=== PATIENT | female | born 1930 | race Caucasian/White ===

== ENCOUNTER 2017-01-25 02:20 | Emergency (ER) | payer MEDICARE, MEDICAID ==
[~2017-01-25] VITALS: Ht 157.5 cm; Wt 72.6 kg
[~2017-01-25 02:20] MED LIST: ACETAMINOPHEN500 M3 PO; ASPIRIN 81MG TA81 MG PO; BENZONATATE200 MG PO; CEFDINIR300 MG PO; CELEXA20 M1 PO; CENTRUM MU9 MG/15 ML PO; CENTRUM WOMEN1 EACH PO; DULCOLAX 1010 MG/SUP PR; EXPECTORAN100 MG/5 M PO; FERROUS SULFAT325 M2 PO; FOLIC ACID 1MG T1 MG PO; LOSARTAN POTASS50 MG PO; MAALOX ADVANCE355 ML PO; MEGACE LIQUI40 MG/ML PO; MELOXICAM7.5 MG PO; MIRALAX(PO17 GM/1 PA PO; MIRALAX17 GM/PACK PO; OMEPRAZOLE40 MG PO; PRILOSEC20 M1 PO; RISPERDAL 0.50.5 MG PO; SPIRIVA HA1 PUFF/INH IH; TESSALON PERLE100 M1 PO; TRAMADOL 50MG T50 M1 PO; ULTRAM50 MG PO; VISINE ADVANCED15 ML OP; VISINE TEARS15 ML OP; XALATAN 0.005%2.5 M1 OP; XALATAN 0.2.5 ML/BOT OP
[2017-01-25 02:36] LABS: LYMPH # 2.1 K/mm3 (0.7-4.5); LYMPH % 17.1 % (10-50.0)
--- NOTE | 2017-01-25 02:38 | Emergency Room Report ---
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 STATES PATIENT HAS C/O CHEST PAIN AND COFFEGROUND EMESIS BUT PATIENT HAS DEMENTIA AND DENIES C/O CHEST PAIN ENROUTE BUT AFTER ARRIVAL PATIENT C/O CHEST PAIN SINCE EATING SUPPER. 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 N Clinical Suspician of Infection? N Mental Status: 2 - Mildly Altered Sepsis Risk:Low Sepsis Risk Have you (or family members/close friends) recently traveled outside the [place]? N If Yes, where/when: Have you had exposure to infectious disease within the past month? N TB? Other? Specify: Source RN notes reviewed, family, RN/MD Exam Limitations no limitations Comment This is an 86-year-old lady brought in to the emergency room from local [facility]. Patient is severely demented, history is very limited. According to the [facility] papers the patient had an episode of hematemesis, and was complaining with chest pain. However when our staff called the correction for additional information it turned out that nobody actually witnessed patient vomiting blood. Patient has a history of Sr's esophagus, according to the medical records obtained from the correction. No additional information is obtained, it is unclear when the patient started complaining with above. ALLERGIES Coded Allergies: penicillin G (07/26/16) CHOCOLATE (FOOD) (Mild, ACID REFLUX 07/26/16) Home Medications Active Scripts Omeprazole (Omeprazole 40MG) 40 MG PO BID #60 ECC Ref 2 Prov: 07/28/16 Reported Medications Losartan Potassium (Losartan 50MG) 50 MG PO DAILY Benzonatate 200 MG PO DAILY Acetaminophen (Acetaminophen Extra Strength) 650 MG PO PRN Q6 PRN PAIN/ FEVER TETRAHYDRZ/DEXT 70/PEG 400/PVP (Visine Advanced Eye Drop) 1 DROP OP DAILY Multivitamin/Iron/Folic Acid (Centrum Women Tablet) 1 EACH PO DAILY Mag Hydrox/Al Hydrox/Simeth (Maalox Advanced Suspension) 30 ML PO Q6HP PRN INDIGESTION Bisacodyl (Dulcolax 10MG Supp) 10 MG [place] Q3D FOLIC ACID (Folic Acid) 1 MG PO DAILY Citalopram Hydrobromide (Celexa) 20 MG PO DAILY Tiotropium [place] (Spiriva) 1 PUFF IH DAILY Ferrous Sulfate (Ferrous Sulfate 325MG) 325 MG PO BID TRAMADOL HCL (Tramadol) 50 MG PO BID Latanoprost (Xalatan 0.005% Opth Soln) 1 DROP OP QHS Polyethylene Glycol 3350 (Glycolax) 17 GM PO DAILY #255 Loperamide HCl (Imodium A-D) 2 MG PO Q 4 HOURS PRN DIARRHEA History Medical History General CAD? No Angina: No ND: No Hypertension? Yes Hyperlipidemia? No CHF? No DVT? No PE? No COPD? No Asthma? No Anemia? No GERD? No Gastric ulcers? No GI Bleed? No Hernia? No Thyroid Problems? No Hypothyroidism? No CVA? No Seizures? No Diabetes? No Renal Insuffiency? No End Stage Renal Disease? No UTI? No Stones? No BPH? No GB Disease: No Nephritic Syndrome? No Asplenia? No Hepatitis? No Sickle Cell Disease? No Arthritis? Yes Migraines? No Cataracts? No Glaucoma? No MRSA? No HIV? No TB? No Anxiety? No Depression? Yes Cancer? No More? No Immunization Hx DT/Tetanus 1-4 Years Ago Flu 2016-17FSN Pneumonia Received In Past Surgical Hx Previous Surgery?Y BILAT. KNEE REPLACEMENT CHOLECYSTECTOMY Family History Family Hx Diabetes No CAD No Hypertension No Hyperlipidemia No Cancer No TB No Social History Smoking Hx Smoker: Never Smoker Tobacco: No Packs/day N/A Alcohol Alcohol: No Review of Systems All Other Systems Reviewed and Negative Cardiovascular chest pain Physical Exam Vital Signs Vital Signs Date Time Temp Pulse Resp B/P Pulse O2 O2 Flow FiO2 Ox Delivery Rate 01/25 0509 86 16 129/83 97 01/25 0356 62 14 188/111 91 01/25 0308 91 14 153/100 98 01/25 0222 98.2 85 14 190/125 94 General Appearance normal appearance, WD/WN, no apparent distress, severely demented, talking to herself Respiratory Status Yes: trachea midline, chest symmetrical, non tender chest. No: respiratory distress. Lung Sounds bilateral: normal breath sounds, lungs clear. Cardiovascular normal exam, regular rate/rhythm, no peripheral edema, no gallop, no JVD, no murmur, no rub, normal peripheral pulses Gastrointestinal normal bowel sounds, normal exam, non tender, soft, no organomegaly Extremities non-tender, normal range of motion, normal inspection Neurologic podiatrist II-XII nml as tested, disoriented x 3, severely demented, talking to herself Mental status depressed affect Skin intact, normal color, warm/dry Medical Decision Making LABS/Meds/Orders Pt receiving controlled substance in ED? No Comment [id number]-vision reevaluated, appears in no acute distress, advised of results obtained, need to follow-up with correction physician within the next 2-3 days. Results/Orders Laboratory Tests 01/25/17 0507: Troponin I < 0.02 01/25/17 020: Amylase 27, Lipase 110 01/25/17 020: Sodium 140, Potassium 5.0, Chloride 103, Carbon Dioxide 30, BUN 32 H, Creatinine 1.1 H, Estimated Creat Clear 42 L, Estimated GFR (MDRD) 47 L, Glucose 150 H, Calcium 9.9, Total Bilirubin 0.3, AST 19, ALT 23, Alkaline Phosphatase 101, Creatine Kinase 38, CK-MB (CK-2) Rel Index 1.3, CK and CKMB Interp 0.5, Troponin I < 0.02, Total Protein 7.6, Albumin 3.4, Globulin 4.2 H, Albumin/Globulin Ratio 0.8 L, WBC 12.0 H, RBC 4.85, Hgb 14.7, Hct 44.7, MCV 92.2, RDW 13.3, Plt Count 207, MPV 8.7, Gran % 71.5, Gran # 8.6 H, Lymphocytes % 17.1, Monocytes % 8.8, Eosinophils % 2.2, Basophils % 0.5, Lymphocytes # 2.1, Monocytes # 1.1 H, Eosinophils # 0.3, Basophils # 0.1, PUBS MCHC 32.8, MCH 30.2 Current Medication Orders Sig/Emanuel Start time Last Medication Dose Route Stop Time Status Admin Iopamidol 75 ML ONCE ONE 01/25 445 UNV 01/25 IV 01/25 Sodium Chloride 10 ML PRN PRN 01/25 445 UNV 01/25 IV 01/25 0614 0445 Sodium Chloride 1,000 ML .STK-MED ONE 01/25 034 DC IV Multi-Ingredient GI 60 ML ONCE ONE 01/25 0345 DC 01/25 Drug PO 01/25 034 0344 Ondansetron HCl 4 MG ONCE ONE 01/25 0345 CAN IV 01/25 0346 Pantoprazole Sodium 40 MG ONCE ONE 01/25 0345 DC 01/25 IV 01/25 0346 0343 Sodium Chloride 10 ML ONCE ONE 01/25 0345 DC 01/25 IV 01/25 0346 0400 Sodium Chloride 1,000 ML .Q1H1M 01/25 0345 DC 01/25 IV 01/25 0445 0351 Sodium Chloride 10 ML PRN PRN 01/25 345 AC 01/25 IV 01/26 034 0352 Pantoprazole Sodium 0 .STK-MED ONE 01/25 034 DC IV Multi-Ingredient GI 0 .STK-MED ONE 01/25 034 DC Drug PO Ondansetron HCl 4 MG ONCE ONE 01/25 0330 DC 01/25 IV 01/25 0331 0329 Ondansetron HCl 0 .STK-MED ONE 01/25 0329 DC .ROUTE Aspirin 325 MG ONCE ONE 01/25 0230 CAN PO 01/25 0231 Sodium Chloride 10 ML PRN PRN 01/25 0230 AC 01/25 IV 01/26 022 0352 Orders Procedure Date/time Status DIET-NOTHING BY MOUTH 01/25 B Active TROPONIN I 01/25 0514 Complete CTA-CHEST 01/[address] CHEST W/PE PROTOCOL REQ 01/25 337 Active LIPASE 01/25 238 Complete AMYLASE 01/25 238 Complete ELECTROCARDIOGRAM REQUEST 01/25 223 Active IV SALINE LOCK 01/25 223 Active DAMPENER OPERATOR 01/25 223 Active COMPLETE METABOLIC PANEL 01/25 223 Complete CBC WITH AUTO DIFF 01/25 223 Complete CARDIAC ENZYMES 01/25 223 Complete 12 LEAD EKG-JOE (INITIAL) 01/25 UNK Active CM/EKG CM/washroom operator Rhythm Normal Sinus Rhythm Rate 88 Ectopy No Comments No acute ischemic changes EKG rate, NSR, rhythm, no evid. of ischemic chgs, no ectopy, normal QRS, normal NJ, no EKG for comparison, non-spec. ST/Twave chgs, ST elevation, ST depression, LBBB, RBBB, ectopy, abnormal Q waves XRAY/CT/US XRAY/CT/US 1 XRAY chest XR interpretation by reviewed by me Xray Results no infiltrates, normal heart size, normal lung inflation pura Comment No acute process XRAY/CT/US 2 CT chest (PE protocol) CT interpretation by discussed w/radiologist CT Results abnormal Comment See virtual radiology report, consistent with no pulmonary embolus, large para- esophageal hernia Departure Departure Time of Disposition 0548 Disposition DC Home or Self Care(routine) Clinical Impression Primary Impression: Hiatal hernia Condition STABLE Referrals Spencer Gan MD (Family) Patient Instructions DI for Hiatal Hernia Additional Instructions Please follow up with your NH physician within the next 2 days. Discharge Counseling Counseled pt/family regarding diagnosis, test results, medications/RX, home care, follow up needs Comment Please follow up with your NH physician within the next 2 days. ED Critical Care Critical Care No at 0609
--- NOTE | 2017-01-25 02:38 | Emergency Room Report ---
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 STATES PATIENT HAS C/O CHEST PAIN AND COFFEGROUND EMESIS BUT PATIENT HAS DEMENTIA AND DENIES C/O CHEST PAIN ENROUTE BUT AFTER ARRIVAL PATIENT C/O CHEST PAIN SINCE EATING SUPPER. 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 N Clinical Suspician of Infection? N Mental Status: 2 - Mildly Altered Sepsis Risk:Low Sepsis Risk Have you (or family members/close friends) recently traveled outside the [place]? N If Yes, where/when: Have you had exposure to infectious disease within the past month? N TB? Other? Specify: Source RN notes reviewed, family, RN/MD Exam Limitations no limitations Comment This is an 86-year-old lady brought in to the emergency room from local [facility]. Patient is severely demented, history is very limited. According to the [facility] papers the patient had an episode of hematemesis, and was complaining with chest pain. However when our staff called the [facility] for additional information it turned out that nobody actually witnessed patient vomiting blood. Patient has a history of Sr's esophagus, according to the medical records obtained from the [facility]. No additional information is obtained, it is unclear when the patient started complaining with above. ALLERGIES Coded Allergies: penicillin G (07/26/16) CHOCOLATE (FOOD) (Mild, ACID REFLUX 07/26/16) Home Medications Active Scripts Omeprazole (Omeprazole 40MG) 40 MG PO BID #60 ECC Ref 2 Prov: 07/28/16 Reported Medications Losartan Potassium (Losartan 50MG) 50 MG PO DAILY Benzonatate 200 MG PO DAILY Acetaminophen (Acetaminophen Extra Strength) 650 MG PO PRN Q6 PRN PAIN/ FEVER TETRAHYDRZ/DEXT 70/PEG 400/PVP (Visine Advanced Eye Drop) 1 DROP OP DAILY Multivitamin/Iron/Folic Acid (Centrum Women Tablet) 1 EACH PO DAILY Mag Hydrox/Al Hydrox/Simeth (Maalox Advanced Suspension) 30 ML PO Q6HP PRN INDIGESTION Bisacodyl (Dulcolax 10MG Supp) 10 MG [place] Q3D FOLIC ACID (Folic Acid) 1 MG PO DAILY Citalopram Hydrobromide (Celexa) 20 MG PO DAILY Tiotropium [place] (Spiriva) 1 PUFF IH DAILY Ferrous Sulfate (Ferrous Sulfate 325MG) 325 MG PO BID TRAMADOL HCL (Tramadol) 50 MG PO BID Latanoprost (Xalatan 0.005% Opth Soln) 1 DROP OP QHS Polyethylene Glycol 3350 (Glycolax) 17 GM PO DAILY #255 Loperamide HCl (Imodium A-D) 2 MG PO Q 4 HOURS PRN DIARRHEA History Medical History General CAD? No Angina: No [place]: No Hypertension? Yes Hyperlipidemia? No CHF? No DVT? No PE? No COPD? No Asthma? No Anemia? No GERD? No Gastric ulcers? No GI Bleed? No Hernia? No Thyroid Problems? No Hypothyroidism? No CVA? No Seizures? No Diabetes? No Renal Insuffiency? No End Stage Renal Disease? No UTI? No Stones? No BPH? No GB Disease: No Nephritic Syndrome? No Asplenia? No Hepatitis? No Sickle Cell Disease? No Arthritis? Yes Migraines? No Cataracts? No Glaucoma? No MRSA? No HIV? No TB? No Anxiety? No Depression? Yes Cancer? No More? No Immunization Hx DT/Tetanus 1-4 Years Ago Flu 2016-17FSN Pneumonia Received In Past Surgical Hx Previous Surgery?Y BILAT. KNEE REPLACEMENT CHOLECYSTECTOMY Family History Family Hx Diabetes No CAD No Hypertension No Hyperlipidemia No Cancer No TB No Social History Smoking Hx Smoker: Never Smoker Tobacco: No Packs/day N/A Alcohol Alcohol: No Review of Systems All Other Systems Reviewed and Negative Cardiovascular chest pain Physical Exam Vital Signs Vital Signs Date Time Temp Pulse Resp B/P Pulse O2 O2 Flow FiO2 Ox Delivery Rate 01/25 0509 86 16 129/83 97 01/25 0356 62 14 188/111 91 01/25 0308 91 14 153/100 98 01/25 0222 98.2 85 14 190/125 94 General Appearance normal appearance, WD/WN, no apparent distress, severely demented, talking to herself Respiratory Status Yes: trachea midline, chest symmetrical, non tender chest. No: respiratory distress. Lung Sounds bilateral: normal breath sounds, lungs clear. Cardiovascular normal exam, regular rate/rhythm, no peripheral edema, no gallop, no JVD, no murmur, no rub, normal peripheral pulses Gastrointestinal normal bowel sounds, normal exam, non tender, soft, no organomegaly Extremities non-tender, normal range of motion, normal inspection Neurologic professor of biological sciences II-XII nml as tested, disoriented x 3, severely demented, talking to herself Mental status depressed affect Skin intact, normal color, warm/dry Medical Decision Making LABS/Meds/Orders Pt receiving controlled substance in ED? No Comment 0530am-vision reevaluated, appears in no acute distress, advised of results obtained, need to follow-up with [facility] physician within the next 2-3 days. Results/Orders Laboratory Tests 01/25/17 0507: Troponin I < 0.02 01/25/17 020: Amylase 27, Lipase 110 01/25/17 020: Sodium 140, Potassium 5.0, Chloride 103, Carbon Dioxide 30, BUN 32 H, Creatinine 1.1 H, Estimated Creat Clear 42 L, Estimated GFR (MDRD) 47 L, Glucose 150 H, Calcium 9.9, Total Bilirubin 0.3, AST 19, ALT 23, Alkaline Phosphatase 101, Creatine Kinase 38, CK-MB (CK-2) Rel Index 1.3, CK and CKMB Interp 0.5, Troponin I < 0.02, Total Protein 7.6, Albumin 3.4, Globulin 4.2 H, Albumin/Globulin Ratio 0.8 L, WBC 12.0 H, RBC 4.85, Hgb 14.7, Hct 44.7, MCV 92.2, RDW 13.3, Plt Count 207, MPV 8.7, Gran % 71.5, Gran # 8.6 H, Lymphocytes % 17.1, Monocytes % 8.8, Eosinophils % 2.2, Basophils % 0.5, Lymphocytes # 2.1, Monocytes # 1.1 H, Eosinophils # 0.3, Basophils # 0.1, PUBS MCHC 32.8, MCH 30.2 Current Medication Orders Sig/Emanuel Start time Last Medication Dose Route Stop Time Status Admin Iopamidol 75 ML ONCE ONE 01/25 445 UNV 01/25 IV 01/25 Sodium Chloride 10 ML PRN PRN 01/25 445 UNV 01/25 IV 01/25 0614 0445 Sodium Chloride 1,000 ML .STK-MED ONE 01/25 034 DC IV Multi-Ingredient GI 60 ML ONCE ONE 01/25 0345 DC 01/25 Drug PO 01/25 034 0344 Ondansetron HCl 4 MG ONCE ONE 01/25 0345 CAN IV 01/25 0346 Pantoprazole Sodium 40 MG ONCE ONE 01/25 0345 DC 01/25 IV 01/25 0346 0343 Sodium Chloride 10 ML ONCE ONE 01/25 0345 DC 01/25 IV 01/25 0346 0400 Sodium Chloride 1,000 ML .Q1H1M 01/25 0345 DC 01/25 IV 01/25 0445 0351 Sodium Chloride 10 ML PRN PRN 01/25 345 AC 01/25 IV 01/26 034 0352 Pantoprazole Sodium 0 .STK-MED ONE 01/25 034 DC IV Multi-Ingredient GI 0 .STK-MED ONE 01/25 034 DC Drug PO Ondansetron HCl 4 MG ONCE ONE 01/25 0330 DC 01/25 IV 01/25 0331 0329 Ondansetron HCl 0 .STK-MED ONE 01/25 0329 DC .ROUTE Aspirin 325 MG ONCE ONE 01/25 0230 CAN PO 01/25 0231 Sodium Chloride 10 ML PRN PRN 01/25 0230 AC 01/25 IV 01/26 022 0352 Orders Procedure Date/time Status DIET-NOTHING BY MOUTH 01/25 B Active TROPONIN I 01/25 0514 Complete CTA-CHEST 01/[address] CHEST W/PE PROTOCOL REQ 01/25 337 Active LIPASE 01/25 238 Complete AMYLASE 01/25 238 Complete ELECTROCARDIOGRAM REQUEST 01/25 223 Active IV SALINE LOCK 01/25 223 Active SYSTEMS DEVELOPMENT CONSULTANT 01/25 223 Active COMPLETE METABOLIC PANEL 01/25 223 Complete CBC WITH AUTO DIFF 01/25 223 Complete CARDIAC ENZYMES 01/25 223 Complete 12 LEAD EKG-JOE (INITIAL) 01/25 UNK Active CM/EKG CM/insurance collector Rhythm Normal Sinus Rhythm Rate 88 Ectopy No Comments No acute ischemic changes EKG rate, NSR, rhythm, no evid. of ischemic chgs, no ectopy, normal QRS, normal PA, no EKG for comparison, non-spec. ST/Twave chgs, ST elevation, ST depression, LBBB, RBBB, ectopy, abnormal Q waves XRAY/CT/US XRAY/CT/US 1 XRAY chest XR interpretation by reviewed by me Xray Results no infiltrates, normal heart size, normal lung inflation pura Comment No acute process XRAY/CT/US 2 CT chest (PE protocol) CT interpretation by discussed w/radiologist CT Results abnormal Comment See virtual radiology report, consistent with no pulmonary embolus, large para- esophageal hernia Departure Departure Time of Disposition 0548 Disposition DC Home or Self Care(routine) Clinical Impression Primary Impression: Hiatal hernia Condition STABLE Referrals Spencer Gna MD (Family) Patient Instructions DI for Hiatal Hernia Additional Instructions Please follow up with your NH physician within the next 2 days. Discharge Counseling Counseled pt/family regarding diagnosis, test results, medications/RX, home care, follow up needs Comment Please follow up with your NH physician within the next 2 days. ED Critical Care Critical Care No at 0609
[2017-01-25 02:41] LABS: HEMOGLOBIN 14.7 g/dL (12.2-16.2)
[2017-01-25] MEDS ORDERED: GLYCOLAX17 GM/DOSE PO (02:43)
[2017-01-25] MEDS ORDERED: IMODIUM A-D2 M3 PO (02:47)
[2017-01-25 03:01] LABS: BUN 32 mg/dL (7-18); GFR (ESTIMATED) 47 ML/MIN (59-)
--- OUTSIDE RECORDS SUMMARY | 2017-01-25 03:10 | External Medical Summary Rpt | CCD ---
Author Author , VAISHALI Organization VAISHALI Address Unknown Phone Care Team Providers Care Medical Surgery Nurse Name Role Phone BARRY BRANDT, BARRY BRANDT Unavailable Unavailable [facility] Unavailable Unavailable SERVICE, [facility] JAEGER, JAEGER Unavailable Unavailable BEINEKE ARIA, BEINEKE Unavailable Unavailable ARIA BESSON REINIER, BESSON Unavailable Unavailable [facility] Unavailable Unavailable [facility], [facility] Unavailable Unavailable [facility]ICE, [facility] SPIVEY JAM, SPIVEY JAM Unavailable Unavailable [facility], Unavailable Unavailable [facility], Unavailable Unavailable [facility]-, Unavailable Unavailable [facility]- CHATTA DAYANNA, CHATTA Unavailable Unavailable DAYANNA CHIPPS JOSE & Unavailable Unavailable DUBILIER, CHIPPS JOSE [facility] DUBILIER HAZEL AZRA, HAZEL Unavailable Unavailable AZRA [facility], Unavailable Unavailable [facility] Unavailable Unavailable [facility], [facility] Unavailable Unavailable [facility], [facility] Unavailable Unavailable LAB, [facility] Unavailable Unavailable LAB, [facility] Unavailable Unavailable [facility], [facility] Unavailable Unavailable TRANSP[facility]ATION [facility], [facility] FEEBACK REE, FEEBACK Unavailable Unavailable REE JENNY JESSICA, JENNY Unavailable Unavailable JESSICA OMAR, OMAR Unavailable Unavailable OMAR MARIELA, OMAR Unavailable Unavailable MARIELA [facility] &, [facility] SPARKS PHI, SPARKS Unavailable Unavailable PHI CHU RHO, CHU Unavailable Unavailable RHO AZIZA HARKINS, Unavailable Unavailable STEVIE DAVE, Unavailable Unavailable STEVIE WHEATLEY HARDESTY Unavailable Unavailable GEM TOMER, Unavailable Unavailable GEM TOMER [facility] Unavailable Unavailable INC, [facility] GALEN FRA, GALEN FRA Unavailable Unavailable TIARA YOUNG, Unavailable Unavailable [facility] Unavailable Unavailable VISION, [facility], Unavailable Unavailable [facility] Unavailable Unavailable [facility], [facility] YASH CAMACHO, Unavailable Unavailable YASH CAMACHO [facility], [facility] KOSTELIC VAMSI, Unavailable Unavailable [facility] KOSTELIC, VAMSI K, Unavailable Unavailable KOSTELIC, VAMSI K SUJEY C, SUJEY C Unavailable Unavailable [facility], [facility] Unavailable Unavailable HOLDING, [facility] Unavailable Unavailable HOLDING, [facility], Unavailable Unavailable [facility] FED, [facility] FED Unavailable Unavailable [facility], [facility] Unavailable Unavailable JOE JR, JOE JR Unavailable Unavailable [facility] Unavailable Un[facility] LUTZ MONA, LUTZ MONA Unavailable Unavailable JEAN, JEAN Unavailable Unavailable [facility] Unavailable Unavailable ASSOCIAT, [facility] DEMARCUS MCHUGH, Unavailable Unavailable DEMARCUS AUGUST RAFAT, Unavailable Unavailable MATA RAFATVivek DOUGLASS, Unavailable Unavailable GRANT MOTA, Unavailable Unavailable GRANT AUGUST JR DEIDRE, Unavailable Unavailable OBEDE DEIDRE DAMON SANCHEZGER Unavailable Unavailable LAURAMARIAJOSE JIANG LAURA Unavailable Unavailable DEIDRE [facility] Unavailable Unavailable [facility], [facility] Unavailable Unavailable AMBULANCE SERV, [facility] Unavailable [facility]available PPLL, [facility], [facility]available Unavailable [facility], Unavailable Unavailable [facility], Unavailable Unavailable [facility] Unavailable Unavailable AMBULANCE SE, [facility] Unavailable Unavailable AMBULANCE SE, [facility], Unavailable [facility]available [facility], Unavailable Unavailable PLLC, [facility] PETREA GAMALIEL, PETREA Unavailable Unavailable GAMALIEL [facility]KA [facility], Unavailable Unavailable L[facility]KA [facility] Unavailable Unavailable [facility], [facility] ABIMAEL, C N, ABIMAEL, C Unavailable Unavailable N [facility], Unavailable Unavailable [facility] EDWARDS ALEKSEY, EDWARDS ALEKSEY Unavailable Unavailable [facility], Unavailable Unavailable [facility] Unavailable Unavailable EQU[facility], [facility] Unavailable Unavailable [facility]QU[facility]ME, [facility] Unavailable Unavailable EMERGENCY PHYS, [facility] MARVA SHE, Unavailable Unavailable MARVA SHE [facility] Unavailable Unavailable LALI, [facility], Unavailable Unavailable [facility], Unavailable Unavailable [facility] BLAZE THAKUR Unavailable Unavailable [facility] Unavailable Unavailable ASSIST, [facility], Unavailable Unavailable [facility] VANDERHOOF MAR, Unavailable Unavailable VANDERHOOF MAR SYDNEE TORIN, SYDNEE Unavailable Unavailable TORIN DO PHI, DO Unavailable Unavailable PHI WALKER FOR, WALKER Unavailable Unavailable FOR ONEIDA HO, ONEIDA Unavailable Unavailable VIC ANNA SANCHEZ Unavailable Unavailable PSC, ANNA SANCHEZ [facility] Purpose Continuity of Care Document - 04-18-2007 through 2016 Problems Code Diagnosis DOS Provider Status B351 TINEA 12-18-2016 [facility] UNGUIUM E I739 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 UNSPECIFIED M2040 OTHER 12-18-2016 [facility] HAMMER TOES E ACQUIRED UNSPECIFIED FOOT D649 ANEMIA 11-18-2016 [facility] LAB G309 ALZHEIMERS 07-28-2016 [facility] UNSPECIFIED SERVICE Z9181 HISTORY OF 07-28-2016 [facility] SERVICE K209 ESOPHAGITIS 07-27-2016 CHIPPS JOSE & UNSPECIFIED DUBILIER K922 GASTROINTES 07-27-2016 [facility] TINAL ANESTH OF HEMORRHAGE [facility] UNSPECIFIED I10 ESSENTIAL 07-26-2016 [facility], HYPERTENSIO PLLC N 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 K449 DIAPHRAGMAT 07-26-2016 [facility] IC HERNIA PHYSICIANS W/O GROUP OBSTRUCTION OR GANGRENE R05 COUGH 07-26-2016 [facility] R0602 SHORTNESS 07-26-2016 [place] OF BREATH [facility]ICAL [facility]ING ASS R1084 GENERALIZED 07-26-2016 [facility] PAIN [facility] K920 HEMATEMESIS 07-25-2016 [facility] AMBULANCE SE R112 NAUSEA WITH 07-25-2016 [facility] UNSPECIFIED AMBULANCE SE H2513 AGE-RELATED 07-02-2016 ANNA Love NUCLEAR LAURA PSC CATARACT BILATERAL [id number] OPEN ANGLE 07-02-2016 ANNA Wilks/ROSA SANCHEZ PSC E FIND HIGH RISK BILATERAL H6121 IMPACTED 04-17-2016 [facility] CERUMEN E RIGHT EAR D509 IRON 02-19-2016 [facility] ANEMIA INTERNAL UNSPECIFIED MEDI G301 ALZHEIMERS 02-19-2016 [facility] DIS[facility]ASE [facility] WITH LATE INTERNAL ONSET MEDI M150 PRIMARY 02-19-2016 [facility] GENERALIZ[facility] INTERNAL OSTEOARTHRI MEDI TIS R300 DYSURIA 01-27-2016 [facility] [place] R4182 ALTERED 12-19-2015 [facility] AMBULANCE STATUS SERVICE UNSPECIFIED N289 DISORDER OF 12-17-2015 [facility] URETER PLLC UNSPECIFIED R000 TACHYCARDIA 12-17-2015 [facility], UNSPECIFIED PLLC R509 FEVER 12-17-2015 [facility], PLLC R918 OTHER 12-17-2015 [place] NONSPECIFIC MEDICAL ABNORMAL IMAGING ASS FINDING OF LUNG FIELD M6281 MUSCLE 10-07-2015 [facility] GENERALIZED AMBULANCE SE R1310 DYSPHAGIA 10-07-2015 [facility] R4702 DYSPHASIA 10-07-2015 [facility] R531 WEAKNESS 10-07-2015 [facility] AMBULANCE SE Z7409 OTHER 10-07-2015 [facility] MOBILITY AMBULANCE SE H3531 NONEXUDATIV 10-04-2015 ANNA SANCHEZ [facility] 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 [id number] PRIMARY 10-04-2015 ANNA Love OPEN-ANGLE LAURA [facility] GLAUCOMA MILD STAGE L36242 ACUTE 09-12-2015 [facility] LYMPHANGITI E S OF LEFT TOE L600 INGROWING 09-12-2015 [facility] NAIL E L744 ANHIDROSIS 09-12-2015 [facility] E L84 CORNS AND 09-12-2015 [facility] CALLOSITIES E M90282 PAIN IN 09-12-2015 [facility] LEFT TOES E R69 ILLNESS 08-14-2015 [facility] UNSPECIFIED TRANSPORTAT ION SER M109 GOUT 08-08-2015 [facility] UNSPECIFIED PHYSICIANS LA P48218 PRIMARY 08-05-2015 [facility] OSTEOARTHRI MOBILEX TIS LEFT WRIST D500 IRON 07-07-2015 [facility]ICIANS ANEMIA SEC GROUP TO BLOOD LOSS CHRONIC K921 MELENA 07-07-2015 [facility] R7989 OTHER SPEC 07-07-2015 [facility] ABNORMAL [facility] AMBULANCE BLOOD SE CHEMISTRY Z791 PRINT PRODUCTION COORDINATOR 07-07-2015 [facility] CURR [facility] NON-STEROID INC AL&ANTI-INF LAMMATORIES Z7982 PRINT PRODUCTION COORDINATOR 07-07-2015 [facility] CURRENT USE [facility] OF [facility] INC T80249 PAIN IN 05-08-2015 [facility] UNSPECIFIED E FOOT R410 DISORIENTAT 04-20-2015 [facility] ION [facility] UNSPECIFIED INC K5909 OTHER 03-09-2015 [facility] N INTERNAL MED H6123 IMPACTED 03-05-2015 [facility] CERUMEN E BILATERAL S61846 DRUSEN 11-23-2014 ANNA Love DEGENERATIV LAURA PSC E OF [place] BILATERAL 3809 UNSPECIFIED 09-14-2014 [facility] DISORDER E OF EXTERNAL EAR 3899 UNSPECIFIED 09-14-2014 [facility] HEARING E LOSS 81103 ASTHMA, 05-24-2014 [facility] UNSPECIFIED HOME , MEDICAL UNSPECIFIED EQUIPME STATUS 50625 MUSCLE 05-24-2014 [facility] WEAKNESS HOME (GENERALIZE MEDICAL D) EQUIPME 60806 DYSPHAGIA 05-24-2014 [facility] UNSPECIFIED HOME MEDICAL EQUIPME 1101 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 [facility] 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 700 CORNS AND 05-01-2014 [facility] CALLOSITIES E 7030 INGROWING 05-01-2014 [facility] NAIL E 7050 ANHIDROSIS 05-01-2014 [facility] E 7295 PAIN IN 05-01-2014 [facility] SOFT E TISSUES OF LIMB 70851 BORDERLINE 03-26-2014 ANNA Love GLAUC OPEN LAURA PSC ANGLE BL FINDINGS LOW RSK 01115 NUCLEAR 03-26-2014 ANNA Love SCLEROSIS LAURA PSC 3804 IMPACTED 02-05-2014 [facility] CERUMEN E 1104 DERMATOPHYT 12-08-2013 [facility] OSIS OF E FOOT 76465 OTHER 12-08-2013 [facility] PERIPHERAL E VASCULAR DISEASE 9243 CONTUSION 12-08-2013 [facility] OF TOE E 4019 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-07-2013 [facility] ESSENTIAL [facility] N 49432 WHEEZING 12-06-2013 [facility] 7862 COUGH 12-06-2013 [facility] 5180 PULMONARY 11-28-2013 [facility] COLLAPSE MOBILEX 5990 URINARY 09-25-2013 [facility] TRACT PHYSICIANS INFECTION LA SITE NOT SPECIFIED 97376 PAIN IN 04-26-2013 [facility], JOINT, [facility] LOWER LEG OLEKSANDR CO HOS V4365 KNEE JOINT 04-19-2013 [facility] BY OTHER ASSOCIAT MEANS V5409 OTH 04-19-2013 [facility] INVOLVING ASSOCIAT INTERNAL FIXATION DEVICE 84461 OTHER 02-13-2013 [facility], CONVULSIONS [facility] 32456 NONSPECIFIC 02-13-2013 [facility], ABNORMAL [employer] [facility] ELECTROENCE [facility]LE[facility]DR CO PHALOGRAM HOS 3319 UNSPECIFIED 02-10-2013 [facility] CEREBRAL RADIOLOGY DEGENERATIO ASSOCIAT N 75665 LOW TENSION 12-06-2012 [facility] OPEN-ANGLE AND ZHAO GLAUCOMA VISION 32055 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-06-2012 [facility] SENILE [facility] CATARACT VISION 3674 PRESBYOPIA 12-06-2012 [facility] VISION 38664 URINARY 11-25-2012 [facility] FREQUENCY [facility] 26124 URGENCY OF 11-25-2012 [facility], URINATION [facility]OS 7350 HALLUX 11-24-2012 [facility] VALGUS E V5869 LONG-TERM 09-30-2012 [facility], (CURRENT) [employer] MECH[employer]IC USE OF OLEKSANDR CO OTHER HOS MEDICATIONS V5883 ENCOUNTER 09-30-2012 [facility], FOR [employer]ANT MECHANIC THERAPEUTIC [facility]LEKS[facility]DR CO DRUG HOS MONITORING 4293 CARDIOMEGAL 05-14-2012 [facility] Y RADIOLOGY ASSOCIAT 5533 DIAPHRAGMAT 05-14-2012 [facility] WALTER W/O RADIOLOGY MENTION ASSOCIAT OBSTRUCTION /GANGREN 90430 PAINFUL 05-14-2012 [facility], RESPIRATION [facility] [employer] [facility]OS 7354 OTHER 02-10-2012 [facility] HAMMER TOE E 2724 OTHER AND 10-17-2011 [facility], UNSPECIFIED [employer] OLEKSANDR CO HYPERLIPIDE HOS FINA 2859 UNSPECIFIED 10-17-2011 [facility], ANEMIA [facility] 46605 HEAD 02-03-2011 [facility] [place] [facility], RADIOLOGY UNSPECIFIED 00738 CHEST PAIN 01-09-2011 [facility], UNSPECIFIED [facility]LEKS[facility]OS 8020 NASAL 01-04-2011 [facility] [place], RADIOLOGY CLOSED FRACTURE 9212 CONTUSION 01-04-2011 [facility] [place] OF ORBITAL RADIOLOGY TISSUES 29740 DIAB W/O 12-29-2010 [facility] COMP TYPE RAFAT II/UNS NOT STATED UNCNTRL 4011 ESSENTIAL 12-29-2010 [facility] HYPERTENSIO RAFAT N, BENIGN 33060 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[facility] CEREBRAL RAFAT ARTERY OCCLUSION W/INFARCT 4658 ACUTE URIS 10-17-2010 [facility] OF OTHER INTERNAL MULTIPLE MEDICINE & SITES 59008 SWELLING OF 10-17-2010 [facility] LIMB [place] 8798 OPEN WOUND 10-17-2010 [facility] UNSPEC SITE INTERNAL WITHOUT MEDICINE & MENTION COMP 8820 OPEN WOUND 10-17-2010 [facility] HAND NO INTERNAL FINGER MEDICINE & ALONE W/O MENTION COMP 39624 ESOPHAGEAL 10-11-2010 [facility] REFLUX [place] 97016 OTHER CHEST 10-11-[address] [facility] PAIN [place] V1254 PERSONAL HX 10-11-2010 [facility] TIA & CI [place] W/O [place] RESIDUAL DEFICITS V5849 OTHER 10-06-2010 [facility], SPECIFIED [employer] MECH[employer]IC AFTERCARE [facility] FOLLOWING HOS SURGERY 67567 CRUSHING 10-05-2010 [facility] INJURY OF HOSPITAL HAND 56514 HEMORRHAGE 10-05-2010 [facility] COMPLICATIN HOSPITAL G A PROCEDURE NEC V5832 ENCOUNTER 10-05-2010 [facility] FOR REMOVAL HOSPITAL OF SUTURES 25913 OSTEOARTHRO 10-01-2010 [facility] S UNSPEC AMERIC WHETHER HOLDING GEN/LOC UNSPEC SITE 15539 UNSPECIFIED 09-03-2010 [facility] INTERNAL ARTHROPATHY MEDICINE & SITE UNSPECIFIED 98208 OCCLUSION&S 08-27-2010 [facility] TENOSIS SERV CAROTID FOUNDATIO ARTERY W/INFARCT 3310 ALZHEIMERS 06-25-2010 [facility] DISEASE AMERIC HOLDING 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 94050 NONEXUDATIV 05-26-2010 [facility] SENILE [facility] MACULAR VISION DEGENERATIO N RETINA 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 70101 MEMORY LOSS 05-22-2010 [facility] 436 ACUTE BUT 05-05-2010 [facility] ILL-DEFINED SERV FOUNDAT[facility] CEREBROVASC ULAR DISEASE 29475 ACUT 05-02-2010 [facility] MYOCARD SERV INFARCT OTH FOUNDATIO LAT WALL EPIS CARE UNS 7197 DIFFICULTY 05-02-2010 [facility] IN WALKING [facility] LALI 7455 OSTIUM 05-02-2010 [facility] TYPE ATRIAL SEPTAL DEFECT 42683 OTHER 05-02-2010 [facility] MALAISE [place] 89557 ALTERED 05-02-2010 [facility] M[facility] SERV STATUS FOUNDATIO 13129 DYSARTHRIA 05-02-2010 [facility] 4660 ACUTE 04-18-2010 [facility] BRONCHITIS INTERNAL MEDICINE & 496 CHRONIC 04-18-2010 [facility] AIRWAY INTERNAL OBSTRUCTION MEDICINE & NEC 462 ACUTE 04-14-[address] [facility] PHARYNGITIS [facility] LALI 88086 OBST 04-14-2010 [facility] CHRONIC [facility] BRONCHITIS LALI W/ACUTE BRONCHITIS 91226 CHILLS 04-14-2010 [facility] WITHOUT [facility] FEVER LALI 59275 SHORTNESS 04-14-2010 [facility] OF BREATH [facility] LALI 7038 OTHER 03-18-2010 [facility] FED SPECIFIED DISEASE OF NAIL 88258 MECHANICAL 03-13-2010 [facility] OF S SPORT PROSTHETIC JOINT 7802 SYNCOPE AND 01-25-2010 [facility] EMERGENCY PHYS 9595 INJURY 10-16-2009 [facility] [place] OTHER AND RADIOLOGY UNSPECIFIED FINGER 8830 OPEN WOUND 10-15-2009 [facility] FINGER [place] WITHOUT LALI MENTION COMPLICATIO N E918 CAUGHT 10-15-2009 [facility] OR L[facility]I BETWEEN OBJECTS 49534 FIRST 06-18-2009 [facility] DEGREE [facility] ATRIOVENTRI LALI CULAR BLOCK 76419 PAIN IN 06-18-2009 [facility] JOINT RAD[facility] PELVIC REGION AND THIGH 7231 CERVICALGIA 06-18-2009 [facility] RAD[facility] 46476 CONTUSION 06-18-2009 [facility] OF HIP [place] 9596 INJURY 06-18-2009 [facility] OTHER AND [facility] UNSPECIFIED LALI HIP AND THIGH E8496 PLACE OF 06-18-2009 [facility] OCCURRENCE [facility] PUBLIC LALI BUILDING E8859 FALL FROM 06-18-2009 [facility] OTHER [facility] SLIPPING LALI TRIPPING OR STUMBLING V1271 PERSONAL 06-25-2008 [facility] HISTORY OF CLINIC PEPTIC PPLLC ULCER DISEASE 9181 SUPERFICIAL 09-23-2007 [place] [facility] OF SERV CORNEA FOUNDATIO 86755 DRUSEN OF 09-19-2007 [facility] RETINA SERV [facility] 7840 HEADACHE 09-11-2007 [facility] [place] [facility] E8889 UNSPECIFIED 09-11-2007 [facility] [place] FALL RADIOLOGY D64.9 ANEMIA, UNSPECIFIED E78.4 OTHER HYPERLIPIDE FINA K92.2 GASTROINTES TINAL HEMORRHAGE, UNSPECIFIED N28.9 DISORDER OF KIDNEY AND URETER, UNSPECIFIED R00.0 TACHYCARDIA , UNSPECIFIED R50.9 FEVER, UNSPECIFIED Medications Na ND Rx Da Fi Fi Am Da Di Ph RX Ph St me C No te ll ll ou ys ag ar # ys at rm s nt no ma ic us Or Da si cy ia de te s n re d EY 37 07 11 0 15 8 NE 17 BE Ac E 20 -2 -3 0. [place] [address] 50 0- 0- 00 14 ON ve OP 13 20 20 0 ME 8 S [address] 5 CA EP L HE GR N OU A P CE 00 11 11 0 14 14 NE 17 BE Ac RT 90 -1 -1 0. [place] 69 SS ti AV 42 5- 5- 00 67 ON ve IT 64 20 20 0 ME 2 E- [address] AN 2 CA EP TI L HE OX GR N ID OU A AN P T TA BL ET FO 62 07 11 0 30 30 NE 17 BE Ac LI 58 -1 -0 0. [place] 66 SS ti C 40 1- 8- 00 43 ON ve AC 89 20 20 0 ME 8 ID [address] 1 1 CA EP L HE MG GR N OU A TA P BL ET CE 00 09 11 0 14 14 NE 17 BE Ac RT 90 -2 -0 0. [place] 63 SS ti AV 42 0- 3- 00 68 ON ve IT 64 20 20 0 ME 2 E- [address] AN 2 CA EP TI L HE OX GR N ID OU A AN P T TA BL ET FE 00 06 11 0 60 30 NE 17 BE Ac RR 90 -3 -0 0. [place] 62 SS ti OU 47 0- 2- 00 98 ON ve S 59 20 20 0 ME 3 EDWARDS [address] LF 1 CA EP AT L HE E GR N 32 OU A 5 P MG TA BL ET EY 37 07 10 0 15 8 NE 17 BE Ac E 20 -2 -2 0. [place] [address] 50 0- 3- 00 41 ON ve OP 13 20 20 0 ME 7 S [address] 5 CA EP L HE GR N OU A P CE 00 09 10 0 14 14 NE 17 BE Ac RT 90 -2 -2 0. [place] 57 SS ti AV 42 0- 1- 00 04 ON ve IT 64 20 20 0 ME 2 E- [address] AN 2 CA EP TI L HE OX GR N ID OU A AN P T TA BL ET FO 62 07 10 0 30 30 NE 17 BE Ac LI 58 -1 -0 0. IL 50 SS ti C 40 1- 9- 00 49 ON ve AC 89 20 20 0 ME 9 ID [address] 1 1 CA EP L HE MG GR N OU A TA P BL ET CE 00 09 10 0 14 14 NE 17 BE Ac RT 90 -2 -0 0. [place] 49 SS ti AV 42 0- 7- 00 99 ON ve IT 64 20 20 0 ME 2 E- [address] AN 2 CA EP TI L HE OX GR N ID OU A AN P T TA BL ET FE 00 06 10 0 60 30 NE 17 BE Ac RR 90 -3 -0 0. IL 46 SS ti OU 47 0- 2- 00 81 ON ve S 59 20 20 0 ME 7 EDWARDS [address] LF 1 CA EP AT L HE E GR N 32 OU A 5 P MG TA BL ET EY 37 07 09 0 15 8 NE 17 BE Ac E 20 -2 -2 0. [place] [address] 50 0- 0- 00 17 ON ve OP 13 20 20 0 ME 6 S [address] 5 CA EP L HE GR N OU A P CE 00 09 09 0 14 14 NE 17 BE Ac RT 90 -2 -2 0. [place] 41 SS ti AV 42 0- 0- 00 01 ON ve IT 64 20 20 0 ME 5 E- [address] AN 2 CA EP TI L HE OX GR N ID OU A AN P T TA BL ET FO 62 07 09 0 30 30 NE 17 BE Ac LI 58 -1 -0 0. IL 34 SS ti C 40 1- 8- 00 57 ON ve AC 89 20 20 0 ME 9 ID [address] 1 1 CA EP L HE MG GR N OU A TA P BL ET CE 00 08 09 0 14 14 NE 17 BE Ac RT 90 -1 -0 0. [place] 34 SS ti AV 42 1- 8- 00 57 ON ve IT 64 20 20 0 ME 8 E- [address] AN 2 CA EP TI L HE OX GR N ID OU A AN P T TA BL ET FE 00 06 09 0 60 30 NE 17 BE Ac RR 90 -3 -0 0. IL 31 SS ti OU 47 0- 1- 00 04 ON ve S 59 20 20 0 ME 2 EDWARDS [address] LF 1 CA EP AT L HE E GR N 32 OU A 5 P MG TA BL ET CE 00 08 08 0 14 14 NE 17 BE Ac RT 90 -1 -2 0. IL 26 SS ti AV 42 1- 3- 00 73 ON ve IT 64 20 20 0 ME 6 E- [address] AN 2 CA EP TI L HE OX GR N ID OU A AN P T TA BL ET EY 24 07 08 0 15 8 NE 17 BE Ac E 38 -2 -2 0. [place] [address] 50 0- 1- 00 69 ON ve OP 07 20 20 0 ME 5 S [address] 5 CA EP L HE GR N OU A P CE 00 08 08 0 14 14 NE 17 BE Ac RT 90 -1 -1 0. IL 20 SS ti AV 42 1- 1- 00 90 ON ve IT 64 20 20 0 ME 1 E- [address] AN 2 CA EP TI L HE OX GR N ID OU A AN P T TA BL ET FO 62 07 08 0 30 30 NE 17 BE Ac LI 58 -1 -0 0. IL 18 SS ti C 40 1- 7- 00 01 ON ve AC 89 20 20 0 ME 0 ID [address] 1 1 CA EP L HE MG GR N OU A TA P BL ET MA 00 08 08 0 30 7 NE 16 BE Ac PA 90 -0 -0 0. IL 91 SS ti P 41 7- 7- 00 12 ON ve 50 98 20 20 0 ME 4 0 [address] MG 0 CA EP L HE CA GR N PL OU A ET P FE 00 06 07 0 60 30 NE 17 BE Ac RR 90 -3 -3 0. IL 15 SS ti OU 47 0- 1- 00 21 ON ve S 59 20 20 0 ME 4 EDWARDS [address] LF 1 CA EP AT L HE E GR N 32 OU A 5 P MG TA BL ET CE 00 06 07 0 14 14 NE 17 BE Ac RT 90 -1 -2 0. IL 12 SS ti AV 42 5- 6- 00 97 ON ve IT 64 20 20 0 ME 0 E- [address] AN 2 CA EP TI L HE OX GR N ID OU A AN P T TA BL ET EY 24 07 07 0 15 8 NE 16 BE Ac E 38 -2 -2 0. [place] [address] 50 0- 0- 00 11 ON ve OP 07 20 20 0 ME 5 S [address] 5 CA EP L HE GR N OU A P CE 00 06 07 0 14 14 NE 17 BE Ac RT 90 -1 -1 0. [place] 06 SS ti AV 42 5- 3- 00 31 ON ve IT 64 20 20 0 ME 6 E- [address] AN 2 CA EP TI L HE OX GR N ID OU A AN P T TA BL ET FO 62 07 07 0 30 30 NE 16 BE Ac LI 58 -1 -1 0. [place] 91 SS ti C 40 1- 1- 00 10 ON ve AC 89 20 20 0 ME 9 ID [address] 1 1 CA EP L HE MG GR N OU A TA P BL ET FE 00 06 06 0 60 30 NE 16 BE Ac RR 90 -3 -3 0. [place] 91 SS ti OU 47 0- 0- 00 11 ON ve S 59 20 20 0 ME 6 EDWARDS [address] LF 1 CA EP AT L HE E GR N 32 OU A 5 P MG TA BL ET CE 00 06 06 0 14 14 NE 16 BE Ac RT 90 -1 -3 0. [place] 99 SS ti AV 42 5- 0- 00 31 ON ve IT 64 20 20 0 ME 8 E- [address] AN 2 CA EP TI L HE OX GR N ID OU A AN P T TA BL ET CE 00 06 06 0 14 14 NE 16 BE Ac RT 90 -1 -1 0. [place] 91 SS ti AV 42 5- 5- 00 11 ON ve IT 64 20 20 0 ME 8 E- [address] AN 2 CA EP TI L HE OX GR N ID OU A AN P T TA BL ET FO 62 04 06 0 30 30 NE 16 BE Ac LI 58 -1 -0 0. [place] 87 SS ti C 40 0- 6- 00 34 ON ve AC 89 20 20 0 ME 4 ID [address] 1 1 CA EP L HE MG GR N OU A TA P BL ET TU 46 03 06 0 23 5 NE 16 BE Ac SS 12 -0 -0 70 [place] 87 SS ti IN 20 3- 6- .0 48 ON ve 29 20 20 00 ME 1 MU 93 [address] CU 4 CA EP S- L HE CO GR N NG OU A P 20 0 MG /1 0 FE 00 03 05 0 60 30 NE 16 BE Ac RR 90 -2 -3 0. [place] 83 SS ti OU 47 7- 0- 00 76 ON ve S 59 20 20 0 ME 1 EDWARDS [address] LF 1 CA EP AT L HE E GR N 32 OU A 5 P MG TA BL ET CE 00 04 05 0 14 14 NE 16 BE Ac RT 90 -1 -2 0. [place] 83 SS ti AV 42 7- 9- 00 15 ON ve IT 64 20 20 0 ME 7 E- [address] AN 2 CA EP TI L HE OX GR N ID OU A AN P T TA BL ET CE 00 04 05 0 14 14 NE 16 BE Ac RT 90 -1 -1 0. [place] 76 SS ti AV 42 7- 6- 00 36 ON ve IT 64 20 20 0 ME 2 E- [address] AN 2 CA EP TI L HE OX GR N ID OU A AN P T TA BL ET FO 62 04 05 0 30 30 NE 16 BE Ac LI 58 -1 -0 0. [place] 72 SS ti C 40 0- 8- 00 40 ON ve AC 89 20 20 0 ME 2 ID [address] 1 1 CA EP L HE MG GR N OU A TA P BL ET CE 00 04 05 0 14 14 NE 16 BE Ac RT 90 -1 -0 0. [place] 68 SS ti AV 42 7- 1- 00 06 ON ve IT 64 20 20 0 ME 1 E- [address] AN 2 CA EP TI L HE OX GR N ID OU A AN P T TA BL ET FE 00 03 04 0 60 30 NE 16 BE Ac RR 90 -2 -2 0. [place] 66 SS ti OU 47 7- 7- 00 29 ON ve S 59 20 20 0 ME 8 EDWARDS [address] LF 1 CA EP AT L HE E GR N 32 OU A 5 P MG TA BL ET HY 00 04 04 0 28 [address] 90 -1 -1 0. [place] 62 SS ti OC 47 8- 8- 00 06 ON ve OR 62 20 20 0 ME 8 TI [address] SO 1 CA EP NE L HE GR N 1% OU A P CR EA M CE 00 04 04 0 14 14 NE 16 BE Ac RT 90 -1 -1 0. [place] 61 SS ti AV 42 7- 7- 00 41 ON ve IT 64 20 20 0 ME 2 E- [address] AN 2 CA EP TI L HE OX GR N ID OU A AN P T TA BL ET FO 62 04 04 0 30 30 NE 16 BE Ac LI 58 -1 -1 0. IL 57 SS ti C 40 0- 0- 00 54 ON ve AC 89 20 20 0 ME 8 ID [address] 1 1 CA EP L HE MG GR N OU A TA P BL ET CE 00 02 04 0 14 14 NE 16 BE Ac RT 90 -1 -0 0. [place] 53 SS ti AV 42 1- 3- 00 49 ON ve IT 64 20 20 0 ME 1 E- [address] AN 2 CA EP TI L HE OX GR N ID OU A AN P T TA BL ET FE 00 03 03 0 60 30 NE 16 BE Ac RR 90 -2 -2 0. [place] 50 SS ti OU 47 7- 7- 00 47 ON ve S 59 20 20 0 ME 4 EDWARDS [address] LF 1 CA EP AT L HE E GR N 32 OU A 5 P MG TA BL ET FE 00 03 03 0 40 2 NE 16 BE Ac RR 90 -2 -2 .0 IL 49 SS ti OU 47 3- 3- 00 09 ON ve S 59 20 20 ME 7 EDWARDS [address] LF 1 CA EP AT L HE E GR N 32 OU A 5 P MG TA BL ET CE 00 02 03 0 14 14 NE 16 BE Ac RT 90 -1 -2 0. [place] 46 SS ti AV 42 1- 0- 00 82 ON ve IT 64 20 20 0 ME 4 E- [address] AN 2 CA EP TI L HE OX GR N ID OU A AN P T TA BL ET BE 68 03 03 0 30 30 NE 16 BE Ac NZ 38 -2 -2 0. [place] 46 SS ti ON 20 0- 0- 00 76 ON ve AT 24 20 20 0 ME 6 AT [address] E 1 CA EP 20 L HE 0 GR N MG OU A P CA PS UL E FO 62 12 03 0 30 30 NE 16 BE Ac LI 58 -0 -1 0. IL 42 SS ti C 40 5- 3- 00 73 ON ve AC 89 20 20 0 ME 0 ID [address] 1 1 CA EP L HE MG GR N OU A TA P BL ET CE 00 02 03 0 14 14 NE 16 BE Ac RT 90 -1 -0 0. IL 38 SS ti AV 42 1- 6- 00 86 ON ve IT 64 20 20 0 ME 0 E- [address] AN 2 CA EP TI L HE OX GR N ID OU A AN P T TA BL ET TU 46 03 03 0 23 5 NE 16 BE Ac SS 12 -0 -0 70 IL 38 SS ti IN 20 3- 3- .0 08 ON ve 29 20 20 00 ME 2 MU [address] CU 4 CA EP S- L HE CO GR N NG OU A P 20 0 MG /1 0 HY 00 03 03 0 56 3 NE [address] 90 -0 -0 0. [place] 38 SS ti OC 47 3- 3- 00 08 ON ve OR 62 20 20 0 ME 3 TI [address] SO 1 CA EP NE L HE GR N 1% OU A P CR EA M FE 00 12 03 0 60 30 NE 16 BE Ac RR 90 -2 -0 0. [place] 37 SS ti OU 47 9- 2- 00 29 ON ve S 59 20 20 0 ME 3 EDWARDS [address] LF 1 CA EP AT L HE E GR N 32 OU A 5 P MG TA BL ET HY 00 02 02 0 56 3 NE [address] 90 -2 -2 0. [place] 33 SS ti OC 47 3- 3- 00 92 ON ve OR 62 20 20 0 ME 1 TI [address] SO 1 CA EP NE L HE GR N 1% OU A P CR EA M BE 68 11 02 0 30 30 NE 16 BE Ac NZ 38 -1 -2 0. [place] 31 SS ti ON 20 6- 0- 00 85 ON ve AT 24 20 20 0 ME 4 AT [address] E 1 CA EP 20 L HE 0 GR N MG OU A P CA PS UL E MA 00 11 02 0 30 7 NE 16 BE Ac PA 90 -0 -1 0. IL 27 SS ti P 41 3- 3- 00 79 ON ve 50 98 20 20 0 ME 0 0 [address] MG 1 CA EP L HE TA GR N BL OU A ET P CE 00 02 02 0 14 14 NE 16 BE Ac RT 90 -1 -1 0. IL 27 SS ti AV 42 1- 1- 00 08 ON ve IT 64 20 20 0 ME 5 E- [address] AN 2 CA EP TI L HE OX GR N ID OU A AN P T TA BL ET HY 00 02 02 0 56 3 [address] 90 -0 -0 0. [place] 23 SS ti OC 47 4- 4- 00 32 ON ve OR 62 20 20 0 ME 0 TI [address] SO 1 CA EP NE L HE GR N 1% OU A P CR EA M CE 00 01 01 0 14 14 NE 16 BE Ac RT 90 -0 -3 0. IL 20 SS ti AV 42 2- 0- 00 68 ON ve IT 64 20 20 0 ME 1 E- [address] AN 2 CA EP TI L HE OX GR N ID OU A AN P T TA BL ET FE 00 12 01 0 60 30 NE 16 BE Ac RR 90 -2 -3 0. [place] 20 SS ti OU 47 9- 0- 00 08 ON ve S 59 20 20 0 ME 3 EDWARDS [address] LF 1 CA EP AT L HE E GR N 32 OU A 5 P MG TA BL ET BE 68 11 01 0 30 30 NE 16 BE Ac NZ 38 -1 -2 0. [place] 16 SS ti ON 20 6- 3- 00 96 ON ve AT 24 20 20 0 ME 8 AT [address] E 1 CA EP 20 L HE 0 GR N MG OU A P CA PS UL E HY 00 01 01 0 56 3 [address] 90 -0 -2 0. [place] 15 SS ti OC 47 9- 1- 00 97 ON ve OR 62 20 20 0 ME 3 TI [address] SO 1 CA EP NE L HE GR N 1% OU A P CR EA M CE 00 01 01 0 14 14 NE 16 BE Ac RT 90 -0 -1 0. IL 12 SS ti AV 42 2- 4- 00 51 ON ve IT 64 20 20 0 ME 1 E- [address] AN 2 CA EP TI L HE OX GR N ID OU A AN P T TA BL ET MA 00 11 01 0 30 7 NE 16 BE Ac PA 90 -0 -0 0. IL 09 SS ti P 41 3- 9- 00 54 ON ve 50 98 20 20 0 ME 1 0 [address] MG 1 CA EP L HE TA GR N BL OU A ET P Q- 00 01 01 0 47 30 [address] 60 -0 -0 30 IL 09 SS ti YL 30 9- 9- .0 51 ON ve 82 20 20 00 ME 9 12 [address] .5 8 CA EP L HE MG GR N /5 OU A P ML LI QU ID HY 00 01 01 0 56 3 NE [address] 90 -0 -0 0. [place] 09 SS ti OC 47 9- 9- 00 52 ON ve OR 62 20 20 0 ME 1 TI [address] SO 1 CA EP NE L HE GR N 1% OU A P CR EA M CE 00 01 01 0 14 14 NE 16 BE Ac RT 90 -0 -0 0. IL 06 SS ti AV 42 14 ON ve IT 64 20 20 0 ME 9 E- [address] AN 2 CA EP TI L HE OX GR N ID OU A AN P T TA BL ET FE 00 12 12 0 60 30 NE 16 BE Ac RR 90 -2 -2 0. IL 04 SS ti OU 47 19 ON ve S 59 20 20 0 ME 9 EDWARDS [address] LF 1 CA EP AT L HE E GR N 32 OU A 5 P MG TA BL ET BE 68 11 12 0 30 30 NE 15 BE Ac NZ 38 -1 -1 0. [place] 95 SS ti ON 20 10 ON ve AT 24 20 20 0 ME 7 AT [address] E 1 CA EP 20 L HE 0 GR N MG OU A P CA PS UL E BE 68 11 11 0 30 30 NE 15 BE Ac NZ 38 -1 -1 0. [place] 81 SS ti ON 20 21 ON ve AT 24 20 20 0 ME 2 AT [address] E 1 CA EP 20 L HE 0 GR N MG OU A P CA PS UL E BE 68 11 11 0 30 30 NE 15 BE Ac NZ 38 -0 -0 0. [place] 74 SS ti ON 20 83 ON ve AT 24 20 20 0 ME 4 AT [address] E 1 CA EP 10 L HE 0 GR N MG OU A P CA PS UL E MA 00 11 11 0 30 7 NE 15 BE Ac PA 90 -0 -0 0. [place] 74 SS ti P 41 83 ON ve 50 98 20 20 0 ME 5 0 [address] MG 1 CA EP L HE TA GR N BL OU A ET P FO 62 07 10 0 30 30 NE 15 BE Ac LI 58 -2 -2 0. IL 69 SS ti C 40 74 ON ve AC 89 20 20 0 ME 3 ID [address] 1 1 CA EP L HE MG GR N OU A TA P BL ET BE 68 05 09 0 30 30 NE 15 BE Ac NZ 38 -2 -2 0. IL 56 SS ti ON 20 10 ON ve AT 24 20 20 0 ME 1 AT [address] E 1 CA EP 20 L HE 0 GR N MG OU A P CA PS UL E FO 62 07 09 0 30 30 NE 15 BE Ac LI 58 -2 -2 0. IL 54 SS ti C 40 78 ON ve AC 89 20 20 0 ME 5 ID [address] 1 1 CA EP L HE MG GR N OU A TA P BL ET FO 62 07 08 0 30 30 NE 15 BE Ac LI 58 -2 -2 0. IL 40 SS ti C 40 29 ON ve AC 89 20 20 0 ME 3 ID [address] 1 1 CA EP L HE MG GR N OU A TA P BL ET EY 24 05 08 0 15 28 NE 15 BE Ac E 38 -2 -2 0. [place] [address] 50 37 ON ve OP 07 20 20 0 ME 8 S [address] 5 CA EP L HE GR N OU A P BE 68 05 08 0 30 30 NE 15 BE Ac NZ 38 -2 -1 0. IL 33 SS ti ON 20 17 ON ve AT 24 20 20 0 ME 3 AT [address] E 1 CA EP 20 L HE 0 GR N MG OU A P CA PS UL E FO 62 07 07 0 30 30 NE 15 BE Ac LI 58 -2 -2 0. IL 23 SS ti C 40 39 ON ve AC 89 20 20 0 ME 8 ID [address] 1 1 CA EP L HE MG GR N OU A TA P BL ET BE 68 05 07 0 30 30 NE 15 BE Ac NZ 38 -2 -0 0. IL 12 SS ti ON 20 77 ON ve AT 24 20 20 0 ME 7 AT [address] E 1 CA EP 20 L HE 0 GR N MG OU A P CA PS UL E FO 62 05 06 0 30 30 NE 14 BE Ac LI 58 -2 -2 0. IL 91 SS ti C 40 11 ON ve AC 89 20 20 0 ME 6 ID [address] 1 1 CA EP L HE MG GR N OU A TA P BL ET BE 68 05 05 0 30 30 NE 14 BE Ac NZ 38 -2 -2 0. IL 91 SS ti ON 20 11 ON ve AT 24 20 20 0 ME 4 AT [address] E 1 CA EP 20 L HE 0 GR N MG OU A P CA PS UL E EY 24 05 05 0 15 28 NE 14 BE Ac E 38 -2 -2 0. [place] [address] 50 12 ON ve OP 07 20 20 0 ME 0 S [address] 5 CA EP L HE GR N OU A P FO 62 08 05 0 30 30 NE 14 BE Ac LI 58 -1 -1 0. IL 87 SS ti C 40 95 ON ve AC 89 20 20 0 ME 4 ID [address] 1 1 CA EP L HE MG GR N OU A TA P BL ET 57 03 05 0 30 30 NE 14 BE Ac PI 89 -0 -1 0. [place] 86 SS ti RI 60 7 7 58 ON ve N 91 20 20 0 ME 7 81 [address] 6 CA EP MG L HE GR N CH OU A EW P AB LE TA BL ET 57 03 04 0 30 30 NE 14 BE Ac PI 89 -0 -1 0. [place] 69 SS ti RI 60 7 2- 00 18 ON ve N 91 20 20 0 ME 5 81 [address] 6 CA EP MG L HE GR N CH OU A EW P AB LE TA BL ET FO 62 08 04 0 30 30 NE 14 BE Ac LI 58 -1 -1 0. IL 69 SS ti C 40 18 ON ve AC 89 20 20 0 ME 6 ID [address] 1 1 CA EP L HE MG GR N OU A TA P BL ET FO 62 08 03 0 30 30 NE 14 BE Ac LI 58 -1 -0 0. IL 52 SS ti C 40 00 11 ON ve AC 89 20 20 0 ME 8 ID [address] 1 1 CA EP L HE MG GR N OU A TA P BL ET 57 03 03 0 30 30 NE 14 BE Ac PI 89 -0 -0 0. IL 50 SS ti RI 60 7 7 56 ON ve N 91 20 20 0 ME 3 [address] 6 CA EP MG L HE GR N CH OU A EW P AB LE TA BL ET BE 68 02 02 0 30 30 NE 14 BE Ac NZ 38 -1 -1 0. IL 39 SS ti ON 20 3- 3- 00 42 ON ve AT 24 20 20 0 ME 2 AT [address] E 1 CA EP 20 L HE 0 GR N MG OU A P CA PS UL E 57 04 02 0 30 30 NE 14 BE Ac PI 89 -2 -0 0. IL 33 SS ti RI 60 5- 3- 00 99 ON ve N 91 20 20 0 ME 7 [address] 6 CA EP MG L HE GR N CH OU A EW P AB LE TA BL ET FO 62 08 02 0 30 30 NE 14 BE Ac LI 58 -1 -0 0. IL 34 SS ti C 40 7- 3- 00 00 ON ve AC 89 20 20 0 ME 0 ID [address] 1 1 CA EP L HE MG GR N OU A TA P BL ET EY 24 01 01 0 15 30 NE 14 BE Ac E 38 -2 -2 0. [place] [address] 50 7 52 ON ve OP 07 20 20 0 ME 5 S [address] 5 CA EP L HE GR N OU A P 57 04 12 0 30 30 NE 14 BE Ac PI 89 -2 -2 0. IL 12 SS ti RI 60 5- 2- 00 04 ON ve N 91 20 20 0 ME 8 81 [address] 6 CA EP MG L HE GR N CH OU A EW P AB LE TA BL ET FO 62 08 12 0 30 30 NE 14 BE Ac LI 58 -1 -2 0. IL 12 SS ti C 40 7- 2- 00 05 ON ve AC 89 20 20 0 ME 1 ID [address] 1 1 CA EP L HE MG GR N OU A TA P BL ET FO 62 08 11 0 30 30 NE 13 BE Ac LI 58 -1 -2 0. IL 97 SS ti C 40 7- 4- 00 84 ON ve AC 89 20 20 0 ME 1 ID [address] 1 1 CA EP L HE MG GR N OU A TA P BL ET 57 04 11 0 30 30 NE 13 BE Ac PI 89 -2 -2 0. IL 97 SS ti RI 60 5- 4- 00 84 ON ve N 91 20 20 0 ME 2 81 [address] 6 CA EP MG L HE GR N CH OU A EW P AB LE TA BL ET EY 24 05 11 0 15 30 NE 13 BE Ac E 38 -0 -1 0. [place] [address] 50 1- 1- 00 38 ON ve OP 07 20 20 0 ME 8 S [address] 5 CA EP L HE GR N OU A P FO 62 08 10 0 30 30 NE 13 BE Ac LI 58 -1 -2 0. IL 81 SS ti C 40 7- 2- 00 37 ON ve AC 89 20 20 0 ME 1 ID [address] 1 1 CA EP L HE MG GR N OU A TA P BL ET 57 04 10 0 30 30 NE 13 BE Ac PI 89 -2 -2 0. [place] 81 SS ti RI 60 5- 2- 00 37 ON ve N 91 20 20 0 ME 4 81 [address] 6 CA EP MG L HE GR N CH OU A EW P AB LE TA BL ET 57 04 09 0 30 30 NE 13 BE Ac PI 89 -2 -2 0. IL 66 SS ti RI 60 5- 4- 00 52 ON ve N 91 20 20 0 ME 5 81 [address] 6 CA EP MG L HE GR N CH OU A EW P AB LE TA BL ET FO 62 08 09 0 30 30 NE 13 BE Ac LI 58 -1 -2 0. IL 66 SS ti C 40 7- 3- 00 00 ON ve AC 89 20 20 0 ME 1 ID [address] 1 1 CA EP L HE MG GR N OU A TA P BL ET EY 24 05 09 0 15 30 NE 13 US Ac E 38 -0 -0 0. [place] [address] 50 1- 4- 00 41 Y ve OP 07 20 20 0 ME 3 AN S [address] 5 CA EW L R GR OU P 57 04 08 0 30 30 NE 13 US Ac PI 89 -2 -2 0. IL 49 ER ti RI 60 5- 1- 00 53 Y ve N 91 20 20 0 ME 0 AN [address] 6 CA EW MG L R GR CH OU EW P AB LE TA BL ET FO 62 08 08 0 30 30 NE 13 US Ac LI 58 -1 -1 0. IL 47 ER ti C 40 7- 7- 00 02 Y ve AC 89 20 20 0 ME 1 AN ID [address] 1 1 CA EW L R MG GR OU TA P BL ET 57 04 07 0 30 30 NE 13 US Ac PI 89 -2 -2 0. IL 35 ER ti RI 60 5- 4- 00 33 Y ve N 91 20 20 0 ME 9 AN 81 [address] 6 CA EW MG L R GR CH OU EW P AB LE TA BL ET FO 62 04 07 0 30 30 NE 13 US Ac LI 58 -2 -2 0. IL 35 ER ti C 40 0- 4- 00 33 Y ve AC 89 20 20 0 ME 8 AN ID [address] 1 1 CA EW L R MG GR OU TA P BL ET BE 68 07 07 0 30 30 NE 13 US Ac NZ 38 -0 -0 0. IL 24 ER ti ON 20 3- 3- 00 87 Y ve AT 24 20 20 0 ME 2 AN AT [address] E 1 CA EW 20 L R 0 GR MG OU P CA PS UL E EY 24 05 06 0 15 30 NE 13 US Ac E 38 -0 -2 0. [place] [address] 50 1- 3- 00 63 Y ve OP 07 20 20 0 ME 0 AN S [address] 5 CA EW L R GR OU P 57 04 06 0 30 30 NE 13 US Ac PI 89 -2 -2 0. IL 18 ER ti RI 60 5- 2- 00 73 Y ve N 91 20 20 0 ME 2 AN 81 [address] 6 CA EW MG L R GR CH OU EW P AB LE TA BL ET FO 62 04 06 0 30 30 NE 13 US Ac LI 58 -2 -1 0. IL 16 ER ti C 40 0- 6- 00 22 Y ve AC 89 20 20 0 ME 7 AN ID [address] 1 1 CA EW L R MG GR OU TA P BL ET BE 68 06 06 0 30 30 NE 13 US Ac NZ 38 -0 -0 0. IL 11 ER ti ON 20 6- 6- 00 46 Y ve AT 24 20 20 0 ME 8 AN AT [address] E 1 CA EW 20 L R 0 GR MG OU P CA PS UL E 57 04 05 0 30 30 NE 13 US Ac PI 89 -2 -2 0. IL 04 ER ti RI 60 5- 2- 00 15 Y ve N 91 20 20 0 ME 6 AN 81 [address] 6 CA EW MG L R GR CH OU EW P AB LE TA BL ET FO 62 04 05 0 30 30 NE 13 US Ac LI 58 -2 -2 0. IL 02 ER ti C 40 0- 0- 00 84 Y ve AC 89 20 20 0 ME 1 AN ID [address] 1 1 CA EW L R MG GR OU TA P BL ET BE 68 04 05 0 26 26 NE 12 US Ac NZ 08 -0 -0 0. IL 90 ER ti ON 40 4- 76 Y ve AT 21 20 20 0 ME 5 AN AT [address] E 1 CA EW 10 L R 0 GR MG OU P CA PS UL E EY 24 05 05 0 15 30 NE 12 US Ac E 38 -0 -0 0. [place] [address] 50 1- 1- 00 40 Y ve OP 07 20 20 0 ME 3 AN S [address] 5 CA EW L R GR OU P 57 04 04 0 30 30 NE 12 US Ac PI 89 -2 -2 0. IL 90 ER ti RI 60 5- 5- 00 49 Y ve N 91 20 20 0 ME 9 AN 81 [address] 6 CA EW MG L R GR CH OU EW P AB LE TA BL ET FO 62 04 04 0 30 30 NE 12 US Ac LI 58 -2 -2 0. IL 87 ER ti C 40 0- 0- 00 04 Y ve AC 89 20 20 0 ME 4 AN ID [address] 1 1 CA EW L R MG GR OU TA P BL ET BE 68 04 04 0 30 30 NE 12 US Ac NZ 08 -0 -0 0. IL 79 ER ti ON 40 4- 20 Y ve AT 21 20 20 0 ME 8 AN AT [address] E 1 CA EW 10 L R 0 GR MG OU P CA PS UL E 57 03 03 0 30 30 NE 12 US Ac PI 89 -2 -2 0. IL 72 ER ti RI 60 3- 3- 00 54 Y ve N 91 20 20 0 ME 7 AN 81 [address] 6 CA EW MG L R GR CH OU EW P AB LE TA BL ET FO 62 08 03 0 30 30 NE 12 US Ac LI 58 -2 -1 0. IL 69 ER ti C 40 6- 7- 00 91 Y ve AC 89 20 20 0 ME 5 AN ID [address] 1 1 CA EW L R MG GR OU TA P BL ET EY 24 09 03 0 15 30 NE 12 US Ac E 38 -1 -1 0. [place] [address] 50 5- 1- 00 85 Y ve OP 07 20 20 0 ME 0 AN S [address] 5 CA EW L R GR OU P 63 07 02 0 30 30 NE 12 US Ac PI 73 -3 -2 0. IL 60 ER ti RI 90 0- 6- 00 15 Y ve N 43 20 20 0 ME 2 AN 81 [address] 3 CA EW MG L R GR CH OU EW P AB LE TA BL ET FO 62 08 02 0 30 30 NE 12 US Ac LI 58 -2 -2 0. IL 57 ER ti C 40 6- 0- 00 07 Y ve AC 89 20 20 0 ME 2 AN ID [address] 1 1 CA EW L R MG GR OU TA P BL ET 63 07 01 0 30 30 NE 12 US Ac PI 73 -3 -2 0. IL 45 ER ti RI 90 0- 8 00 13 Y ve N 43 20 20 0 ME 9 AN 81 [address] 3 CA EW MG L R GR CH OU EW P AB LE TA BL ET EY 24 09 01 0 15 30 NE 12 US Ac E 38 -1 -1 0. [place] [address] 50 - 69 Y ve OP 07 20 20 0 ME 9 AN S [address] 5 CA EW L R GR OU P FO 62 08 01 0 30 30 NE 12 US Ac LI 58 -2 -1 0. IL 38 ER ti C 40 6- 6 72 Y ve AC 89 20 20 0 ME 3 AN ID [address] 1 1 CA EW L R MG GR OU TA P BL ET 63 07 12 0 30 30 NE 12 US Ac PI 73 -3 -2 0. IL 28 ER ti RI 90 0- 9 00 25 Y ve N 43 20 20 0 ME 0 AN 81 [address] 3 CA EW MG L R GR CH OU EW P AB LE TA BL ET FO 62 08 12 0 30 30 NE 12 US Ac LI 58 -2 -1 0. IL 24 ER ti C 40 6- 00 31 Y ve AC 89 20 20 0 ME 1 AN ID [address] 1 1 CA EW L R MG GR OU TA P BL ET BE 68 07 12 0 30 30 NE 12 US Ac NZ 08 -3 -1 0. IL 24 ER ti ON 40 0- 28 Y ve AT 21 20 20 0 ME 3 AN AT [address] E 1 CA EW 10 L R 0 GR MG OU P CA PS UL E EY 24 09 12 0 15 30 NE 12 US Ac E 38 -1 -0 0. [place] [address] 50 5- 5- 00 28 Y ve OP 07 20 20 0 ME 5 AN S [address] 5 CA EW L R GR OU P FO 62 08 11 0 30 30 NE 12 US Ac LI 58 -2 -2 0. IL 08 ER ti C 40 6- 1- 00 75 Y ve AC 89 20 20 0 ME 0 AN ID [address] 1 1 CA EW L R MG GR OU TA P BL ET 63 07 11 0 30 30 NE 12 US Ac PI 73 -3 -2 0. IL 08 ER ti RI 90 0- 1- 00 75 Y ve N 43 20 20 0 ME 1 AN 81 [address] 3 CA EW MG L R GR CH OU EW P AB LE TA BL ET BE 68 07 11 0 30 30 NE 12 US Ac NZ 08 -3 -2 0. IL 08 ER ti ON 40 0- 1- 00 74 Y ve AT 21 20 20 0 ME 7 AN AT [address] E 1 CA EW 10 L R 0 GR MG OU P CA PS UL E FO 62 08 10 0 30 30 NE 11 US Ac LI 58 -2 -2 0. IL 95 ER ti C 40 6- 7- 00 53 Y ve AC 89 20 20 0 ME 1 AN ID [address] 1 1 CA EW L R MG GR OU TA P BL ET 63 07 10 0 30 30 NE 11 US Ac PI 73 -3 -2 0. IL 95 ER ti RI 90 0- 7- 00 53 Y ve N 43 20 20 0 ME 2 AN 81 [address] 3 CA EW MG L R GR CH OU EW P AB LE TA BL ET EY 24 09 10 0 15 30 NE 11 US Ac E 38 -1 -2 0. [place] [address] 50 5- 4- 00 59 Y ve OP 07 20 20 0 ME 9 AN S [address] 5 CA EW L R GR OU P 63 07 09 0 30 30 NE 11 US Ac PI 73 -3 -2 0. IL 79 ER ti RI 90 0- 5- 00 36 Y ve N 43 20 20 0 ME 1 AN 81 [address] 3 CA EW MG L R GR CH OU EW P AB LE TA BL ET FO 62 08 09 0 30 30 NE 11 US Ac LI 58 -2 -2 0. IL 77 ER ti C 40 6- 3- 00 79 Y ve AC 89 20 20 0 ME 0 AN ID [address] 1 1 CA EW L R MG GR OU TA P BL ET EY 24 09 09 0 15 30 NE 11 US Ac E 38 -1 -1 0. [place] [address] 50 5- 5- 00 83 Y ve OP 07 20 20 0 ME 3 AN S [address] 5 CA EW L R GR OU P SI 54 09 09 0 47 11 NE 11 US Ac LT 83 -0 -0 30 IL 71 ER ti US 80 9- 9- .0 02 Y ve SI 11 20 20 00 ME 9 AN N [address] SA 0 CA EW L R 10 GR 0 OU MG P /5 ML SY R 63 07 08 0 30 30 NE 11 US Ac PI 73 -3 -2 0. IL 64 ER ti RI 90 0- 8- 00 49 Y ve N 43 20 20 0 ME 4 AN [address] 3 CA EW MG L R GR CH OU EW P AB LE TA BL ET BE 68 07 08 0 30 30 NE 11 US Ac NZ 08 -3 -2 0. IL 62 ER ti ON 40 0- 6- 00 89 Y ve AT 21 20 20 0 ME 2 AN AT [address] E 1 CA EW 10 L R 0 GR MG OU P CA PS UL E FO 62 08 08 0 30 30 NE 11 US Ac LI 58 -2 -2 0. IL 63 ER ti C 40 6- 6- 00 61 Y ve AC 89 20 20 0 ME 3 AN ID [address] 1 1 CA EW L R MG GR OU TA P BL ET FO 62 07 07 0 30 30 NE 11 US Ac LI 58 -3 -3 0. IL 50 ER ti C 40 0- 0- 00 50 Y ve AC 89 20 20 0 ME 3 AN ID [address] 1 1 CA EW L R MG GR OU TA P BL ET BE 68 07 07 0 30 30 NE 11 US Ac NZ 08 -3 -3 0. IL 50 ER ti ON 40 0- 0- 00 50 Y ve AT 21 20 20 0 ME 0 AN AT [address] E 1 CA EW 10 L R 0 GR MG OU P CA PS UL E 63 07 07 0 30 30 NE 11 US Ac PI 73 -3 -3 0. IL 50 ER ti RI 90 0- 0- 00 50 Y ve N 43 20 20 0 ME 2 AN [address] 3 CA EW MG L R GR CH OU EW P AB LE TA BL ET EY 24 07 07 0 15 30 NE 11 US Ac E 38 -3 -3 0. [place] [address] 50 0- 0- 00 50 Y ve OP 07 20 20 0 ME 1 AN S [address] 5 CA EW L R GR OU P 00 02 03 0 30 30 NE 10 MC Ac PI 90 -2 -2 0. IL 83 KE ti RI 42 5- 5- 00 74 ME ve N 00 20 20 0 ME 5 E 32 94 14 14 DI JR 5 0 CA MG L WI GR LL TA OU IA BL P M ET F FO 62 02 03 0 30 30 NE 10 MC Ac LI 58 -0 -0 0. IL 74 KE ti C 40 4- 7- 00 55 ME ve AC 89 20 20 0 ME 1 E ID 70 14 14 DI JR 1 1 CA L WI MG GR LL OU IA TA P M BL F ET BE 68 01 03 0 30 30 NE 10 US Ac NZ 08 -2 -0 0. IL 73 ER ti ON 40 9- 5- 00 17 Y ve AT 21 20 20 0 ME 5 AN AT [address] E 1 CA EW 10 L R 0 GR MG OU P CA PS UL E LO 68 02 03 0 30 30 NE 10 MC Ac RA 08 -0 -0 0. [place] 71 KE ti TA 40 4- 3- 00 75 ME ve DI 24 20 20 0 ME 7 E NE 80 14 14 DI JR 1 CA 10 L WI GR LL MG OU IA P M TA F BL ET 00 02 02 0 30 30 NE 10 MC Ac PI 90 -2 -2 0. IL 69 KE ti RI 42 5- 5- 00 32 ME ve N 00 20 20 0 ME 0 E 32 94 14 14 DI JR 5 0 CA MG L WI GR LL TA OU IA BL P M ET F FO 62 02 02 0 30 30 NE 10 MC Ac LI 58 -0 -0 0. IL 58 KE ti C 40 4- 4- 00 08 ME ve AC 89 20 20 0 ME 8 E ID 70 14 14 DI JR 1 1 CA L WI MG GR LL OU IA TA P M BL F ET LO 68 02 02 0 30 30 NE 10 MC Ac RA 08 -0 -0 0. IL 57 KE ti TA 40 4- 4- 00 69 ME ve DI 24 20 20 0 ME 6 E NE 80 14 14 DI JR 1 CA 10 L WI GR LL MG OU IA P M TA F BL ET BE 68 01 01 0 30 30 NE 10 [facility] [place] [place] 08 -2 -2 0. [place] 54 ER ti ON 40 9 00 76 Y ve AT 21 20 20 0 ME 9 AN AT [address] E 1 CA EW 10 L R 0 GR MG OU P CA PS UL E 00 01 01 0 30 30 NE 10 Ac PI 90 -2 -2 0. IL 53 KE ti RI 42 7- 7- 00 45 ME ve N 00 20 20 0 ME 0 E 32 94 14 14 DI JR 5 0 CA MG L WI GR LL TA OU IA BL P M ET F BE 68 01 01 0 30 7 NE 10 [facility] [place] 38 -0 -2 0. [place] 51 KE ti ON 20 4 2 00 07 ME ve AT 24 20 20 0 ME 0 E AT 70 14 14 DI JR E 1 CA 10 L WI 0 GR LL MG OU IA P M CA F PS UL E UR 58 01 01 0 18 10 NE 10 BE EA 98 -2 -2 00 IL 49 SS ti 00 0- 0- .0 62 ON ve 10 60 20 20 00 ME 2 % [address] LO 0 CA EP TI L HE ON GR N OU A P 00 01 01 0 15 30 NE 10 Ac 90 -1 -1 0. IL 49 KE ti 42 8- 8- 00 33 ME ve 99 20 20 0 ME 8 E 23 14 14 DI JR 5 CA L WI GR LL OU IA P M F TE 54 01 01 0 30 30 NE 10 [facility] RB 86 -1 -1 0. [place] 49 KE ti IN 85 7- 7- 00 05 ME ve AF 99 20 20 0 ME 4 E IN 20 14 14 DI JR E 0 CA 1% L WI GR LL CR OU IA EA P M M F FO 62 01 01 0 30 30 NE 10 [facility] LI 58 -0 -0 0. [place] 42 KE ti C 40 7- 7- 00 84 ME ve AC 89 20 20 0 ME 5 E ID 70 14 14 DI JR 1 1 CA L WI MG GR LL OU IA TA P M BL F ET LO 68 01 01 0 30 30 NE 10 Ac RA 08 -0 -0 0. IL 42 KE ti TA 40 7- 7- 00 84 ME ve DI 24 20 20 0 ME 6 E NE 80 14 14 DI JR 1 CA 10 L WI GR LL MG OU IA P M TA F BL ET BE 68 01 01 0 30 7 NE 10 [facility] [place] 38 -0 -0 0. [place] 41 KE ti ON 20 38 ME ve AT 24 20 20 0 ME 5 E AT 70 14 14 DI JR E 1 CA 10 L WI 0 GR LL MG OU IA P M CA F PS UL E 00 12 12 0 30 30 NE 10 [facility] PI 90 -3 -3 0. [place] 39 KE ti RI 42 34 ME ve N 00 20 20 0 ME 0 E 32 94 13 13 DI JR 5 0 CA MG L WI GR LL TA OU IA BL P M ET F BE 68 11 12 0 30 7 NE 10 [facility] [place] 38 -1 -0 0. [place] 27 KE ti ON 34 ME ve AT 24 20 20 0 ME 4 E AT 70 13 13 DI JR E 1 CA 10 L WI 0 GR LL MG OU IA P M CA F PS UL E PO 68 12 12 0 60 30 NE 10 Ac TA 08 -0 -0 0. IL 26 KE ti SS 40 16 ME ve IU 41 20 20 0 ME 9 E M 90 13 13 DI JR CL 1 CA L WI ER GR LL OU IA 10 P M F ME Q CA PS UL E FO 62 11 11 0 30 30 NE 10 [facility] LI 58 -2 -2 0. IL 24 KE ti C 40 53 ME ve AC 89 20 20 0 ME 8 E ID 70 13 13 DI JR 1 1 CA L WI MG GR LL OU IA TA P M BL F ET 00 11 11 0 30 30 NE 10 [facility] PI 90 -2 -2 0. IL 24 KE ti RI 42 53 ME ve N 00 20 20 0 ME 9 E 32 94 13 13 DI JR 5 0 CA MG L WI GR LL TA OU IA BL P M ET F 00 11 11 0 15 30 NE 98 Ac 90 -1 -1 0. IL 17 KE ti 42 41 ME ve 99 20 20 0 ME 6 E 23 13 13 D JR 5 GR P WI LL IA M F BE 68 11 11 0 30 7 NE 98 [facility] [place] 38 -1 -1 0. [place] 02 KE ti ON 84 ME ve AT 24 20 20 0 ME 3 E AT 70 13 13 D JR E 1 GR 10 P WI 0 LL MG IA M CA F PS UL E PO 68 11 11 0 60 30 NE 97 MC Ac TA 08 -0 -0 0. [place] 81 KE ti SS 40 5- 5- 00 13 ME ve IU 41 20 20 0 ME 9 E M 90 13 13 D JR CL 1 GR P WI ER LL IA 10 M F ME Q CA PS UL E FO 62 11 11 0 30 30 NE 97 MC Ac LI 58 -0 -0 0. [place] 75 KE ti C 40 3- 3- 00 15 ME ve AC 89 20 20 0 ME 1 E ID 70 13 13 D JR 1 1 GR P WI MG LL IA TA M BL F ET 00 11 11 0 30 30 NE 97 Ac PI 90 -0 -0 0. [place] 75 KE ti RI 42 3- 3- 00 15 ME ve N 00 20 20 0 ME 2 E 32 94 13 13 D JR 5 0 GR MG P WI LL TA IA BL M ET F FO 62 10 10 0 30 30 NE 97 Ac LI 58 -0 -0 0. [place] 02 KE ti C 40 8- 8- 00 19 ME ve AC 89 20 20 0 ME 1 E ID 70 13 13 D JR 1 1 GR P WI MG LL IA TA M BL F ET BE 68 10 10 0 30 7 NE 96 Ac [place] 38 -0 -0 0. [place] 98 KE ti ON 20 7- 7- 00 74 ME ve AT 24 20 20 0 ME 2 E AT 70 13 13 D JR E 1 GR 10 P WI 0 LL MG IA M CA F PS UL E PO 68 09 10 0 60 30 NE 96 Ac TA 08 -0 -0 0. [place] 89 KE ti SS 40 2- 3- 00 76 ME ve IU 41 20 20 0 ME 4 E M 90 13 13 D JR CL 1 GR P WI ER LL IA 10 M F ME Q CA PS UL E 00 03 09 0 30 30 NE 96 Ac PI 90 -0 -2 0. [place] 71 KE ti RI 42 3- 6- 00 45 ME ve N 00 20 20 0 ME 1 E 32 94 13 13 D JR 5 0 GR MG P WI LL TA IA BL M ET F 00 09 09 0 15 8 NE 98 MC Ac 90 -2 -2 0. [place] 92 KE ti 42 0- 0- 00 96 ME ve 99 20 20 0 ME 1 E 23 13 13 D JR 5 GR P WI LL IA M F EY 24 09 09 0 15 30 NE 96 MC Ac E 38 -1 -1 0. [place] [address] 50 8- 8- 00 27 ME ve OP 07 20 20 0 ME 9 E S 50 13 13 D JR 5 GR P WI LL IA M F FO 62 09 09 0 30 30 NE 96 MC Ac LI 58 -1 -1 0. [place] 34 KE ti C 40 2- 2- 00 86 ME ve AC 89 20 20 0 ME 2 E ID 70 13 13 D JR 1 1 GR P WI MG LL IA TA M BL F ET BE 68 09 09 0 30 7 NE 96 MC Ac [place] 38 -1 -1 0. [place] 31 KE ti ON 49 ME ve AT 24 20 20 0 ME 6 E AT 70 13 13 D JR E 1 GR 10 P WI 0 LL MG IA M CA F PS UL E PO 68 09 09 0 60 30 NE 96 MC Ac TA 08 -0 -0 0. [place] 06 KE ti SS 40 2- 2 00 50 ME ve IU 41 20 20 0 ME 0 E M 90 13 13 D JR CL 1 GR P WI ER LL IA 10 M F ME Q CA PS UL E 00 03 09 0 30 30 NE 96 MC Ac PI 90 -0 -0 0. [place] 06 KE ti RI 42 3- 2- 00 52 ME ve N 00 20 20 0 ME 3 E 32 94 13 13 D JR 5 0 GR MG P WI LL TA IA BL M ET F BE 68 08 08 0 30 7 NE 95 MC Ac [place] 38 -2 -2 0. [place] 92 KE ti ON 77 ME ve AT 24 20 20 0 ME 0 E AT 70 13 13 D JR E 1 GR 10 P WI 0 LL MG IA M CA F PS UL E BE 68 04 08 0 30 7 NE 95 MC Ac [place] 38 -0 -0 0. [place] 29 KE ti ON 64 ME ve AT 24 20 20 0 ME 0 E AT 70 13 13 D JR E 1 GR 10 P WI 0 LL MG IA M CA F PS UL E FO 62 11 07 0 30 30 NE 95 MC Ac LI 58 -0 -3 0. IL 09 KE ti C 40 5- 0- 00 10 ME ve AC 89 20 20 0 ME 6 E ID 70 12 13 D JR 1 1 GR P WI MG LL IA TA M BL F ET 00 03 07 0 30 30 NE 95 MC Ac PI 90 -0 -3 0. IL 09 KE ti RI 42 3- 0- 00 10 ME ve N 00 20 20 0 ME 4 E 32 94 13 13 D JR 5 0 GR MG P WI LL TA IA BL M ET F PO 68 07 07 0 60 30 NE 94 MC Ac TA 08 -2 -2 0. [place] 96 KE ti SS 40 20 ME ve IU 41 20 20 0 ME 4 E M 90 13 13 D JR CL 1 GR P WI ER LL IA 10 M F ME Q CA PS UL E BE 68 04 07 0 30 7 NE 94 MC Ac [place] 38 -0 -0 0. [place] 45 KE ti ON 73 ME ve AT 24 20 20 0 ME 6 E AT 70 13 13 D JR E 1 GR 10 P WI 0 LL MG IA M CA F PS UL E 00 03 07 0 30 30 NE 94 MC Ac PI 90 -0 -0 0. [place] 30 KE ti RI 42 68 ME ve N 00 20 20 0 ME 5 E 32 94 13 13 D JR 5 0 GR MG P WI LL TA IA BL M ET F FO 62 11 07 0 30 30 NE 94 MC Ac LI 58 -0 -0 0. [place] 30 KE ti C 40 68 ME ve AC 89 20 20 0 ME 4 E ID 70 12 13 D JR 1 1 GR P WI MG LL IA TA M BL F ET BE 68 04 07 0 30 7 NE 94 MC Ac [place] 38 -0 -0 0. [place] 23 KE ti ON 89 ME ve AT 24 20 20 0 ME 0 E AT 70 13 13 D JR E 1 GR 10 P WI 0 LL MG IA M CA F PS UL E FO 62 11 05 0 30 30 NE 93 MC Ac LI 58 -0 -3 0. [place] 39 KE ti C 40 22 ME ve AC 89 20 20 0 ME 3 E ID 70 12 13 D JR 1 1 GR P WI MG LL IA TA M BL F ET BE 68 04 05 0 30 7 NE 93 MC Ac NZ 38 -0 -3 0. [place] 34 KE ti ON 49 ME ve AT 24 20 20 0 ME 6 E AT 70 13 13 D JR E 1 GR 10 P WI 0 LL MG IA M CA F PS UL E BE 68 04 05 0 30 7 NE 92 MC Ac NZ 38 -0 -1 0. [place] 94 KE ti ON 17 ME ve AT 24 20 20 0 ME 6 E AT 70 13 13 D JR E 1 GR 10 P WI 0 LL MG IA M CA F PS UL E FO 62 11 05 0 30 30 NE 92 MC Ac LI 58 -0 -0 0. [place] 64 KE ti C 40 5- 7- 00 57 ME ve AC 89 20 20 0 ME 2 E ID 70 12 13 D JR 1 1 GR P WI MG LL IA TA M BL F ET SI 54 04 04 0 47 15 NE 92 MC Ac LT 83 -2 -2 30 IL 17 KE ti US 80 2- 2- .0 75 ME ve SI 11 20 20 00 ME 0 E N 78 13 13 D JR SA 0 GR P WI 10 LL 0 IA MG M /5 F ML SY R 00 04 04 0 30 30 NE 91 MC Ac PI 90 -0 -0 0. [place] 73 KE ti RI 42 8- 8- 00 34 ME ve N 00 20 20 0 ME 4 E 32 94 13 13 D JR 5 0 GR MG P WI LL TA IA BL M ET F FO 62 04 04 0 30 30 NE 91 MC Ac LI 58 -0 -0 0. [place] 73 KE ti C 40 8- 8- 00 34 ME ve AC 89 20 20 0 ME 7 E ID 70 13 13 D JR 1 1 GR P WI MG LL IA TA M BL F ET BE 68 04 04 0 30 7 NE 91 MC Ac NZ 38 -0 -0 0. [place] 65 KE ti ON 20 5- 5- 00 10 ME ve AT 24 20 20 0 ME 0 E AT 70 13 13 D JR E 1 GR 10 P WI 0 LL MG IA M CA F PS UL E SI 54 03 03 0 47 15 NE 91 MC Ac LT 83 -2 -2 30 IL 26 KE ti US 80 5- 5- .0 10 ME ve SI 11 20 20 00 ME 8 E N 78 13 13 D JR SA 0 GR P WI 10 LL 0 IA MG M /5 F ML SY R BE 68 03 03 0 30 7 NE 90 MC Ac NZ 38 -0 -0 0. [place] 74 KE ti ON 20 9- 9- 00 74 ME ve AT 24 20 20 0 ME 4 E AT 70 13 13 D JR E 1 GR 10 P WI 0 LL MG IA M CA F PS UL E 00 03 03 0 30 30 NE 90 MC Ac PI 90 -0 -0 0. IL 54 KE ti RI 42 3- 3- 00 75 ME ve N 00 20 20 0 ME 7 E 32 94 13 13 D JR 5 0 GR MG P WI LL TA IA BL M ET F FO 62 11 03 0 30 30 NE 90 MC Ac LI 58 -0 -0 0. IL 49 KE ti C 40 5- 1- 00 68 ME ve AC 89 20 20 0 ME 2 E ID 70 12 13 D JR 1 1 GR P WI MG LL IA TA M BL F ET 00 08 02 0 30 30 NE 89 MC Ac PI 90 -1 -0 0. IL 76 KE ti RI 42 5- 5- 00 72 ME ve N 00 20 20 0 ME 4 E 32 94 12 13 D JR 5 0 GR MG P WI LL TA IA BL M ET F FO 51 11 02 0 30 30 NE 89 MC Ac LI 07 -0 -0 0. IL 76 KE ti C 90 5- 5- 00 72 ME ve AC 10 20 20 0 ME 5 E ID 52 12 13 D JR 1 0 GR P WI MG LL IA TA M BL F ET BE 68 02 02 0 30 7 NE 89 MC Ac NZ 38 -0 -0 0. IL 77 KE ti ON 20 5- 5- 00 09 ME ve AT 24 20 20 0 ME 3 E AT 70 13 13 D JR E 1 GR 10 P WI 0 LL MG IA M CA F PS UL E SI 54 01 01 0 47 15 NE 89 MC Ac LT 83 -1 -1 30 IL 01 KE ti US 80 1- 1- .0 20 ME ve SI 11 20 20 00 ME 7 E N 78 13 13 D JR SA 0 GR P WI 10 LL 0 IA MG M /5 F ML SY R 00 08 01 0 30 30 NE 88 MC Ac PI 90 -1 -0 0. IL 82 KE ti RI 42 5- 6- 00 47 ME ve N 00 20 20 0 ME 4 E 32 94 12 13 D JR 5 0 GR MG P WI LL TA IA BL M ET F FO 62 11 01 0 30 30 NE 88 MC Ac LI 58 -0 -0 0. IL 82 KE ti C 40 5- 6- 00 47 ME ve AC 89 20 20 0 ME 5 E ID 70 12 13 D JR 1 1 GR P WI MG LL IA TA M BL F ET 00 08 12 0 30 30 NE 88 MC Ac PI 90 -1 -0 0. IL 00 KE ti RI 42 5- 6- 00 01 ME ve N 00 20 20 0 ME 9 E 32 94 12 12 D JR 5 0 GR MG P WI LL TA IA BL M ET F MA 00 11 12 0 60 30 NE 87 MC Ac PA 90 -0 -0 0. IL 91 KE ti P 41 5- 3- 00 18 ME ve 50 98 20 20 0 ME 1 E 0 86 12 12 D JR MG 1 GR P WI TA LL BL IA ET M F FO 62 11 12 0 30 30 NE 87 MC Ac LI 58 -0 -0 0. IL 91 KE ti C 40 5- 3- 00 18 ME ve AC 89 20 20 0 ME 6 E ID 70 12 12 D JR 1 1 GR P WI MG LL IA TA M BL F ET MA 00 11 11 0 60 30 NE 87 MC Ac PA 90 -0 -0 0. IL 15 KE ti P 41 5- 5- 00 88 ME ve 50 98 20 20 0 ME 9 E 0 86 12 12 D JR MG 1 GR P WI TA LL BL IA ET M F FO 62 11 11 0 30 30 NE 87 MC Ac LI 58 -0 -0 0. IL 17 KE ti C 40 5- 5- 00 45 ME ve AC 89 20 20 0 ME 5 E ID 70 12 12 D JR 1 1 GR P WI MG LL IA TA M BL F ET 00 08 11 0 30 30 NE 87 MC Ac PI 90 -1 -0 0. IL 17 KE ti RI 42 5- 5- 00 44 ME ve N 00 20 20 0 ME 3 E 32 94 12 12 D JR 5 0 GR MG P WI LL TA IA BL M ET F MA 00 10 10 0 60 30 NE 85 MC Ac PA 90 -1 -1 0. IL 91 KE ti P 41 0- 0- 00 34 ME ve 50 98 20 20 0 ME 1 E 0 86 12 12 D JR MG 1 GR P WI TA LL BL IA ET M F 00 08 10 0 30 30 NE 86 MC Ac PI 90 -1 -0 0. IL 36 KE ti RI 42 5- 5- 00 33 ME ve N 00 20 20 0 ME 1 E 32 94 12 12 D JR 5 0 GR MG P WI LL TA IA BL M ET F FO 62 10 10 0 30 30 NE 86 MC Ac LI 58 -0 -0 0. IL 36 KE ti C 40 5- 5- 00 33 ME ve AC 89 20 20 0 ME 5 E ID 70 12 12 D JR 1 1 GR P WI MG LL IA TA M BL F ET MA 00 09 09 0 30 30 NE 85 MC Ac PA 90 -1 -1 0. IL 84 KE ti P 41 6- 6- 00 72 ME ve 50 98 20 20 0 ME 9 E 0 86 12 12 D JR MG 1 GR P WI TA LL BL IA ET M F MA 00 09 09 0 30 7 NE 85 MC Ac PA 90 -0 -0 0. IL 65 KE ti P 41 9- 9- 00 32 ME ve 50 98 20 20 0 ME 5 E 0 86 12 12 D JR MG 1 GR P WI TA LL BL IA ET M F 00 08 09 0 30 30 NE 85 MC Ac PI 90 -1 -0 0. IL 65 KE ti RI 42 5- 9- 00 31 ME ve N 00 20 20 0 ME 1 E 32 94 12 12 D JR 5 0 GR MG P WI LL TA IA BL M ET F FO 00 09 09 0 30 30 NE 85 MC Ac LI 60 -0 -0 0. IL 65 KE ti C 33 9- 9- 00 31 ME ve AC 16 20 20 0 ME 8 E ID 23 12 12 D JR 1 2 GR P WI MG LL IA TA M BL F ET FO 00 08 08 0 30 30 NE 84 MC Ac LI 60 -1 -1 0. IL 94 KE ti C 33 5- 5- 00 84 ME ve AC 16 20 20 0 ME 4 E ID 23 12 12 D JR 1 2 GR P WI MG LL IA TA M BL F ET 00 08 08 0 30 30 NE 84 MC Ac PI 90 -1 -1 0. IL 94 KE ti RI 42 5- 5- 00 84 ME ve N 00 20 20 0 ME 3 E 32 94 12 12 D JR 5 0 GR MG P WI LL TA IA BL M ET F MA 00 04 08 0 30 7 NE 84 MC Ac PA 90 -0 -0 0. IL 64 KE ti P 41 2- 5- 00 87 ME ve 50 98 20 20 0 ME 7 E 0 86 12 12 D JR MG 1 GR P WI TA LL BL IA ET M F SI 54 07 07 0 47 15 NE 84 MC Ac LT 83 -2 -2 30 IL 31 KE ti US 80 4- 4- .0 24 ME ve SI 11 20 20 00 ME 1 E N 78 12 12 D JR SA 0 GR P WI 10 LL 0 IA MG M /5 F ML SY R LO 00 07 07 0 50 5 NE 86 MC Ac RA 78 -2 -2 .0 IL 65 KE ti TA 15 3- 3- 00 25 ME ve DI 07 20 20 ME 8 E NE 70 12 12 D JR 1 GR 10 P WI LL MG IA M TA F BL ET 00 05 07 0 30 30 NE 83 MC Ac PI 90 -0 -0 0. IL 76 KE ti RI 42 9- 3- 00 01 ME ve N 00 20 20 0 ME 4 E 32 94 12 12 D JR 5 0 GR MG P WI LL TA IA BL M ET F FO 00 07 07 0 30 30 NE 83 MC Ac LI 60 -0 -0 0. IL 72 KE ti C 33 2- 2- 00 50 ME ve AC 16 20 20 0 ME 8 E ID 23 12 12 D JR 1 2 GR P WI MG LL IA TA M BL F ET 00 05 06 0 30 30 NE 83 MC Ac PI 90 -0 -0 0. IL 10 KE ti RI 42 9- 9- 00 66 ME ve N 00 20 20 0 ME 2 E 32 94 12 12 D JR 5 0 GR MG P WI LL TA IA BL M ET F FO 00 06 06 0 30 30 NE 83 MC Ac LI 60 -0 -0 0. IL 00 KE ti C 33 6- 6- 00 51 ME ve AC 16 20 20 0 ME 3 E ID 23 12 12 D JR 1 2 GR P WI MG LL IA TA M BL F ET MA 00 04 05 0 30 7 NE 82 MC Ac PA 90 -0 -1 0. IL 32 KE ti P 41 2- 3- 00 02 ME ve 50 98 20 20 0 ME 5 E 0 86 12 12 D JR MG 1 GR P WI TA LL BL IA ET M F LI 00 05 05 0 15 5 NE 82 MC Ac QU 90 -1 -1 0. IL 32 KE ti IT 45 3- 3- 00 56 ME ve EA 01 20 20 0 ME 5 E RS 73 12 12 D JR 5 GR 1. P WI 4 LL % IA DR M OP F S FO 00 12 05 0 30 30 NE 82 MC Ac LI 60 -2 -0 0. IL 21 KE ti C 33 3- 9- 00 98 ME ve AC 16 20 20 0 ME 7 E ID 23 11 12 D JR 1 2 GR P WI MG LL IA TA M BL F ET 00 05 05 0 30 30 NE 82 MC Ac PI 90 -0 -0 0. IL 22 KE ti RI 42 9- 9- 00 00 ME ve N 00 20 20 0 ME 4 E 32 94 12 12 D JR 5 0 GR MG P WI LL TA IA BL M ET F 00 02 04 0 30 30 NE 81 MC Ac PI 90 -1 -1 0. IL 37 KE ti RI 42 7- 0- 00 89 ME ve N 00 20 20 0 ME 8 E 32 94 12 12 D JR 5 0 GR MG P WI LL TA IA BL M ET F FO 00 12 04 0 30 0 NE 81 MC Ac LI 60 -2 -0 0. IL 13 KE ti C 33 3- 2- 00 17 ME ve AC 16 20 20 0 ME 1 E ID 23 11 12 D JR 1 2 GR P WI MG LL IA TA M BL F ET MA 00 04 04 0 30 0 NE 81 MC Ac PA 90 -0 -0 0. IL 13 KE ti P 41 2- 2- 00 17 ME ve 50 98 20 20 0 ME 4 E 0 86 12 12 D JR MG 1 GR P WI TA LL BL IA ET M F FO 00 09 10 5 30 30 SO 38 MC Ac LI 60 -1 -1 .0 PE 44 GI ti C 33 9- 8- 00 RS 55 NN ve AC 16 20 20 IS ID 23 11 11 FA 1 2 ME JE LY FF MG RE DR Y TA UG B BL ET FO 00 09 09 5 30 30 SO 38 MC Ac LI 60 -1 -1 .0 PE 44 GI ti C 33 9- 9- 00 RS 55 NN ve AC 16 20 20 IS ID 23 11 11 FA 1 2 ME JE LY FF MG RE DR Y TA UG B BL ET FO 00 06 08 2 30 30 SO 37 MC Ac LI 60 -0 -2 .0 PE 55 GI ti C 33 6- 2- 00 RS 37 NN ve AC 16 20 20 IS ID 23 11 11 FA 1 2 ME JE LY FF MG RE DR Y TA UG B BL ET FO 00 06 07 2 30 30 SO 37 MC Ac LI 60 -0 -2 .0 PE 55 GI ti C 33 6- 3- 00 RS 37 NN ve AC 16 20 20 IS ID 23 11 11 FA 1 2 ME JE LY FF MG RE DR Y TA UG B BL ET FO 00 06 06 2 30 30 SO 37 MC Ac LI 60 -0 -2 .0 PE 55 GI ti C 33 6- 3- 00 RS 37 NN ve AC 16 20 20 IS ID 23 11 11 FA 1 2 ME JE LY FF MG RE DR Y TA UG B BL ET FO 00 03 05 5 30 30 CA 10 MC Ac LI 60 -2 -2 .0 RR 75 GI ti C 33 8- 6- 00 IN 86 NN ve AC 16 20 20 GT 2 IS ID 23 11 11 ON [address] FF MG UG RE Y TA B BL ET FO 00 03 04 5 30 30 CA 10 MC Ac LI 60 -2 -2 .0 RR 75 GI ti C 33 8- 5- 00 IN 86 NN ve AC 16 20 20 GT 2 IS ID 23 11 11 ON [address] FF MG UG RE Y TA B BL ET FO 00 03 03 5 30 30 CA 10 MC Ac LI 60 -2 -2 .0 RR 75 GI ti C 33 8- 8- 00 IN 86 NN ve AC 16 20 20 GT 2 IS ID 23 11 11 ON [address] FF MG UG RE Y TA B BL ET CH 00 08 08 00 12 6 CA 96 MC Ac ER 60 -0 -1 0. RR 86 GI ti AT 31 3- 3- 00 IN 47 NN ve US 07 20 20 0 GT IS SI 55 09 09 ON N [address] FF UG RE SY Y RU B P 53 03 04 00 12 12 CA 88 No Ac 01 -0 -0 0. RR 65 t ti 40 5- 7- 00 IN 17 Av ve 54 20 20 0 GT ai 86 08 08 [place] [address] jolie JOSEPH Immunization Name Date Rout CVX Reac Dose Comm Prov Is Faci e tion ent ider Refu lity Give sed n TD 08-2 113 ABNER No ABNER VACC 1-20 [facility] V ITAL ITAL FREE 7 YRS OR OLDE R FOR IM USE TD 08-2 91 ABNER No ABNER VACC 1-20 [facility] INE 11 [facility] HOSP V ITAL ITAL FREE 7 YRS OR OLDE R FOR IM USE Results Labs Lab Lab Date Result Refere Interp Status Commen Order Detail nces retati t Range on Urinalysis dipstick W Reflex Microscopic panel in Urine (07-26-2016 01:34) Amorpho 4+ NONE complet us 017 ed sedimen 01:34 t [Presen ce] in Urine sedimen t by Light microsc opy Erythro 3-5 0 complet cytes 017 ed [Presen 01:34 ce] in Urine sedimen t by Light microsc opy Epithel 5-10 0#/hp complet ial 017 f - ed cells.s 01:34 5#/hp quamous f [Presen ce] in Urine sedimen t by Microsc opy high power field Urinalysis dipstick W Reflex Microscopic panel in Urine (07-26-2016 01:34) Appeara CLOUDY CLEAR complet nce of 017 ed Urine 01:34 Bilirub NEGATIV NEG complet in 017 E ed [Presen 01:34 ce] in Urine by Test strip Erythro TRACE-I NEG complet cytes 017 NTACT ed [Presen 01:34 ce] in Urine Color YELLOW YELLOW complet of 017 ed Urine 01:34 Ketones NEGATIV NEG complet 017 E ed [Presen 01:34 ce] in Urine by Automat ed test strip Mucus NEGATIV NEG complet [Presen 017 E ed ce] in 01:34 Urine sedimen t by Light microsc opy Nitrite NEGATIV NEG complet 017 E ed [Presen 01:34 ce] in Urine by Test strip Urobili 0.2 NEG complet nogen 017 ed [Presen 01:34 ce] in Urine by Test strip Hemoglobin.gastrointestinal [Presence] in Stool (07-26-2016 01:27) Hemoglo POSITIV NEG complet bin.gas 017 E ed trointe 01:27 stinal [Presen ce] in Stool --1st specime n Procedures Procedure DOS Code Location Performer Comment DEBRIDEME [address] [facility] JEAN NT NAIL 7 ARE ANY METHOD 6/> COLLECTIO 11229 COMBINED COMBINED N VENOUS 7 PHYSICIAN PHYSICIAN BLOOD S LAB S LAB VENIPUNCT URE BLOOD 26144 COMBINED COMBINED COUNT 7 PHYSICIAN PHYSICIAN COMPLETE S LAB S LAB AUTO&AUTO DIFRNTL WBC TRAVEL [address] MED 7 PHYSICIAN PHYSICIAN NEC LAB S LAB S LAB SPEC; PRORAT ACTL MILE BLOOD 83140 COMBINED COMBINED COUNT 7 PHYSICIAN PHYSICIAN COMPLETE S LA S LA AUTO&AUTO DIFRNTL WBC TRAVEL [address] MED 7 PHYSICIAN PHYSICIAN NEC LAB S LA S LA SPEC; PRORAT ACTL MILE COLLECTIO 67509 COMBINED COMBINED N VENOUS 7 PHYSICIAN PHYSICIAN BLOOD S LA S LA VENIPUNCT URE DEBRIDEME 32109 [facility] JEAN NT NAIL 7 ARE ANY METHOD 6/> AMBULANCE A0428 [facility] SERVICE 7 AMBULANCE AMBULANCE BLS SERVICE SERVICE NONEMERGE NC TRANSPORT GROUND A0425 [facility] MILEA 7 AMBULANCE AMBULANCE PER SERVICE SERVICE [facility] G0378 [facility] G[facility] OBSERVATI 7 [facility] ON INC [facility] G[facility]8 [facility] G[facility] OBSERVATI 7 [facility] ON INC INC SERVICE PER HOUR [facility] CLINICS [address]4745 [facility] UPPER GI 7 ANESTH ENDOSCOPY OF THE PROXIMAL BLUE TO DUODENUM BLOOD 84382 PATSY GARNER COUNT 7 [facility] COMPLETE INC INC AUTO&AUTO DIFRNTL WBC EGD 69688 [facility] TRANSORAL 7 PHYSICIAN BIOPSY S GROUP SINGLE/MU LTIPLE COLLECTIO 81182 [facility] G[facility] N VENOUS 7 [facility] [place] [address] [facility]SY GARNER HPYLORI 7 [place] [address] PATSY GARNER SURG 7 [facility] PATHOLOGY INC INC GROSS&MARIELA ROSCOPIC EXAM SPCL STN 32211 PATSY GARNER 2 I&R 7 [facility] EXCPT INC INC MICROORG/ ENZYME/IM CYT BASIC 91148 PATSY GARNER METABOLIC 7 [facility] PANEL INC INC CALCIUM TOTAL RADIOLOGI 56017 PATSY GARNER C 7 [facility] EXAMINATI INC INC ON CHEST SINGLE VIEW FRONTAL ECG 52129 PATSY GARNER ROUTINE 7 [facility] ECG INC INC W/LEAST 12 LDS TRCG ONLY W/O I&R COLOREC G0328 PATSY GARNER CA SCR; 7 [facility] FOB TST INC INC IMMUNO 1-[address] [place] [address] PATSY GARNER ABDOMEN & 7 [facility] PELVIS INC INC W/O CONTRAST MATERIAL COLLECTIO 47869 PATSY GARN[facility] N VENOUS 7 [facility] BLOOD INC INC VENIPUNCT URE URNLS DIP 96991 [facility]SY GARNER 7 [facility] STICK/TAB INC INC LET REAGENT AUTO MICROSCOP Y ECG 43985 PATSY DIAZ JR ROUTINE 7 [facility] W/LEAST P 12 LDS I&R ONLY INITIAL 26775 [facility] BRANDT OBSERVATI 7 PHYSICIAN ON S GROUP CARE/DAY 30 MINUTES BLOOD 31894 PATSY GARNER COUNT 7 [facility] COMPLETE INC INC AUTO&AUTO DIFRNTL WBC COMPREHEN 75271 PAT[facility] GARNER SIVE 7 [facility] METABOLIC INC INC PANEL HOSPITAL G0378 PATSY GARNER OBSERVATI 7 [facility] ON INC INC SERVICE PER HOUR GROUND A0425 [facility] MILEAGE [address] [place] [address] PER AMBULANCE AMBULANCE STATUTE SE SE MILE AMBULANCE A0429 [facility] SERVICE 7 [facility] AMBULANCE AMBULANCE EMERGENCY SE SE TRANSPORT OPHTH 14892 [facility] 7 F. XM&EVAL [facility] COMPRHNSV PSC ESTAB PT 1/> COMPREHEN 26538 COMBINED COMBINED SIVE 7 PHYSICIAN PHYSICIAN METABOLIC S LA S LA PANEL TRAVEL [address] MED 7 PHYSICIAN PHYSICIAN NEC LAB S LA S LA SPEC; PRORAT ACTL MILE COLLECTIO 74186 COMBINED COMBINED N VENOUS 7 PHYSICIAN PHYSICIAN BLOOD S LA S LA VENIPUNCT URE DEBRIDEME 26752 [facility] JEAN NT NAIL 7 ARE ANY METHOD 6/> COLLECTIO 77618 COMBINED COMBINED N VENOUS 7 PHYSICIAN PHYSICIAN BLOOD S LA S LA VENIPUNCT URE TRAVEL [address] MED 7 PHYSICIAN PHYSICIAN NEC LAB S LA S LA SPEC; PRORAT ACTL MILE BLOOD 05909 COMBINED COMBINED COUNT 7 PHYSICIAN PHYSICIAN COMPLETE S LA S LA AUTO&AUTO DIFRNTL WBC TRANS R0070 [facility] SYMP[facility]Y PRTBL 7 MOBILEX MOBILEX X-RAY EQP&PERS TRISTEN/NRS TRISTEN-TRIP 1 PT SET-UP Q0092 [facility] SYMP[facility]ONY PORTABLE 7 MOBILEX MOBILEX X-RAY EQUIPMENT RADIOLOGI 45333 SYMPHONY SYMPHONY C EXAM 7 MOBILEX MOBILEX CHEST 2 VIEWS FRONTAL&L ATERAL REMOVAL 14940 [facility] GEM IMPACTED 7 ARE CERUMEN INSTRUMEN TATION UNILAT COLLECTIO 56825 COMBINED COMBINED N VENOUS 7 PHYSICIAN PHYSICIAN BLOOD S LA S LA VENIPUNCT URE BLOOD 59180 COMBINED COMBINED COUNT 7 PHYSICIAN PHYSICIAN COMPLETE S LA S LA AUTO&AUTO DIFRNTL WBC TRAVEL [address] MED 7 PHYSICIAN PHYSICIAN NEC LAB S LA S LA SPEC; PRORAT ACTL MILE DEBRIDEME 33899 [facility] JEAN NT NAIL 7 ARE ANY METHOD 6/> COLLECTIO 12661 COMBINED COMBINED N VENOUS 7 PHYSICIAN PHYSICIAN BLOOD S LA S LA VENIPUNCT URE TRAVEL [address] MED 7 PHYSICIAN PHYSICIAN NEC LAB S LA S LA SPEC; PRORAT ACTL MILE BLOOD 60148 COMBINED COMBINED COUNT 7 PHYSICIAN PHYSICIAN COMPLETE S LA S LA AUTO&AUTO DIFRNTL WBC COMPREHEN 26670 COMBINED COMBINED SIVE 7 PHYSICIAN PHYSICIAN METABOLIC S LA S LA PANEL SBSQ [address] [place] [address] INTERNAL CARE/DAY MEDI MINOR COMPLJ 15 MIN COLLECTIO 73707 COMBINED COMBINED N VENOUS 7 PHYSICIAN PHYSICIAN BLOOD S LA S LA VENIPUNCT URE TRAVEL [address] MED 7 PHYSICIAN PHYSICIAN NEC LAB S LA S LA SPEC; PRORAT ACTL MILE BLOOD 87410 COMBINED COMBINED COUNT 7 PHYSICIAN PHYSICIAN COMPLETE S LA S LA AUTO&AUTO DIFRNTL WBC TRIMMING G0127 [facility] JEAN OF 6 ARE DYSTROPHI C NAILS ANY NUMBER COLLECTIO 68881 COMBINED COMBINED N VENOUS 6 PHYSICIAN PHYSICIAN BLOOD S LA S LA VENIPUNCT URE URNLS DIP 84908 COMBINED COMBINED 6 PHYSICIAN PHYSICIAN STICK/TAB S LA S LA LET REAGENT AUTO MICROSCOP Y BLOOD 60851 COMBINED COMBINED COUNT 6 PHYSICIAN PHYSICIAN COMPLETE S LA S LA AUTO&AUTO DIFRNTL WBC VOLUME 63498 COMBINED COMBINED MEASUREME 6 PHYSICIAN PHYSICIAN NT TIMED S LA S LA COLLECTIO N EACH TRAVEL [address] MED 6 PHYSICIAN PHYSICIAN NEC LAB S LA S LA SPEC; PRORAT ACTL MILE TRAVEL [address] MED 6 PHYSICIAN PHYSICIAN NEC LAB S LA S LA SPEC; PRORAT ACTL MILE BLOOD 79662 COMBINED COMBINED COUNT 6 PHYSICIAN PHYSICIAN COMPLETE S LA S LA AUTO&AUTO DIFRNTL WBC COLLECTIO 71870 COMBINED COMBINED N VENOUS 6 PHYSICIAN PHYSICIAN BLOOD S LA S LA VENIPUNCT URE GROUND A0425 [facility] MILEAGE 6 AMBULANCE AMBULANCE PER SERVICE SERVICE STATUTE MILE AMBULANCE A0428 [facility] SERVICE 6 AMBULANCE AMBULANCE BLS SERVICE SERVICE NONEMERGE NCY TRANSPORT RADIOLOGI 74839 [facility] 6 MEDICAL ARIA EXAMINATI IMAGING ON CHEST ASS SINGLE VIEW FRONTAL GROUND A0425 [facility] [address] [place] [address] PER AMBULANCE AMBULANCE STATUTE SE SE MILE AMB A0427 [facility] SERVICE [address] [place] [address] ALS AMBULANCE AMBULANCE EMERGENCY SE SE TRANSPORT LEVEL 1 GROUND A0425 [facility] [address] [place] [address] PER AMBULANCE AMBULANCE STATUTE SE SE MILE MOTION 32335 [facility] ROQUE [facility] EVAL INC INC SWLNG FUNCJ C/V REC SWALLOWIN 08111 PATSY Titus FUNCJ 6 [facility] W/CINERAD INC INC IOGRAPY/V IDRADIOG AMBULANCE A0428 [facility] [address] [place] [address] BLS AMBULANCE AMBULANCE NONEMERGE SE SE NCY TRANSPORT GONIOSCOP 80732 ANNA SANCHEZ Y 6 F. DEIDRE SEPARATE LAURA PROCEDURE PSC OPHTH 36543 ANNA SANCHEZ MEDICAL 6 F. DEIDRE XM&EVAL LAURA COMPRHNSV PSC ESTAB PT 1/> FUNDUS 12360 ANNA SANCHEZ PHOTOGRAP 6 F. DEIDRE HY LAURA W/INTERPR PSC ETATION & REPORT DEBRIDEME 66939 [facility] SYDNEE NT NAIL 6 ARE TORIN ANY METHOD 6/> REMOVAL 97425 [facility] GEM IMPACTED 6 ARE TOMER CERUMEN INSTRUMEN TATION UNILAT NONEMERGE A0130 [facility] 6 TRANSPORT TRANSPORT TRANSPORT ATION: ATION SER [place] [address] COMBINED COMBINED BLOOD/URI 6 PHYSICIAN PHYSICIAN C ACID S LA S LA COLLECTIO 00341 COMBINED COMBINED N VENOUS 6 PHYSICIAN PHYSICIAN BLOOD S LA S LA VENIPUNCT URE RADEX 97498 SYMPHONY SYMPHONY WRIST 2 6 MOBILEX MOBILEX VIEWS TRANS R0075 SYMPHONY SYMPHONY PRTBL 6 MOBILEX MOBILEX XRAY EQP&PERS TRISTEN/NRS TRISTEN-TRIP> 1 PT SET-UP Q0092 SYMPHONY SYMPHONY PORTABLE 6 MOBILEX MOBILEX X-RAY EQUIPMENT VOLUME 97585 COMBINED COMBINED MEASUREME 6 PHYSICIAN PHYSICIAN NT TIMED S LA S LA COLLECTIO N EACH SUSCEPTIB 53213 COMBINED COMBINED ILITY 6 PHYSICIAN PHYSICIAN STUDY S LA S LA ANTIMICRO BIAL DISK METHOD URNLS DIP 63996 COMBINED COMBINED 6 PHYSICIAN PHYSICIAN STICK/TAB S LA S LA LET REAGENT AUTO MICROSCOP Y CULTURE 59196 COMBINED COMBINED BACTERIAL 6 PHYSICIAN PHYSICIAN S LA S LA QUANTTATI VE COLONY COUNT URINE CULTURE 48694 COMBINED COMBINED BCT 6 PHYSICIAN PHYSICIAN ISOL&PRSM S LA S LA PTV ID ISOLATE EA URINE NONEMERGE A0130 [facility] 6 TRANSPORT TRANSPORT TRANSPORT ATION: ATION SER ATION SER JESSY EDWARDS BLOOD 45263 COMBINED COMBINED COUNT 6 PHYSICIAN PHYSICIAN COMPLETE S LA S LA AUTO&AUTO DIFRNTL WBC TRAVEL [address] MED 6 PHYSICIAN PHYSICIAN NEC LAB S LA S LA SPEC; PRORAT ACTL MILE COMPREHEN 86226 COMBINED COMBINED SIVE 6 PHYSICIAN PHYSICIAN METABOLIC S LA S LA PANEL COLLECTIO 72554 COMBINED COMBINED N VENOUS 6 PHYSICIAN PHYSICIAN BLOOD S LA S LA VENIPUNCT URE ANES 15461 [facility] 6 ANESTH SHE INTESTINE OF THE BLUE ENDOSCOPY DISTAL DUODENUM COLONOSCO 81688 [facility] PY FLX DX 6 PHYSICIAN CAM W/COLLJ S GROUP SPEC WHEN PFRMD INSPECTIO [id number] PATSY GARNER N LOW 6 [facility] INTEST INC INC TRACT JINNY/ART OPENING ENDO INSPECTIO 1OX00II PATSY GARNER N UP 6 [facility] INTEST INC INC TRACT JINNY/ART OPENING ENDO ESOPHAGOG 21032 [facility] ASTRODUOD 6 PHYSICIAN CAM ENOSCOPY S GROUP TRANSORAL DIAGNOSTI C ANE 86706 [facility] UPPER GI 6 ANESTH REE ENDOSCOPY OF THE PROXIMAL BLUE TO DUODENUM GROUND A0425 OLEKSANDR LEGGETT MILEAGE [address] [place] [address] PER AMBULANCE AMBULANCE STATUTE SE SE MILE AMBULANCE A0429 OLEKSANDR LEGGETT SERVICE [address] [place] [address] BLS AMBULANCE AMBULANCE EMERGENCY SE SE TRANSPORT INITIAL 36824 [facility] 6 PHYSICIAN CAM CARE/DAY S GROUP 50 MINUTES DEBRIDEME 25249 [facility] NT NAIL 6 ARE TORIN ANY METHOD 6/> PARING/CU 55359 [facility] TTING 6 ARE TORIN BENIGN HYPERKERA TOTIC LESION 2-4 OPHTH 58057 ANNA SANCHEZ MEDICAL 6 F. DEIDRE XM&DAMARIAL LAURA COMPRHNSV PSC ESTAB PT 1/> FUNDUS 87842 ANNA SANCHEZ PHOTOGRAP 6 F. DEIDRE HY LAURA W/INTERPR PSC ETATION & REPORT CULTURE 74860 PATSY GARNER BACTERIAL 6 [facility] INC INC QUANTTATI VE COLONY COUNT URINE URNLS DIP 99105 PATSY GARNER 6 [facility] STICK/TAB INC INC LET REAGENT AUTO MICROSCOP Y SBSQ 07634 [facility] [address] [place] [address] INTERNAL CARE/DAY MED MINOR COMPLJ 15 MIN REMOVAL 27231 [facility] GEM IMPACTED 6 ARE TOMER CERUMEN INSTRUMEN TATION UNILAT NONEMERGE A0130 FEDERATED FEDERATED NCY 6 TRANSPORT TRANSPORT TRANSPORT ATION: ATION SER ATION SER JESSY R VAN PARING/CU 10101 [facility] TTING 6 ARE TORIN BENIGN HYPERKERA TOTIC LESION 2-4 DEBRIDEME 60654 [facility] NT NAIL 6 ARE TORIN ANY METHOD 6/> NONEMERGE A0130 FEDERATED FEDERATED NCY 6 TRANSPORT TRANSPORT TRANSPORT ATION: ATION SER ATION SER JESSY R VAN COMPREHEN 78938 COMBINED COMBINED SIVE 5 PHYSICIAN PHYSICIAN METABOLIC S LA S LA PANEL TRAVEL [address] MED 5 PHYSICIAN PHYSICIAN NEC LAB S LA S LA SPEC; PRORAT ACTL MILE BLOOD 12439 COMBINED COMBINED COUNT 5 PHYSICIAN PHYSICIAN COMPLETE S LA S LA AUTO&AUTO DIFRNTL WBC COLLECTIO 95918 COMBINED COMBINED N VENOUS 5 PHYSICIAN PHYSICIAN BLOOD S LA S LA VENIPUNCT URE SBSQ 76945 [facility] NURSING 5 ARE TORIN FACILITY CARE/DAY E/M STABLE 10 MIN DEBRIDEME 62679 [facility] ARE [facility] ANY METHOD 6/> PARING/CU 14066 [facility] TTING 5 ARE TORIN BENIGN HYPERKERA TOTIC LESION 2-4 GONIOSCOP 30999 ANNA SANCHEZ Y 5 F. DEIDRE SEPARATE LAURA PROCEDURE PSC OPHTH 25244 ANNA SANCHEZ MEDICAL 5 F. DEIDRE XM&DAMARIAL LAURA COMPRHNSV PSC ESTAB PT 1/> FUNDUS 17662 ANNA SANCHEZ PHOTOGRAP 5 F. DEIDRE HY LAURA W/INTERPR PSC ETATION & REPORT SBSQ 74272 [facility] NURSING 5 ARE VIC FACILITY CARE/DAY E/M STABLE 10 MIN STANDARD K0001 LORI JIMÉNEZ 5 HOME HOME R MEDICAL MEDICAL EQUIPME EQUIPME NEBULIZER E0570 LORI JIMÉNEZ 5 HOME HOME COMPRESSO MEDICAL MEDICAL R EQUIPME EQUIPME HOS BED E0260 LORI SANFORDRELL SEMI-ELEC 5 HOME HOME W/ANY MEDICAL MEDICAL TYPE SIDE EQUIPME EQUIPME RAIL W/MATTRSS PARING/CU 62095 [facility] TTING 5 ARE TORIN BENIGN HYPERKERA TOTIC LESION 2-4 DEBRIDEME 18657 [facility] NT NAIL 5 ARE TORIN ANY METHOD 6/> SBSQ 27730 [facility] 5 ARE TORIN FACILITY CARE/DAY E/M STABLE 10 MIN STANDARD K0001 LORI CASEYI 5 HOME HOME R MEDICAL MEDICAL EQUIPME EQUIPME HOS BED E0260 LORI SANDOVAL SEMI-ELEC 5 HOME HOME W/ANY MEDICAL MEDICAL TYPE SIDE EQUIPME EQUIPME RAIL W/MATTRSS NEBULIZER E0570 LORI SANDOVAL WITH 5 HOME HOME COMPRESSO MEDICAL MEDICAL R EQUIPME EQUIPME OPHTH 41281 ANNA SANCHEZ [facility] 5 F. DEIDRE XM&MATTHEW SANCHEZ COMPRHNSV PSC ESTAB PT 1/> STANDARD K0001 LORI JIMÉNEZ 5 HOME HOME R MEDICAL MEDICAL EQUIPME EQUIPME HOS BED E0260 LORI SANDOVAL SEMI-ELEC 5 HOME HOME W/ANY MEDICAL MEDICAL TYPE SIDE EQUIPME EQUIPME RAIL W/MATTRSS NEBULIZER E0570 LORI SANDOVAL WITH 5 HOME HOME COMPRESSO MEDICAL MEDICAL R EQUIPME EQUIPME STANDARD K0001 LORI JIMÉNEZ 5 HOME HOME R MEDICAL MEDICAL EQUIPME EQUIPME HOS BED E0260 LORI SANFORDRELL SEMI-ELEC 4 HOME HOME W/ANY MEDICAL MEDICAL TYPE SIDE EQUIPME EQUIPME RAIL W/MATTRSS NEBULIZER E0570 LORI SANDOVAL WITH 4 HOME HOME COMPRESSO MEDICAL MEDICAL R EQUIPME EQUIPME REMOVAL 70832 [facility] IMPACTED 4 ARE TOMER CERUMEN INSTRUMEN TATION UNILAT STANDARD K0001 LORI JIMÉNEZ 4 HOME HOME R MEDICAL MEDICAL EQUIPME EQUIPME HOS BED E0260 LORI SANDOVAL SEMI-ELEC 4 HOME HOME W/ANY MEDICAL MEDICAL TYPE SIDE EQUIPME EQUIPME RAIL W/MATTRSS NEBULIZER E0570 LORI SANDOVAL WITH 4 HOME HOME COMPRESSO MEDICAL MEDICAL R EQUIPME EQUIPME STANDARD K0001 LORI CASEYI 4 HOME HOME R MEDICAL MEDICAL EQUIPME EQUIPME NEBULIZER E0570 LORI SANDOVAL WITH 4 HOME HOME COMPRESSO MEDICAL MEDICAL R EQUIPME EQUIPME HOS BED E0260 LORI SANDOVAL SEMI-ELEC 4 HOME HOME W/ANY MEDICAL MEDICAL TYPE SIDE EQUIPME EQUIPME RAIL W/MATTRSS PARING/CU 63317 [facility] SYDNEE TTING 4 ARE TORIN BENIGN HYPERKERA TOTIC LESION 2-4 DEBRIDEME 07722 [facility] NT NAIL 4 ARE TORIN ANY METHOD 6/> SBSQ 88435 [facility] NURSING 4 ARE TORIN FACILITY CARE/DAY E/M STABLE 10 MIN COLLECTIO 17151 COMBINED COMBINED N VENOUS 4 PHYSICIAN PHYSICIAN BLOOD S LA S LA VENIPUNCT URE BASIC 20622 COMBINED COMBINED METABOLIC 4 PHYSICIAN PHYSICIAN PANEL S LA S LA CALCIUM TOTAL TRAVEL [address] MED 4 PHYSICIAN PHYSICIAN NEC LAB S LA S LA SPEC; PRORAT ACTL MILE BLOOD 57024 COMBINED COMBINED COUNT 4 PHYSICIAN PHYSICIAN COMPLETE S LA S LA AUTO&AUTO DIFRNTL WBC TRANS R0075 SYMPHONY SYMPHONY PRTBL 4 MOBILEX MOBILEX XRAY EQP&PERS TRISTEN/NRS TRISTEN-TRIP> 1 PT SET-UP Q0092 SYMPHONY SYMPHONY PORTABLE 4 MOBILEX MOBILEX X-RAY EQUIPMENT RADIOLOGI 76289 SYMPHONY SYMPHONY C 4 MOBILEX MOBILEX EXAMINATI ON CHEST SINGLE VIEW FRONTAL RADIOLOGI 69835 SYMPHONY SYMPHONY C 4 MOBILEX MOBILEX EXAMINATI ON CHEST SINGLE VIEW FRONTAL SET-UP Q0092 SYMPHONY SYMPHONY PORTABLE 4 MOBILEX MOBILEX X-RAY EQUIPMENT TRANS R0070 SYMPHONY SYMPHONY PRTBL 4 MOBILEX MOBILEX X-RAY EQP&PERS TRISTEN/NRS TRISTEN-TRIP 1 PT STANDARD K0001 LORI JIMÉNEZ 4 HOME HOME R MEDICAL MEDICAL EQUIPME EQUIPME NEBULIZER E0570 LORI SANDOVAL WITH 4 HOME HOME COMPRESSO MEDICAL MEDICAL R EQUIPME EQUIPME HOS BED E0260 LOIR SANDOVAL SEMI-ELEC 4 HOME HOME W/ANY MEDICAL MEDICAL TYPE SIDE EQUIPME EQUIPME RAIL W/MATTRSS STANDARD K0001 LORI JIMÉNEZ 4 HOME HOME R MEDICAL MEDICAL EQUIPME EQUIPME NEBULIZER E0570 LORI SANDOVAL WITH 4 HOME HOME COMPRESSO MEDICAL MEDICAL R EQUIPME EQUIPME HOS BED E0260 LORI SANDOVAL SEMI-ELEC 4 HOME HOME W/ANY MEDICAL MEDICAL TYPE SIDE EQUIPME EQUIPME RAIL W/MATTRSS URNLS DIP 35439 COMBINED COMBINED 4 PHYSICIAN PHYSICIAN STICK/TAB S LA S LA LET REAGENT AUTO MICROSCOP Y STANDARD K0001 LORI JIMÉNEZ 4 HOME HOME R MEDICAL MEDICAL EQUIPME EQUIPME NEBULIZER E0570 LORI SANDOVAL WITH 4 HOME HOME COMPRESSO MEDICAL MEDICAL R EQUIPME EQUIPME HOS BED E0260 LORI SANDOVAL SEMI-ELEC 4 HOME HOME W/ANY MEDICAL MEDICAL TYPE SIDE EQUIPME EQUIPME RAIL W/MATTRSS STANDARD K0001 LORI JIMÉNEZ 4 HOME HOME R MEDICAL MEDICAL EQUIPME EQUIPME NEBULIZER E0570 LORI SANDOVAL WITH 4 HOME HOME COMPRESSO MEDICAL MEDICAL R EQUIPME EQUIPME HOS BED E0260 LORI SANDOVAL SEMI-ELEC 4 HOME HOME W/ANY MEDICAL MEDICAL TYPE SIDE EQUIPME EQUIPME RAIL W/MATTRSS STANDARD K0001 LORI JIMÉNEZ 4 HOME HOME R MEDICAL MEDICAL EQUIPME EQUIPME NEBULIZER E0570 LORI SANDOVAL WITH 4 HOME HOME COMPRESSO MEDICAL MEDICAL R EQUIPME EQUIPME HOS BED E0260 LORI SANDOVAL SEMI-ELEC 4 HOME HOME W/ANY MEDICAL MEDICAL TYPE SIDE EQUIPME EQUIPME RAIL W/MATTRSS CULTURE 94611 COMBINED COMBINED BACTERIAL 4 PHYSICIAN PHYSICIAN S LA S LA QUANTTATI VE COLONY COUNT URINE STANDARD K0001 LORI CASEYI 4 HOME HOME R MEDICAL MEDICAL EQUIPME EQUIPME NEBULIZER E0570 LORI SANDOVAL WITH 4 HOME HOME COMPRESSO MEDICAL MEDICAL R EQUIPME EQUIPME HOS BED E0260 LORI SANDOVAL SEMI-ELEC 4 HOME HOME W/ANY MEDICAL MEDICAL TYPE SIDE EQUIPME EQUIPME RAIL W/MATTRSS STANDARD K0001 LORI CASEYI 4 HOME HOME R MEDICAL MEDICAL EQUIPME EQUIPME NEBULIZER E0570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
--- OUTSIDE RECORDS SUMMARY | 2017-01-25 03:10 | External Medical Summary Rpt | CCD ---
Author Author , VAISHALI Organization VAISHALI Address Unknown Phone Care Team Providers Care Refrigerator Glazier Name Role Phone BARRY BRANDT, BARRY BRANDT [...] Unavailable [facility], Unavailable Unavailable [facility]-, Unavailable Unavailable [facility]- [...] Unavailable Unavailable VISION, [facility], Unavailable Unavailable [facility] Unavailable Unavailable [facility], [facility] YASH CAMACHO, Unavailable Unavailable YASH CAMACHO [facility] Un[facility], [facility]OSTELIC VAMSI, Unavailable Unavailable [facility] KOSTELIC, VAMSI K, Unavailable Unavailable [facility], VAMSI K SUJEY C, SUJEY C Unavailable Unavailable [facility], [facility] Unavailable Unavailable HOLDING, [facility] Unavailable Unavailable HOLDING, [facility], Unavailable Unavailable [facility], [facility] Unavailable Unavailable [facility], [facility] Unavailable Unavailable JOE JR, JOE JR Unavailable Unavailable [facility] Unavailable Un[facility] LUTZ MONA, LUTZ MONA Unavailable Unavailable JEAN, JEAN Unavailable Unavailable [facility] Unavailable Unavailable ASSOCIAT, [facility] DEMARCUS MCHUGH, Unavailable Unavailable DEMARCUS AUGUST RAFAT, Unavailable Unavailable MATA RAFAT[facility]ivek DOUGLASS, Unavailable Unavailable GRANT MOTA, Unavailable Unavailable GRANT AUGUST JR DEIDRE, Unavailable Unavailable OBEDE DEIDRE DAMON SANCHEZGER Unavailable Unavailable LAURAMARIAJOSE JIANG LAURA Unavailable Unavailable [facility], 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 [facility] Unavailable [facility]available 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 Unavailable Unavailable AM[facility]ULANCE SERV, [facility] Unavailable Unavailable [facility], [facility], [facility] Unavailable Unavailable [facility], Unavailable Unavailable [facility], Unavailable Unavailable [facility] Unavailable Unavailable AMBULANCE SE, [facility] Unavailable Unavailable AMBULANCE SE, [facility], Unavailable Unavailable [facility] [...] Unavailable Unavailable EQUIPME, [facility] Unavailable Unavailable EMERGENCY PHYS, [facility] MARVA SHE, Unavailable Unavailable MARVA SHE [facility] Unavailable Unavailable LALI, [facility], Unavailable Unavailable [facility], Unavailable Unavailable [facility] BLAZE THAKUR Unavailable Unavailable [facility] Unavailable Unavailable ASSIST, [facility], Unavailable Unavailable [facility] VANDERHOOF MAR, Unavailable Unavailable VANDERHOOF MAR SYDNEE [...] HEMORRHAGE THE BLUE UNSPECIFIED I10 ESSENTIAL 07-26-2016 [facility], HYPERTENSIO PLLC N 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 K449 DIAPHRAGMAT 07-26-2016 [facility] IC HERNIA PHYSICIANS W/O GROUP OBSTRUCTION OR GANGRENE R05 COUGH 07-26-2016 [facility] R0602 SHORTNESS 07-26-2016 [facility] R1084 GENERALIZED 07-26-2016 [facility] K920 HEMATEMESIS 07-25-2016 [facility] AMBULANCE SE R112 NAUSEA WITH 07-25-2016 [facility] UNSPECIFIED AMBULANCE SE H2513 AGE-RELATED 07-02-2016 ANNA Love NUCLEAR LA[facility]A PSC CATARACT BILATERAL [id number] OPEN ANGLE 07-02-2016 ANNA Wilks/ROSA SANCHEZ PSC E FIND HIGH RISK BILATERAL H6121 IMPACTED 04-17-2016 [facility] CERUMEN E RIGHT EAR D509 IRON 02-19-2016 [facility] ANEMIA INTERNAL UNSPECIFIED MEDI G301 ALZHEIMERS 02-19-2016 [facility] DISE[facility] WITH LATE INTERNAL ONSET MEDI M150 PRIMARY 02-19-2016 [facility] INTERNAL OSTEOARTHRI MEDI TIS R300 DYSURIA 01-27-2016 [facility] [place] R4182 ALTERED 12-19-2015 [facility] STATUS SERVICE UNSPECIFIED N289 DISORDER OF 12-17-2015 [facility] UNSPECIFIED R000 TACHYCARDIA 12-17-2015 [facility] UNSPECIFIED PLLC R509 FEVER 12-17-2015 [facility]PEC[facility], PLLC R918 OTHER 12-17-2015 [facility] NONSPECIFIC MEDICAL ABNORMAL IMAGING ASS FINDING OF LUNG FIELD M6281 MUSCLE 10-07-2015 [facility] GENERALIZED AMBULANCE SE R1310 DYSPHAGIA 10-07-2015 [facility]PECIFIED [facility] INC R4702 DYSPHASIA 10-07-2015 [facility] R531 WEAKNESS 10-07-2015 [facility] AMBULANCE SE Z7409 OTHER 10-07-2015 [facility] MOBILITY AMBULANCE SE H3531 NONEXUDATIV 10-04-2015 ANNA SANCHEZ [facility] 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 [id number] PRIMARY 10-04-2015 ANNA Love OPEN-ANGLE LAURA [facility] GLAUCOMA MILD STAGE [id number] ACUTE 09-12-2015 [facility] LYMPHANGITI E S OF LEFT TOE L600 INGROWING 09-12-2015 [facility] NAIL E L744 ANHIDROSIS 09-12-2015 [facility] E L84 CORNS AND 09-12-2015 [facility] CALLOSITIES E [id number] PAIN IN 09-12-2015 [facility] LEFT TOES E R69 ILLNESS 08-14-2015 [facility] UNSPECIFIED TRANSPORTAT ION SER M109 GOUT 08-08-2015 [facility] UNSPECIFIED PHYSICIANS LA [id number] PRIMARY 08-05-2015 [facility] OSTEOARTHRI MOBILEX TIS LEFT WRIST D500 IRON 07-07-2015 [facility]ICIANS ANEMIA SEC GROUP TO BLOOD LOSS CHRONIC K921 MELENA 07-07-2015 [facility] INC R7989 OTHER SPEC 07-07-2015 [facility] ABNORMAL [facility] FINDINGS AMBULANCE BLOOD SE CHEMISTRY Z791 PANTOGRAPH WATCHER 07-07-2015 [facility] CURR [facility] NON-STEROID INC AL&ANTI-INF LAMMATORIES Z7982 PANTOGRAPH WATCHER 07-07-2015 [facility] CURRENT USE [facility] OF [place] INC J49123 PAIN IN 05-08-2015 [facility] UNSPECIFIED E FOOT R410 DISORIENTAT 04-20-2015 [facility] ION [facility] UNSPECIFIED INC K5909 OTHER 03-09-2015 [facility] N INTERNAL MED H6123 IMPACTED 03-05-2015 [facility] CERUMEN E BILATERAL U04693 DRUSEN 11-23-2014 ANNA Love DEGENERATIV LAURA PSC E OF [place] BILATERAL 3809 UNSPECIFIED 09-14-2014 [facility] DISORDER E OF EXTERNAL EAR 3899 UNSPECIFIED 09-14-2014 [facility] HEARING E LOSS 91439 ASTHMA, 05-24-2014 [facility] UNSPECIFIED HOME , MEDICAL UNSPECIFIED EQUIPME STATUS 27983 MUSCLE 05-24-2014 [facility] WEAKNESS HOME (GENERALIZE MEDICAL D) EQUIPME 71844 DYSPHAGIA 05-24-2014 [facility] UNSPECIFIED HOME MEDICAL EQUIPME 1101 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 [facility] 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 700 CORNS AND 05-01-2014 [facility] CALLOSITIES E 7030 INGROWING 05-01-2014 [facility] NAIL E 7050 ANHIDROSIS 05-01-2014 [facility] E 7295 PAIN IN 05-01-2014 [facility] SOFT E TISSUES OF LIMB 43018 BORDERLINE 03-26-2014 ANNA Love GLAUC OPEN LAURA PSC ANGLE BL FINDINGS LOW RSK 22884 NUCLEAR 03-26-2014 ANNA Love SCLEROSIS LAURA PSC 3804 IMPACTED 02-05-2014 [facility] CERUMEN E 1104 DERMATOPHYT 12-08-2013 [facility] OSIS OF E FOOT 74917 OTHER 12-08-2013 [facility] PERIPHERAL E VASCULAR DISEASE 9243 CONTUSION 12-08-2013 [facility] OF TOE E 4019 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-07-2013 [facility] ESSENTIAL [place] 73193 WHEEZING 12-06-2013 [facility] 7862 COUGH 12-06-2013 [facility] 5180 PULMONARY 11-28-2013 [facility] COLLAPSE MOBILEX 5990 URINARY 09-25-2013 [facility] TRACT PHYSICIANS INFECTION LA SITE NOT SPECIFIED 24532 PAIN IN 04-26-2013 [facility], JOINT, 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 LOWER LEG [facility]OS V4365 KNEE JOINT 04-19-2013 [facility] BY OTHER ASSOCIAT MEANS V5409 OTH 04-19-2013 [facility] INVOLVING ASSOCIAT INTERNAL FIXATION DEVICE 80980 OTHER 02-13-2013 [facility], CONVULSIONS 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 [facility] 42769 NONSPECIFIC 02-13-2013 [facility], ABNORMAL 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 ELECTROENCE [facility] PHALOGRAM HOS 3319 UNSPECIFIED 02-10-2013 [facility] DEGENERATIO ASSOCIAT N 23643 LOW TENSION 12-06-2012 [facility] OPEN-ANGLE AND ZHAO GLAUCOMA VISION 27575 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-06-2012 [facility] SENILE [facility] CATARACT VISION 3674 PRESBYOPIA 12-06-2012 [facility]O VISION 61989 URINARY 11-25-2012 [facility], FREQUENCY 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 [facility] 38909 URGENCY OF 11-25-2012 [facility], URINATION 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 [facility] 7350 HALLUX 11-24-2012 [facility] VALGUS E V5869 LONG-TERM 09-30-2012 [facility], (CURRENT) 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 USE OF [facility] OTHER HOS MEDICATIONS V5883 ENCOUNTER 09-30-2012 [facility], FOR 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 THERAPEUTIC [facility] DRUG [facility] MONITORING 4293 CARDIOMEGAL 05-14-2012 [facility] 5533 DIAPHRAGMAT 05-14-2012 [facility]TER W/O RADIOLOGY MENTION ASSOCIAT OBSTRUCTION /GANGREN 11291 PAINFUL 05-14-2012 [facility], RESPIRATION 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 [facility] 7354 OTHER 02-10-2012 [facility] HAMMER TOE E 2724 OTHER AND 10-17-2011 [facility], UNSPECIFIED 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 [facility] HYPERLIPIDE HOS FINA 2859 UNSPECIFIED 10-17-2011 [facility], ANEMIA 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 [facility] 55960 HEAD 02-03-2011 [facility] [place]UR[place], RADIOLOGY UNSPECIFIED 46200 CHEST PAIN 01-09-2011 [facility], UNSPECIFIED 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 OLKESANDR [facility]OS 8020 NASAL 01-04-2011 [facility] [place]ES, RADIOLOGY CLOSED FRACTURE 9212 CONTUSION 01-04-2011 [facility] [place] OF ORBITAL RADIOLOGY TISSUES 20427 DIAB W/O 12-29-2010 [facility] COMP TYPE RAFAT II/UNS NOT STATED UNCNTRL 4011 ESSENTIAL 12-29-2010 [facility] HYPERTENSIO RAFAT N, BENIGN 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[facility] CEREBRAL RAFAT ARTERY OCCLUSION W/INFARCT 4658 ACUTE URIS 10-17-2010 [facility] OF OTHER INTERNAL MULTIPLE MEDICINE & SITES 38193 SWELLING OF 10-17-2010 [facility] LIMB [place] 8798 OPEN WOUND 10-17-2010 [facility] UNSPEC SITE INTERNAL WITHOUT MEDICINE & MENTION COMP 8820 OPEN WOUND 10-17-2010 [facility] HAND NO INTERNAL FINGER MEDICINE & ALONE W/O MENTION COMP 22336 ESOPHAGEAL 10-11-[address] [facility] REFLUX [place] 72786 OTHER CHEST 10-11-[address] [facility] PAIN [place] V1254 PERSONAL HX 10-11-2010 [facility] TIA & CI [place] W/O [place] RESIDUAL DEFICITS V5849 OTHER 10-06-2010 [facility], SPECIFIED 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 AFTERCARE [facility] FOLLOWING HOS SURGERY 47261 CRUSHING 10-05-2010 [facility] INJURY OF HOSPITAL HAND 98131 HEMORRHAGE 10-05-2010 [facility]PITAL G A PROCEDURE NEC V5832 ENCOUNTER 10-05-2010 [facility] FOR [facility] OF SUTURES 84548 OSTEOARTHRO 10-01-2010 [facility] S UNSPEC AMERIC WHETHER HOLDING GEN/LOC UNSPEC SITE 18873 UNSPECIFIED 09-03-2010 [facility] INTERNAL ARTHROPATHY MEDICINE & SITE UNSPECIFIED 82222 OCCLUSION&S 08-27-2010 [facility] TENOSIS SERV CAROTID FOUNDATIO ARTERY W/INFARCT 3310 ALZHEIMERS 06-25-2010 [facility] DISEASE AMERIC HOLDING 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 83927 NONEXUDATIV 05-26-2010 [facility] E SENILE AND ZHAO MACULAR VISION DEGENERATIO N RETINA 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 48493 MEMORY LOSS 05-22-2010 [facility] SERV [facility] 436 ACUTE BUT 05-05-2010 [facility] ILL-DEFINED SERV FOUNDATIO CEREBROVASC ULAR DISEASE 13552 ACUT 05-02-2010 [facility] MYOCARD SERV INFARCT OTH FOUNDATIO LAT WALL EPIS CARE UNS 7197 DIFFICULTY 05-02-2010 [facility] IN WALKING [facility] LALI 7455 OSTIUM 05-02-2010 [facility] TYPE ATRIAL SEPTAL DEFECT 58258 OTHER 05-02-[address] [facility] [place] LALI 90239 ALTERED 05-02-2010 [facility] M[facility]AL SERV STATUS FOUNDATIO 63952 DYSARTHRIA 05-02-2010 [facility] 4660 ACUTE 04-18-[address] [facility] BRONCHITIS INTERNAL MEDICINE & 496 CHRONIC 04-18-2010 [facility] AIRWAY INTERNAL OBSTRUCTION MEDICINE & NEC 462 ACUTE 04-14-[address] [facility] PHARYNGITIS [facility] LALI 58499 OBST 04-14-[address] [facility] CHRONIC [facility] BRONCHITIS LALI W/ACUTE BRONCHITIS 73324 CHILLS 04-14-2010 [facility] WITHOUT [facility] FEVER LALI 37613 SHORTNESS 04-14-2010 [facility] OF BREATH [facility] LALI 7038 OTHER 03-18-2010 [facility] SPECIFIED DISEASE OF NAIL 24057 MECHANICAL 03-13-2010 [facility] S SPORT PROSTHETIC JOINT 7802 SYNCOPE AND 01-25-2010 [facility] PH[facility] 9595 INJURY 10-16-2009 [facility] [place] OTHER AND RADIOLOGY UNSPECIFIED FINGER 8830 OPEN WOUND 10-15-2009 [facility] FINGER MOUNT WITHOUT LALI MENTION COMPLICATIO N E918 CAUGHT 10-15-2009 [facility] OR LALI BETWEEN OBJECTS 22333 FIRST 06-18-2009 [facility] DEGREE [facility] ATRIOVENTRI LALI CULAR BLOCK 76189 PAIN IN 06-18-2009 [facility] JOINT RADIOLOGY PELVIC REGION AND THIGH 7231 CERVICALGIA 06-18-2009 [facility] RAD[facility] 91363 CONTUSION 06-18-2009 [facility] OF HIP [place] 9596 INJURY 06-18-2009 [facility] OTHER AND [facility] UNSPECIFIED LALI HIP AND THIGH E8496 PLACE OF 06-18-2009 [facility] OCCURRENCE [facility] PUBLIC LALI BUILDING E8859 FALL FROM 06-18-2009 [facility] OTHER [facility] SLIPPING LALI TRIPPING OR STUMBLING V1271 PERSONAL 06-25-2008 [facility] HISTORY OF CLINIC PEPTIC PPLLC ULCER DISEASE 9181 SUPERFICIAL 09-23-2007 [place] [facility] [place] OF SERV [place]NEA FOUNDATIO 54648 DRUSEN OF 09-19-2007 [facility] RETINA SERV [facility]ATIO 7840 HEADACHE 09-11-2007 [...] ti RI 42 5- 5- 00 74 MD ve N 00 20 20 0 ME 5 E 32 94 14 14 DI JR 5 0 CA MG L WI GR LL TA OU IA BL P M ET F FO 62 02 03 0 30 30 NE 10 MC Ac LI 58 -0 -0 0. [place] 74 KE ti C 40 4- 7- 00 55 MD ve AC 89 20 20 0 ME [...] ti TA 40 4- 3- 00 75 MD ve DI 24 20 20 0 ME 7 E NE 80 14 14 DI JR 1 CA 10 L WI GR LL MG OU IA P M TA F BL ET 00 02 02 0 30 30 NE 10 MC Ac PI 90 -2 -2 0. [place] 69 KE ti RI 42 5- 5- 00 32 MD ve N 00 20 20 0 ME 0 E 32 94 14 14 DI JR 5 0 CA MG L WI GR LL TA OU IA BL P M ET F FO 62 02 02 0 30 30 NE 10 MC Ac LI 58 -0 -0 0. [place] 58 KE ti C 40 4- 4- 00 08 MD ve AC 89 20 20 0 ME 8 E ID 70 14 14 DI JR 1 1 CA L WI MG GR LL OU IA TA P M BL F ET LO 68 02 02 0 30 30 NE 10 MC Ac RA 08 -0 -0 0. [place] 57 KE ti TA 40 4- 4- 00 69 MD ve DI 24 20 20 0 ME 6 E NE 80 14 14 DI JR 1 CA 10 L WI GR LL MG OU IA P M TA F BL ET BE 68 01 01 0 30 30 NE 10 [facility] [place] 08 -2 -2 0. [place] 54 [...] ti RI 42 7- 7- 00 45 MD ve N 00 20 20 0 ME 0 E 32 94 14 14 DI JR 5 0 CA MG L WI GR LL TA OU IA BL P M ET F BE 68 01 01 0 30 7 NE 10 [facility] [place] 38 -0 -2 0. [place] 51 KE ti ON 20 4 2 00 07 MD ve AT 24 20 20 0 ME [...] KE ti 42 8- 8- 00 33 MD ve 99 20 20 0 ME 8 E 23 14 14 DI JR 5 CA L WI GR LL OU IA P M F TE 54 01 01 0 30 30 NE 10 [facility] RB 86 -1 -1 0. [place] 49 KE ti IN 85 7- 7- 00 05 MD ve AF 99 20 20 0 ME 4 E IN 20 14 14 DI JR E 0 CA 1% L WI GR LL CR OU IA EA P M M F FO 62 01 01 0 30 30 NE 10 [facility] LI 58 -0 -0 0. [place] 42 KE ti C 40 7- 7- 00 84 MD ve AC 89 20 20 0 ME 5 E ID 70 14 14 DI JR 1 1 CA L WI MG GR LL OU IA TA P M BL F ET LO 68 01 01 0 30 30 NE 10 Ac RA 08 -0 -0 0. [place] 42 KE ti TA 40 7- 7- 00 84 MD ve DI 24 20 20 0 ME 6 E NE 80 14 14 DI JR 1 CA 10 L WI GR LL MG OU IA P M TA F BL ET BE 68 01 01 0 30 7 NE 10 [facility] [place] 38 -0 -0 0. [place] 41 KE ti ON 20 38 MD ve AT 24 20 20 0 ME 5 E AT 70 14 14 DI JR E 1 CA 10 L WI 0 GR LL MG OU IA P M CA F PS UL E 00 12 12 0 30 30 NE 10 [facility] PI 90 -3 -3 0. [place] 39 KE ti RI 42 34 MD ve N 00 20 20 0 ME 0 E 32 94 13 13 DI JR 5 0 CA MG L WI GR LL TA OU IA BL P M ET F BE 68 11 12 0 30 7 NE 10 [facility] [place] 38 -1 -0 0. [place] 27 KE ti ON 34 MD ve AT 24 20 20 0 ME 4 E AT 70 13 13 DI JR E 1 CA 10 L WI 0 GR LL MG OU IA P M CA F PS UL E PO 68 12 12 0 60 30 NE 10 Ac TA 08 -0 -0 0. [place] 26 KE ti SS 40 16 MD ve IU 41 20 20 0 ME 9 E M 90 13 13 DI JR CL 1 CA L WI ER GR LL OU IA 10 P M F ME Q CA PS UL E FO 62 11 11 0 30 30 NE 10 [facility] LI 58 -2 -2 0. [place] 24 KE ti C 40 53 MD ve AC 89 20 20 0 ME 8 E ID 70 13 13 DI JR 1 1 CA L WI MG GR LL OU IA TA P M BL F ET 00 11 11 0 30 30 NE 10 [facility] PI 90 -2 -2 0. [place] 24 KE ti RI 42 53 MD ve N 00 20 20 0 ME 9 E 32 94 13 13 DI JR 5 0 CA MG L WI GR LL TA OU IA BL P M ET F 00 11 11 0 15 30 NE 98 Ac 90 -1 -1 0. IL 17 KE ti 42 41 MD ve 99 20 20 0 ME 6 E 23 13 13 D JR 5 GR P WI LL IA M F BE 68 11 11 0 30 7 NE 98 [facility] NZ 38 -1 -1 0. [place] 02 KE ti ON 84 MD ve AT 24 20 20 0 ME 3 E AT 70 13 13 D JR E 1 GR 10 P WI 0 LL MG IA M CA F PS UL E PO 68 11 11 0 60 30 NE 97 MC Ac TA 08 -0 -0 0. [place] 81 KE ti SS 40 5- 5- 00 13 MD ve IU 41 20 20 0 ME 9 E M 90 13 13 D JR CL 1 GR P WI ER LL IA 10 M F ME Q CA PS UL E FO 62 11 11 0 30 30 NE 97 MC Ac LI 58 -0 -0 0. [place] 75 KE ti C 40 3- 3- 00 15 MD ve AC 89 20 20 0 ME 1 E ID 70 13 13 D JR 1 1 GR P WI MG LL IA TA M BL F ET 00 11 11 0 30 30 NE 97 Ac PI 90 -0 -0 0. [place] 75 KE ti RI 42 3- 3- 00 15 MD ve N 00 20 20 0 ME 2 E 32 94 13 13 D JR 5 0 GR MG P WI LL TA IA BL M ET F FO 62 10 10 0 30 30 NE 97 Ac LI 58 -0 -0 0. IL 02 KE ti C 40 8- 8- 00 19 MD ve AC 89 20 20 0 ME 1 E ID 70 13 13 D JR 1 1 GR P WI MG LL IA TA M BL F ET BE 68 10 10 0 30 7 NE 96 Ac [place] 38 -0 -0 0. [place] 98 KE ti ON 20 7- 7- 00 74 MD ve AT 24 20 20 0 ME 2 E AT 70 13 13 D JR E 1 GR 10 P WI 0 LL MG IA M CA F PS UL E PO 68 09 10 0 60 30 NE 96 Ac TA 08 -0 -0 0. [place] 89 KE ti SS 40 2- 3- 00 76 MD ve IU 41 20 20 0 ME 4 E M 90 13 13 D JR CL 1 GR P WI ER LL IA 10 M F ME Q CA PS UL E 00 03 09 0 30 30 NE 96 Ac PI 90 -0 -2 0. [place] 71 KE ti RI 42 3- 6- 00 45 MD ve N 00 20 20 0 ME 1 E 32 94 13 13 D JR 5 0 GR MG P WI LL TA IA BL M ET F 00 09 09 0 15 8 NE 98 MC Ac 90 -2 -2 0. IL 92 KE ti 42 0- 0- 00 96 MD ve 99 20 20 0 ME 1 E 23 13 13 D JR 5 GR P WI LL IA M F EY 24 09 09 0 15 30 NE 96 MC Ac E 38 -1 -1 0. [place] [address] 50 8- 8- 00 27 MD ve OP 07 20 20 0 ME 9 E S 50 13 13 D JR 5 GR P WI LL IA M F FO 62 09 09 0 30 30 NE 96 MC Ac LI 58 -1 -1 0. [place] 34 KE ti C 40 2- 2- 00 86 MD ve AC 89 20 20 0 ME 2 E ID 70 13 13 D JR 1 1 GR P WI MG LL IA TA M BL F ET BE 68 09 09 0 30 7 NE 96 MC Ac [place] 38 -1 -1 0. [place] 31 KE ti ON 49 MD ve AT 24 20 20 0 ME 6 E AT 70 13 13 D JR E 1 GR 10 P WI 0 LL MG IA M CA F PS UL E PO 68 09 09 0 60 30 NE 96 MC Ac TA 08 -0 -0 0. IL 06 KE ti SS 40 2- 2 00 50 MD ve IU 41 20 20 0 ME 0 E M 90 13 13 D JR CL 1 GR P WI ER LL IA 10 M F ME Q CA PS UL E 00 03 09 0 30 30 NE 96 MC Ac PI 90 -0 -0 0. IL 06 KE ti RI 42 3- 2- 00 52 MD ve N 00 20 20 0 ME 3 E 32 94 13 13 D JR 5 0 GR MG P WI LL TA IA BL M ET F BE 68 08 08 0 30 7 NE 95 MC Ac NZ 38 -2 -2 0. [place] 92 KE ti ON 77 MD ve AT 24 20 20 0 ME 0 E AT 70 13 13 D JR E 1 GR 10 P WI 0 LL MG IA M CA F PS UL E BE 68 04 08 0 30 7 NE 95 MC Ac [place] 38 -0 -0 0. [place] 29 KE ti ON 64 MD ve AT 24 20 20 0 ME 0 E AT 70 13 13 D JR E 1 GR 10 P WI 0 LL MG IA M CA F PS UL E FO 62 11 07 0 30 30 NE 95 MC Ac LI 58 -0 -3 0. IL 09 KE ti C 40 5- 0- 00 10 MD ve AC 89 20 20 0 ME 6 E ID 70 12 13 D JR 1 1 GR P WI MG LL IA TA M BL F ET 00 03 07 0 30 30 NE 95 MC Ac PI 90 -0 -3 0. IL 09 KE ti RI 42 3- 0- 00 10 MD ve N 00 20 20 0 ME 4 E 32 94 13 13 D JR 5 0 GR MG P WI LL TA IA BL M ET F PO 68 07 07 0 60 30 NE 94 MC Ac TA 08 -2 -2 0. IL 96 KE ti SS 40 20 MD ve IU 41 20 20 0 ME 4 E M 90 13 13 D JR CL 1 GR P WI ER LL IA 10 M F ME Q CA PS UL E BE 68 04 07 0 30 7 NE 94 MC Ac [place] 38 -0 -0 0. [place] 45 KE ti ON 73 MD ve AT 24 20 20 0 ME 6 E AT 70 13 13 D JR E 1 GR 10 P WI 0 LL MG IA M CA F PS UL E 00 03 07 0 30 30 NE 94 MC Ac PI 90 -0 -0 0. IL 30 KE ti RI 42 68 MD ve N 00 20 20 0 ME 5 E 32 94 13 13 D JR 5 0 GR MG P WI LL TA IA BL M ET F FO 62 11 07 0 30 30 NE 94 MC Ac LI 58 -0 -0 0. IL 30 KE ti C 40 68 MD ve AC 89 20 20 0 ME 4 E ID 70 12 13 D JR 1 1 GR P WI MG LL IA TA M BL F ET BE 68 04 07 0 30 7 NE 94 MC Ac [place] 38 -0 -0 0. IL 23 KE ti ON 89 MD ve AT 24 20 20 0 ME 0 E AT 70 13 13 D JR E 1 GR 10 P WI 0 LL MG IA M CA F PS UL E FO 62 11 05 0 30 30 NE 93 MC Ac LI 58 -0 -3 0. IL 39 KE ti C 40 22 MD ve AC 89 20 20 0 ME 3 E ID 70 12 13 D JR 1 1 GR P WI MG LL IA TA M BL F ET BE 68 04 05 0 30 7 NE 93 MC Ac [place] 38 -0 -3 0. [place] 34 KE ti ON 49 MD ve AT 24 20 20 0 ME 6 E AT 70 13 13 D JR E 1 GR 10 P WI 0 LL MG IA M CA F PS UL E BE 68 04 05 0 30 7 NE 92 MC Ac [place] 38 -0 -1 0. [place] 94 KE ti ON 17 MD ve AT 24 20 20 0 ME 6 E AT 70 13 13 D JR E 1 GR 10 P WI 0 LL MG IA M CA F PS UL E FO 62 11 05 0 30 30 NE 92 MC Ac LI 58 -0 -0 0. [place] 64 KE ti C 40 5- 7- 00 57 MD ve AC 89 20 20 0 ME 2 E ID 70 12 13 D JR 1 1 GR P WI MG LL IA TA M BL F ET SI 54 04 04 0 47 15 NE 92 MC Ac LT 83 -2 -2 30 IL 17 KE ti US 80 2- 2- .0 75 MD ve SI 11 20 20 00 ME 0 E N 78 13 13 D JR SA 0 GR P WI 10 LL 0 IA MG M /5 F ML SY R 00 04 04 0 30 30 NE 91 MC Ac PI 90 -0 -0 0. [place] 73 KE ti RI 42 8- 8- 00 34 MD ve N 00 20 20 0 ME 4 E 32 94 13 13 D JR 5 0 GR MG P WI LL TA IA BL M ET F FO 62 04 04 0 30 30 NE 91 MC Ac LI 58 -0 -0 0. [place] 73 KE ti C 40 8- 8- 00 34 MD ve AC 89 20 20 0 ME 7 E ID 70 13 13 D JR 1 1 GR P WI MG LL IA TA M BL F ET BE 68 04 04 0 30 7 NE 91 MC Ac [place] 38 -0 -0 0. [place] 65 KE ti ON 20 5- 5- 00 10 MD ve AT 24 20 20 0 ME 0 E AT 70 13 13 D JR E 1 GR 10 P WI 0 LL MG IA M CA F PS UL E SI 54 03 03 0 47 15 NE 91 MC Ac LT 83 -2 -2 30 IL 26 KE ti US 80 5- 5- .0 10 MD ve SI 11 20 20 00 ME 8 E N 78 13 13 D JR SA 0 GR P WI 10 LL 0 IA MG M /5 F ML SY R BE 68 03 03 0 30 7 NE 90 MC Ac [place] 38 -0 -0 0. [place] 74 KE ti ON 20 9- 9- 00 74 MD ve AT 24 20 20 0 ME 4 E AT 70 13 13 D JR E 1 GR 10 P WI 0 LL MG IA M CA F PS UL E 00 03 03 0 30 30 NE 90 MC Ac PI 90 -0 -0 0. [place] 54 KE ti RI 42 3- 3- 00 75 MD ve N 00 20 20 0 ME 7 E 32 94 13 13 D JR 5 0 GR MG P WI LL TA IA BL M ET F FO 62 11 03 0 30 30 NE 90 MC Ac LI 58 -0 -0 0. [place] 49 KE ti C 40 5- 1- 00 68 MD ve AC 89 20 20 0 ME 2 E ID 70 12 13 D JR 1 1 GR P WI MG LL IA TA M BL F ET 00 08 02 0 30 30 NE 89 MC Ac PI 90 -1 -0 0. [place] 76 KE ti RI 42 5- 5- 00 72 MD ve N 00 20 20 0 ME 4 E 32 94 12 13 D JR 5 0 GR MG P WI LL TA IA BL M ET F FO 51 11 02 0 30 30 NE 89 MC Ac LI 07 -0 -0 0. [place] 76 KE ti C 90 5- 5- 00 72 MD ve AC 10 20 20 0 ME 5 E ID 52 12 13 D JR 1 0 GR P WI MG LL IA TA M BL F ET BE 68 02 02 0 30 7 NE 89 MC Ac [place] 38 -0 -0 0. [place] 77 KE ti ON 20 5- 5- 00 09 MD ve AT 24 20 20 0 ME 3 E AT 70 13 13 D JR E 1 GR 10 P WI 0 LL MG IA M CA F PS UL E SI 54 01 01 0 47 15 NE 89 MC Ac LT 83 -1 -1 30 [place] 01 KE ti US 80 1- 1- .0 20 MD ve SI 11 20 20 00 ME 7 E N 78 13 13 D JR SA 0 GR P WI 10 LL 0 IA MG M /5 F ML SY R 00 08 01 0 30 30 NE 88 MC Ac PI 90 -1 -0 0. [place] 82 KE ti RI 42 5- 6- 00 47 MD ve N 00 20 20 0 ME 4 E 32 94 12 13 D JR 5 0 GR MG P WI LL TA IA BL M ET F FO 62 11 01 0 30 30 NE 88 MC Ac LI 58 -0 -0 0. [place] 82 KE ti C 40 5- 6- 00 47 MD ve AC 89 20 20 0 ME 5 E ID 70 12 13 D JR 1 1 GR P WI MG LL IA TA M BL F ET 00 08 12 0 30 30 NE 88 MC Ac PI 90 -1 -0 0. [place] 00 KE ti RI 42 5- 6- 00 01 MD ve N 00 20 20 0 ME 9 E 32 94 12 12 D JR 5 0 GR MG P WI LL TA IA BL M ET F MA 00 11 12 0 60 30 NE 87 MC Ac PA 90 -0 -0 0. [place] 91 KE ti P 41 5- 3- 00 18 MD ve 50 98 20 20 0 ME 1 E 0 86 12 12 D JR MG 1 GR P WI TA LL BL IA ET M F FO 62 11 12 0 30 30 NE 87 MC Ac LI 58 -0 -0 0. [place] 91 KE ti C 40 5- 3- 00 18 MD ve AC 89 20 20 0 ME 6 E ID 70 12 12 D JR 1 1 GR P WI MG LL IA TA M BL F ET MA 00 11 11 0 60 30 NE 87 MC Ac PA 90 -0 -0 0. [place] 15 KE ti P 41 5- 5- 00 88 MD ve 50 98 20 20 0 ME 9 E 0 86 12 12 D JR MG 1 GR P WI TA LL BL IA ET M F FO 62 11 11 0 30 30 NE 87 MC Ac LI 58 -0 -0 0. [place] 17 KE ti C 40 5- 5- 00 45 MD ve AC 89 20 20 0 ME 5 E ID 70 12 12 D JR 1 1 GR P WI MG LL IA TA M BL F ET 00 08 11 0 30 30 NE 87 MC Ac PI 90 -1 -0 0. [place] 17 KE ti RI 42 5- 5- 00 44 MD ve N 00 20 20 0 ME 3 E 32 94 12 12 D JR 5 0 GR MG P WI LL TA IA BL M ET F MA 00 10 10 0 60 30 NE 85 MC Ac PA 90 -1 -1 0. [place] 91 KE ti P 41 0- 0- 00 34 MD ve 50 98 20 20 0 ME 1 E 0 86 12 12 D JR MG 1 GR P WI TA LL BL IA ET M F 00 08 10 0 30 30 NE 86 MC Ac PI 90 -1 -0 0. [place] 36 KE ti RI 42 5- 5- 00 33 MD ve N 00 20 20 0 ME 1 E 32 94 12 12 D JR 5 0 GR MG P WI LL TA IA BL M ET F FO 62 10 10 0 30 30 NE 86 MC Ac LI 58 -0 -0 0. [place] 36 KE ti C 40 5- 5- 00 33 MD ve AC 89 20 20 0 ME 5 E ID 70 12 12 D JR 1 1 GR P WI MG LL IA TA M BL F ET MA 00 09 09 0 30 30 NE 85 MC Ac PA 90 -1 -1 0. [place] 84 KE ti P 41 6- 6- 00 72 MD ve 50 98 20 20 0 ME 9 E 0 86 12 12 D JR MG 1 GR P WI TA LL BL IA ET M F MA 00 09 09 0 30 7 NE 85 MC Ac PA 90 -0 -0 0. [place] 65 KE ti P 41 9- 9- 00 32 MD ve 50 98 20 20 0 ME 5 E 0 86 12 12 D JR MG 1 GR P WI TA LL BL IA ET M F 00 08 09 0 30 30 NE 85 MC Ac PI 90 -1 -0 0. [place] 65 KE ti RI 42 5- 9- 00 31 MD ve N 00 20 20 0 ME 1 E 32 94 12 12 D JR 5 0 GR MG P WI LL TA IA BL M ET F FO 00 09 09 0 30 30 NE 85 MC Ac LI 60 -0 -0 0. [place] 65 KE ti C 33 9- 9- 00 31 MD ve AC 16 20 20 0 ME 8 E ID 23 12 12 D JR 1 2 GR P WI MG LL IA TA M BL F ET FO 00 08 08 0 30 30 NE 84 MC Ac LI 60 -1 -1 0. [place] 94 KE ti C 33 5- 5- 00 84 MD ve AC 16 20 20 0 ME 4 E ID 23 12 12 D JR 1 2 GR P WI MG LL IA TA M BL F ET 00 08 08 0 30 30 NE 84 MC Ac PI 90 -1 -1 0. [place] 94 KE ti RI 42 5- 5- 00 84 MD ve N 00 20 20 0 ME 3 E 32 94 12 12 D JR 5 0 GR MG P WI LL TA IA BL M ET F MA 00 04 08 0 30 7 NE 84 MC Ac PA 90 -0 -0 0. [place] 64 KE ti P 41 2- 5- 00 87 MD ve 50 98 20 20 0 ME 7 E 0 86 12 12 D JR MG 1 GR P WI TA LL BL IA ET M F SI 54 07 07 0 47 15 NE 84 MC Ac LT 83 -2 -2 30 IL 31 KE ti US 80 4- 4- .0 24 MD ve SI 11 20 20 00 ME 1 E N 78 12 12 D JR SA 0 GR P WI 10 LL 0 IA MG M /5 F ML SY R LO 00 07 07 0 50 5 NE 86 MC Ac RA 78 -2 -2 .0 IL 65 KE ti TA 15 3- 3- 00 25 MD ve DI 07 20 20 ME 8 E NE 70 12 12 D JR 1 GR 10 P WI LL MG IA M TA F BL ET 00 05 07 0 30 30 NE 83 MC Ac PI 90 -0 -0 0. [place] 76 KE ti RI 42 9- 3- 00 01 MD ve N 00 20 20 0 ME 4 E 32 94 12 12 D JR 5 0 GR MG P WI LL TA IA BL M ET F FO 00 07 07 0 30 30 NE 83 MC Ac LI 60 -0 -0 0. [place] 72 KE ti C 33 2- 2- 00 50 MD ve AC 16 20 20 0 ME 8 E ID 23 12 12 D JR 1 2 GR P WI MG LL IA TA M BL F ET 00 05 06 0 30 30 NE 83 MC Ac PI 90 -0 -0 0. [place] 10 KE ti RI 42 9- 9- 00 66 MD ve N 00 20 20 0 ME 2 E 32 94 12 12 D JR 5 0 GR MG P WI LL TA IA BL M ET F FO 00 06 06 0 30 30 NE 83 MC Ac LI 60 -0 -0 0. [place] 00 KE ti C 33 6- 6- 00 51 MD ve AC 16 20 20 0 ME 3 E ID 23 12 12 D JR 1 2 GR P WI MG LL IA TA M BL F ET MA 00 04 05 0 30 7 NE 82 MC Ac PA 90 -0 -1 0. [place] 32 KE ti P 41 2- 3- 00 02 MD ve 50 98 20 20 0 ME 5 E 0 86 12 12 D JR MG 1 GR P WI TA LL BL IA ET M F LI 00 05 05 0 15 5 NE 82 MC Ac QU 90 -1 -1 0. [place] 32 KE ti IT 45 3- 3- 00 56 MD ve EA 01 20 20 0 ME 5 E RS 73 12 12 D JR 5 GR 1. P WI 4 LL % IA DR M OP F S FO 00 12 05 0 30 30 NE 82 MC Ac LI 60 -2 -0 0. IL 21 KE ti C 33 3- 9- 00 98 MD ve AC 16 20 20 0 ME 7 E ID 23 11 12 D JR 1 2 GR P WI MG LL IA TA M BL F ET 00 05 05 0 30 30 NE 82 MC Ac PI 90 -0 -0 0. IL 22 KE ti RI 42 9- 9- 00 00 MD ve N 00 20 20 0 ME 4 E 32 94 12 12 D JR 5 0 GR MG P WI LL TA IA BL M ET F 00 02 04 0 30 30 NE 81 MC Ac PI 90 -1 -1 0. [place] 37 KE ti RI 42 7- 0- 00 89 MD ve N 00 20 20 0 ME 8 E 32 94 12 12 D JR 5 0 GR MG P WI LL TA IA BL M ET F FO 00 12 04 0 30 0 NE 81 MC Ac LI 60 -2 -0 0. IL 13 KE ti C 33 3- 2- 00 17 MD ve AC 16 20 20 0 ME 1 E ID 23 11 12 D JR 1 2 GR P WI MG LL IA TA M BL F ET MA 00 04 04 0 30 0 NE 81 MC Ac PA 90 -0 -0 0. [place] 13 KE ti P 41 2- 2- 00 17 MD ve 50 98 20 20 0 ME [...] ID 23 11 11 FA 1 2 MD JE LY FF MG RE DR Y TA UG B BL ET FO 00 09 09 5 30 30 SO 38 MC Ac LI 60 -1 -1 .0 PE 44 GI ti C 33 9- 9- 00 RS 55 NN ve AC 16 20 20 IS ID 23 11 11 FA 1 2 MD JE LY FF MG RE DR Y TA UG B BL ET FO 00 06 08 2 30 30 SO 37 MC Ac LI 60 -0 -2 .0 PE 55 GI ti C 33 6- 2- 00 RS 37 NN ve AC 16 20 20 IS ID 23 11 11 FA 1 2 MD JE LY FF MG RE DR Y TA UG B BL ET FO 00 06 07 2 30 30 SO 37 MC Ac LI 60 -0 -2 .0 PE 55 GI ti C 33 6- 3- 00 RS 37 NN ve AC 16 20 20 IS ID 23 11 11 FA 1 2 MD JE LY FF MG RE DR Y TA UG B BL ET FO 00 06 06 2 30 30 SO 37 MC Ac LI 60 -0 -2 .0 PE 55 GI ti C 33 6- 3- 00 RS 37 NN ve AC 16 20 20 IS ID 23 11 11 FA 1 2 MD JE LY FF MG RE DR Y [...] Procedure DOS Code Location Performer Comment DEBRIDEME 16227 [facility] JEAN NT NAIL 7 ARE ANY METHOD 6/> COLLECTIO 32526 COMBINED COMBINED N VENOUS 7 PHYSICIAN PHYSICIAN BLOOD S LAB S LAB VENIPUNCT URE BLOOD 77173 COMBINED COMBINED COUNT 7 PHYSICIAN PHYSICIAN COMPLETE S LAB S LAB AUTO&AUTO DIFRNTL WBC TRAVEL [address] MED 7 PHYSICIAN PHYSICIAN NEC LAB S LAB S LAB SPEC; PRORAT ACTL MILE BLOOD 49302 COMBINED COMBINED COUNT 7 PHYSICIAN PHYSICIAN COMPLETE S LA S LA AUTO&AUTO DIFRNTL WBC TRAVEL [address] MED 7 PHYSICIAN PHYSICIAN NEC LAB S LA S LA SPEC; PRORAT ACTL MILE COLLECTIO 58522 COMBINED COMBINED N VENOUS 7 PHYSICIAN PHYSICIAN BLOOD S LA S LA VENIPUNCT URE [facility] 87360 [facility] 7 ARE ANY METHOD 6/> AMBULANCE A0428 [facility] SERVICE 7 AMBULANCE AMBULANCE BLS SERVICE SERVICE NONEMERGE NC TRANSPORT GROUND A0425 [facility] MILEA 7 AMBULANCE [facility]BULANCE PER [id number]SY GARNER OBSERVATI 7 [facility] ON [facility] G[facility]8 [facility]SY GARNER OBSERVATI 7 [facility] ON INC INC SERVICE PER [facility] [address] [facility] UPPER GI 7 ANESTH ENDOSCOPY OF THE PROXIMAL BLUE TO DUODENUM BLOOD 77180 PATSY GARNER COUNT 7 [facility] COMPLETE INC INC AUTO&AUTO DIFRNTL WBC EGD 46275 [facility] TRANSORAL 7 PHYSICIAN BIOPSY S GROUP SINGLE/MU LTIPLE COLLECTIO 24370 PATSY GARNER N VENOUS 7 [facility] [place] [address] PATSY GARNER HPYLORI 7 [place] [address] PATSY GARNER SURG 7 [facility] PATHOLOGY INC INC GROSS&MARIELA ROSCOPIC EXAM SPCL STN 71237 PATSY GARNER 2 I&R 7 [facility] EXCPT INC INC MICROORG/ ENZYME/IM CYT BASIC 11408 PATSY GARNER METABOLIC 7 [facility] PANEL INC INC CALCIUM TOTAL RADIOLOGI 88599 PATSY GARNER C 7 [facility] EXAMINATI INC INC ON CHEST SINGLE VIEW FRONTAL ECG 07750 PATSY GARNER ROUTINE 7 [facility] ECG INC INC W/LEAST 12 LDS TRCG ONLY W/O I&R COLOREC G0328 PATSY GARNER CA SCR; 7 [facility] FOB TST INC INC [place]UNO 1-[address] [place] [address] PATSY GARNER ABDOMEN & 7 [facility] PELVIS INC INC W/O CONTRAST MATERIAL COLLECTIO 23339 PATSY GARNER N VENOUS 7 [facility] BLOOD INC INC VENIPUNCT URE URNLS DIP 31619 PATSY GARNER 7 [facility] STICK/TAB INC INC LET REAGENT AUTO MICROSCOP Y ECG 08336 PATSY DIAZ JR ROUTINE 7 [facility] W/LEAST P 12 LDS I&R ONLY INITIAL 98242 [facility]T OBSERVATI 7 PHYSICIAN ON S GROUP CARE/DAY 30 MINUTES BLOOD 88484 PATSY GARNER COUNT 7 [facility] COMPLETE INC INC AUTO&AUTO DIFRNTL WBC COMPREHEN 78767 PATSY GARNER SIVE 7 [facility] METABOLIC INC INC PANEL [facility]OSP[facility] G0378 PATSY GARNER OBSERVATI 7 [facility] ON INC INC SERVICE PER HOUR GROUND A0425 OLEKSANDR LEGGETT MILEAGE [address] [place] [address] PER AMBULANCE AMBULANCE STATUTE SE SE MILE AMBULANCE A0429 OLEKSANDR LEGGETT SERVICE 7 [facility] AMBULANCE AMBULANCE EMERGENCY SE SE TRANSPORT OPHTH 26661 [facility] 7 F. XM&EVAL [facility] COMPRHNSV PSC ESTAB PT 1/> COMPREHEN 58633 COMBINED COMBINED SIVE 7 PHYSICIAN PHYSICIAN METABOLIC S LA S LA PANEL TRAVEL [address] MED 7 PHYSICIAN PHYSICIAN NEC LAB S LA S LA SPEC; PRORAT ACTL MILE COLLECTIO 11586 COMBINED COMBINED N VENOUS 7 PHYSICIAN PHYSICIAN BLOOD S LA S LA VENIPUNCT URE DEBRIDEME 77028 [facility] JEAN NT NAIL 7 ARE ANY METHOD 6/> COLLECTIO 73610 COMBINED COMBINED N VENOUS 7 PHYSICIAN PHYSICIAN BLOOD S LA S LA VENIPUNCT URE TRAVEL [address] MED 7 PHYSICIAN PHYSICIAN NEC LAB S LA S LA SPEC; PRORAT ACTL MILE BLOOD 69517 COMBINED COMBINED COUNT 7 PHYSICIAN PHYSICIAN COMPLETE S LA S LA AUTO&AUTO DIFRNTL WBC TRANS R0070 [facility] SYMPHONY PRTBL 7 MOBILEX MOBILEX X-RAY EQP&PERS TRISTEN/NRS TRISTEN-TRIP 1 PT SET-UP Q0092 [facility] SYMPHONY PORTABLE 7 MOBILEX MOBILEX X-RAY EQUIPMENT RADIOLOGI 72449 SYMPHONY SYMPHONY C EXAM 7 MOBILEX MOBILEX CHEST 2 VIEWS FRONTAL&L ATERAL REMOVAL 98044 [facility] GEM IMPACTED 7 ARE CERUMEN INSTRUMEN TATION UNILAT COLLECTIO 93664 COMBINED COMBINED N VENOUS 7 PHYSICIAN PHYSICIAN BLOOD S LA S LA VENIPUNCT URE BLOOD 77652 COMBINED COMBINED COUNT 7 PHYSICIAN PHYSICIAN COMPLETE S LA S LA AUTO&AUTO DIFRNTL WBC TRAVEL [address] MED 7 PHYSICIAN PHYSICIAN NEC LAB S LA S LA SPEC; PRORAT ACTL MILE DEBRIDEME 42742 [facility] JEAN NT NAIL 7 ARE ANY METHOD 6/> COLLECTIO 35185 COMBINED COMBINED N VENOUS 7 PHYSICIAN PHYSICIAN BLOOD S LA S LA VENIPUNCT URE TRAVEL [address] MED 7 PHYSICIAN PHYSICIAN NEC LAB S LA S LA SPEC; PRORAT ACTL MILE BLOOD 00740 COMBINED COMBINED COUNT 7 PHYSICIAN PHYSICIAN COMPLETE S LA S LA AUTO&AUTO DIFRNTL WBC COMPREHEN 22425 COMBINED COMBINED SIVE 7 PHYSICIAN PHYSICIAN METABOLIC S LA S LA PANEL SBSQ [address] [address] INTERNAL CARE/DAY MEDI MINOR COMPLJ 15 MIN COLLECTIO 46905 COMBINED COMBINED N VENOUS 7 PHYSICIAN PHYSICIAN BLOOD S LA S LA VENIPUNCT URE TRAVEL [address] MED 7 PHYSICIAN PHYSICIAN NEC LAB S LA S LA SPEC; PRORAT ACTL MILE BLOOD 04183 COMBINED COMBINED COUNT 7 PHYSICIAN PHYSICIAN COMPLETE S LA S LA AUTO&AUTO DIFRNTL WBC TRIMMING G0127 [facility] JEAN OF 6 ARE DYSTROPHI C NAILS ANY NUMBER COLLECTIO 07383 COMBINED COMBINED N VENOUS 6 PHYSICIAN PHYSICIAN BLOOD S LA S LA VENIPUNCT URE URNLS DIP 12076 COMBINED COMBINED 6 PHYSICIAN PHYSICIAN STICK/TAB S LA S LA LET REAGENT AUTO MICROSCOP Y BLOOD 54573 COMBINED COMBINED COUNT 6 PHYSICIAN PHYSICIAN COMPLETE S LA S LA AUTO&AUTO DIFRNTL WBC VOLUME 63351 COMBINED COMBINED MEASUREME 6 PHYSICIAN PHYSICIAN NT TIMED S LA S LA COLLECTIO N EACH TRAVEL [address] MED 6 PHYSICIAN PHYSICIAN NEC LAB S LA S LA SPEC; PRORAT ACTL MILE TRAVEL [address] MED 6 PHYSICIAN PHYSICIAN NEC LAB S LA S LA SPEC; PRORAT ACTL MILE BLOOD 35858 COMBINED COMBINED COUNT 6 PHYSICIAN PHYSICIAN COMPLETE S LA S LA AUTO&AUTO DIFRNTL WBC COLLECTIO 46670 COMBINED COMBINED N VENOUS 6 PHYSICIAN PHYSICIAN BLOOD S LA S LA VENIPUNCT URE GROUND A0425 [facility] MILEAGE 6 AMBULANCE AMBULANCE PER SERVICE SERVICE STATUTE MILE AMBULANCE A0428 [facility] SERVICE 6 AMBULANCE AMBULANCE BLS SERVICE SERVICE NONEMERGE NCY TRANSPORT RADIOLOGI 92754 [facility] 6 MEDICAL ARIA EXAMINATI IMAGING ON CHEST ASS SINGLE VIEW FRONTAL GROUND A0425 OLEKSANDR LEGGETT MILE[facility] [address] [place] [address] PER AMBULANCE AMBULANCE STATUTE SE SE MILE AMB A0427 OLEKSANDR LEGGETT SERVICE [address] [place] [address] ALS AMBULANCE AMBULANCE EMERGENCY SE SE TRANSPORT LEVEL 1 GROUND A0425 OLEKSANDR OLEKSANDR MILEAGE [address] [place] [address] PER AMBULANCE AMBULANCE STATUTE SE SE MILE MOTION 09919 [facility] ROQUE 6 [facility] EVAL INC INC SWLNG FUNCJ C/V REC SWALLOWIN 82523 PATSY Titus FUNCJ 6 [facility] W/CINERAD INC INC IOGRAPY/V IDRADIOG AMBULANCE A0428 OLEKSANDR LEGGETT SERVICE [address] [place] [address] BLS AMBULANCE AMBULANCE NONEMERGE SE SE NCY TRANSPORT GONIOSCOP 04429 ANNA SANCHEZ Y 6 F. DEIDRE SEPARATE LAURA PROCEDURE PSC OPHTH 03465 ANNA SANCHEZ MEDICAL 6 F. DEIDRE XM&EVAL LAURA COMPRHNSV PSC ESTAB PT 1/> FUNDUS 18175 ANNA SANCHEZ PHOTOGRAP 6 F. DEIDRE HY LAURA W/INTERPR PSC ETATION & REPORT DEBRIDEME 50355 [facility] SYDNEE NT NAIL 6 ARE TORIN ANY METHOD 6/> REMOVAL 37057 [facility] GEM IMPACTED 6 ARE TOMER CERUMEN INSTRUMEN TATION UNILAT NONEMERGE A0130 [facility] 6 TRANSPORT TRANSPORT TRANSPORT ATION: ATION SER [place] [address] COMBINED COMBINED BLOOD/URI 6 PHYSICIAN PHYSICIAN C ACID S LA S LA COLLECTIO 40798 COMBINED COMBINED N VENOUS 6 PHYSICIAN PHYSICIAN BLOOD S LA S LA VENIPUNCT URE RADEX 88224 SYMPHONY SYMPHONY WRIST 2 6 MOBILEX MOBILEX VIEWS TRANS R0075 SYMPHONY SYMPHONY PRTBL 6 MOBILEX MOBILEX XRAY EQP&PERS TRISTEN/NRS TRISTEN-TRIP> 1 PT SET-UP Q0092 SYMPHONY SYMPHONY PORTABLE 6 MOBILEX MOBILEX X-RAY EQUIPMENT VOLUME 43952 COMBINED COMBINED MEASUREME 6 PHYSICIAN PHYSICIAN NT TIMED S LA S LA COLLECTIO N EACH SUSCEPTIB 69008 COMBINED COMBINED ILITY 6 PHYSICIAN PHYSICIAN STUDY S LA S LA ANTIMICRO BIAL DISK METHOD URNLS DIP 25400 COMBINED COMBINED 6 PHYSICIAN PHYSICIAN STICK/TAB S LA S LA LET REAGENT AUTO MICROSCOP Y CULTURE 57417 COMBINED COMBINED BACTERIAL 6 PHYSICIAN PHYSICIAN S LA S LA QUANTTATI VE COLONY COUNT URINE CULTURE 48166 COMBINED COMBINED BCT 6 PHYSICIAN PHYSICIAN ISOL&PRSM S LA S LA PTV ID ISOLATE EA URINE NONEMERGE A0130 [facility] NCY 6 TRANSPORT TRANSPORT TRANSPORT ATION: ATION SER ATION SER JESSY EDWADRS BLOOD 00887 COMBINED COMBINED COUNT 6 PHYSICIAN PHYSICIAN COMPLETE S LA S LA AUTO&AUTO DIFRNTL WBC TRAVEL [address] MED 6 PHYSICIAN PHYSICIAN NEC LAB S LA S LA SPEC; PRORAT ACTL MILE COMPREHEN 48796 COMBINED COMBINED SIVE 6 PHYSICIAN PHYSICIAN METABOLIC S LA S LA PANEL COLLECTIO 18463 COMBINED COMBINED N VENOUS 6 PHYSICIAN PHYSICIAN BLOOD S LA S LA VENIPUNCT URE ANES 74201 [facility] LOWER 6 ANESTH SHE INTESTINE OF THE BLUE ENDOSCOPY DISTAL DUODENUM COLONOSCO 16773 [facility] PY FLX DX 6 PHYSICIAN CAM W/COLLJ S GROUP SPEC WHEN PFRMD INSPECTIO [id number] PATSY GARNER N LOW 6 [facility] INTEST INC INC TRACT JINNY/ART OPENING ENDO INSPECTIO [id number] PATSY GARNER N UP 6 [facility] INTEST INC INC TRACT JINNY/ART OPENING ENDO ESOPHAGOG 10941 [facility] ASTRODUOD 6 PHYSICIAN CAM ENOSCOPY S GROUP TRANSORAL DIAGNOSTI C ANE 43727 COUNTS INCLUDE 234 [facility] U[facility] GI 6 ANESTH REE ENDOSCOPY OF THE PROXIMAL BLUE TO DUODENUM GROUND A0425 OLEKSANDR LEGGETT [facility] [address] [place] [address] PER AMBULANCE AMBULANCE STATUTE SE SE MILE AMBULANCE A0429 OLEKSANDR LEGGETT SERVICE [address] [place] [address] BLS AMBULANCE AMBULANCE EMERGENCY SE SE TRANSPORT INITIAL 73603 [facility] 6 PHYSICIAN CAM CARE/DAY S GROUP 50 MINUTES DEBRIDEME 53765 [facility] SYDNEE NT NAIL 6 ARE TORIN ANY METHOD 6/> PARING/CU 45685 [facility] SYDNEE TTING 6 ARE TORIN BENIGN HYPERKERA TOTIC LESION 2-4 OPHTH 68583 ANNA SANCHEZ MEDICAL 6 F. DEIDRE XM&DAMARIAL LAURA COMPRHNSV PSC ESTAB PT 1/> FUNDUS 26385 ANNA SANCHEZ PHOTOGRAP 6 F. DEIDRE HY LAURA W/INTERPR PSC ETATION & REPORT CULTURE 81923 PATSY GARNER BACTERIAL 6 [facility] INC INC QUANTTATI VE COLONY COUNT URINE URNLS DIP 62418 PATSY GARNER 6 [facility] STICK/TAB INC INC LET REAGENT AUTO MICROSCOP Y SBSQ 43458 [facility] [address] [place] [address] INTERNAL CARE/DAY MED MINOR COMPLJ 15 MIN REMOVAL 35371 [facility] GEM IMPACTED 6 ARE TOMER CERUMEN INSTRUMEN TATION UNILAT NONEMERGE A0130 [facility] 6 TRANSPORT TRANSPORT TRANSPORT ATION: ATION SER ATION SER JESSY R VAN PARING/CU 37864 [facility] SY[facility] TTING 6 ARE TORIN BENIGN HYPERKERA TOTIC LESION 2-4 DEBRIDEME 20259 [facility] SYDN[facility] NT NAIL 6 ARE TORIN ANY METHOD 6/> NONEMERGE A0130 [facility] NCY 6 TRANSPORT TRANSPORT TRANSPORT ATION: ATION SER ATION SER JESSY R VAN COMPREHEN 26461 COMBINED COMBINED SIVE 5 PHYSICIAN PHYSICIAN METABOLIC S LA S LA PANEL TRAVEL [address] MED 5 PHYSICIAN PHYSICIAN NEC LAB S LA S LA SPEC; PRORAT ACTL MILE BLOOD 51975 COMBINED COMBINED COUNT 5 PHYSICIAN PHYSICIAN COMPLETE S LA S LA AUTO&AUTO DIFRNTL WBC COLLECTIO 24704 COMBINED COMBINED N VENOUS 5 PHYSICIAN PHYSICIAN BLOOD S LA S LA VENIPUNCT URE SBSQ 09202 [facility] NURSING 5 ARE TORIN FACILITY CARE/DAY E/M STABLE 10 MIN DEBRIDEME 56999 [facility] 5 ARE TORIN ANY METHOD 6/> PARING/CU 05475 [facility] TTING 5 ARE TORIN BENIGN HYPERKERA TOTIC LESION 2-4 GONIOSCOP 63124 ANNA SANCHEZ Y 5 F. DEIDRE SEPARATE LAURA PROCEDURE PSC OPHTH 26599 ANNA SANCHEZ MEDICAL 5 F. DEIDRE XM&DAMARIAL LAURA COMPRHNSV PSC ESTAB PT 1/> FUNDUS 66736 ANNA SANCHEZ PHOTOGRAP 5 F. DEIDRE HY LAURA W/INTERPR PSC ETATION & REPORT SBSQ 20856 [facility] NURSING 5 ARE VIC FACILITY CARE/DAY E/M STABLE 10 MIN STANDARD K0001 LORI JIMÉNEZ 5 HOME HOME R MEDICAL MEDICAL EQUIPME EQUIPME NEBULIZER E0570 LORI JIMÉNEZ 5 HOME HOME [facility]PRESSO [facility]ICAL MEDICAL R EQUIPME EQUIPME HOS BED E0260 LORI SANFORDRELL SEMI-ELEC 5 HOME HOME W/ANY MEDICAL MEDICAL TYPE SIDE EQUIPME EQUIPME RAIL W/MATTRSS PARING/CU 49247 [facility] SYDN[facility] TTING 5 ARE TORIN BENIGN HYPERKERA TOTIC LESION 2-4 DEBRIDEME 95805 [facility] SYDNEE NT NAIL 5 ARE TORIN ANY METHOD 6/> SBSQ 40551 [facility] NURSING 5 ARE TORIN FACILITY CARE/DAY E/M STABLE 10 MIN STANDARD K0001 LORI CASEYI 5 HOME HOME R MEDICAL MEDICAL EQUIPME EQUIPME HOS BED E0260 LORI SANDOVAL SEMI-ELEC 5 HOME HOME W/ANY MEDICAL MEDICAL TYPE SIDE EQUIPME EQUIPME RAIL W/MATTRSS NEBULIZER E0570 LORI SANDOVAL WITH 5 HOME HOME [facility] EQUIPME EQUIPME OPHTH 23810 ANNA SANCHEZ [facility] 5 F. DEIDRE XM&MATTHEW SANCHEZ COMPRHNSV PSC [...] [facility] R EQUIPME EQUIPME REMOVAL 37668 [facility] GEM IMPACTED 4 ARE TOMER CERUMEN INSTRUMEN [...] TYPE SIDE EQUIPME EQUIPME RAIL W/MATTRSS PARING/CU 62933 [facility] SYDNEE TTING 4 ARE TORIN BENIGN HYPERKERA TOTIC LESION 2-4 DEBRIDEME 22427 [facility] SYDNEE NT NAIL 4 ARE TORIN ANY METHOD 6/> SBSQ 23724 [facility] NURSING 4 ARE TORIN FACILITY CARE/DAY E/M STABLE 10 MIN COLLECTIO 29385 COMBINED COMBINED N VENOUS 4 PHYSICIAN PHYSICIAN BLOOD S LA S LA VENIPUNCT URE BASIC 10373 COMBINED COMBINED METABOLIC 4 PHYSICIAN PHYSICIAN PANEL S LA S LA CALCIUM TOTAL TRAVEL [address] MED 4 PHYSICIAN PHYSICIAN NEC LAB S LA S LA SPEC; PRORAT ACTL MILE BLOOD 37598 COMBINED COMBINED COUNT 4 PHYSICIAN PHYSICIAN COMPLETE S LA S LA AUTO&AUTO DIFRNTL WBC TRANS R0075 SYMPHONY SYMPHONY PRTBL 4 MOBILEX MOBILEX XRAY EQP&PERS TRISTEN/NRS TRISTEN-TRIP> 1 PT SET-UP Q0092 SYMPHONY SYMPHONY PORTABLE 4 MOBILEX MOBILEX X-RAY EQUIPMENT RADIOLOGI 02243 SYMPHONY SYMPHONY C 4 MOBILEX MOBILEX EXAMINATI ON CHEST SINGLE VIEW FRONTAL RADIOLOGI 52665 SYMPHONY SYMPHONY C 4 MOBILEX MOBILEX EXAMINATI [...] SIDE EQUIPME EQUIPME RAIL W/MATTRSS URNLS DIP 52435 COMBINED COMBINED 4 PHYSICIAN PHYSICIAN STICK/TAB S [...] TYPE SIDE EQUIPME EQUIPME RAIL W/MATTRSS CULTURE 63433 COMBINED COMBINED BACTERIAL 4 PHYSICIAN PHYSICIAN S [...] EQUIPME EQUIPME STATIONAR Y W/FIXED ARMS RADIOLOGI 66269 [employer], C 4 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 EXAMINATI OLEKSANDR LEGGETT ON KNEE 3 CO HOS CO HOS VIEWS RADIOLOGI 99045 [facility] C EXAM 4 EIDER TORIN KNEE RADIOLOGY COMPLETE ASSOCIAT 4/MORE VIEWS RADIOLOGI 82724 [facility] C EXAM 4 EIDER TORIN KNEE RADIOLOGY COMPLETE ASSOCIAT 4/MORE VIEWS SBSQ 63439 [facility] GEM NURSING 4 ARE TOMER FACILITY CARE/DAY E/M STABLE 10 MIN REMOVAL 03930 [facility] GEM IMPACTED 4 ARE TOMER CERUMEN INSTRUMEN TATION UNILAT PARING/CU 27809 [facility] SYDNEE TTING 4 ARE TORIN BENIGN HYPERKERA TOTIC LESION 1 DEBRIDEME 70411 [facility] SYDNEE NT NAIL 4 ARE TORIN ANY METHOD 6/> [facility]Q [facility] ARE TORIN FACIL CARE/DAY MINOR COMPLJ 15 MIN ELECTROEN 67257 [facility] CEPHALOGR 3 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 AM W/REC OLEKSANDR LEGGETT AWA[place] [address] JORGE L HAZEL HEAD/BRAI 3 AZRA N W/O RADIOLOGY CONTRAST ASSOCIAT MATERIAL COMPREHEN 30065 [facility] [place], [facility] SIVE 3 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 METABOLIC OLEKSANDR LEGGETT PANEL CO HOS CO HOS COMPUTERI 17888 TIARA MENJIVAR ZED 3 AND HANNAH OPHTHALMI ZHAO C IMAGING VISION OPTIC NERVE DETERMINA 23550 [facility] 3 AND HANNAH REFRACTIV CECE E STATE VISION URINALYSI 57491 [facility] S 3 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 QUAL/SEMI OLEKSANDR LEGGETT QUANT CO HOS CO HOS EXCEPT IMMUNOASS AYS URNLS DIP 31160 [facility] [place], 3 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 STICK/TAB OLEKSANDR LEGGETT LET RGNT CO HOS CO HOS AUTO W/O MICROSCOP Y SBSQ 77448 [facility] GALEN FRA NURSING 3 ARE FACIL CARE/DAY MINOR COMPLJ 15 MIN PARING/CU 74897 [facility] GAL[facility] FRA TTING 3 ARE BENIGN HYPERKERA TOTIC LESION 2-4 DEBRIDEME 56855 [facility] G[facility] FRA NT NAIL 3 ARE ANY METHOD 6/> BASIC 79787 [facility] [place], [facility] METABOLIC 3 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 PANEL OLEKSANDR OLEKSANDR CALCIUM CO HOS CO HOS TOTAL SBSQ 80412 [facility] 3 [facility] FACIL INTERNAL CARE/DAY MED MINOR COMPLJ 15 MIN RADIOLOGI 02797 [facility] C EXAM 3 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 CHEST 2 OLEKSANDR OLEKSANDR VIEWS CO HOS CO HOS FRONTAL&L ATERAL DEBRIDEME 55388 [facility] EDWARDS ALEKSEY NT NAIL 3 ARE ANY METHOD 6/> BASIC 32944 [facility] [place], [facility] METABOLIC 3 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 PANEL OLEKSANDR OLEKSANDR CALCIUM CO HOS CO HOS TOTAL DEBRIDEME 26869 [facility] EDWARDS ALEKSEY NT NAIL 2 ARE ANY METHOD 6/> SBSQ 59866 [facility] ALEKSEY NURSING 2 ARE FACILITY CARE/DAY E/M STABLE 10 MIN LIPID 73646 [facility] PANEL 2 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 OLEKSANDR OLEKSANDR CO HOS CO HOS BLOOD 80225 [facility] COUNT 2 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 COMPLETE OLEKSANDR OLEKSANDR AUTO&AUTO CO HOS CO HOS DIFRNTL WBC BLOOD 88790 [facility], [facility] COUNT 2 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 SMEAR LOEKSANDR OLEKSANDR MCRSCP CO HOS CO HOS W/MNL DIFRNTL WBC COUNT BASIC 31472 [facility] [employer], METABOLIC 2 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 PANEL OLEKSANDR OLEKSANDR CALCIUM CO HOS CO HOS TOTAL BASIC 06787 [facility] [employer], METABOLIC 2 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 PANEL OLEKSANDR OLEKSAN[place] [address] [facility] [place] [facility] HEAD/BRAI 1 RADIOLOGY RHO N W/O CONTRAST MATERIAL ECG 44141 [facility], [facility], ROUTINE 1 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 ECG OLEKSANDR OLEKSANDR W/LEAST CO HOS CO HOS 12 LDS TRCG ONLY W/O I&[place] [address] [facility], [employer], TROPONIN 1 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 QUANTITAT OLEKSANDR OLEKSANDR IVELISSE CO HOS CO HOS MYOGLOBIN 11691 [facility], [employer], 1 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 OLEKSANDR OLEKSANDR CO HOS CO HOS CREATINE 54336 [facility], [employer], KINASE 1 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 TOTAL OLEKSANDR OLEKSANDR CO HOS CO HOS CREATINE 49412 [facility], [employer], KINASE MB 1 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 OLEKSANDR [place] [address] [facility] [place] KOSTELIC MAXILLOFA 1 RADIOLOGY VAMSI CIAL W/O CONTRAST MATERIAL MOLECULAR 41382 [place] PAULINE MONA 1 MEDICAL DIAGNOSTI SERV CS FOUNDATIO INTERPRET ATION & REPORT DUP-SCAN 11758 [facility] [place] [facility] XTR VEINS 1 RADIOLOGY [...] & ELIG CLIN RSN N GVN ECG 92411 [facility] ROUTINE 1 [facility] ECG LALI LALI W/LEAST 12 LDS TRCG ONLY W/O I&R INJECTION J2001 OLEKSANDR LEGG[facility]T 1 [facility] HCL INTRAVENO US INFUS 10 [place] [address] OLEKSANDR LEGGETT VACCINE 1 [facility] FREE 7 YRS OR OLDER FOR IM USE PROTHROMB 88916 OLEKSANDR LEGGETT IN TIME 1 [facility] THROMBOPL 58448 OLEKSANDR LEGGETT ASTIN 1 CO CO TIME HOSPITAL HOSPITAL PARTIAL PLASMA/WH OLE BLOOD SIMPLE 69498 OLEKSANDR LEGGETT RPR 1 CO CO SCALP/NEC HOSPITAL HOSPITAL K/AX/MERCY T/TRUNK 7.6-12.5C M SLINGS A4565 OLEKSANDR LEGGETT 1 CO CO HOSPITAL HOSPITAL RADEX 03516 OLEKSANDR LEGGETT HAND 1 [facility] VIEWS IM ADM 41707 OLEKSANDR LEGGETT PRQ ID 1 CO CO SUBQ/IM HOSPITAL HOSPITAL NJXS 1 VACCINE BLOOD 14332 OLEKSANDR LEGGETT COUNT 1 [facility] H[facility]PITAL AUTO&AUTO DIFRNTL WBC BLOOD 27240 LAB T[facility] LAB TRE COUNT 1 AMERIC AMERIC COMPLETE HOLDING HOLDING AUTO&AUTO DIFRNTL WBC CUR MEDS G8428 [facility] NO DOC 1 INTERNAL RAFAT OBDT MEDICINE UPD/REV & [place] [address] LAB TRE LAB TRE FOLIC 1 AMERIC AMERIC [place] [address] LAB TRE LAB TRE THYROID 1 AMERIC AMERIC STIMULATI HOLDING HOLDING NG HORMONE TSH CYANOCOBA 23176 LAB TRE LAB TRE ROSLYN 1 AMERIC AMERIC VITAMIN HOLDING HOLDING B-12 COMPREHEN 37561 LAB TRE LAB TRE SIVE 1 AMERIC AMERIC METABOL[place] [address] LAB TRE LAB TRE THYROXINE 1 AMERIC AMERIC TOTAL HOLDING HOLDING COLLECTIO 58496 [facility] N VENOUS 1 INTERNAL RAFAT BLOOD MEDICINE VENIPUNCT & URE HEMOGLOBI 28610 [facility] T[facility] LAB TRE N 1 AMERIC AMERIC GLYCOSYLA HOLDING HOLDING LOREN A1C LIPID 16031 LAB T[facility] LAB TRE PANEL 1 AMERIC AMERIC HOLDING HOLDING DUPLEX 52945 [place] SCAN 1 MEDICAL JR LUT EXTRACRAN SERV IAL ART FOUNDATIO COMPL BI STUDY DETERMINA 69265 HELDERMAN HELDERMAN TION 1 AND HANNAH REFRACTIV CECE E STATE VISION COMPUTERI 88843 HELDERMAN HELDERMAN ZED 1 AND HANNAH OPHTHALMI CECE Chambers IMAGING VISION OPTIC NERVE PRESCRIPT G8553 [facility] IONS GEN 1 INTERNAL RAFAT TRANSMITT MEDICINE ED & QUALIFIED ERX SYS LIPID 90061 LAB TRE LAB TRE PANEL 1 AMERIC AMERIC HOLDING HOLDING HEMOGLOBI 16362 LAB TRE LAB TRE N 1 AMERIC AMERIC GLYCOSYLA HOLDING HOLDING LOREN A1C COLLECTIO 29569 [facility] [facility] N VENOUS 1 INTERNAL RAFAT BLOOD MEDICINE VENIPUNCT & URE BLOOD 43027 LAB TRE LAB TRE COUNT 1 AMERIC AMERIC COMPLETE HOLDING HOLDING AUTO&[place] [address] LAB TRE LAB TRE THYROID 1 AMERIC AMERIC STIMULATI HOLD[place] [address] LAB TRE LAB TRE FOLIC 1 AMERIC AMERIC [place] [address] LAB TRE LAB TRE THYROXINE 1 AMERIC AMERIC TOTAL HOLDING HOLDING COMPREHEN 71569 LAB TRE LAB TRE SIVE 1 AMERIC AMERIC METABOLIC HOLDING HOLDING PANEL CYANOCOBA 43515 LAB TRE LAB TRE ROSLYN 1 AMERIC AMERIC VITAMIN HOLDING HOLDING B-12 COLLECTIO 66397 [facility] N VENOUS 1 Y Y [facility] VENIPUNCT URE COLLECTIO 06555 [facility] N VENOUS 1 [facility] BLOOD LALI LALI VENIPUNCT URE BLOOD 23322 [facility] COUNT 1 [facility] COMPLETE LALI LALI AUTO&AUTO DIFRNTL WBC HEMOGLOBI 88308 [facility] N 1 [facility] GLYCOSYLA LALI LALI LOREN A1C LIPID 98386 [facility] PANEL 1 [facility] LALI LALI PRESCRIPT G8553 [facility] IONS GEN 1 INTERNAL RAFAT TRANSMITT MEDICINE ED & QUALIFIED ERX SYS CYANOCOBA 10852 [facility] ROSLYN 1 [facility] VITAMIN LALI LALI B-12 COMPREHEN 93366 [facility] SIVE 1 [facility] METAB[place] [address] [facility] THYROXINE 1 [facility] [address] [facility] FOLIC 1 [facility] [place] [address] [facility] THYROID 1 [facility] STIMULATI LALI LALI NG HORMONE TSH FUNDUS 07887 TIARA MENJIVAR PHOTOGRAP 1 AND HANNAH ZHAO W/INTERPR VISION ETATION & REPORT PHRM Q0513 [facility] DISPENSIN 1 N DRUG N DRUG G FEE INHALATIO N RX; PER 30 DAYS ALBUTEROL J7613 [facility] [facility] INHAL 1 N DRUG N DRUG NON-CP PROD THRU DME U DOSE 1 MG SWALLOWIN 32373 [facility] G FUNCJ 1 Y Y W/CINERAD [facility] IOGRAPY/V IDRADIOG ECHO 29424 [facility] TTHRC R-T 1 Y Y [address] [place] [address] W/WOM-MOD E COMPL SPEC&COLR D HOSPITAL 08201 [place] DISCHARGE 1 MEDICAL JR LUT DAY SERV MANAGEMEN FOUNDATIO T 30 MIN/< BASIC 45261 [facility] METABOLIC 1 Y Y [facility] CALCIUM TOTAL BLOOD 57802 [facility] 1 Y Y COMPLETE [facility] AUTOMATED DUPLEX 96491 [facility] SCAN 1 Y Y EXTRACRAN [facility] IAL ART COMPL BI STUDY BLOOD 99140 [facility] COUNT 1 Y Y COMPLETE [facility] AUTOMATED BASIC 59441 [facility] METABOLIC 1 Y Y PANEL HOSPITAL HOSPITAL CALCIUM TOTAL SBSQ 55633 [facility] 1 MEDICAL JR LUT CARE/DAY SERV 25 FOUNDATIO MINUTES URNLS DIP 53504 [facility] 1 Y Y STICK/TAB HOSPITAL HOSPITAL [place] [address] [facility] TROPONIN 1 Y Y QUANTITAT [facility] IVELISSE PROTHROMB 15818 [facility] IN TIME 1 Y Y HOSPITAL HOSPITAL C-REACTIV 58784 [facility] E PROTEIN 1 Y Y HIGH [facility] SENSITIVI TY LIPID 58987 [facility] UNIVERS PANEL 1 Y Y HOSPITAL [facility] PHYSICAL 96062 [facility] THERAPY 1 Y Y EVALUATIO [facility] N INITIAL [address] [place] [address] MEDICAL JR LUT CARE/DAY SERV 70 FOUNDATIO MINUTES THROMBOPL 83553 [facility] ASTIN 1 Y Y TIME HOSPITAL HOSPITAL PARTIAL PLASMA/WH OLE BLOOD MRA HEAD 62525 [facility] W/O 1 Y Y [facility] MATERIAL MRA NECK 60888 [facility] W/O 1 Y Y [facility] MATERIAL MRI BRAIN 17011 [facility] BRAIN 1 Y Y STEM W/O [facility] CONTRAST MATERIAL BLOOD 19116 [facility] UNIVERSIT COUNT 1 Y Y COMPLETE [facility] AUTO&[place] [address] [facility] UNIVERS THYROID 1 Y Y STIMULATI [facility] NG HORMONE TSH CREATINE 23614 [facility] UNIVERS KINASE MB 1 Y Y FRACTION [facility] [place] [address] [facility] UNIVERS FOLIC 1 Y Y ACID [facility] [place] [address] [facility] UNIVERS HOMOCYSTE 1 Y Y INE [facility] COMPREHEN 55621 [facility] UNIVERS SIVE 1 Y Y METABOLIC HOSPITAL [facility] PANEL CYANOCOBA 32704 [facility] UNIVERS ROSLYN 1 Y Y VITAMIN [facility] B-12 CREATINE 81669 [facility] KINASE 1 Y Y TOTAL HOSPITAL HOSPITAL COMPREHEN 96354 [facility] SIVE 1 Y Y METABOLIC [facility] PANEL AMB A0427 [facility] SERVICE 1 Y CO Y CO ALS AMBULANCE AMBULANCE EMERGENCY SERV SERV TRANSPORT LEVEL 1 GASES 97413 [facility] BLOOD PH 1 [facility] DIRECT LALI LALI QUINCY XCPT PULSE OXIMITRY URNLS DIP 81885 [facility] 1 [facility] STICK/TAB LALI LALI LET RGNT AUTO W/O MICROSCOP Y BLOOD 69214 [facility] COUNT [address] [facility] AUTO&AUTO DIFRNTL WBC RADIOLOGI 95353 [facility] C 1 [facility] EXAMINATI LALI [place] [address] [facility] HEAD/BRAI 1 [facility] N W/O LALI LALI CONTRAST MATERIAL INSJ 23387 [facility] NON-NDWEL 1 [facility] LG LALI LALI BLADDER CATHETER ARTERIAL 95409 [facility] PUNCTURE 1 [facility] WITHDRAWA LALI LALI L BLOOD DX THROMBOPL 78254 [facility] ASTIN 1 Y Y TIME [facility] PARTIAL PLASMA/WH OLE BLOOD PROTHROMB 90782 [facility] IN TIME 1 Y Y HOSPITAL HOSPITAL ECG 03625 [facility] ROUTINE 1 Y Y ECG [facility] W/LEAST 12 LDS TRCG ONLY W/O I&R COLLECTIO 42028 [facility] N VENOUS 1 [facility] BLOOD [place] [address] [facility] TROPONIN 1 [facility] QUANTITAT LALI LALI IVELISSE ECG 55115 [place] [facility] C ROUTINE 1 MEDICAL ECG SERV W/LEAST FOUNDATIO 12 LDS I&R ONLY GROUND A0425 [facility] MILEAGE 1 Y CO Y CO PER AMBULANCE AMBULANCE STATUTE SERV SERV MILE PRESSURIZ 64300 [facility] ED/NONPRE 1 [facility] SSURIZED LALI LALI INHALATIO N TREATMENT COLLECTIO 74899 [facility] N VENOUS 1 [facility] BLOOD LALI LALI VENIPUNCT URE BLOOD 29862 [facility] COUNT 1 [facility] COMPLETE LALI LALI AUTO&AUTO DIFRNTL WBC THERAPEUT 59694 [facility] IC 1 [facility] PROPHYLAC LALI LALI TIC/DX INJECTION SUBQ/IM INJECTION J1100 [address] DEXAMETHO LALI LALI SONE SODIUM PHOSPHATE 1 MG INJECTION J2001 [address] LIDOCAINE LALI LALI HCL INTRAVENO US INFUS 10 MG CULTURE 59594 [facility] BACTERIAL [address] [place] [address] BLOOD LALI LALI AEROBIC W/[place] [address] [facility] INFLUENZA [address] [place] [address] A/B EACH LALI LALI INJECTION J0696 [address] CEFTRIAXO LALI LALI NE SODIUM PER 250 MG RADIOLOGI 69577 [facility] [place] [facility] C EXAM 1 RADIOLOGY RHO CHEST 2 VIEWS FRONTAL&L ATERAL COMPREHEN 90175 [facility] SIVE [address] [place] [address] METABOLIC LALI LALI PANEL RADIOLOGI 83938 [facility] C 1 DAYANNA EXAMINATI ORTHOPAED ON KNEE ICS SPORT 1/2 VIEWS LIPID 64196 [facility] PANEL 0 INTERNAL RAFAT MEDICINE & HEMOGLOBI 00271 [facility] N 0 INTERNAL RAFAT GLYCOSYLA MEDICINE LOREN A1C & GLUC BLD 62872 [facility] GLUC MNTR 0 INTERNAL RAFAT DEV MEDICINE CLEARED & FDA SPEC HOME USE ECG 06094 [facility] ROUTINE 0 LUPE PHI ECG EMERGENCY W/LEAST PHYS 12 LDS I&R ONLY GROUND A0425 [facility] MILEAGE 0 AMBULANCE AMBULANCE PER SERVICE SERVICE STATUTE MILE AMB A0427 [facility] SERVICE 0 AMBULANCE AMBULANCE ALS SERVICE SERVICE [place]ENC[place] [address] [facility] [place] [facility] JAM HEAD/BRAI 0 RADIOLOGY N W/O CONTRAST MATERIAL ALBUTEROL J7613 [facility] INHAL 0 N DRUG- N DRUG- NON-CP PROD THRU DME U DOSE 1 MG PHRM Q0513 [place] DISPENSIN 0 N DRUG- N DRUG- G FEE INHALATIO N RX; PER 30 DAYS TRANSFERA 26414 [facility] SE 0 INTERNAL RAFAT ALANINE MEDICINE AMINO ALT & SGPT COMPREHEN 70835 [facility] T[facility] LAB TRE SIVE 0 AMERIC AMERIC METABOLIC HOLDING HOLDING PANEL COLLECTIO 74039 [facility] N VENOUS 0 INTERNAL RAFAT BLOOD MEDICINE VENIPUNCT & URE LIPID 91905 [facility] PANEL 0 INTERNAL RAFAT MEDICINE & RADEX 50862 [facility] [place] [facility] FINGR 0 RADIOLOGY RHO MINIMUM 2 VIEWS RADEX 20104 [facility] FINGR 0 [place] MINIMUM 2 LALI LALI VIEWS SIMPLE 79352 [facility] REPAIR 0 [place] SCALP/NEC LAIL LALI K/AX/MERCY T/TRUNK 2.5CM/< ALBUTEROL J7613 [place] [facility] INHAL 0 N DRUG N DRUG NON-CP PROD THRU DME U DOSE 1 MG PHRM Q0513 [place] [facility] DISPENSIN 0 N DRUG N DRUG G FEE INHALATIO N RX; PER 30 DAYS SCANNING 69834 [facility] OPHTHALMI 0 AND AND C IMAGING CECE ZHAO VISION VISION POSTERIOR SGM UNI ECG 34276 [facility] DO ROUTINE 0 LUPE PHI ECG EMERGENCY W/LEAST PHYS 12 LDS I&R ONLY COLLECTIO 43364 [facility] N VENOUS 0 [place] BLOOD LALI LALI VENIPUNCT URE COMPREHEN 12165 [facility] SIVE 0 [place] [address] [facility] TROPONIN 0 [place] QUANTITAT LALI LALI IVELISSE BLOOD 20308 [facility] COUNT 0 [place] COMPLETE LALI LALI AUTO&AUTO DIFRNTL WBC RADIOLOGI 37472 [facility] C EXAM 0 [place] CHEST 2 LALI LALI VIEWS FRONTAL&L ATERAL RADEX HIP 02739 [facility] 0 [facility] UNILATERA LALI LALI L COMPLETE MINIMUM 2 VIEWS ECG 67207 [facility] ROUTINE 0 [facility] ECG LALI LALI W/LEAST 12 LDS TRCG ONLY W/O I&R RADEX 48023 [facility] SPINE 0 [facility] CERVICAL LALI LALI 4 OR 5 VIEWS LIPID 08719 LAB TRE LAB TRE PANEL 0 AMERIC AMERIC HOLDING HOLDING BLOOD 27251 LAB TRE LAB TRE COUNT 0 AMERIC AMERIC COMPLETE HOLDING HOLDING AUTO&AUTO DIFRNTL WBC HEMOGLOBI 24129 [facility] LAB TRE N 0 AMERIC AMERIC GLYCOSYLA HOLDING HOLDING LOREN A1C COMPREHEN 98684 LAB TRE LAB TRE SIVE 0 AMERIC AMERIC METABOLIC HOLDING HOLDING PANEL COLLECTIO 35714 NANCY AUGUST N VENOUS 0 INTERNAL SPARTA BLOOD MEDICINE VENIPUNCT & URE [place] [address] LAB TRE LAB TRE THYROID 0 AMERIC AMERIC STIMULATI HOLD[place] [address] LAB TRE LAB TRE THYROXINE 0 AMERIC AMERIC TOTAL HOLDING HOLDING PHRM Q0513 [place] [facility] DISPENSIN 0 N DRUG- N DRUG- G FEE INHALATIO N RX; PER 30 DAYS ALBUTEROL J7613 [place] [facility] INHAL 0 N DRUG- N DRUG- NON-CP PROD THRU DME U DOSE 1 MG HEMOGLOBI 39227 [facility] AUGUST N 9 INTERNAL SPARTA GLYCOSYLA MEDICINE LOREN A1C & EVENT MANAGEMENT CONSULTANT S LIPID 27093 [facility] AUGUST, PANEL 9 INTERNAL SPARTA MEDICINE & EVENT MANAGEMENT CONSULTANT S TRANSFERA 40862 [facility] AUG[facility] SE 9 INTERNAL SPARTA ALANINE MEDICINE AMINO ALT & SGPT EVENT MANAGEMENT CONSULTANT S PHRM Q0513 [place] DISPENSIN 9 N DRUG- N DRUG- G FEE INHALATIO N RX; PER 30 DAYS ALBUTEROL J7613 [place] [facility] INHAL 9 N DRUG- N DRUG- NON-CP PROD THRU DME U DOSE 1 MG HEMOGLOBI 19277 [facility], N 9 INTERNAL SPARTA GLYCOSYLA MEDICINE LOREN A1C & EVENT MANAGEMENT CONSULTANT S LIPID 99887 [facility], PANEL 9 INTERNAL SPARTA MEDICINE & EVENT MANAGEMENT CONSULTANT S ALBUTEROL J7613 [place] INHAL 9 N DRUG- N DRUG- NON-CP PROD THRU DME U DOSE 1 MG PHRM Q0513 [place] DISPENSIN 9 N DRUG- N DRUG- G FEE INHALATIO N RX; [place] [address] [place] [address] LAB TRE LAB TRE THYROID 9 AMERIC AMERIC STIMULATI [place] [address] LAB TRE LAB TRE THYROXINE 9 AMERIC AMERIC TOTAL HOLDING HOLDING COMPREHEN 36646 LAB TRE LAB TRE SIVE 9 AMERIC AMERIC METABOLIC HOLDING HOLDING PANEL HEMOGLOBI 81984 [facility] LAB TRE N 9 AMERIC AMERIC GLYCOSYLA HOLDING HOLDING LOREN A1C BLOOD 66394 LAB TRE LAB TRE COUNT 9 AMERIC AMERIC COMPLETE HOLDING HOLDING AUTO&AUTO DIFRNTL WBC COLLECTIO 37339 NANCY AUGUST, N VENOUS 9 INTERNAL SPARTA BLOOD MEDDICINE VENIPUNCT URE LIPID 62550 LAB TRE LAB TRE PANEL 9 AMERIC [...] SVCS RY SVCS PNEUMAT NEBULIZR DISPBL LIPID 39895 [facility] PANEL 8 [facility] COMPREHEN 25101 [facility] SIVE 8 [facility] METABOLIC PANEL HEMOGLOBI 14403 [facility] N 8 [facility] GLYCOSYLA LOREN A1C COLLECTIO 79261 [facility], N VENOUS 8 INTERNAL SPARTA BLOOD MEDDICINE VENIPUNCT URE ALBUTEROL J7613 [facility] [facility] INHAL 8 N DRUG- N DRUG- NON-CP PROD THRU DME U DOSE 1 MG OPHTH 94397 ROHIT CAMACHO, MEDICAL 8 MEDICAL YASH G XM&EVAL SERV INTERMEDI FOUNDATIO ATE ESTAB PT OPHTH 03327 ROHIT CAMACHO, MEDICAL 8 MEDICAL YASH G XM&EVAL SERV COMPRHNSV FOUNDATIO ESTAB PT 1/> [place] [address] [facility] ROHIT KOSTELIC, MAXILLOFA 8 RADIOLOGY VAMSI K CIAL W/[place] [address] [facility] [place] KOSTEL[facility], HEAD/BRAI 8 RADIOLOGY VAMSI K N W/O CONTRAST MATERIAL Encounters Encounter Start End Date Code Location Performer Type Date EMERGENCY 28713 TYLER NELSON DEPT 7 7 PHYSICIAN VISIT S, [facility]VER[facility]& THREAT [facility] PATSY - 7 7 [facility] OUTPATIEN [facility] T EMERGENCY 97499 TYLER NELSON DEPT 6 6 PHYSICIAN MARIELA VISIT S, [facility] HIGH SEVERITY& THREAT [facility] PATSY - 6 6 [facility] OUTPATIEN [facility] T EMERGENCY 29187 TLYER VICENTE DEPT 6 6 PHYSICIAN FOR VISIT S, [facility] HIGH SEVERITY& THREAT [facility] PATSY - 6 6 [facility] INPATIENT [facility] PATSY - OTHER 6 6 [facility] ACCESS 4 4 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 [facility] ACCESS 3 3 [facility] 3 3 [facility] CRITICAL [facility] ACCESS 3 3 [facility] OFFICE 73346 TIARA MENJIVAR OUTPATIEN [address] T VISIT ZHAO 25 VISION MINUTES [facility]ICAL [facility], ACCESS 3 3 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 ACCESS 3 3 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 [facility] ACCESS 3 3 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ESS 3 3 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 ACCESS 2 2 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 ACCESS 2 2 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 ACCESS 2 2 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 ACCESS 1 1 [facility] [place] [address] [place] [facility] OUTPATIEN 1 1 MEDICAL GAMALIEL T VISIT SERV 25 FOUNDATIO MINUTES OFFICE 12940 [place] [facility] [facility] 1 1 INTERNAL RAFAT T [facility]ISIT MEDICINE 25 & MINUTES HOSPITAL [facility] - 1 1 [facility] OUTPATIEN LALI T OFFICE 76512 [place] [facility] [facility] 1 1 INTERNAL RAFAT T VISIT MEDICINE 15 & MINUTES EMERGENCY 44479 [facility] 1 1 [facility] DEPARTMEN LALI T VISIT HIGH/URGE NT SEVERITY HOSPITAL [facility] - 1 1 [facility] OUTPATIEN [facility]ALI T OFFICE 58354 [facility] [place] 1 1 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 T VISIT 5 [facility] MINUTES [facility] - 1 1 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 OUTPATIEN [facility] EMERGENCY 10537 [facility] 1 1 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 DEPARTMEN [facility] T VISIT CO HOS LOW/MODER SEVERITY [facility] EMERGENCY 76453 [facility] 1 1 [facility] DEPARTMEN [facility]OSP[facility] T VISIT MODERATE SEVERITY OFFICE 34626 [facility] 1 1 INTERNAL RAFAT T VISIT MEDICINE 25 & MINUTES OFFICE 60485 [facility] [facility] 1 1 INTERNAL RAFAT T VISIT MEDICINE 15 & MINUTES [facility]OS[facility] 18453 TIARA MENJIVAR OUTPATIEN [address] T VISIT ZHAO 25 VISION MINUTES OFFICE 29057 [place] [facility] 1 1 INTERNAL RAFAT T VISIT MEDICINE 25 & MINUTES OFFICE 86672 [facility] OUTPATIEN 1 1 [place] F MAR T NEW 45 PHYSICIAN MINUTES S ASSIST OFFICE 83405 TIARA MENJIVAR OUTPATIEN [address] T VISIT ZHAO 15 VISION MINUTES [facility] 17173 [place] OUTPATIEN 1 1 MEDICAL GAMALIEL T VISIT SERV 25 FOUNDATIO MINUTES OFFICE 30427 [place] [facility] [facility] 1 1 INTERNAL RAFAT T VISIT MEDICINE 25 & MINUTES HOSPITAL [facility] - OTHER 1 1 [place] OFFICE 21370 TIARA MENJIVAR OUTPATIEN [address] T VISIT ZHAO 15 VISION MINUTES [facility]OSPITAL [facility] T EMERGENCY 40007 [facility] DEPT 1 1 [place] PHI VISIT EMERGENCY HIGH PHYS SEVERITY& THREAT FUNCJ OFFICE 53979 [place] [facility] [facility] 1 1 INTERNAL RAFAT T VISIT MEDICINE 15 & MINUTES HOSPITAL [facility] - 1 1 [facility] EMERGENCY 99795 [facility] JENNY DEPT 1 1 [place] JESSICA VISIT EMERGENCY HIGH SERVI SEVERITY& THREAT FUNCJ OFFICE 15366 [facility] OUTPATIEN 1 1 T NEW 20 MINUTES OFFICE 90505 [facility] 1 1 DAYANNA T NEW 30 ORTHOPAED MINUTES ICS SPORT OFFICE 99957 [place] [facility] [facility] 0 0 INTERNAL RAFAT T VISIT MEDICINE 25 & MINUTES EMERGENCY 83380 [facility] DEPT 0 0 [place] PHI VISIT EMERGENCY HIGH PHYS SEVERITY& THREAT FUNCJ OFFICE 51818 [facility] [facility] OUT[facility] 0 0 INTERNAL RAFAT T VISIT MEDICINE 10 & MINUTES OFFICE 34624 [facility] [facility] 0 0 INTERNAL RAFAT T VISIT MEDICINE 25 & MINUTES [facility] - 0 0 [facility] OUTPATIEN LALI T EMERGENCY 91837 [facility] TRACY 0 0 [facility] EMERGENCY T VISIT SERV HIGH/URGE NT SEVERITY EMERGENCY [address] [facility] 0 0 [facility] LALI T VISIT MODERATE SEVERITY OFFICE 23376 [facility] SMITHERMAN OUTPATIEN [address] T VISIT ZHAO 25 VISION MINUTES EMERGENCY [address] [facility] 0 0 [facility] DEPARTMEN LALI T VISIT HIGH/URGE NT SEVERITY [facility] - 0 0 [facility] OUTPATIEN LALI T EMERGENCY 23608 [facility] DO DEPT 0 0 [place] PHI VISIT EMERGENCY HIGH PHYS SEVERITY& THREAT FUNCJ OFFICE 65332 [place] [facility], OUTPATIEN 0 0 INTERNAL GRANT T VISIT MEDICINE 15 & MINUTES EVENT MANAGEMENT CONSULTANT S OFFICE [id number] [facility], OUTPATIEN 9 9 INTERNAL GRANT T VISIT MEDICINE 25 & MINUTES EVENT MANAGEMENT CONSULTANT S OFFICE [id number] [facility], OUTPATIEN 9 9 INTERNAL GRANT T VISIT MEDICINE 25 & MINUTES EVENT MANAGEMENT CONSULTANT S OFFICE [id number] [facility] CONSULTAT 9 9 [facility] NEW/ESTAB PPLLC PPLLC PATIENT 40 MIN OFFICE 92387 [facility] TESSA AUGUST 9 9 INTERNAL GRANT T VISIT MEDDICINE 25 MINUTES OFFICE 32847 [facility] TESSA AUGUST 8 8 INTERNAL GRANT T VISIT MEDDICINE 25 MINUTES OFFICE 70583 [facility] ROWE 8 8 INTERNAL GRANT T VISIT MEDDICINE 25 MINUTES OFFICE 89091 [facility] BAXTER 8 8 INTERNAL STEVIE A T VISIT MEDDICINE 25 MINUTES OFFICE 68204 [facility] BAXTER 8 8 INTERNAL STEVIE A T VISIT MEDDICINE 25 MINUTES
--- OUTSIDE RECORDS SUMMARY | 2017-01-25 03:24 | External Medical Summary Rpt | CCD ---
Author Author , VAISHALI Organization VAISHALI Address Unknown Phone [email or web address] Care Team Providers Care Roll Form Operator Name Role Phone MICHELLEPAULO , BARRY BRANDT Unavailable Unavailable [facility] [...] Unavailable Unavailable DUBILIER, CHIPPS JOSE [facility] DUBILIER ILIR OQUENDO, ILIR Unavailable Unavailable [facility], Unavailable [...] Unavailable Unavailable STEVIE DAVE, Unavailable Unavailable STEVIE WHEATLEY, GEM Unavailable Unavailable GEM TOMER, Unavailable Unavailable GEM TOMER [facility] Unavailable Unavailable INC, [facility] GALEN FRA, GALEN FRA Unavailable Unavailable SARAHERMAN WAY, Unavailable Unavailable HELDERMAN WAY [facility] Unavailable Unavailable VISION, [facility], Unavailable Unavailable [facility] Unavailable Unavailable [facility], [facility] CAMACHO, YASH G, Unavailable Unavailable YASH CAMACHO [facility] Unavailable Unavailable IMAGING ASS, [facility] KOSTELIC VAMSI, Unavailable Unavailable [facility] KOSTELIC, VAMSI K, Unavailable Unavailable KOSTELIC, VAMSI K SUJEY C, SUJEY C Unavailable Unavailable [facility] Unavailable [facility], [facility] Unavailable Unavailable HOLDING, [facility] Unavailable Unavailable HOLDING, [facility], Unavailable Unavailable [facility] LA[facility] FED, [facility] FED Unavailable Unavailable [facility], [facility] Unavailable Unavailable JOE JR, JOE JR Unavailable Unavailable [facility] Un[facility] Un[facility] Unavailable Unavailable [facility] LUTZ MONA, LUTZ MONA Unavailable Unavailable JEAN, JEAN Unavailable Unavailable [facility] Unavailable Unavailable ASSOCIAT, [facility] DEMARCUS MCHUGH, Unavailable Unavailable DEMARCUS KLEININNIS RAFAT, Unavailable Unavailable MATAADITYA DOUGLASS, Unavailable Unavailable GRANT MOTA, Unavailable Unavailable GRATN AUGUST MCRADHA JR DEIDRE, Unavailable Unavailable MCKEMIE JR DEIDRE LAURA, LAURA Unavailable Unavailable LAURA DEIDRE, LAURA Unavailable Unavailable [facility] Unavailable Unavailable [facility], [facility] Unavailable Unavailable [facility], [facility] Unavailable Unavailable [facility], [facility], [facility] Unavailable Unavailable [facility], Unavailable Unavailable [facility], Unavailable Unavailable [facility] Unavailable Unavailable AMBULANCE SE, [facility] Unavailable Unavailable AMBULANCE SE, [facility], Unavailable Unavailable [facility] [...] Unavailable Unavailable EQUIPME, [facility] Unavailable Unavailable EMERGENCY PHYS, [facility] MARVA SHE, Unavailable Unavailable MARVA SHE [facility] Unavailable Unavailable LALI, [facility], Unavailable Unavailable [facility], Unavailable Unavailable [facility] BLAZE THAKUR Unavailable Unavailable [facility]available Unavailable ASSIST, [facility], Unavailable Unavailable [facility] VANDERHOOF MAR, Unavailable Unavailable [facility]ANDERHOOF MAR SYDNEE TORIN, SYDNEE Unavailable Unavailable TORIN DO PHI, DO Unavailable Unavailable PHI WALKER FOR, WALKER Unavailable Unavailable FOR MOHAMUD VIC, MOHAMUD Unavailable Unavailable VIC ANNA SANCHEZ Unavailable Unavailable [...] PHYSICIANS, [facility] N 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 [facility] 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 K449 DIAPHRAGMAT 07-26-2016 [facility] IC HERNIA PHYSICIANS W/O GROUP OBSTRUCTION OR GANGRENE R05 COUGH 07-26-2016 [facility] R0602 SHORTNESS 07-26-2016 [facility]ATH [facility] R1084 GENERALIZED 07-26-2016 [facility]AL [facility] PA[facility] K920 HEMATEMESIS 07-25-2016 [facility] AMBULANCE SE R112 NAUSEA WITH 07-25-2016 [facility] UNSPECIFIED AMBULANCE SE H2513 AGE-RELATED 07-02-2016 ANNA SANCHEZ PSC CATARACT BILATERAL [id number] OPEN ANGLE 07-02-2016 ANNA Wilks/ROSA SANCHEZ PSC E FIND HIGH RISK BILATERAL H6121 IMPACTED 04-17-2016 [facility] CERUMEN E RIGHT EAR D509 IRON 02-19-2016 [facility] ANEMIA INTERNAL UNSPECIFIED MEDI G301 ALZHEIMERS 02-19-2016 [facility] DISEASE [facility] WITH LATE INTERNAL ONSET MEDI M150 PRIMARY 02-19-2016 [facility] INTERNAL OSTEOARTHRI MEDI TIS R300 DYSURIA 01-27-2016 [facility] [place] R4182 ALTERED 12-19-2015 [facility] AMBULANCE STATUS SERVICE UNSPECIFIED N289 DISORDER OF 12-17-2015 [facility] UNSPECIFIED R000 TACHYCARDIA 12-17-2015 [facility], UNSPECIFIED PLLC R509 FEVER 12-17-2015 [facility]PEC[facility]IED [facility], PLLC R918 OTHER 12-17-2015 [facility] NONSPECIFIC MEDICAL ABNORMAL [facility]AGING ASS FINDING OF LUNG FIELD M6281 MUSCLE 10-07-2015 [facility] GENERALIZED AMBULANCE SE R1310 DYSPHAGIA 10-07-2015 [facility] R4702 DYSPHASIA 10-07-2015 [facility] R531 WEAKNESS 10-07-2015 [facility] AMBULANCE SE Z7409 OTHER 10-07-2015 [facility] MOBILITY AMBULANCE SE H3531 NONEXUDATIV 10-04-2015 ANNA SANCHEZ [facility] 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 [id number] PRIMARY 10-04-2015 ANNA Love OPEN-ANGLE LAURA [facility] GLAUCOMA MILD STAGE V84097 ACUTE 09-12-2015 [facility] LYMPHANGITI E S OF LEFT TOE L600 INGROWING 09-12-2015 [facility] NAIL E L744 ANHIDROSIS 09-12-2015 [facility] E L84 CORNS AND 09-12-2015 [facility] CALLOSITIES E D37735 PAIN IN 09-12-2015 [facility] LEFT TOES E R69 ILLNESS 08-14-2015 [facility] UNSPECIFIED TRANSPORTAT ION SER M109 GOUT 08-08-2015 [facility] UNSPECIFIED PHYSICIANS LA P48822 PRIMARY 08-05-2015 [facility] OSTEOARTHRI MOBILEX TIS LEFT WRIST D500 IRON 07-07-2015 [facility]ICIANS ANEMIA SEC GROUP TO BLOOD LOSS CHRONIC K921 MELENA 07-07-2015 [facility] R7989 OTHER SPEC 07-07-2015 [facility] ABNORMAL [facility] FIND[facility] AMBULANCE BLOOD SE CHEMISTRY Z791 JAIL 07-07-2015 [facility] NON-STEROID INC AL&ANTI-INF LAMMATORIES 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 [facility] 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 USE [facility] INC [id number] PAIN IN 05-08-2015 [facility] UNSPECIFIED E FOOT R410 DISORIENTAT 04-20-2015 [facility] UNSPECIFIED INC K5909 OTHER 03-09-2015 [facility] N INTERNAL MED H6123 IMPACTED 03-05-2015 [facility] CERUMEN E BILATERAL C84155 DRUSEN 11-23-2014 NANA Love DEGENERATIV LAURA PSC E OF [place] BILATERAL 3809 UNSPECIFIED 09-14-2014 [facility] DISORDER E OF EXTERNAL EAR 3899 UNSPECIFIED 09-14-2014 [facility] HEARING E LOSS 26203 ASTHMA, 05-24-2014 [facility]PEC[facility] , MEDICAL UNSPECIFIED EQUIPME STATUS 27038 MUSCLE 05-24-2014 [facility] WEAKNESS HOME (GENERALIZE MEDICAL D) EQUIPME 23582 DYSPHAGIA 05-24-2014 [facility] UNSPECIFIED HOME MEDICAL EQUIPME 1101 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 [facility] 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 700 CORNS AND 05-01-2014 [facility] CALLOSITIES E 7030 INGROWING 05-01-2014 [facility] NAIL E 7050 ANHIDROSIS 05-01-2014 [facility] E 7295 PAIN IN 05-01-2014 [facility] SOFT E TISSUES OF LIMB 97292 BORDERLINE 03-26-2014 [facility] Love GLAUC OPEN LAURA PSC ANGLE BL FINDINGS LOW RSK 38990 NUCLEAR 03-26-2014 [facility] SCLEROSIS LAURA PSC 3804 IMPACTED 02-05-2014 [facility] CERUMEN E 1104 DERMATOPHYT 12-08-2013 [facility] OSIS OF E FOOT 12671 OTHER 12-08-2013 [facility] PERIPHERAL E VASCULAR DISEASE 9243 CONTUSION 12-08-2013 [facility] OF TOE E 4019 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-07-2013 [facility] [place] [address] WHEEZING 12-06-2013 [facility] 7862 COUGH 12-06-2013 [facility] 5180 PULMONARY 11-28-2013 [facility] COLLAPSE MOBILEX 5990 URINARY 09-25-2013 [facility] TRACT PHYSICIANS INFECTION LA SITE NOT SPECIFIED 50061 PAIN IN 04-26-2013 [facility], JOINT, DIGITAL CAMPAIGN SPECIALIST LOWER LEG [facility]OS V4365 KNEE JOINT 04-19-2013 [facility] BY OTHER ASSOCIAT MEANS V5409 OTH 04-19-2013 [facility] INVOLVING ASSOCIAT INTERNAL FIXATION DEVICE 36386 OTHER 02-13-2013 [facility], CONVULSIONS [facility]ITAL [facility] 34753 NONSPECIFIC 02-13-2013 [facility], ABNORMAL DIGITAL CAMPAIGN SPECIALIST ELECTROENCE [facility] CO PHALOGRAM HOS 3319 UNSPECIFIED 02-10-2013 [facility] CEREBRAL [facility] DEGENERATIO ASSOCIAT N 50212 LOW TENSION 12-06-2012 [facility] OPEN-ANGLE AND ZHAO GLAUCOMA VISION 10333 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-06-2012 [facility] SEN[facility] AND [facility] CATARACT VISION 3674 PRESBYOPIA 12-06-2012 [facility] VISION 55200 URINARY 11-25-2012 [facility] INC, FREQUENCY DIGITAL CAMPAIGN SPECIALIST [facility] 07459 URGENCY OF 11-25-2012 [facility] INC, URINATION DIGITAL CAMPAIGN SPECIALIST [facility] 7350 HALLUX 11-24-2012 [facility] VALGUS E V5869 LONG-TERM 09-30-2012 [facility] INC, (CURRENT) DIGITAL CAMPAIGN SPECIALIST USE OF [facility] CO OTHER HOS MEDICATIONS V5883 ENCOUNTER 09-30-2012 [facility] INC, FOR DIGITAL CAMPAIGN SPECIALIST THERAPEUTIC [facility] DRUG HOS MONITORING 4293 CARDIOMEGAL 05-14-2012 [facility] Y [facility]OLOGY ASSOCIAT 5533 DIAPHRAGMAT 05-14-2012 [facility] WALTER W/O RADIOLOGY MENTION ASSOCIAT OBSTRUCTION /GANGREN 29225 PAINFUL 05-14-2012 [facility], RESPIRATION DIGITAL CAMPAIGN SPECIALIST [facility] 7354 OTHER 02-10-2012 [facility] HAMMER TOE E 2724 OTHER AND 10-17-2011 [facility], UNSPECIFIED DIGITAL CAMPAIGN SPECIALIST [facility] CO HYPERLIPIDE HOS FINA 2859 UNSPECIFIED 10-17-2011 [facility], ANEMIA DIGITAL CAM[facility]IGN [facility] 86380 HEAD 02-03-2011 [facility] [place]JURY, RADIOLOGY UNSPECIFIED 88463 CHEST PAIN 01-09-2011 [facility], UNSPECIFIED DIGITAL CAMPAIGN SPECIALIST [facility] 8020 NASAL 01-04-2011 [facility] [place]ES, RADIOLOGY CLOSED FRACTURE 9212 CONTUSION 01-04-2011 [facility] [place] OF ORBITAL RADIOLOGY TISSUES 25167 DIAB W/O 12-29-2010 [facility] COMP TYPE RAFAT II/UNS NOT STATED [facility] 4011 ESSENTIAL 12-29-2010 [facility] HYPERTENSIO RAFAT N, BENIGN 91654 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[facility] CEREBRAL RAFAT ARTERY OCCLUSION W/INFARCT 4658 ACUTE URIS 10-17-2010 [facility] OF OTHER INTERNAL MULTIPLE MEDICINE & SITES 87125 SWELLING OF 10-17-2010 [facility] LIMB [place] 8798 OPEN WOUND 10-17-[address] [facility] UNSPEC SITE INTERNAL WITHOUT MEDICINE & MENTION COMP 8820 OPEN WOUND 10-17-2010 [facility] HAND NO INTERNAL FINGER MEDICINE & ALONE W/O MENTION COMP 80440 ESOPHAGEAL 10-11-[address] [facility] REFLUX [place] 24201 OTHER CHEST 10-11-[address] [facility] PAIN [place] V1254 PERSONAL HX 10-11-2010 [facility] TIA & CI [place] W/O [place] RESIDUAL DEFICITS V5849 OTHER 10-06-2010 [facility], SPECIFIED DIGITAL CAMPAIGN SPECIALIST AFTERCARE [facility] FOLLOWING HOS SURGERY 42171 CRUSHING 10-05-2010 [facility] INJURY OF HOSPITAL HAND 40984 HEMORRHAGE 10-05-2010 [facility] COMPLICATIN HOSPITAL G A PROCEDURE NEC V5832 ENCOUNTER 10-05-2010 [facility] FOR REMOVAL HOSPITAL OF SUTURES 95311 OSTEOARTHRO 10-01-2010 [facility] S UNSPEC AMERIC WHETHER HOLDING GEN/LOC UNSPEC SITE 73972 UNSPECIFIED 09-03-2010 [facility] INTERNAL ARTHROPATHY MEDICINE & SITE UNSPECIFIED 59425 OCCLUSION&S 08-27-2010 [facility] TENOSIS SERV CAROTID FOUNDATIO ARTERY W/INFARCT 3310 ALZHEIMERS 06-25-2010 [facility] DISEASE AMERIC HOLDING 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 99278 NONEXUDATIV 05-26-2010 [facility] SENILE AND ZHAO MACULAR VISION DEGENERATIO N RETINA 55923 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 01524 MEMORY LOSS 05-22-2010 [facility] 436 ACUTE BUT 05-05-2010 [facility] ILL-DEFINED SERV F[facility] CEREBROVASC ULAR DISEASE 01745 ACUT 05-02-2010 [facility] MYOCARD SERV INFARCT OTH FOUNDATIO LAT WALL EPIS CARE UNS 7197 DIFFICULTY 05-02-2010 [facility] IN WALKING [place] 7455 OSTIUM 05-02-2010 [facility] TYPE ATRIAL SEPTAL DEFECT 63039 OTHER 05-02-2010 [facility] MALAISE AND [facility] FATIGUE LALI 20895 ALTERED 05-02-2010 [facility] STATUS FOUNDATIO 66310 DYSARTHRIA 05-02-2010 [facility] 4660 ACUTE 04-18-2010 [facility] BRONCHITIS INTERNAL MEDICINE & 496 CHRONIC 04-18-2010 [facility] AIRWAY INTERNAL OBSTRUCTION MEDICINE & NEC 462 ACUTE 04-14-2010 [facility] PHARYNGITIS [facility] LALI 26203 OBST 04-14-2010 [facility] CHRONIC [place] BRONCHITIS LALI W/ACUTE BRONCHITIS 97696 CHILLS 04-14-2010 [facility] WITHOUT [facility] FEVER LALI 97171 SHORTNESS 04-14-2010 [facility] OF BREATH [facility] LALI 7038 OTHER 03-18-2010 [facility] SPECIFIED DISEASE OF NAIL 13542 MECHANICAL 03-13-2010 [facility] S SPORT PROSTHETIC JOINT 7802 SYNCOPE AND 01-25-2010 [facility] 9595 INJURY 10-16-2009 [facility] OTHER AND RADIOLOGY UNSPECIFIED FINGER 8830 OPEN WOUND 10-15-2009 [facility] FINGER MOUNT WITHOUT LALI MENTION COMPLICATIO N E918 CAUGHT 10-15-2009 [facility] OR LALI BETWEEN OBJECTS 09253 FIRST 06-18-2009 [facility] DEGREE [facility] ATRIOVENTRI LALI CULAR BLOCK 69611 PAIN IN 06-18-2009 [facility] JO[facility] RADIOLOGY PELVIC REGION AND THIGH 7231 CERVICALGIA 06-18-2009 [facility] RADIOLOGY 52104 CONTUSION 06-18-2009 [facility] OF HIP [place] 9596 INJURY 06-18-2009 [facility] OTHER AND [facility] UNSPECIFIED LALI HIP AND THIGH E8496 PLACE OF 06-18-2009 [facility] OCCURRENCE [facility] PUBLIC LALI BUILDING E8859 FALL FROM 06-18-2009 [facility] OTHER [facility] SLIPPING LALI TRIPPING OR STUMBLING V1271 PERSONAL 06-25-2008 [facility] HISTORY OF CLINIC PEPTIC PPLLC ULCER DISEASE 9181 SUPERFICIAL 09-23-2007 [facility] INJURY OF SERV CORNEA FOUNDATIO 28625 DRUSEN OF 09-19-2007 [facility] RETINA [facility] 7840 HEADACHE 09-11-2007 [facility] RADIOLOGY E8889 UNSPECIFIED 09-11-2007 [facility] FALL RADIOLOGY Medications Na ND Rx Da Fi Fi [...] P MG TA BL ET CE 00 09 09 0 14 14 NE 17 BE Ac RT 90 -2 -2 0. [place] 41 SS ti AV 42 0- 0- 00 01 ON ve IT 64 20 20 0 ME 5 E- [address] AN 2 CA EP TI L HE OX GR N ID OU A AN P T TA BL ET EY 37 07 09 0 15 8 NE 17 BE Ac E 20 -2 -2 0. [place] [address] 50 0- 0- 00 17 ON ve OP 13 20 20 0 ME 6 S [address] 5 CA EP L HE GR N OU A P CE 00 08 09 0 14 14 [...] TA P BL ET FE 00 06 09 0 [...] P T TA BL ET MA 00 08 08 0 30 7 NE 16 BE Ac PA 90 -0 -0 0. IL 91 SS ti P 41 7- 7- 00 12 ON ve 50 98 20 20 0 ME 4 0 [address] MG 0 CA EP L HE CA GR N PL OU A ET P FO 62 07 08 0 30 30 NE 17 BE Ac LI 58 -1 -0 0. IL 18 SS ti C 40 1- 7- 00 01 ON ve AC 89 20 20 0 ME 0 ID [address] 1 1 CA EP L HE MG GR N OU A TA P BL ET FE 00 06 07 0 60 30 [...] A TA P BL ET CE 00 06 06 0 [...] T TA BL ET FE 00 06 06 0 [...] P CR EA M FE 00 12 01 0 60 30 NE 16 BE Ac RR 90 -2 -3 0. IL 20 SS ti OU 47 9- 0- 00 08 ON ve S 59 20 20 0 ME 3 EDWARDS [address] LF 1 CA EP AT L HE E GR N 32 OU A 5 P MG TA BL ET CE 00 01 01 0 14 14 NE 16 BE Ac RT 90 -0 -3 0. IL 20 SS ti AV 42 2- 0- 00 68 ON ve IT 64 20 20 0 ME 1 E- [address] AN 2 CA EP TI L HE OX GR N ID OU A AN P T TA BL ET BE 68 11 01 [...] A AN P T TA BL ET Q- 00 01 01 0 47 30 [...] 1% OU A P CR EA M MA 00 11 01 0 30 7 NE 16 BE Ac PA 90 -0 -0 0. IL 09 SS ti P 41 3- 9- 00 54 ON ve 50 98 20 20 0 ME 1 0 [address] MG 1 CA EP L HE TA GR N BL OU A ET P CE 00 01 01 0 14 14 NE 16 BE Ac RT 90 -0 -0 0. IL 06 SS ti AV 42 2- 2- 00 14 ON ve IT 64 20 20 [...] -1 0. IL 95 SS ti ON 10 ON ve AT 24 20 20 0 ME 7 AT [address] E 1 CA EP 20 L HE 0 GR N MG OU A P CA PS UL E BE 68 11 11 0 30 30 NE 15 BE Ac NZ 38 -1 -1 0. IL 81 SS ti ON 21 ON ve AT 24 20 20 [...] GR N BL OU A ET P BE 68 11 11 0 30 30 NE 15 BE Ac NZ 38 -0 -0 0. IL 74 SS ti ON 83 ON ve AT 24 20 20 0 ME 4 AT [address] E 1 CA EP 10 L HE 0 GR N MG OU A P CA PS UL E FO 62 07 10 0 30 30 [...] -2 0. IL 56 SS ti ON 10 ON ve AT 24 20 20 [...] -2 0. IL 91 SS ti ON 11 ON ve AT 24 20 20 0 ME 4 AT [address] E 1 CA EP 20 L HE 0 GR N MG OU A P CA PS UL E EY 24 05 05 0 15 28 NE 14 BE Ac E 38 -2 -2 0. [place] [address] 50 5- 5- 00 12 ON ve OP 07 20 20 0 ME 0 S [address] 5 CA EP L HE GR N OU A P FO 62 08 05 0 30 30 NE 14 BE Ac LI 58 -1 -1 0. IL 87 SS ti C 40 7 9 95 ON ve AC 89 20 20 [...] 0. IL 69 SS ti C 40 7 18 ON ve AC 89 20 20 0 ME 6 ID [address] 1 1 CA EP L HE MG GR N OU A TA P BL ET FO 62 08 03 0 30 30 NE 14 BE Ac LI 58 -1 -0 0. IL 52 SS ti C 40 11 ON ve [...] 0. IL 39 SS ti ON 20 42 ON ve AT 24 20 20 0 ME 2 AT [address] E 1 CA EP 20 L HE 0 GR N MG OU A P CA PS UL E FO 62 08 02 0 30 30 NE 14 BE Ac LI 58 -1 -0 0. IL 34 SS ti C 40 00 ON ve AC 89 20 20 0 ME 0 ID [address] 1 1 CA EP L HE MG GR N OU A TA P BL ET 57 04 02 0 30 30 NE 14 BE Ac PI 89 -2 -0 0. IL 33 SS ti RI 60 5- 3- 00 99 ON ve N 91 20 20 0 ME 7 81 [address] 6 CA EP MG L HE GR N CH OU A EW P AB LE TA BL ET EY 24 01 01 0 15 30 NE 14 BE Ac E 38 -2 -2 0. [place] [address] 50 7- 7- 00 52 ON ve OP 07 20 20 [...] LE TA BL ET FO 62 08 11 0 30 30 NE 13 BE Ac LI 58 -1 -2 0. IL 97 SS ti C 40 7- 4- 00 84 ON ve AC 89 20 20 0 ME 1 ID [address] 1 1 CA EP L HE MG GR N OU A TA P BL ET EY 24 05 11 0 [...] 0. IL 24 ER ti ON 20 3 87 Y ve AT 24 20 20 [...] 0. IL 11 ER ti ON 20 6 6 46 Y ve AT 24 20 20 [...] OU TA P BL ET EY 24 05 05 0 15 30 NE 12 US Ac E 38 -0 -0 0. [place] [address] 50 1- 1- 00 40 Y ve OP 07 20 20 0 ME 3 AN S [address] 5 CA EW L R GR OU P BE 68 04 05 0 26 26 NE 12 US Ac NZ 08 -0 -0 0. IL 90 ER ti ON 40 4- - 00 76 Y ve AT 21 20 20 0 ME 5 AN AT [address] E 1 CA EW 10 L R 0 GR MG OU P CA PS UL E 57 04 04 0 30 30 NE [...] 0. IL 79 ER ti ON 40 20 Y ve AT 21 20 20 [...] IL 45 ER ti RI 90 0- 8- 00 13 Y ve N 43 20 20 0 ME 9 AN 81 [address] 3 CA EW MG L R GR CH OU EW P AB LE TA BL ET EY 24 09 01 0 15 30 NE 12 US Ac E 38 -1 -1 0. [place] [address] 50 5- 9- 00 69 Y ve OP 07 20 20 0 ME 9 AN S [address] 5 CA EW L R GR OU P FO 62 08 01 0 30 30 NE 12 US Ac LI 58 -2 -1 0. IL 38 ER ti C 40 6- 6- 00 72 Y ve AC 89 20 20 0 ME 3 AN ID [address] 1 1 CA EW L R MG GR OU TA P BL ET 63 07 12 0 30 30 NE 12 US Ac PI 73 -3 -2 0. IL 28 ER ti RI 90 0- 9- 00 25 Y ve N 43 20 20 0 ME 0 AN 81 [address] 3 CA EW MG L R GR CH OU EW P AB LE TA BL ET BE 68 07 12 0 30 30 NE 12 US Ac NZ 08 -3 -1 0. IL 24 ER ti ON 40 0- 9- 00 28 Y ve AT 21 20 20 0 ME 3 AN AT [address] E 1 CA EW 10 L R 0 GR MG OU P CA PS UL E FO 62 08 12 0 30 30 NE 12 US Ac LI 58 -2 -1 0. IL 24 ER ti C 40 6- 9- 00 31 Y ve AC 89 20 20 0 ME 1 AN ID [address] 1 1 CA EW L R MG GR OU TA P BL ET EY 24 09 12 0 15 30 NE 12 US Ac E 38 -1 -0 0. [place] [address] 50 5- 5- 00 28 Y ve OP 07 20 20 0 ME 5 AN S [address] 5 CA EW L R GR OU P BE 68 07 11 0 30 30 NE 12 US Ac NZ 08 -3 -2 0. IL 08 ER ti ON 40 0- - 00 74 Y ve AT 21 20 20 0 ME 7 AN AT [address] E 1 CA EW 10 L R 0 GR MG OU P CA PS UL E FO 62 08 11 0 30 30 [...] LE TA BL ET FO 62 08 10 0 30 30 [...] AB LE TA BL ET FO 62 07 07 0 30 30 NE 11 US Ac LI 58 -3 -3 0. IL 50 ER ti C 40 0- 0- 00 50 Y ve AC 89 20 20 0 ME 3 AN ID [address] 1 1 CA EW L R MG GR OU TA P BL ET EY 24 07 07 0 [...] ti RI 42 5- 5- [address] ve N 00 20 20 0 ME 5 E 32 94 14 14 DI JR 5 0 CA MG L WI GR LL TA OU IA BL P M ET F FO 62 02 03 0 30 30 NE 10 Ac LI 58 -0 -0 0. IL 74 KE ti C 40 4- 7- [address] ve AC 89 20 20 0 ME 1 E ID 70 14 14 DI JR 1 1 CA L WI MG GR LL OU IA TA P M BL F ET BE 68 01 03 0 30 30 NE 10 [facility] NZ 08 -2 -0 0. IL 73 ER ti ON 40 17 Y ve AT 21 20 20 0 ME 5 AN AT [address] E 1 CA EW 10 L R 0 GR MG OU P CA PS UL E LO 68 02 03 0 30 30 NE 10 [facility] RA 08 -0 -0 0. [place] 71 KE ti TA 40 4- 3- [address] ve DI 24 20 20 0 ME 7 E NE 80 14 14 DI JR 1 CA 10 L WI GR LL MG OU IA P M TA F BL ET 00 02 02 0 30 30 NE 10 [facility] PI 90 -2 -2 0. [place] 69 KE ti RI 42 5- 5- [address] ve N 00 20 20 0 ME 0 E 32 94 14 14 DI JR 5 0 CA MG L WI GR LL TA OU IA BL P M ET F LO 68 02 02 0 30 30 NE 10 [facility] RA 08 -0 -0 0. [place] 57 KE ti TA 40 4- 4- [address] ve DI 24 20 20 0 ME 6 E NE 80 14 14 DI JR 1 CA 10 L WI GR LL MG OU IA P M TA F BL ET FO 62 02 02 0 30 30 NE 10 Ac LI 58 -0 -0 0. [place] 58 KE ti C 40 4- 4- [address] ve AC 89 20 20 0 ME 8 E ID 70 14 14 DI JR 1 1 CA L WI MG GR LL OU IA TA P M BL F ET BE 68 01 01 0 30 30 NE 10 Ac [place] 08 -2 -2 0. [place] 54 ER ti ON 40 76 Y ve AT 21 20 20 0 ME 9 AN AT [address] E 1 CA EW 10 L R 0 GR MG OU P CA PS UL E 00 01 01 0 30 30 NE 10 MC Ac PI 90 -2 -2 0. [place] 53 KE ti RI 42 7- 7- [address] ve N 00 20 20 0 ME 0 E 32 94 14 14 DI JR 5 0 CA MG L WI GR LL TA OU IA BL P M ET F BE 68 01 01 0 30 7 NE 10 [facility] NZ 38 -0 -2 0. [place] 51 KE ti ON [address] ve AT 24 20 20 0 ME [...] 01 01 0 15 30 NE 10 [facility] 90 -1 -1 0. [place] 49 KE ti 42 8- [address] ve 99 20 20 0 ME 8 E 23 14 14 DI JR 5 CA L WI GR LL OU IA P M F TE 54 01 01 0 30 30 NE 10 [facility] RB 86 -1 -1 0. [place] 49 KE ti IN [address] ve AF 99 20 20 0 ME 4 E IN 20 14 14 DI JR E 0 CA 1% L WI GR LL CR OU IA EA P M M F LO 68 01 01 0 30 30 NE 10 [facility] RA 08 -0 -0 0. [place] 42 KE ti TA 40 [address] ve DI 24 20 20 0 ME 6 E NE 80 14 14 DI JR 1 CA 10 L WI GR LL MG OU IA P M TA F BL ET FO 62 01 01 0 30 30 NE 10 [facility] LI 58 -0 -0 0. [place] 42 KE ti C 40 [address] ve AC 89 20 20 0 ME 5 E ID 70 14 14 DI JR 1 1 CA L WI MG GR LL OU IA TA P M BL F ET BE 68 01 01 0 30 7 NE 10 [facility] [place] 38 -0 -0 0. [place] 41 KE ti ON [address] ve AT 24 20 20 0 ME 5 E AT 70 14 14 DI JR E 1 CA 10 L WI 0 GR LL MG OU IA P M CA F PS UL E 00 12 12 0 30 30 NE 10 MC Ac PI 90 -3 -3 0. [place] 39 KE ti RI [address] ve N 00 20 20 0 ME 0 E 32 94 13 13 DI JR 5 0 CA MG L WI GR LL TA OU IA BL P M ET F BE 68 11 12 0 30 7 NE 10 MC Ac [place] 38 -1 -0 0. [place] 27 KE ti ON [address] ve AT 24 20 20 0 ME 4 E AT 70 13 13 DI JR E 1 CA 10 L WI 0 GR LL MG OU IA P M CA F PS UL E PO 68 12 12 0 60 30 NE 10 Ac TA 08 -0 -0 0. [place] 26 KE ti SS [address] ve IU 41 20 20 0 ME 9 E M 90 13 13 DI JR CL 1 CA L WI ER GR LL OU IA 10 P M F ME Q CA PS UL E 00 11 11 0 30 30 NE 10 Ac PI 90 -2 -2 0. [place] 24 KE ti RI [address] ve N 00 20 20 0 ME 9 E 32 94 13 13 DI JR 5 0 CA MG L WI GR LL TA OU IA BL P M ET F FO 62 11 11 0 30 30 NE 10 Ac LI 58 -2 -2 0. [place] 24 KE ti C [address] ve AC 89 20 20 0 ME 8 E ID 70 13 13 DI JR 1 1 CA L WI MG GR LL OU IA TA P M BL F ET 00 11 11 0 15 30 NE 98 Ac 90 -1 -1 0. [place] 17 KE ti [address] ve 99 20 20 0 ME 6 E 23 13 13 D JR 5 GR P WI LL IA M F BE 68 11 11 0 30 7 NE 98 Ac NZ 38 -1 -1 0. [place] 02 KE ti ON 84 CT ve AT 24 20 20 0 ME 3 E AT 70 13 13 D JR E 1 GR 10 P WI 0 LL MG IA M CA F PS UL E PO 68 11 11 0 60 30 NE 97 Ac TA 08 -0 -0 0. [place] 81 KE ti SS [address] ve IU 41 20 20 0 ME 9 E M 90 13 13 D JR CL 1 GR P WI ER LL IA 10 M F ME Q CA PS UL E FO 62 11 11 0 30 30 NE 97 Ac LI 58 -0 -0 0. [place] 75 KE ti C 40 3- 3- [address] ve AC 89 20 20 0 ME 1 E ID 70 13 13 D JR 1 1 GR P WI MG LL IA TA M BL F ET 00 11 11 0 30 30 NE 97 MC Ac PI 90 -0 -0 0. [place] 75 KE ti RI 42 3- 3- [address] ve N 00 20 20 0 ME 2 E 32 94 13 13 D JR 5 0 GR MG P WI LL TA IA BL M ET F FO 62 10 10 0 30 30 NE 97 Ac LI 58 -0 -0 0. [place] 02 KE ti C 40 8- 8- [address] ve AC 89 20 20 0 ME 1 E ID 70 13 13 D JR 1 1 GR P WI MG LL IA TA M BL F ET BE 68 10 10 0 30 7 NE 96 Ac NZ 38 -0 -0 0. [place] 98 KE ti ON [address] ve AT 24 20 20 0 ME 2 E AT 70 13 13 D JR E 1 GR 10 P WI 0 LL MG IA M CA F PS UL E PO 68 09 10 0 60 30 NE 96 Ac TA 08 -0 -0 0. [place] 89 KE ti SS 40 2- 3- [address] ve IU 41 20 20 0 ME 4 E M 90 13 13 D JR CL 1 GR P WI ER LL IA 10 M F ME Q CA PS UL E 00 03 09 0 30 30 NE 96 Ac PI 90 -0 -2 0. [place] 71 KE ti RI 42 3- 6- [address] ve N 00 20 20 0 ME 1 E 32 94 13 13 D JR 5 0 GR MG P WI LL TA IA BL M ET F 00 09 09 0 15 8 NE 98 Ac 90 -2 -2 0. [place] 92 KE ti 42 0- 0- [address] ve 99 20 20 0 ME 1 E 23 13 13 D JR 5 GR P WI LL IA M F EY 24 09 09 0 15 30 NE 96 MC Ac E 38 -1 -1 0. [place] [address] 50 8- 8- [address] ve OP 07 20 20 0 ME 9 E S 50 13 13 D JR 5 GR P WI LL IA M F FO 62 09 09 0 30 30 NE 96 MC Ac LI 58 -1 -1 0. [place] 34 KE ti C 40 2- 2- [address] ve AC 89 20 20 0 ME 2 E ID 70 13 13 D JR 1 1 GR P WI MG LL IA TA M BL F ET BE 68 09 09 0 30 7 NE 96 MC Ac NZ 38 -1 -1 0. [place] 31 KE ti ON [address] ve AT 24 20 20 0 ME 6 E AT 70 13 13 D JR E 1 GR 10 P WI 0 LL MG IA M CA F PS UL E PO 68 09 09 0 60 30 NE 96 MC Ac TA 08 -0 -0 0. [place] 06 KE ti SS 40 2- 2- [address] ve IU 41 20 20 0 ME 0 E M 90 13 13 D JR CL 1 GR P WI ER LL IA 10 M F ME Q CA PS UL E 00 03 09 0 30 30 NE 96 MC Ac PI 90 -0 -0 0. [place] 06 KE ti RI 42 3- 2- [address] ve N 00 20 20 0 ME 3 E 32 94 13 13 D JR 5 0 GR MG P WI LL TA IA BL M ET F BE 68 08 08 0 30 7 NE 95 MC Ac NZ 38 -2 -2 0. [place] 92 KE ti ON 77 CT ve AT 24 20 20 0 ME 0 E AT 70 13 13 D JR E 1 GR 10 P WI 0 LL MG IA M CA F PS UL E BE 68 04 08 0 30 7 NE 95 MC Ac NZ 38 -0 -0 0. [place] 29 KE ti ON 64 CT ve AT 24 20 20 0 ME 0 E AT 70 13 13 D JR E 1 GR 10 P WI 0 LL MG IA M CA F PS UL E FO 62 11 07 0 30 30 NE 95 MC Ac LI 58 -0 -3 0. [place] 09 KE ti C 40 5- 0- [address] ve AC 89 20 20 0 ME 6 E ID 70 12 13 D JR 1 1 GR P WI MG LL IA TA M BL F ET 00 03 07 0 30 30 NE 95 MC Ac PI 90 -0 -3 0. [place] 09 KE ti RI 42 3- 0- [address] ve N 00 20 20 0 ME 4 E 32 94 13 13 D JR 5 0 GR MG P WI LL TA IA BL M ET F PO 68 07 07 0 60 30 NE 94 MC Ac TA 08 -2 -2 0. [place] 96 KE ti SS 40 6- 6- [address] ve IU 41 20 20 0 ME 4 E M 90 13 13 D JR CL 1 GR P WI ER LL IA 10 M F ME Q CA PS UL E BE 68 04 07 0 30 7 NE 94 MC Ac NZ 38 -0 -0 0. [place] 45 KE ti ON [address] ve AT 24 20 20 0 ME 6 E AT 70 13 13 D JR E 1 GR 10 P WI 0 LL MG IA M CA F PS UL E 00 03 07 0 30 30 NE 94 MC Ac PI 90 -0 -0 0. [place] 30 KE ti RI [address] ve N 00 20 20 0 ME 5 E 32 94 13 13 D JR 5 0 GR MG P WI LL TA IA BL M ET F FO 62 11 07 0 30 30 NE 94 MC Ac LI 58 -0 -0 0. [place] 30 KE ti C [address] ve AC 89 20 20 0 ME 4 E ID 70 12 13 D JR 1 1 GR P WI MG LL IA TA M BL F ET BE 68 04 07 0 30 7 NE 94 MC Ac NZ 38 -0 -0 0. [place] 23 KE ti ON [address] ve AT 24 20 20 0 ME 0 E AT 70 13 13 D JR E 1 GR 10 P WI 0 LL MG IA M CA F PS UL E FO 62 11 05 0 30 30 NE 93 MC Ac LI 58 -0 -3 0. IL 39 KE ti C [address] ve AC 89 20 20 0 ME 3 E ID 70 12 13 D JR 1 1 GR P WI MG LL IA TA M BL F ET BE 68 04 05 0 30 7 NE 93 MC Ac NZ 38 -0 -3 0. [place] 34 KE ti ON [address] ve AT 24 20 20 0 ME 6 E AT 70 13 13 D JR E 1 GR 10 P WI 0 LL MG IA M CA F PS UL E BE 68 04 05 0 30 7 NE 92 MC Ac NZ 38 -0 -1 0. [place] 94 KE ti ON [address] ve AT 24 20 20 0 ME 6 E AT 70 13 13 D JR E 1 GR 10 P WI 0 LL MG IA M CA F PS UL E FO 62 11 05 0 30 30 NE 92 MC Ac LI 58 -0 -0 0. [place] 64 KE ti C [address] ve AC 89 20 20 0 ME 2 E ID 70 12 13 D JR 1 1 GR P WI MG LL IA TA M BL F ET SI 54 04 04 0 47 15 NE 92 MC Ac LT 83 -2 -2 30 IL 17 KE ti US 80 2- 2- .[address] ve SI 11 20 20 00 ME 0 E N 78 13 13 D JR SA 0 GR P WI 10 LL 0 IA MG M /5 F ML SY R 00 04 04 0 30 30 NE 91 MC Ac PI 90 -0 -0 0. [place] 73 KE ti RI 42 8- 8- [address] ve N 00 20 20 0 ME 4 E 32 94 13 13 D JR 5 0 GR MG P WI LL TA IA BL M ET F FO 62 04 04 0 30 30 NE 91 MC Ac LI 58 -0 -0 0. IL 73 KE ti C 40 8- 8- [address] ve AC 89 20 20 0 ME 7 E ID 70 13 13 D JR 1 1 GR P WI MG LL IA TA M BL F ET BE 68 04 04 0 30 7 NE 91 MC Ac NZ 38 -0 -0 0. [place] 65 KE ti ON 20 5- 5- [address] ve AT 24 20 20 0 ME 0 E AT 70 13 13 D JR E 1 GR 10 P WI 0 LL MG IA M CA F PS UL E SI 54 03 03 0 47 15 NE 91 MC Ac LT 83 -2 -2 30 IL 26 KE ti US 80 5- 5- .[address] ve SI 11 20 20 00 ME 8 E N 78 13 13 D JR SA 0 GR P WI 10 LL 0 IA MG M /5 F ML SY R BE 68 03 03 0 30 7 NE 90 MC Ac NZ 38 -0 -0 0. [place] 74 KE ti ON 20 9- 9- [address] ve AT 24 20 20 0 ME 4 E AT 70 13 13 D JR E 1 GR 10 P WI 0 LL MG IA M CA F PS UL E 00 03 03 0 30 30 NE 90 MC Ac PI 90 -0 -0 0. IL 54 KE ti RI 42 3- 3- [address] ve N 00 20 20 0 ME 7 E 32 94 13 13 D JR 5 0 GR MG P WI LL TA IA BL M ET F FO 62 11 03 0 30 30 NE 90 MC Ac LI 58 -0 -0 0. IL 49 KE ti C 40 5- 1- [address] ve AC 89 20 20 0 ME 2 E ID 70 12 13 D JR 1 1 GR P WI MG LL IA TA M BL F ET 00 08 02 0 30 30 NE 89 MC Ac PI 90 -1 -0 0. [place] 76 KE ti RI 42 5- 5- [address] ve N 00 20 20 0 ME 4 E 32 94 12 13 D JR 5 0 GR MG P WI LL TA IA BL M ET F FO 51 11 02 0 30 30 NE 89 MC Ac LI 07 -0 -0 0. IL 76 KE ti C 90 5- 5- [address] ve AC 10 20 20 0 ME 5 E ID 52 12 13 D JR 1 0 GR P WI MG LL IA TA M BL F ET BE 68 02 02 0 30 7 NE 89 MC Ac NZ 38 -0 -0 0. [place] 77 KE ti ON 20 5- 5- [address] ve AT 24 20 20 0 ME 3 E AT 70 13 13 D JR E 1 GR 10 P WI 0 LL MG IA M CA F PS UL E SI 54 01 01 0 47 15 NE 89 MC Ac LT 83 -1 -1 30 IL 01 KE ti US 80 1- 1- .[address] ve SI 11 20 20 00 ME 7 E N 78 13 13 D JR SA 0 GR P WI 10 LL 0 IA MG M /5 F ML SY R 00 08 01 0 30 30 NE 88 MC Ac PI 90 -1 -0 0. IL 82 KE ti RI 42 5- 6- [address] ve N 00 20 20 0 ME 4 E 32 94 12 13 D JR 5 0 GR MG P WI LL TA IA BL M ET F FO 62 11 01 0 30 30 NE 88 MC Ac LI 58 -0 -0 0. IL 82 KE ti C 40 5- 6- [address] ve AC 89 20 20 0 ME 5 E ID 70 12 13 D JR 1 1 GR P WI MG LL IA TA M BL F ET 00 08 12 0 30 30 NE 88 MC Ac PI 90 -1 -0 0. IL 00 KE ti RI 42 5- 6- [address] ve N 00 20 20 0 ME 9 E 32 94 12 12 D JR 5 0 GR MG P WI LL TA IA BL M ET F FO 62 11 12 0 30 30 NE 87 MC Ac LI 58 -0 -0 0. IL 91 KE ti C 40 5- 3- [address] ve AC 89 20 20 0 ME 6 E ID 70 12 12 D JR 1 1 GR P WI MG LL IA TA M BL F ET MA 00 11 12 0 60 30 NE 87 MC Ac PA 90 -0 -0 0. IL 91 KE ti P 41 5- 3- [address] ve 50 98 20 20 0 ME 1 E 0 86 12 12 D JR MG 1 GR P WI TA LL BL IA ET M F FO 62 11 11 0 30 30 NE 87 MC Ac LI 58 -0 -0 0. IL 17 KE ti C 40 5- 5- [address] ve AC 89 20 20 0 ME 5 E ID 70 12 12 D JR 1 1 GR P WI MG LL IA TA M BL F ET 00 08 11 0 30 30 NE 87 MC Ac PI 90 -1 -0 0. IL 17 KE ti RI 42 5- 5- [address] ve N 00 20 20 0 ME 3 E 32 94 12 12 D JR 5 0 GR MG P WI LL TA IA BL M ET F MA 00 11 11 0 60 30 NE 87 MC Ac PA 90 -0 -0 0. IL 15 KE ti P 41 5- 5- [address] ve 50 98 20 20 0 ME 9 E 0 86 12 12 D JR MG 1 GR P WI TA LL BL IA ET M F MA 00 10 10 0 60 30 NE 85 MC Ac PA 90 -1 -1 0. IL 91 KE ti P 41 0- 0- [address] ve 50 98 20 20 0 ME 1 E 0 86 12 12 D JR MG 1 GR P WI TA LL BL IA ET M F 00 08 10 0 30 30 NE 86 MC Ac PI 90 -1 -0 0. IL 36 KE ti RI 42 5- 5- [address] ve N 00 20 20 0 ME 1 E 32 94 12 12 D JR 5 0 GR MG P WI LL TA IA BL M ET F FO 62 10 10 0 30 30 NE 86 MC Ac LI 58 -0 -0 0. IL 36 KE ti C 40 5- 5- [address] ve AC 89 20 20 0 ME 5 E ID 70 12 12 D JR 1 1 GR P WI MG LL IA TA M BL F ET MA 00 09 09 0 30 30 NE 85 MC Ac PA 90 -1 -1 0. IL 84 KE ti P 41 6- 6- [address] ve 50 98 20 20 0 ME 9 E 0 86 12 12 D JR MG 1 GR P WI TA LL BL IA ET M F 00 08 09 0 30 30 NE 85 MC Ac PI 90 -1 -0 0. [place] 65 KE ti RI 42 5- 9- [address] ve N 00 20 20 0 ME 1 E 32 94 12 12 D JR 5 0 GR MG P WI LL TA IA BL M ET F FO 00 09 09 0 30 30 NE 85 MC Ac LI 60 -0 -0 0. IL 65 KE ti C 33 9- 9- [address] ve AC 16 20 20 0 ME 8 E ID 23 12 12 D JR 1 2 GR P WI MG LL IA TA M BL F ET MA 00 09 09 0 30 7 NE 85 MC Ac PA 90 -0 -0 0. IL 65 KE ti P 41 9- 9- [address] ve 50 98 20 20 0 ME 5 E 0 86 12 12 D JR MG 1 GR P WI TA LL BL IA ET M F FO 00 08 08 0 30 30 NE 84 MC Ac LI 60 -1 -1 0. IL 94 KE ti C 33 5- 5- [address] ve AC 16 20 20 0 ME 4 E ID 23 12 12 D JR 1 2 GR P WI MG LL IA TA M BL F ET 00 08 08 0 30 30 NE 84 MC Ac PI 90 -1 -1 0. IL 94 KE ti RI 42 5- 5- [address] ve N 00 20 20 0 ME 3 E 32 94 12 12 D JR 5 0 GR MG P WI LL TA IA BL M ET F MA 00 04 08 0 30 7 NE 84 MC Ac PA 90 -0 -0 0. IL 64 KE ti P 41 2- 5- [address] ve 50 98 20 20 0 ME 7 E 0 86 12 12 D JR MG 1 GR P WI TA LL BL IA ET M F SI 54 07 07 0 47 15 NE 84 MC Ac LT 83 -2 -2 30 IL 31 KE ti US 80 4- 4- .[address] ve SI 11 20 20 00 ME 1 E N 78 12 12 D JR SA 0 GR P WI 10 LL 0 IA MG M /5 F ML SY R LO 00 07 07 0 50 5 NE 86 MC Ac RA 78 -2 -2 .0 IL 65 KE ti TA 15 3- 3- [address] ve DI 07 20 20 ME 8 E NE 70 12 12 D JR 1 GR 10 P WI LL MG IA M TA F BL ET 00 05 07 0 30 30 NE 83 MC Ac PI 90 -0 -0 0. [place] 76 KE ti RI 42 9- 3- [address] ve N 00 20 20 0 ME 4 E 32 94 12 12 D JR 5 0 GR MG P WI LL TA IA BL M ET F FO 00 07 07 0 30 30 NE 83 MC Ac LI 60 -0 -0 0. IL 72 KE ti C 33 2- 2- [address] ve AC 16 20 20 0 ME 8 E ID 23 12 12 D JR 1 2 GR P WI MG LL IA TA M BL F ET 00 05 06 0 30 30 NE 83 MC Ac PI 90 -0 -0 0. IL 10 KE ti RI 42 9- 9- [address] ve N 00 20 20 0 ME 2 E 32 94 12 12 D JR 5 0 GR MG P WI LL TA IA BL M ET F FO 00 06 06 0 30 30 NE 83 MC Ac LI 60 -0 -0 0. IL 00 KE ti C 33 6- 6- [address] ve AC 16 20 20 0 ME 3 E ID 23 12 12 D JR 1 2 GR P WI MG LL IA TA M BL F ET LI 00 05 05 0 15 5 NE 82 MC Ac QU 90 -1 -1 0. IL 32 KE ti IT 45 3- 3- [address] ve EA 01 20 20 0 ME 5 E RS 73 12 12 D JR 5 GR 1. P WI 4 LL % IA DR M OP F S MA 00 04 05 0 30 7 NE 82 MC Ac PA 90 -0 -1 0. IL 32 KE ti P 41 2- 3- [address] ve 50 98 20 20 0 ME 5 E 0 86 12 12 D JR MG 1 GR P WI TA LL BL IA ET M F FO 00 12 05 0 30 30 NE 82 MC Ac LI 60 -2 -0 0. IL 21 KE ti C 33 3- 9- [address] ve AC 16 20 20 0 ME 7 E ID 23 11 12 D JR 1 2 GR P WI MG LL IA TA M BL F ET 00 05 05 0 30 30 NE 82 MC Ac PI 90 -0 -0 0. IL 22 KE ti RI 42 9- 9- [address] ve N 00 20 20 0 ME 4 E 32 94 12 12 D JR 5 0 GR MG P WI LL TA IA BL M ET F 00 02 04 0 30 30 NE 81 MC Ac PI 90 -1 -1 0. IL 37 KE ti RI 42 7- 0- [address] ve N 00 20 20 0 ME 8 E 32 94 12 12 D JR 5 0 GR MG P WI LL TA IA BL M ET F MA 00 04 04 0 30 0 NE 81 MC Ac PA 90 -0 -0 0. IL 13 KE ti P 41 2- 2- [address] ve 50 98 20 20 0 ME 4 E 0 86 12 12 D JR MG 1 GR P WI TA LL BL IA ET M F FO 00 12 04 0 30 0 NE 81 MC Ac LI 60 -2 -0 0. IL 13 KE ti C 33 3- 2- [address] ve AC 16 20 20 0 ME 1 E ID 23 11 12 D JR 1 2 GR P WI MG LL IA TA M BL F ET FO 00 09 10 5 30 30 SO 38 MC Ac LI 60 -1 -1 .0 PE 44 GI ti C 33 9- 8- 00 RS 55 NN ve AC 16 20 20 IS ID 23 11 [address] JE LY FF MG RE DR Y TA UG B BL ET FO 00 09 09 5 30 30 SO 38 MC Ac LI 60 -1 -1 .0 PE 44 GI ti C 33 9- 9- 00 RS 55 NN ve AC 16 20 20 IS ID 23 11 [address] JE LY FF MG RE DR Y TA UG B BL ET FO 00 06 08 2 30 30 SO 37 MC Ac LI 60 -0 -2 .0 PE 55 GI ti C 33 6- 2- 00 RS 37 NN ve AC 16 20 20 IS ID 23 11 [address] JE LY FF MG RE DR Y TA UG B BL ET FO 00 06 07 2 30 30 SO 37 MC Ac LI 60 -0 -2 .0 PE 55 GI ti C 33 6- 3- 00 RS 37 NN ve AC 16 20 20 IS ID 23 11 [address] JE LY FF MG RE DR Y TA UG B BL ET FO 00 06 06 2 30 30 SO 37 MC Ac LI 60 -0 -2 .0 PE 55 GI ti C 33 6- 3- 00 RS 37 NN ve AC 16 20 20 IS ID 23 11 [address] JE LY FF MG RE DR Y [...] 11 11 ON [address] PUCKETT MG UG RE Y TA B BL ET FO 00 03 03 5 30 30 CA 10 MC Ac LI 60 -2 -2 .0 RR 75 GI ti C 33 8- 8- 00 IN 86 NN ve AC 16 20 20 GT 2 IS ID 23 11 11 ON [address] PUCKETT MG UG RE Y TA B BL ET CH 00 08 08 00 12 6 CA 96 MC Ac ER 60 -0 -1 0. RR 86 GI ti AT 31 3- 3- 00 IN 47 NN ve US 07 20 20 0 GT IS SI 55 09 09 ON N [address] PUCKETT UG RE SY Y RU B P [...] ider Refu lity Give sed n TD 08- 113 ABNER No ABNER VACC 1-20 [facility] V ITAL ITAL FREE 7 YRS OR OLDE R FOR IM USE TD 08-2 91 ABNER No ABNER VACC 1-20 [facility] 11 [facility] HOSP V ITAL ITAL FREE 7 YRS OR OLDE R FOR IM USE Procedures Procedure DOS Code Location Performer Comment DEBRIDEME 12445 [facility] JEAN NT NAIL 7 ARE ANY METHOD 6/> BLOOD 25246 COMBINED COMBINED COUNT 7 PHYSICIAN PHYSICIAN COMPLETE S LAB S LAB AUTO&AUTO DIFRNTL WBC COLLECTIO 37551 COMBINED COMBINED N VENOUS 7 PHYSICIAN PHYSICIAN BLOOD S LAB S LAB VENIPUNCT URE TRAVEL [address] MED 7 PHYSICIAN PHYSICIAN NEC LAB S LAB S LAB SPEC; PRORAT ACTL MILE TRAVEL [address] MED 7 PHYSICIAN PHYSICIAN NEC LAB S LA S LA SPEC; PRORAT ACTL MILE COLLECTIO 94328 COMBINED COMBINED N VENOUS 7 PHYSICIAN PHYSICIAN BLOOD S LA S LA VENIPUNCT URE BLOOD 32618 COMBINED COMBINED COUNT 7 PHYSICIAN PHYSICIAN COMPLETE S LA S LA AUTO&AUTO DIFRNTL WBC DEBRIDEME 47485 [facility] JEAN NT NAIL 7 ARE ANY METHOD 6/> AMBULANCE A0428 [facility] SERVICE 7 AMBULANCE AMBULANCE BLS SERVICE SERVICE NONEMERGE NCY TRANSPORT GROUND A0425 [facility] MILEAGE 7 AMBULANCE AMBULANCE PER SERVICE SERVICE [facility] G0378 PATSY GARNER OBSERVATI 7 [facility] ON INC INC [facility] G[facility]8 [facility] GARN[facility] OBSERVATI 7 [facility] ON INC INC SERVICE PER HOUR SPCL STN 18161 PATSY GARNER 2 I&R 7 [facility] EXCPT INC INC MICROORG/ [place] [address] PATSY GARNER HPYLORI 7 [facility] [place] [address] PATSY GARNER SURG 7 [facility]OS[facility] PATHOLOGY INC INC GROSS&MAIRELA ROSCOPIC EXAM ANES 25044 [facility] UPPER GI 7 ANESTH ENDOSCOPY OF THE PROXIMAL BLUE TO DUODENUM COLLECTIO 35117 PATSY GARNER N VENOUS 7 [facility] BLOOD INC INC VENIPUNCT URE EGD 78817 [facility] TRANSORAL 7 PHYSICIAN BIOPSY S GROUP SINGLE/MU LTIPLE BLOOD 58232 PATSY GARNER COUNT 7 [facility] COMPLETE INC INC AUTO&AUTO DIFRNTL WBC BASIC 47168 PATSY GARNER METABOLIC 7 [facility] PANEL INC INC CALCIUM TOTAL BLOOD 06107 PATSY GARNER COUNT 7 [facility] COMPLETE INC INC AUTO&AUTO DIFRNTL WBC URNLS DIP 62591 PATSY GARNER 7 [facility] STICK/TAB INC INC LET REAGENT AUTO MICROSCOP Y COMPREHEN 16366 PATSY GARNER SIVE 7 [facility] METABOLIC INC INC PANEL ECG 34206 PATSY GARNER ROUTINE 7 [facility] ECG INC INC W/LEAST 12 LDS TRCG ONLY W/O I&R ECG 36505 PATSY DIAZ JR ROUTINE 7 [facility] W/LEAST P 12 LDS I&R ONLY INITIAL 39749 [facility] OBSERVATI 7 PHYSICIAN ON S GROUP CARE/DAY [address] [place] [address] PATSY GARNER ABDOMEN & 7 [facility] PELVIS INC INC W/O CONTRAST MATERIAL RADIOLOGI 66419 PATSY GARNER C 7 [facility] EXAMINATI INC INC ON CHEST SINGLE VIEW FRONTAL COLLECTIO 32795 PATSY GARNER N VENOUS 7 [facility] BLOOD INC INC VENIPUNCT [facility] G0378 PATSY GARNER OBSERVATI 7 [facility] ON INC INC SERVICE PER HOUR [place] G0328 PATSY GARNER CA SCR; 7 [facility] FOB TST INC INC IMMUNO 1-3 SIMULTANE OUS AMBULANCE A0429 [facility] [address] [place] [address] BL AMBULANCE AMBULANCE EMERGENCY SE SE TRANSPORT GROUND A0425 [facility] MILEAGE [address] [place] [address] PER AMBULANCE AMBULANCE STATUTE SE SE MILE OPHTH 26677 [facility] 7 F. XM&MATTHEW [facility] COMPRHNSV PSC ESTAB PT 1/> COMPREHEN 57104 COMBINED COMBINED SIVE 7 PHYSICIAN PHYSICIAN METABOLIC S LA S LA PANEL TRAVEL [address] MED 7 PHYSICIAN PHYSICIAN NEC LAB S LA S LA SPEC; PRORAT ACTL MILE COLLECTIO 99168 COMBINED COMBINED N VENOUS 7 PHYSICIAN PHYSICIAN BLOOD S LA S LA VENIPUNCT URE DEBRIDEME 46043 [facility] JEAN NT NAIL 7 ARE ANY METHOD 6/> BLOOD 26312 COMBINED COMBINED COUNT 7 PHYSICIAN PHYSICIAN COMPLETE S LA S LA AUTO&AUTO DIFRNTL WBC COLLECTIO 95653 COMBINED COMBINED N VENOUS 7 PHYSICIAN PHYSICIAN BLOOD S LA S LA VENIPUNCT URE TRAVEL [address] MED 7 PHYSICIAN PHYSICIAN NEC LAB S LA S LA SPEC; PRORAT ACTL MILE TRANS R0070 SYMPHONY SYMPHONY PRTBL 7 MOBILEX MOBILEX X-RAY EQP&PERS TRISTEN/NRS TRISTEN-TRIP 1 PT SET-UP Q0092 SYMP[facility] SYMPHONY PORTABLE 7 MOBILEX MOBILEX X-RAY EQUIPMENT REMOVAL 59807 [facility] GEM IMPACTED 7 ARE CERUMEN INSTRUMEN TATION UNILAT RADIOLOGI 55345 SYMPHONY SYMPHONY C EXAM 7 MOBILEX MOBILEX CHEST 2 VIEWS FRONTAL&L ATERAL BLOOD 77232 COMBINED COMBINED COUNT 7 PHYSICIAN PHYSICIAN COMPLETE S LA S LA AUTO&AUTO DIFRNTL WBC COLLECTIO 13407 COMBINED COMBINED N VENOUS 7 PHYSICIAN PHYSICIAN BLOOD S LA S LA VENIPUNCT URE TRAVEL [address] MED 7 PHYSICIAN PHYSICIAN NEC LAB S LA S LA SPEC; PRORAT ACTL MILE DEBRIDEME 94765 [facility] JEAN NT NAIL 7 ARE ANY METHOD 6/> BLOOD 25089 COMBINED COMBINED COUNT 7 PHYSICIAN PHYSICIAN COMPLETE S LA S LA AUTO&AUTO DIFRNTL WBC COMPREHEN 50923 COMBINED COMBINED SIVE 7 PHYSICIAN PHYSICIAN METABOLIC S LA S LA PANEL TRAVEL [address] MED 7 PHYSICIAN PHYSICIAN NEC LAB S LA S LA SPEC; PRORAT ACTL MILE COLLECTIO 80793 COMBINED COMBINED N VENOUS 7 PHYSICIAN PHYSICIAN BLOOD S LA S LA VENIPUNCT URE SBSQ 07289 [facility] [address] [facility] INTERNAL CARE/DAY MEDI MINOR COMPLJ 15 MIN BLOOD 79606 COMBINED COMBINED COUNT 7 PHYSICIAN PHYSICIAN COMPLETE S LA S LA AUTO&AUTO DIFRNTL WBC TRAVEL [address] MED 7 PHYSICIAN PHYSICIAN NEC LAB S LA S LA SPEC; PRORAT ACTL MILE COLLECTIO 73860 COMBINED COMBINED N VENOUS 7 PHYSICIAN PHYSICIAN BLOOD S LA S LA VENIPUNCT URE TRIMMING G0127 [facility] JEAN OF 6 ARE DYSTROPHI C NAILS ANY NUMBER TRAVEL [address] MED 6 PHYSICIAN PHYSICIAN NEC LAB S LA S LA SPEC; PRORAT ACTL MILE COLLECTIO 62402 COMBINED COMBINED N VENOUS 6 PHYSICIAN PHYSICIAN BLOOD S LA S LA VENIPUNCT URE VOLUME 98484 COMBINED COMBINED MEASUREME 6 PHYSICIAN PHYSICIAN NT TIMED S LA S LA COLLECTIO N EACH BLOOD 45322 COMBINED COMBINED COUNT 6 PHYSICIAN PHYSICIAN COMPLETE S LA S LA AUTO&AUTO DIFRNTL WBC URNLS DIP 78684 COMBINED COMBINED 6 PHYSICIAN PHYSICIAN STICK/TAB S LA S LA LET REAGENT AUTO MICROSCOP Y BLOOD 84398 COMBINED COMBINED COUNT 6 PHYSICIAN PHYSICIAN COMPLETE S LA S LA AUTO&AUTO DIFRNTL WBC COLLECTIO 55526 COMBINED COMBINED N VENOUS 6 PHYSICIAN PHYSICIAN BLOOD S LA S LA VENIPUNCT URE TRAVEL [address] MED 6 PHYSICIAN PHYSICIAN NEC LAB S LA S LA SPEC; PRORAT ACTL MILE AMBULANCE A0428 [facility] SERVICE 6 AMBULANCE AMBULANCE BLS SERVICE SERVICE [facility] TRANSPORT GROUND A0425 [facility] MILEAGE 6 AMBULANCE AMBULANCE PER SERVICE SERVICE STATUTE MILE GROUND A0425 [facility] MILEAGE [address] [place] [address] PER AMBULANCE AMBULANCE STATUTE SE SE MILE RADIOLOGI 90943 [facility] 6 MEDICAL ARIA EXAMINATI IMAGING ON CHEST ASS SINGLE VIEW FRONTAL AMB A0427 [facility] [address] [place] [address] ALS AMBULANCE AMBULANCE EMERGENCY SE SE TRANSPORT LEVEL 1 SWALLOWIN 48557 PATSY Titus FUNCJ 6 [facility] W/CINERAD INC INC IOGRAPY/V IDRADIOG AMBULANCE A0428 [facility] [address] [place] [address] AMBULANCE AMBULANCE NONEMERGE SE SE [facility] TRANSPORT GROUND A0425 [facility] [address] [place] [address] PER AMBULANCE AMBULANCE STATUTE SE SE MILE MOTION 64493 PATSY GARNER FLUOR 6 [facility] EVAL INC INC SWLNG FUNCJ C/V REC GONIOSCOP 24691 ANNA SANCHEZ Y 6 F. DEIDRE SEPARATE LAURA PROCEDURE PSC OPHTH 85750 ANNA SANCHEZ MEDICAL 6 F. DEIDRE XM&EVAL LAURA COMPRHNSV PSC ESTAB PT 1/> FUNDUS 74992 ANNA SANCHEZ PHOTOGRAP 6 F. DEIDRE HY LAURA W/INTERPR PSC ETATION & REPORT DEBRIDEME 11528 [facility] SYDNEE NT NAIL 6 ARE TORIN ANY METHOD 6/> REMOVAL 82403 [facility] GEM IMPACTED 6 ARE TOMER CERUMEN INSTRUMEN TATION UNILAT NONEMERGE A0130 [facility] 6 TRANSPORT TRANSPORT TRANSPORT ATION: ATION SER ATION SER JACINTOI R VAN COLLECTIO 37869 COMBINED COMBINED N VENOUS 6 PHYSICIAN PHYSICIAN [place]LO[place] [address] COMBINED COMBINED BLOOD/URI 6 PHYSICIAN PHYSICIAN C ACID S LA S LA TRANS R0075 SYMPHONY SYMPHONY PRTBL 6 MOBILEX MOBILEX XRAY EQP&PERS TRISTEN/NRS TRISTEN-TRIP> 1 PT SET-UP Q0092 SYMPHONY SYMPHONY PORTABLE 6 MOBILEX MOBILEX X-RAY EQUIPMENT RADEX 32100 SYMPHONY SYMPHONY WRIST 2 6 MOBILEX MOBILEX VIEWS URNLS DIP 68253 COMBINED COMBINED 6 PHYSICIAN PHYSICIAN STICK/TAB S LA S LA LET REAGENT AUTO MICROSCOP Y VOLUME 51363 COMBINED COMBINED MEASUREME 6 PHYSICIAN PHYSICIAN NT TIMED S LA S LA COLLECTIO N EACH CULTURE 78143 COMBINED COMBINED BACTERIAL 6 PHYSICIAN PHYSICIAN S LA S LA QUANTTATI VE COLONY COUNT URINE CULTURE 64775 COMBINED COMBINED BCT 6 PHYSICIAN PHYSICIAN ISOL&PRSM S LA S LA PTV ID ISOLATE EA URINE SUSCEPTIB 72236 COMBINED COMBINED ILITY 6 PHYSICIAN PHYSICIAN STUDY S LA S LA ANTIMICRO BIAL DISK METHOD NONEMERGE A0130 FEDERATED FEDERATED NCY 6 TRANSPORT TRANSPORT TRANSPORT ATION: ATION SER ATION SER JACINTOKrysta Gunter VAN COMPREHEN 54435 COMBINED COMBINED SIVE 6 PHYSICIAN PHYSICIAN METABOLIC S LA S LA PANEL BLOOD 76040 COMBINED COMBINED COUNT 6 PHYSICIAN PHYSICIAN COMPLETE S LA S LA AUTO&AUTO DIFRNTL WBC COLLECTIO 53469 COMBINED COMBINED N VENOUS 6 PHYSICIAN PHYSICIAN BLOOD S LA S LA VENIPUNCT URE TRAVEL [address] MED 6 PHYSICIAN PHYSICIAN NEC LAB S LA S LA SPEC; PRORAT ACTL MILE INSPECTIO [id number] PATSY GARNER N LOW 6 [facility] INTEST INC INC TRACT JINNY/ART OPENING ENDO ANES 16329 [facility] LOWER 6 ANESTH SHE INTESTINE OF THE BLUE ENDOSCOPY DISTAL DUODENUM COLONOSCO 40957 [facility] PY FLX DX 6 PHYSICIAN CAM W/COLLJ S GROUP SPEC WHEN PFRMD ESOPHAGOG 68557 [facility] ASTRODUOD 6 PHYSICIAN CAM ENOSCOPY S GROUP TRANSORAL DIAGNOSTI C ANES 37040 [facility] FEEBACK UPPER GI 6 ANESTH REE ENDOSCOPY OF THE PROXIMAL BLUE TO DUODENUM INSPECTIO [id number] PATSY PATSY N UP 6 [facility] INTEST INC INC TRACT JINNY/ART OPENING ENDO INITIAL 66608 [facility] 6 PHYSICIAN CAM CARE/DAY S GROUP 50 MINUTES AMBULANCE A0429 OLEKSANDR LEGGETT SERVICE [address] [place] [address] AMBULANCE AMBULANCE EMERGENCY SE SE TRANSPORT GROUND A0425 OLEKSANDR LEGGETT MILEAGE [address] [place] [address] PER AMBULANCE AMBULANCE STATUTE SE SE MILE PARING/CU 62556 [facility] SYDNEE TTING 6 ARE TORIN BENIGN HYPERKERA TOTIC LESION 2-4 DEBRIDEME 71933 [facility] SYDNEE NT NAIL 6 ARE TORIN ANY METHOD 6/> FUNDUS 89159 ANNA SANCHEZ PHOTOGRAP 6 F. DEIDRE HY LAURA W/INTERPR PSC ETATION & REPORT OPHTH 72553 ANNA SANCHEZ MEDICAL 6 F. DEIDRE XM&EVAL LAURA COMPRHNSV PSC ESTAB PT 1/> URNLS DIP 28949 PATSY GARNER 6 [facility] STICK/TAB INC INC LET REAGENT AUTO MICROSCOP Y CULTURE 33170 PATSY GARNER BACTERIAL 6 [facility] INC INC QUANTTATI VE COLONY COUNT URINE SBSQ [address] [address] INTERNAL CARE/DAY MED MINOR COMPLJ 15 MIN REMOVAL 04792 [facility] GEM IMPACTED 6 ARE TOMER CERUMEN INSTRUMEN TATION UNILAT NONEMERGE A0130 FEDERATED FEDERATED NCY 6 TRANSPORT TRANSPORT TRANSPORT ATION: ATION SER ATION SER WHEELCHAI R VAN PARING/CU 06989 [facility] SYDNEE TTING 6 ARE TORIN BENIGN HYPERKERA TOTIC LESION 2-4 DEBRIDEME [address] [facility] NAIL 6 ARE TORIN ANY METHOD 6/> NONEMERGE A0130 FEDERATED FEDERATED NCY 6 TRANSPORT TRANSPORT TRANSPORT ATION: ATION SER ATION SER JESSY R VAN COMPREHEN 78007 COMBINED COMBINED SIVE 5 PHYSICIAN PHYSICIAN METABOLIC S LA S LA PANEL BLOOD 08597 COMBINED COMBINED COUNT 5 PHYSICIAN PHYSICIAN COMPLETE S LA S LA AUTO&AUTO DIFRNTL WBC TRAVEL [address] MED 5 PHYSICIAN PHYSICIAN NEC LAB S LA S LA SPEC; PRORAT ACTL MILE COLLECTIO 67554 COMBINED COMBINED N VENOUS 5 PHYSICIAN PHYSICIAN BLOOD S LA S LA VENIPUNCT URE DEBRIDEME 72664 [facility] SYDNEE NT NAIL 5 ARE TORIN ANY METHOD 6/> PARING/CU 61046 [facility] SYDNEE TTING 5 ARE TORIN BENIGN HYPERKERA TOTIC LESION 2-4 SBSQ 01849 [facility] NURSING 5 ARE TORIN FACILITY CARE/DAY E/M STABLE 10 MIN GONIOSCOP 28521 ANNA SANCHEZ Y 5 F. DEIDRE SEPARATE LAURA PROCEDURE PSC FUNDUS 40558 ANNA SANCHEZ PHOTOGRAP 5 F. DEIDRE HY LAURA W/INTERPR PSC ETATION & REPORT OPHTH 05951 ANNA SANCHEZ MEDICAL 5 F. DEIDRE XM&EVAL LAURA COMPRHNSV PSC ESTAB PT 1/> SBSQ 54893 [facility] ARE VIC FACILITY CARE/DAY E/M STABLE 10 MIN STANDARD K0001 LORI CASEYI 5 HOME HOME R MEDICAL MEDICAL EQUIPME EQUIPME NEBULIZER E0570 LORI SANDOVAL WITH 5 HOME HOME COMPRESSO MEDICAL MEDICAL R EQUIPME EQUIPME HOS BED E0260 LORI SANDOVAL SEMI-ELEC 5 HOME HOME W/ANY MEDICAL MEDICAL TYPE SIDE EQUIPME EQUIPME RAIL W/MATTRSS DEBRIDEME 84718 [facility] SYDNEE NT NAIL 5 ARE TORIN ANY METHOD 6/> PARING/CU 29782 [facility] SYDNEE TTING 5 ARE TORIN BENIGN HYPERKERA TOTIC LESION 2-4 SBSQ 28034 [facility] NURSING 5 ARE TORIN FACILITY CARE/DAY E/M STABLE 10 MIN STANDARD K0001 LORI JIMÉNEZ 5 HOME HOME R MEDICAL MEDICAL EQUIPME EQUIPME HOS BED E0260 LORI SANFORDRELL SEMI-ELEC 5 HOME HOME W/ANY MEDICAL MEDICAL TYPE SIDE EQUIPME EQUIPME RAIL W/MATTRSS NEBULIZER E0570 LORI SANDOVAL WITH 5 HOME HOME COMPRESSO MEDICAL MEDICAL R EQUIPME EQUIPME OPHTH 16959 [facility] 5 F. DEIDRE XM&MATTHEW SANCHEZ COMPRHNSV PSC ESTAB PT 1/> STANDARD K0001 LORI JIMÉNEZ 5 HOME HOME R MEDICAL MEDICAL EQUIPME EQUIPME NEBULIZER E0570 LORI SANDOVAL WITH 5 HOME HOME COMPRESSO MEDICAL MEDICAL R EQUIPME EQUIPME HOS BED E0260 LORI SANDOVAL SEMI-ELEC 5 HOME HOME W/ANY MEDICAL MEDICAL TYPE SIDE EQUIPME EQUIPME RAIL W/MATTRSS STANDARD K0001 LORI CASEYI 5 HOME HOME R MEDICAL MEDICAL EQUIPME EQUIPME HOS BED E0260 LORI SANDOVAL SEMI-ELEC 4 HOME HOME W/ANY MEDICAL MEDICAL TYPE SIDE EQUIPME EQUIPME RAIL W/MATTRSS NEBULIZER E0570 LORI SANDOVAL WITH 4 HOME HOME COMPRESSO MEDICAL MEDICAL R EQUIPME EQUIPME REMOVAL 98438 [facility] GEM IMPACTED 4 ARE TOMER CERUMEN INSTRUMEN TATION UNILAT STANDARD K0001 LORI CASEYI 4 HOME HOME [...] HOME COMPRESSO MEDICAL MEDICAL R EQUIPME EQUIPME PARING/CU 81851 [facility] SYDNEE TTING 4 ARE TORIN BENIGN HYPERKERA TOTIC LESION 2-4 SBSQ 93716 [facility] ARE [facility] FACILITY CARE/DAY E/M STABLE 10 MIN DEBRIDEME 47537 [facility] 4 ARE TORIN ANY METHOD 6/> BASIC 77303 COMBINED COMBINED METABOLIC 4 PHYSICIAN PHYSICIAN PANEL S LA S LA CALCIUM TOTAL BLOOD 97534 COMBINED COMBINED COUNT 4 PHYSICIAN PHYSICIAN COMPLETE S LA S LA AUTO&AUTO DIFRNTL WBC TRAVEL [address] MED 4 PHYSICIAN PHYSICIAN NEC LAB S LA S LA SPEC; PRORAT ACTL MILE COLLECTIO 56935 COMBINED COMBINED N VENOUS 4 PHYSICIAN PHYSICIAN BLOOD S LA S LA VENIPUNCT URE TRANS R0075 SYMPHONY SYMPHONY PRTBL 4 MOBILEX MOBILEX XRAY EQP&PERS TRISTEN/NRS TRISTEN-TRIP> 1 PT SET-UP Q0092 SYMPHONY SYMPHONY PORTABLE 4 MOBILEX MOBILEX X-RAY EQUIPMENT RADIOLOGI 91936 SYMPHONY SYMPHONY C 4 MOBILEX MOBILEX EXAMINATI ON CHEST SINGLE VIEW FRONTAL RADIOLOGI 79034 SYMPHONY SYMPHONY C 4 MOBILEX MOBILEX EXAMINATI ON CHEST SINGLE VIEW FRONTAL SET-UP Q0092 SYMPHONY SYMPHONY PORTABLE 4 MOBILEX MOBILEX X-RAY EQUIPMENT TRANS R0070 SYMPHONY SYMPHONY PRTBL 4 MOBILEX MOBILEX X-RAY EQP&PERS TRISTEN/NRS TRISTEN-TRIP 1 PT STANDARD K0001 LORI CASEYI 4 HOME HOME [...] SIDE EQUIPME EQUIPME RAIL W/MATTRSS URNLS DIP 23613 COMBINED COMBINED 4 PHYSICIAN PHYSICIAN STICK/TAB S LA S LA LET REAGENT AUTO MICROSCOP Y STANDARD K0001 LORI SANDOVAL JESSY 4 HOME HOME R MEDICAL MEDICAL EQUIPME EQUIPME HOS BED E0260 LORI SANDOVAL SEMI-ELEC 4 HOME HOME W/ANY MEDICAL MEDICAL TYPE SIDE EQUIPME EQUIPME RAIL W/MATTRSS NEBULIZER E0570 LORI SANDOVAL WITH 4 HOME HOME COMPRESSO MEDICAL MEDICAL R EQUIPME EQUIPME STANDARD K0001 LORI LORI JESSY 4 HOME HOME R MEDICAL MEDICAL EQUIPME EQUIPME NEBULIZER E0570 LORI SANDOVAL WITH 4 HOME HOME COMPRESSO MEDICAL MEDICAL R EQUIPME EQUIPME HOS BED E0260 LORI SANDOVAL SEMI-ELEC 4 HOME HOME W/ANY MEDICAL MEDICAL TYPE SIDE EQUIPME EQUIPME RAIL W/MATTRSS STANDARD K0001 LORI SANDOVAL JACINTOI 4 HOME HOME R MEDICAL MEDICAL EQUIPME EQUIPME HOS BED E0260 LORI SANDOVAL SEMI-ELEC 4 HOME HOME W/ANY MEDICAL MEDICAL TYPE SIDE EQUIPME EQUIPME RAIL W/MATTRSS NEBULIZER E0570 LORI SANDOVAL WITH 4 HOME HOME COMPRESSO MEDICAL MEDICAL R EQUIPME EQUIPME CULTURE 88724 COMBINED COMBINED BACTERIAL 4 PHYSICIAN PHYSICIAN S LA S LA QUANTTATI VE COLONY COUNT URINE STANDARD K0001 LORI JIMÉNEZ 4 HOME HOME [...] HOME COMPRESSO MEDICAL MEDICAL R EQUIPME EQUIPME WALKER E0135 LORI SANDOVAL FOLDING 4 HOME HOME ADJUSTABL MEDICAL MEDICAL E OR EQUIPME EQUIPME FIXED HEIGHT COMMODE E0163 LORI SANDOVAL CHAIR 4 HOME HOME MOBILE OR MEDICAL MEDICAL EQUIPME EQUIPME STATIONAR Y W/FIXED ARMS RADIOLOGI 55224 [facility] C EXAM 4 EIDER TORIN KNEE RADIOLOGY COMPLETE ASSOCIAT 4/MORE VIEWS RADIOLOGI 11293 [employer], C 4 DIGITAL CAMPAIGN SPECIALIST DIGITAL CAMPAIGN SPECIALIST EXAMINATI OLEKSANDR LEGGETT ON KNEE 3 CO HOS CO HOS VIEWS RADIOLOGI 15633 [facility] C EXAM 4 EIDER TORIN KNEE RADIOLOGY COMPLETE ASSOCIAT 4/MORE VIEWS REMOVAL 48081 [facility] GEM IMPACTED 4 ARE TOMER CERUMEN INSTRUMEN TATION UNILAT SBSQ 61811 [facility] GEM NURSING 4 ARE TOMER FACILITY CARE/DAY E/M STABLE 10 MIN SBSQ 60902 [facility] SYDN[facility] NURSING 4 ARE TORIN FACIL CARE/DAY MINOR COMPLJ 15 MIN PARING/CU 77003 [facility] 4 ARE TORIN BENIGN HYPERKERA TOTIC LESION 1 DEBRIDEME 68392 [facility] NT NAIL 4 ARE TORIN ANY METHOD 6/> ELECTROEN 86959 [facility] INC, [employer], CEPHALOGR 3 DIGITAL CAMPAIGN SPECIALIST DIGITAL CAMPAIGN SPECIALIST AM W/REC OLEKSANDR LEGGETT [place]WA[place] [address] [place] HEAD/BRAI 3 AZRA N W/O RADIOLOGY CONTRAST ASSOCIAT MATERIAL COMPREHEN 94648 [facility] INC, [facility] INC, SIVE 3 DIGITAL CAMPAIGN SPECIALIST DIGITAL CAMPAIGN SPECIALIST METABOLIC OLEKSANDR LEGGETT PANEL CO HOS CO HOS COMPUTERI 08152 TIARA MENJIVAR ZED [address] OPHTHALMI ZHAO C IMAGING VISION OPTIC NERVE DETERMINA 89362 TIARA MENJIVAR TION 3 AND HANNAH REFRACTIV ZHAO E STATE VISION URINALYSI 48880 [facility] INC, [facility] INC, S 3 DIGITAL CAMPAIGN SPECIALIST DIGITAL CAMPAIGN SPECIALIST QUAL/SEMI OLEKSANDR LEGGETT QUANT CO HOS CO HOS EXCEPT IMMUNOASS AYS URNLS DIP 12820 [facility] INC, [facility] INC, 3 DIGITAL CAMPAIGN SPECIALIST DIGITAL CAMPAIGN SPECIALIST STICK/TAB OLEKSANDR LEGGETT LET RGNT CO HOS CO HOS AUTO W/O MICROSCOP Y PARING/CU 31110 [facility] GALEN POPE TTING 3 ARE BENIGN HYPERKERA TOTIC LESION 2-4 DEBRIDEME 74771 [facility] GALEN POPE NT NAIL 3 ARE ANY METHOD 6/> SBSQ 00274 [facility] GALEN FRA NURSING 3 ARE FACIL CARE/DAY MINOR COMPLJ 15 MIN BASIC 61038 [facility] INC, [facility] INC, METABOLIC 3 DIGITAL CAMPAIGN SPECIALIST DIGITAL CAMPAIGN SPECIALIST PANEL OLEKSANDR OLEKSANDR CALCIUM CO HOS CO HOS TOTAL SBSQ 89004 [facility] NURSING 3 [facility]ANNER INTERNAL CARE/DAY MED MINOR COMPLJ 15 MIN RADIOLOGI 99027 [facility] INC, [facility] INC, C EXAM 3 DIGITAL CAMPAIGN SPECIALIST DIGITAL CAMPAIGN SPECIALIST CHEST 2 OLEKSANDR LEGGETT VIEWS CO HOS CO HOS FRONTAL&L ATERAL DEBRIDEME 15458 [facility] EDWARDS ALEKSEY NT NAIL 3 ARE ANY METHOD 6/> BASIC 98122 [facility] INC, [facility] INC, METABOLIC 3 DIGITAL CAMPAIGN SPECIALIST DIGITAL CAMPAIGN SPECIALIST PANEL OLEKSANDR OLEKSANDR CALCIUM CO HOS CO HOS TOTAL DEBRIDEME 30670 [facility] EDWARDS ALEKSEY NT NAIL 2 ARE ANY METHOD 6/> SBSQ 70599 [facility] EDWARDS ALEKSEY NURSING 2 ARE FACILITY CARE/DAY E/M STABLE 10 MIN LIPID 37641 [facility] [employer], [employer], PANEL 2 DIGITAL CAMPAIGN SPECIALIST DIGITAL CAMPAIGN SPECIALIST OLEKSANDR OLEKSANDR CO HOS CO HOS BLOOD 72423 [facility] [employer] [facility] INC, COUNT 2 DIGITAL CAMPAIGN SPECIALIST DIGITAL CAMPAIGN SPECIALIST COMPLETE OLEKSANDR OLEKSANDR AUTO&AUTO CO HOS CO HOS DIFRNTL WBC BLOOD 99555 [employer], COUNT 2 DIGITAL CAMPAIGN SPECIALIST DIGITAL CAMPAIGN SPECIALIST SMEAR OLEKSANDR FRANKELS MCRSCP CO HOS CO HOS W/MNL DIFRNTL WBC COUNT BASIC 67810 [employer], METABOLIC 2 DIGITAL CAMPAIGN SPECIALIST DIGITAL CAMPAIGN SPECIALIST PANEL OLEKSANDR OLEKSANDR CALCIUM CO HOS CO HOS TOTAL BASIC 12622 [employer], METABOLIC 2 DIGITAL CAMPAIGN SPECIALIST DIGITAL CAMPAIGN SPECIALIST PANEL OLEKSANDR OLEKSANDR [place] [address] [facility] [place] CHU HEAD/BRAI 1 RADIOLOGY RHO N W/O CONTRAST MATERIAL MYOGLOBIN 54711 [employer], 1 DIGITAL CAMPAIGN SPECIALIST DIGITAL CAMPAIGN SPECIALIST OLEKSANDR [place] [address] [employer], TROPONIN 1 DIGITAL CAMPAIGN SPECIALIST DIGITAL CAMPAIGN SPECIALIST QUANTITAT OLEKSANDR OLEKSANDR IVELISSE CO HOS CO HOS CREATINE 06642 [employer], KINASE 1 DIGITAL CAMPAIGN SPECIALIST DIGITAL CAMPAIGN SPECIALIST TOTAL OLEKSANDR OLEKSANDR CO HOS CO HOS ECG 72258 [employer], [employer], ROUTINE 1 DIGITAL CAMPAIGN SPECIALIST DIGITAL CAMPAIGN SPECIALIST ECG OLEKSANDR OLEKSANDR W/LEAST CO HOS CO HOS 12 LDS TRCG ONLY W/O I&R CREATINE 86455 [employer], [employer], KINASE MB 1 DIGITAL CAMPAIGN SPECIALIST DIGITAL CAMPAIGN SPECIALIST FRACTION OLEKSANDR [place] [address] [facility] [place] KOSTELIC MAXILLOFA 1 RADIOLOGY VAMSI CIAL W/O CONTRAST MATERIAL MOLECULAR 21405 [place] PAULINE MONA 1 MEDICAL DIAGNOSTI SERV CS FOUNDATIO INTERPRET ATION & REPORT PRESCRIPT G8553 [facility] IONS GEN 1 INTERNAL RAFAT TRANSMITT MEDICINE ED & QUALIFIED ERX SYS ELIG CLIN G8427 [facility] ATTSTS 1 INTERNAL RAFAT DOC M REC MEDICINE OBTD & UPD/REV PT MEDS DUP-SCAN 55388 [facility] [place] CHU XTR VEINS 1 RADIOLOGY RHO UNILATERA L/LIMITED STUDY CUR MEDS G8428 [facility] NO DOC 1 INTERNAL RAFAT OBDT MEDICINE UPD/REV & ELIG CLIN RSN N GVN ECG 94636 [facility] ROUTINE 1 [facility] ECG LALI LALI W/LEAST 12 LDS TRCG ONLY W/O I&R INJECTION J2001 OLEKSANDR LEGGETT 1 CO CO LIDOCAINE [facility] HCL INTRAVENO US INFUS [address] [place] [address] OLEKSANDR LEGGETT VACCINE 1 CO CO PRSRV [facility] FREE 7 YRS OR OLDER FOR IM USE RADEX 53603 OLEKSANDR LEGGETT HAND 1 CO CO MINIMUM 3 [facility] VIEWS SIMPLE 81984 OLEKSANDR LEGGETT RPR 1 CO CO SCALP/NEC [facility] K/AX/MERCY T/TRUNK 7.6-12.5C M BLOOD 46314 OLEKSANDR LEGGETT COUNT 1 CO CO COMPLETE [facility] AUTO&AUTO DIFRNTL WBC SLINGS A4565 OLEKSANDR LEGGETT 1 CO [facility] IM ADM 23941 OLEKSANDR LEGGETT PRQ ID 1 CO CO SUBQ/IM HOSPITAL HOSPITAL NJXS 1 VACCINE PROTHROMB 56101 OLEKSANDR LEGGETT IN TIME 1 CO [facility] THROMBOPL 58468 OLEKSANDR LEGGETT ASTIN 1 CO CO TIME HOSPITAL HOSPITAL PARTIAL PLASMA/WH OLE BLOOD CYANOCOBA 91817 LAB TRE LAB TRE ROSLYN 1 AMERIC AMERIC VITAMIN HOLDING HOLDING B-12 COLLECTIO 01872 [facility] N VENOUS 1 INTERNAL [facility] BLOOD MEDICINE VENIPUNCT & [place] [address] LAB TRE LAB TRE THYROXINE 1 AMERIC AMERIC TOTAL HOLDING HOLDING CUR MEDS G8428 [facility] NO DOC 1 INTERNAL RAFAT OBDT MEDICINE UPD/REV & [place] [address] [facility] T[facility] LAB TRE THYROID 1 AMERIC AMERIC STIMULATI [place] [address] LAB TRE LAB TRE FOLIC 1 AMERIC AMERIC ACID HOLDING HOLDING SERUM LIPID 84728 [facility] LAB TRE PANEL 1 AMERIC AMERIC HOLDING HOLDING BLOOD 72496 LAB [facility] LAB TRE COUNT 1 AMERIC AMERIC COMPLETE HOLDING HOLDING AUTO&AUTO DIFRNTL WBC HEMOGLOBI 54949 LAB T[facility] LAB TRE N 1 AMERIC AMERIC GLYCOSYLA HOLDING HOLDING LOREN A1C COMPREHEN 87212 LAB TRE LAB TRE SIVE 1 AMERIC AMERIC METABOLIC HOLDING HOLDING PANEL DUPLEX 22281 [place] SCAN [address] MEDICAL [address] EXTRACRAN SERV IAL ART FOUNDATIO COMPL BI STUDY COMPUTERI 44602 [facility] HELDERMAN ZED [address] OPHTHALMI ZHAO C IMAGING VISION OPTIC NERVE DETERMINA 44681 [facility] HELDERMAN TION [address] REFRACTIV ZHAO E STATE VISION LIPID 56320 [facility] LAB TRE PANEL 1 AMERIC [employer]IC HOLDING HOLDING COMPREHEN 92331 LAB TRE LAB TRE SIVE 1 AMERIC AMERIC METABOLIC HOLDING HOLDING PANEL CYANOCOBA 26272 LAB TRE LAB TRE ROSLYN 1 AMERIC AMERIC VITAMIN HOLDING HOLDING B-12 [place] [address] LAB TRE LAB TRE THYROXINE 1 AMERIC AMERIC TOTAL HOLDING HOLDING HEMOGLOBI 20938 LAB TRE LAB TRE N 1 AMERIC AMERIC GLYCOSYLA HOLDING HOLDING LOREN A1C BLOOD 66419 LAB TRE LAB TRE COUNT 1 AMERIC AMERIC COMPLETE HOLDING HOLDING AUTO&[place] [address] LAB TRE LAB TRE FOLIC 1 AMERIC [employer] [place] [address] LAB TRE LAB TRE THYROID 1 AMERIC AMERIC STIMULATI HOLDING HOLDING NG HORMONE TSH COLLECTIO 58519 [facility] N VENOUS 1 INTERNAL [facility] BLOOD MEDICINE VENIPUNCT & URE PRESCRIPT G8553 [facility] [facility] IONS GEN 1 INTERNAL RAFAT TRANSMITT MEDICINE ED & QUALIFIED ERX SYS COLLECTIO 62773 [facility] N VENOUS 1 Y Y [facility] VENIPUNCT URE COLLECTIO 31048 [facility] N VENOUS 1 [facility] [place] VENIPUNCT URE PRESCRIPT G8553 [facility] IONS GEN 1 INTERNAL RAFAT TRANSMITT MEDICINE ED & [place] [address] [facility] THYROID 1 [place] STIMULATI [place] [address] [facility] FOLIC 1 [facility] ACID LALI LALI SERUM HEMOGLOBI 96274 [facility] N 1 [facility] GLYCOSYLA LALI LALI LOREN A1C BLOOD 07362 [facility] COUNT 1 [facility] COMPLETE LALI LALI AUTO&[place] [address] [facility] THYROXINE 1 [facility] TOTAL LALI LALI COMPREHEN 81375 [facility] SIVE 1 [facility] METABOLIC LALI LALI PANEL CYANOCOBA 69769 [facility] ROSLYN 1 [facility] VITAMIN LALI LALI B-12 FUNDUS 80205 TIARA MENJIVAR PHOTOGRAP 1 AND HANNAH ZHAO W/INTERPR VISION ETATION & REPORT LIPID 34355 [facility] PANEL 1 [facility] LALI LALI ALBUTEROL J7613 [facility] INHAL 1 N DRUG N DRUG NON-CP PROD THRU DME U DOSE 1 MG PHRM Q0513 [facility] DISPENSIN 1 N DRUG N DRUG G FEE INHALATIO N RX; PER 30 DAYS ECHO 39878 [facility] TTHRC R-T 1 Y Y 2D [facility] W/WOM-MOD E COMPL SPEC&COLR D HOSPITAL 35515 [place] DISCHARGE 1 MEDICAL JR LUT DAY SERV MANAGEMEN FOUNDATIO T 30 MIN/< DUPLEX 59032 [facility] SCAN 1 Y Y EXTRACRAN [facility] IAL ART COMPL BI STUDY SWALLOWIN 25877 [facility] G FUNCJ 1 Y Y W/CINERAD [facility] IOGRAPY/V IDRADIOG BLOOD 28219 [facility] UNIVERS COUNT 1 Y Y COMPLETE [facility] AUTOMATED BASIC 18189 [facility] METABOLIC 1 Y Y PANEL [facility] CALCIUM TOTAL BASIC 77941 [facility] METABOLIC 1 Y Y PANEL [facility] CALCIUM TOTAL BLOOD 14129 [facility] COUNT 1 Y Y COMPLETE [facility] AUTOMATED URNLS DIP 29396 [facility] UNIVERS 1 Y Y STICK/TAB HOSPITAL HOSPITAL LET REAGENT AUTO MICROSCOP Y SBSQ 28297 [facility] 1 MEDICAL JR LUT CARE/DAY SERV 25 FOUNDATIO MINUTES INITIAL 75669 [facility] 1 MEDICAL JR LUT CARE/DAY SERV 70 FOUNDATIO MINUTES MRA NECK 17993 [facility] W/O 1 Y [facility] MATERIAL MRI BRAIN 33862 [facility] BRAIN 1 Y Y STEM W/O [facility] CONTRAST MATERIAL MRA HEAD 01745 [facility] W/O 1 Y Y [facility] MATERIAL PHYSICAL 34643 [facility] THERAPY 1 Y Y EVALUATIO [facility] N LIPID 06478 [facility] PANEL 1 [place] [address] [facility] TROPONIN 1 Y Y QUANTITAT [facility] IVELISSE BLOOD 10411 [facility] COUNT 1 Y Y COMPLETE [facility] AUTO&[place] [address] [facility] HOMOCYSTE 1 Y Y INE [facility] CREATINE 69461 [facility] KINASE 1 Y Y TOTAL [facility] COMPREHEN 27781 [facility] SIVE 1 Y Y METABOLIC [facility] [address] [facility] THYROID 1 Y Y STIMULATI [facility] NG HORMONE TSH CREATINE 06153 [facility] KINASE MB 1 Y Y FRACTION [facility] [address] [facility] FOLIC 1 Y Y ACID [facility] SERUM CYANOCOBA 96497 [facility] ROSLYN 1 Y Y VITAMIN [facility] B-12 THROMBOPL 68330 [facility] ASTIN 1 Y Y TIME HOSPITAL [facility] PARTIAL PLASMA/WH OLE BLOOD C-REACTIV 46663 [facility] E PROTEIN 1 Y Y HIGH [facility] SENSITIVI TY PROTHROMB 34608 [facility] IN TIME 1 Y Y HOSPITAL HOSPITAL PROTHROMB 18874 [facility] IN TIME 1 Y Y HOSPITAL HOSPITAL THROMBOPL 95942 [facility] ASTIN 1 Y Y TIME HOSPITAL HOSPITAL PARTIAL PLASMA/WH OLE BLOOD COLLECTIO 83385 [facility] N VENOUS 1 [facility] BLOOD LALI LALI VENIPUNCT URE GASES 52445 [facility] BLOOD PH 1 [facility] DIRECT LALI LALI QUINCY XCPT PULSE OXIMITRY URNLS DIP [address] STICK/TAB LALI LALI LET RGNT AUTO W/O MICROSCOP Y ARTERIAL 39075 [facility] PUNCTURE 1 [facility] WITHDRAWA LALI LALI L BLOOD DX ECG 88076 [facility] ROUTINE 1 Y Y [facility] W/LEAST 12 LDS TRCG ONLY W/O I&R COMPREHEN 70039 [facility] SIVE 1 Y Y METABOLIC [facility] PANEL BLOOD 01204 [facility] COUNT 1 Y Y COMPLETE [facility] AUTO&AUTO DIFRNTL WBC AMB A0427 [facility] SERVICE 1 Y CO Y CO ALS AMBULANCE AMBULANCE EMERGENCY SERV SERV TRANSPORT LEVEL 1 INSJ 82828 [facility] NON-NDWEL 1 [facility] LG [place] [address] [facility] TROPONIN 1 [facility] QUANTITAT LALI LALI IVELISSE ECG 28400 [place] [facility] C ROUTINE 1 MEDICAL ECG SERV W/LEAST FOUNDATIO 12 LDS I&R ONLY GROUND A0425 [facility] MILEAGE 1 Y CO Y CO PER AMBULANCE AMBULANCE STATUTE SERV SERV MILE RADIOLOGI 34630 [facility] C 1 [facility] EXAMINATI LALI [place] [address] [facility] HEAD/BRAI 1 [facility] N W/O LALI LALI CONTRAST MATERIAL PRESSURIZ 33648 [facility] ED/NONPRE 1 [facility] SSURIZED LALI LALI INHALATIO N TREATMENT INJECTION [id number] CEFTRIAXO LALI LALI NE SODIUM PER 250 MG RADIOLOGI [address]3384 [facility] [place] [facility] C EXAM 1 RADIOLOGY RHO CHEST 2 VIEWS FRONTAL&L ATERAL BLOOD 32269 [facility] COUNT 1 [facility] COMPLETE LALI LALI AUTO&AUTO DIFRNTL WBC THERAPEUT 61282 [facility] IC 1 [facility] PROPHYLAC LALI LALI TIC/DX INJECTION SUBQ/IM INJECTION J1100 [facility] 1 [facility] DEXAMETHO LALI LALI SONE SODIUM PHOSPHATE 1 MG INJECTION J2001 [address] LIDOCAINE LALI LALI HCL INTRAVENO US INFUS 10 MG COMPREHEN 12903 [facility] SIVE 1 [facility] METABOLIC LALI LALI PANEL CULTURE 59920 [facility] BACTERIAL 1 [facility] BLOOD LALI LALI AEROBIC W/[place] [address] [facility] INFLUENZA 1 [facility] A/B EACH LALI LALI COLLECTIO 35013 [facility] N VENOUS 1 [facility] BLOOD LALI LALI VENIPUNCT URE RADIOLOGI 69520 [facility] 1 DAYANNA EXAMINATI ORTHOPAED ON KNEE ICS SPORT 1/2 VIEWS LIPID 84351 [facility] PANEL 0 INTERNAL [facility] MEDICINE & GLUC BLD 42017 [facility] GLUC MNTR 0 INTERNAL [facility] DEV MEDICINE CLEARED & FDA SPEC HOME USE HEMOGLOBI 20301 [facility] MTAA N 0 INTERNAL [facility] GLYCOSYLA MEDICINE LOREN A1C & ECG 60331 [facility] ROUTINE 0 [facility] PHI ECG EMERGENCY W/LEAST PHYS 12 LDS I&R ONLY GROUND A0425 [facility] CO MILEAGE 0 AMBULANCE AMBULANCE [place] [address] [facility] [place] [facility]IVE[facility] JAM HEAD/BRAI 0 RADIOLOGY N W/O CONTRAST MATERIAL AMB A0427 [facility] SERVICE 0 AMBULANCE AMBULANCE ALS SERVICE SERVICE EMERGENCY TRANSPORT LEVEL 1 PHRM Q0513 [facility] DISPENSIN 0 N DRUG- N DRUG- G FEE INHALATIO N RX; PER 30 DAYS ALBUTEROL J7613 [place] INHAL 0 N DRUG- N DRUG- NON-CP PROD THRU DME U DOSE 1 MG COLLECTIO [address] [facility] MATA N VENOUS 0 INTERNAL [facility] BLOOD MEDICINE VENIPUNCT & URE TRANSFERA 16267 [facility] SE 0 INTERNAL [facility] ALANINE MEDICINE AMINO ALT & SGPT LIPID 32731 [facility] PANEL 0 INTERNAL [facility] MEDICINE & COMPREHEN 45430 LAB TRE LAB TRE SIVE 0 [employer] PANEL RADEX 85522 [facility] [place] [facility] FINGR 0 RADIOLOGY RHO MINIMUM 2 VIEWS SIMPLE 37797 [facility] REPAIR 0 [place] SCALP/NEC LALI LALI K/AX/[facility] T/TRUNK 2.5CM/< RADEX 62860 [facility] FINGR 0 [place] MINIMUM 2 LALI LALI VIEWS PHRM Q0513 [place] DISPENSIN 0 N DRUG N DRUG G FEE INHALATIO N RX; PER 30 DAYS ALBUTEROL J7613 [place] INHAL 0 N DRUG N DRUG NON-CP PROD THRU DME U DOSE 1 MG SCANNING 93717 TIARA MENJIVAR OPHTHALMI 0 AND AND C IMAGING ZHAO ZHAO [facility]ISION POSTERIOR SGM UNI ECG [address] [facility] ROUTINE 0 [place] PHI ECG EMERGENCY W/LEAST PHYS 12 LDS I&R ONLY RADEX 90977 [facility] SPINE 0 [place] CERVICAL LALI LALI 4 OR 5 VIEWS RADIOLOGI 32995 [facility] C EXAM 0 [place] CHEST 2 LALI LALI VIEWS FRONTAL&L ATERAL RADEX HIP 67938 [facility] 0 [place] UNILATERA LALI LALI L COMPLETE MINIMUM 2 VIEWS COMPREHEN 07532 [facility] SIVE 0 [place] METABOLIC LALI LALI PANEL ECG 72915 [facility] ROUTINE 0 [place] ECG LALI LALI W/LEAST 12 LDS TRCG ONLY W/O I&R BLOOD 85823 [facility] COUNT 0 [place] COMPLETE LALI LALI AUTO&[place] [address] [facility] TROPONIN 0 [facility] [facility] QUANTITAT LALI LALI IVELISSE COLLECTIO 84171 [facility] N VENOUS 0 [facility] BLOOD LALI LALI VENIPUNCT URE COLLECTIO [address]70 [facility], N VENOUS 0 INTERNAL [facility] BLOOD MEDICINE VENIPUNCT & U[place] [address] LAB TRE LAB TRE THYROID 0 [facility] STIMULATI [facility]ING HOLDING NG HORMONE TSH BLOOD 41764 LAB T[facility] LAB TRE COUNT 0 [facility] COMPLETE HOLDING HOLDING AUTO&AUTO DIFRNTL WBC HEMOGLOBI 91835 LAB TRE LAB TRE N 0 [facility]IC AMERIC GLYCOSYLA HOLDING HOLDING LOREN A1C COMPREHEN 96073 LAB TRE LAB TRE SIVE 0 [facility] [place] [address] LAB TRE LAB TRE THYROXINE 0 [facility] TOTAL HOLDING HOLDING LIPID 31959 LAB TRE LAB TRE PANEL 0 [facility] [employer] [facility]ING PHRM Q0513 [facility] DISP[facility]IN 0 N DRUG- N DRUG- G FEE INHALATIO N RX; PER 30 DAYS ALBUTEROL J7613 [place] INHAL 0 N DRUG- N DRUG- NON-CP PROD THRU DME U DOSE 1 MG TRANSFERA 92046 [facility] AUGUST, SE 9 INTERNAL [facility] MEDICINE AMINO ALT & SGPT ASSEMBLER PING PONG TABLE S HEMOGLOBI 25612 NANCY AUGUST, N 9 INTERNAL [facility] MED[facility] LOREN A1C & ASSEMBLER PING PONG TABLE S LIPID 35867 NANCY AUGUST, PANEL 9 INTERNAL [facility] MEDICINE & ASSEMBLER PING PONG TABLE S PHRM Q0513 [place] DISPENSIN 9 N DRUG- N DRUG- G FEE INHALATIO N RX; PER 30 DAYS ALBUTEROL J7613 [place] INHAL 9 N DRUG- N DRUG- NON-CP PROD THRU DME U DOSE 1 MG HEMOGLOBI 81537 NANCY AUGUST N 9 INTERNAL [facility] GLYCOSYLA MEDICINE LOREN A1C & ASSEMBLER PING PONG TABLE S LIPID 44038 NANC[facility] AUGUST, PANEL 9 INTERNAL [facility]Y MEDICINE & ASSEMBLER PING PONG TABLE S PHR Q0513 [place] DISPENSIN 9 N DRUG- N DRUG- G FEE INHALATIO N RX; PER 30 DAYS ALBUTEROL J7613 [place] INHAL 9 N DRUG- N DRUG- NON-CP PROD THRU DME U DOSE 1 [place] [id number] LAB TRE LAB TRE THYROID 9 [employer] STIMULATI [employer]ING HOLDING NG HORMONE TSH COLLECTIO 91455 [facility] [place], N VENOUS 9 INTERNAL [facility] BLOOD MEDDICINE VENIPUNCT URE HEMOGLOBI 70663 LAB TRE LAB TRE N 9 AMERIC AMERIC GLYCOSYLA HOLDING HOLDING LOREN A1C BLOOD 25718 LAB TRE LAB TRE COUNT 9 [employer] COMPLETE HOLDING HOLDING AUTO&[place] [address] LAB TRE LAB TRE THYROXINE 9 [facility] [employer] TOTAL [employer]ING HOLDING COMPREHEN 98112 LAB TRE LAB TRE SIVE 9 [facility] METABOLIC [employer]ING HOLDING PANEL LIPID 22566 LAB TRE LAB TRE PANEL 9 [employer] [employer] HOLDING PHRM Q0513 [place] [facility] DISPENSIN 9 N DRUG- N DRUG- G FEE INHALATIO N RX; PER 30 DAYS ALBUTEROL J7613 [place] INHAL 9 N DRUG- N DRUG- NON-CP PROD THRU DME U DOSE 1 MG ADMN SET A7003 PRO2 PRO2 SM VOL 9 RESPIRATO RESPIRATO NONFILTR RY SVCS RY SVCS PNEUMAT NEBULIZR DISPBL LIPID 95011 [facility] PANEL 8 [facility] HEMOGLOBI 17437 [facility] N 8 [facility] GLYCOSYLA LOREN A1C COMPREHEN 34728 [facility] SIVE 8 [facility] METABOLIC PANEL COLLECTIO 21377 [facility] [place], N VENOUS 8 INTERNAL N[facility]Y BLOOD MEDDICINE VENIPUNCT URE ALBUTEROL J7613 [place] INHAL 8 N DRUG- N DRUG- NON-CP PROD THRU DME U DOSE 1 MG OPHTH 63483 ROHIT CAMACHO, MEDICAL 8 MEDICAL YASH G XM&EVAL SERV INTERMEDI FOUNDATIO ATE ESTAB PT OPHTH 79612 ROHIT CAMACHO, MEDICAL 8 MEDICAL YASH G XM&EVAL SERV COMPRHNSV FOUNDATIO ESTAB PT 1/> [place] [address] CNTRL ROHIT GONZALEZ, MAXILLOFA 8 RADIOLOGY VAMSI Good[place] CIAL W/[place] [address] CNTRL ROHIT GONZALEZ, HEAD/BRAI 8 RADIOLOGY VAMSI K N W/O CONTRAST MATERIAL Encounters Encounter Start End Date Code Location Performer Type Date EMERGENCY 43149 TYLER NELSON DEPT 7 7 PHYSICIAN VISIT S, [facility] HIGH SEVERITY& THREAT [facility] - 7 7 [facility] OUTPATIEN [facility] EMERGENCY 63026 TYLER NELSON [facility]PT 6 6 PHYSICIAN MARIELA VISIT S[facility] HIGH SEVERITY& THREAT [facility] - 6 6 [facility] OUTPATIEN [facility] PAT[facility] - 6 6 [facility] INPATIENT [facility] EMERGENCY 86114 TYLER VICENTE DEPT 6 6 PHYSICIAN FOR VISIT S, [facility] HIGH SEVERITY& THREAT [facility] PATSY - OTHER 6 6 [facility], ACCESS 4 4 [facility] CRITICAL [facility] ACCESS 3 3 [facility] CRITICAL [facility] ACCESS 3 3 [facility] CRITICAL [facility] ACCESS 3 3 [facility] OFFICE 02405 TIARA MENJIVAR OUTPATIEN [address] T VISIT ZHAO 25 VISION MINUTES [facility]ICAL [facility], ACCESS 3 3 [facility] ACCESS 3 3 [facility] ACCESS 3 3 [facility] ACCESS 3 3 [facility] ACCESS 2 2 [facility] ACCESS 2 2 [facility] ACCESS 2 2 [facility] ACCESS 1 1 [facility] OFFICE [address]115 [place] PETREA OUTPATIEN 1 1 MEDICAL GAMALIEL T VISIT SERV 25 FOUNDATIO MINUTES OFFICE 75418 [facility] OUTPATIEN 1 1 INTERNAL RAFAT T VISIT MEDICINE 25 & MINUTES [facility] 1 1 [facility] OFFICE 01518 [place] OUTPATIEN 1 1 INTERNAL RAFAT T VISIT MEDICINE 15 & MINUTES EMERGENCY 83379 [facility] 1 1 [facility] VISIT HIGH/URGE NT SEVERITY [facility] - 1 1 [facility] - 1 1 [facility] EMERGENCY 14913 [facility], 1 1 [facility] DEPARTMEN [facility] T VISIT CO HOS LOW/MODER SEVERITY OFFICE 12104 [facility], OUTPATIEN 1 1 [facility] T VISIT 5 O[facility]DR MINUTES [facility] EMERGENCY 83223 [facility] 1 1 CO DEPARTMEN HOSPITAL T VISIT MODERATE SEVERITY CR[facility]ICAL [facility] ACCESS 1 1 [facility]PITAL OFFICE 92617 [place] OUTPATIEN 1 1 INTERNAL RAFAT T VISIT MEDICINE 25 & MINUTES OFFICE 34447 [place] OUTPATIEN 1 1 INTERNAL RAFAT T VISIT MEDICINE 15 & MINUTES HOSPITAL [facility] - 1 1 Y [facility] T OFFICE 18530 TIARA MENJIVAR OUTPATIEN [address] T VISIT ZHAO 25 VISION MINUTES OFFICE 78725 [place] OUTPATIEN 1 1 INTERNAL RAFAT T VISIT MEDICINE 25 & MINUTES OFFICE 85006 [facility] OUTPATIEN 1 1 [place] F MAR T NEW 45 PHYSICIAN MINUTES S ASSIST OFFICE 00157 TIARA SMITHERMAN OUTPATIEN [address] T VISIT ZHAO 15 VISION MINUTES OFFICE 48595 [place] [facility] MEDICAL GAMALIEL T VISIT SERV 25 FOUNDATIO MINUTES LDS HOSPITAL UNIVERS[facility] - 1 1 Y [facility] T OFFICE 64871 TIARA MENJIVAR OUTPATIEN [address] T VISIT ZHAO 15 VISION MINUTES OFFICE 22125 [place] OUTPATIEN 1 1 INTERNAL RAFAT T VISIT MEDICINE 25 & MINUTES [facility]OSPITAL [facility] - OTHER 1 1 [place] [facility] 31241 [facility] DO DEPT 1 1 [facility] PHI VISIT EMERGENCY HIGH PHYS SEVERITY& THREAT [facility] UNIVERS[facility] - [address] [facility] T OFFICE 95753 [place] OUTPATIEN 1 1 INTERNAL RAFAT T VISIT MEDICINE 15 & MINUTES EMERGENCY 46614 [facility] JENNY DEPT 1 1 [place] JESSICA VISIT EMERGENCY HIGH SERVI SEVERITY& THREAT [facility] - [address] [facility] T OFFICE 37308 [facility] FED OUTPATIEN 1 1 T NEW 20 MINUTES OFFICE 19669 [facility] OUT[facility] 1 1 DAYANNA T NEW 30 ORTHOPAED MINUTES ICS SPORT OFFICE 18935 [place] OUTPATIEN 0 0 INTERNAL RAFAT T VISIT MEDICINE 25 & MINUTES EMERGENCY 18463 [facility] DEPT 0 0 [place] PHI VISIT EMERGENCY HIGH PHYS SEVERITY& THREAT FUNCJ OFFICE 80074 [place] OUTPATIEN 0 0 INTERNAL RAFAT T VISIT MEDICINE 10 & MINUTES OFFICE 52275 [place] OUTPATIEN 0 0 INTERNAL RAFAT T VISIT MEDICINE 25 & MINUTES EMERGENCY [facility]44 [facility] 0 0 [facility] DEPARTMEN LALI T VISIT MODERATE SEVERITY [facility] GIN DE[facility]MEN EMERGENCY T VISIT SERV HIGH/URGE NT SEVERITY [facility] - 0 0 [facility] OUTPATIEN LALI T OFFICE 17778 TIARA MENJIVAR OUTPATIEN [address] T VISIT ZHAO [address] [facility] - 0 0 [place] OUTPATIEN LALI T EMERGENCY 71258 [facility] 0 0 [facility] DEPARTMEN LALI T VISIT HIGH/URGE NT SEVERITY EMERGENCY 39544 [facility] DEPT 0 0 [place] PHI VISIT EMERGENCY HIGH PHYS SEVERITY& THREAT FUNJ OFFICE 20187 [facility], OUTPATIEN 0 0 INTERNAL GRANT T VISIT MEDICINE 15 & MINUTES ASSEMBLER PING PONG TABLE S OFFICE 61581 [place] [facility], OUTPATIEN 9 9 INTERNAL GRANT T VISIT MEDICINE 25 & MINUTES ASSEMBLER PING PONG TABLE S OFFICE 92356 [facility], OUTPATIEN 9 9 INTERNAL GRANT T VISIT MEDICINE 25 & MINUTES ASSEMBLER PING PONG TABLE S OFFICE 24546 [place] CONSULTAT 9 9 LALI LALI [facility] NEW/ESTAB [facility] PPLL[facility] PATIENT 40 MIN OFFICE 08685 [place], OUTPATIEN 9 9 INTERNAL GRANT T VISIT MEDDICINE 25 MINUTES OFFICE 89957 [facility] TESSA AUGUST 8 8 INTERNAL GRANT T VISIT MEDDICINE 25 MINUTES OFFICE 37725 [place] AUGUST 8 8 INTERNAL GRANT T VISIT MEDDICINE 25 MINUTES OFFICE 38992 [facility] BAXTER 8 8 INTERNAL STEVIE A T VISIT MEDDICINE 25 MINUTES OFFICE 40947 [facility]ES[facility] BAXTER 8 8 INTERNAL STEVIE A T VISIT MEDDICINE 25 MINUTES
--- OUTSIDE RECORDS SUMMARY | 2017-01-25 03:24 | External Medical Summary Rpt | CCD ---
Author Author , VAISHALI Organization VAISHALI Address Unknown Phone [email or web address] Care Team Providers Care Vacuum Cooker Operator Name Role Phone MICHELLEPAULO , BARRY [...] Unavailable Unavailable VISION, [facility], Unavailable Unavailable [facility] Unavailable Unavailable [facility], [facility] CAMACHO, YASH G, Unavailable Unavailable YASH CAMACHO [facility] Unavailable Unavailable IMAGING [facility], [facility], Unavailable Unavailable [facility] KOSTELIC, VAMSI K, Unavailable Unavailable KOSTELIC, VAMSI K SUJEY C, SUJEY C Unavailable Unavailable [facility] Un[facility] Un[facility], [facility] Unavailable Unavailable HOLDING, [facility] Unavailable Unavailable HOLDING, [facility] [employer], Unavailable Unavailable [facility] [employer] [facility], [facility] Unavailable Unavailable [facility], [facility] Unavailable Unavailable JOE JR, JOE JR Unavailable Unavailable [facility] Un[facility] Un[facility], [facility] Unavailable Un[facility] LUTZ MONA, LUTZ MONA Unavailable Unavailable JEAN, JEAN Unavailable Unavailable [facility] Unavailable Unavailable ASSOCIAT, [facility] DEMARCUS MCHUGH, Unavailable Unavailable DEMARCUS KLEININNIS RAFAT, Unavailable Unavailable MATAADITYA DOUGLASS, Unavailable Unavailable GRANT MOTA, Unavailable Unavailable GRANT AUGUST MCRADHA JR DEIDRE, Unavailable Unavailable MCKEMIE JR DEIDRE LAURA, LAURA Unavailable Unavailable LAURA DEIDRE, LAURA Unavailable Unavailable [facility] Unavailable [facility]available [facility] Unavailable Unavailable [facility], [facility] Unavailable [facility]available [facility], [facility], [facility] Unavailable Unavailable [facility], Unavailable Unavailable [facility], Unavailable Unavailable [facility] Unavailable Unavailable AMBULANCE SE, [facility] Unavailable Unavailable AMBULANCE SE, [facility], Unavailable Unavailable [facility] [...] Unavailable Unavailable EQUIPME, [facility] Unavailable Unavailable [facility], [facility] MARVA SHE, Unavailable Unavailable MARVA SHE [facility] Unavailable Unavailable LALI, [facility], Unavailable Unavailable [facility], Unavailable Unavailable [facility] BLAZE THAKUR Unavailable Unavailable [facility] Unavailable Unavailable ASSIST, [facility], Unavailable Unavailable [facility] VANDERHOOF MAR, Unavailable Unavailable VANDERHOOF MAR SYDNEE [...] PHYSICIANS, [facility]YPERTENSIO PLLC N 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 [facility] 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 K449 DIAPHRAGMAT 07-26-2016 [facility] IC HERNIA PHYSICIANS W/O GROUP OBSTRUCTION OR GANGRENE R05 COUGH 07-26-2016 [facility] R0602 SHORTNESS 07-26-2016 [facility] R1084 GENERALIZED 07-26-2016 [facility] K920 HEMATEMESIS 07-25-2016 [facility] R112 NAUSEA WITH 07-25-2016 [facility] UNSPECIFIED AMBULANCE SE H2513 AGE-RELATED 07-02-2016 [facility] SANCHEZ PSC CATARACT BILATERAL [id number] OPEN ANGLE 07-02-2016 ANNA Wilks/ROSA SANCHEZ PSC E FIND HIGH RISK BILATERAL H6121 IMPACTED 04-17-2016 [facility] CERUMEN E RIGHT EAR D509 IRON 02-19-2016 [facility] ANEMIA INTERNAL UNSPECIFIED MEDI G301 ALZHEIMERS 02-19-2016 [facility] WITH LATE INTERNAL ONSET MEDI M150 PRIMARY 02-19-2016 [facility] INTERNAL OSTEOARTHRI MEDI TIS R300 DYSURIA 01-27-2016 [facility] LA R4182 ALTERED 12-19-2015 [facility] AMBULANCE STATUS SERVICE UNSPECIFIED N289 DISORDER OF 12-17-2015 [facility] UNSPECIFIED R000 TACHYCARDIA 12-17-2015 [facility], UNSPECIFIED PLLC R509 FEVER 12-17-2015 [facility] UNSPEC[facility]IED [facility], PLLC R918 OTHER 12-17-2015 [facility] NONSPECIFIC [facility] ABNORMAL [facility] ASS FINDING OF LUNG FIELD M6281 MUSCLE 10-07-2015 [facility] GENERALIZED AMBULANCE SE R1310 DYSPHAGIA 10-07-2015 [facility] UNSPECIFIED [facility] INC R4702 DYSPHASIA 10-07-2015 [facility] R531 WEAKNESS 10-07-2015 [facility] SE Z7409 OTHER 10-07-2015 [facility] MOBILITY AMBULANCE SE H3531 NONEXUDATIV 10-04-2015 ANNA SANCHEZ [facility] 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 [id number] PRIMARY 10-04-2015 ANNA Love OPEN-ANGLE LAURA [facility] GLAUCOMA MILD STAGE I29415 ACUTE 09-12-2015 [facility] LYMPHANGITI E S OF LEFT TOE L600 INGROWING 09-12-2015 [facility] NAIL E L744 ANHIDROSIS 09-12-2015 [facility] E L84 CORNS AND 09-12-2015 [facility] CALLOSITIES E P41144 PAIN IN 09-12-2015 [facility] LEFT TOES E R69 ILLNESS 08-14-2015 [facility] UNSPECIFIED TRANSPORTAT ION SER M109 GOUT 08-08-2015 [facility] UNSPECIFIED PHYSICIANS LA Z31118 PRIMARY 08-05-2015 [facility] OSTEOARTHRI [facility] TIS LEFT WRIST D500 IRON 07-07-2015 [facility]ICIANS ANEMIA SEC GROUP TO BLOOD LOSS CHRONIC K921 MELENA 07-07-2015 [facility] INC R7989 OTHER SPEC 07-07-2015 [facility] ABNORMAL [facility] FINDINGS AMBULANCE BLOOD SE CHEMISTRY Z791 HALFWAY 07-07-2015 [facility] CURR [facility] NON-STEROID INC AL&ANTI-INF LAMMATORIES Z7982 CIRCUIT TESTER 07-07-2015 [facility] CURRENT USE [facility] OF ASPIRIN INC A55989 PAIN IN 05-08-2015 [facility] UNSPECIFIED E FOOT R410 DISORIENTAT 04-20-2015 [facility] ION [facility] UNSPECIFIED INC K5909 OTHER 03-09-2015 [facility] N INTERNAL MED H6123 IMPACTED 03-05-2015 [facility] CERUMEN E BILATERAL I29014 DRUSEN 11-23-2014 ANNA Love DEGENERATIV LAURA PSC E OF MACULA BILATERAL 3809 UNSPECIFIED 09-14-2014 [facility] DISORDER E OF EXTERNAL EAR 3899 UNSPECIFIED 09-14-2014 [facility] HEARING E LOSS 26011 ASTHMA, 05-24-2014 [facility] UNSPECIFIED HOME , MEDICAL UNSPECIFIED EQUIPME STATUS 23345 MUSCLE 05-24-2014 [facility] WEAKNESS HOME (GENERALIZE MEDICAL D) EQUIPME 38674 DYSPHAGIA 05-24-2014 [facility] UNSPECIFIED HOME MEDICAL EQUIPME 1101 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 [facility] 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 700 CORNS AND 05-01-2014 [facility] CALLOSITIES E 7030 INGROWING 05-01-2014 [facility] NAIL E 7050 ANHIDROSIS 05-01-2014 [facility] E 7295 PAIN IN 05-01-2014 [facility] SOFT E TISSUES OF LIMB 00129 BORDERLINE 03-26-2014 ANNA Love GLAUC OPEN LAURA PSC ANGLE BL FINDINGS LOW RSK 19226 NUCLEAR 03-26-2014 ANNA Love SCLEROSIS LAURA PSC 3804 IMPACTED 02-05-2014 [facility] CERUMEN E 1104 DERMATOPHYT 12-08-2013 [facility] OSIS OF E FOOT 39727 OTHER 12-08-2013 [facility] PERIPHERAL E VASCULAR DISEASE 9243 CONTUSION 12-08-2013 [facility] OF TOE E 4019 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-07-2013 [facility] [place] [address] WHEEZING 12-06-2013 [facility] 7862 COUGH 12-06-2013 [facility] 5180 PULMONARY 11-28-2013 [facility] COLLAPSE [facility]LEX 5990 URINARY 09-25-2013 [facility] TRACT PHYSICIANS INFECTION LA SITE NOT SPECIFIED 28502 PAIN IN 04-26-2013 [facility], JOINT, SHIFT SUPERVISOR MELTING LOWER LEG [facility] V4365 KNEE JOINT 04-19-2013 [facility] BY OTHER ASSOCIAT MEANS V5409 OTH 04-19-2013 [facility] INVOLVING ASSOCIAT INTERNAL FIXATION DEVICE 77515 OTHER 02-13-2013 [facility], CONVULSIONS SH[facility]PER[facility] 32051 NONSPECIFIC 02-13-2013 [facility], ABNORMAL SHIFT SUPERVISOR MELTING ELECTROENCE [facility] CO PHALOGRAM HOS 3319 UNSPECIFIED 02-10-2013 [facility] DEGENERATIO ASSOCIAT N 15013 LOW TENSION 12-06-2012 [facility] OPEN-ANGLE AND ZHAO GLAUCOMA VISION 89083 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-06-2012 [facility] SENILE AND ZHAO CATARACT VISION 3674 PRESBYOPIA 12-06-2012 SARHAERMAN AND ZHAO VISION 86911 URINARY 11-25-2012 [facility], FREQUENCY SHIFT SUPERVIS[facility] 09485 URGENCY OF 11-25-2012 [facility], URINATION SHIFT SUPERVISOR [facility] 7350 HALLUX 11-24-2012 [facility] VALGUS E V5869 LONG-TERM 09-30-2012 [facility], (CURRENT) SHIFT SUPERVISOR MELTING USE OF OLEKSANDR CO OTHER HOS MEDICATIONS V5883 ENCOUNTER 09-30-2012 [facility], FOR SHIFT SUPERVISOR MELTING THERAPEUTIC [facility] DRUG HOS MONITORING 4293 CARDIOMEGAL 05-14-2012 [facility] Y [facility] ASSOCIAT 5533 DIAPHRAGMAT 05-14-2012 [facility] WALTER W/O RADIOLOGY MENTION ASSOCIAT OBSTRUCTION /GANGREN 63744 PAINFUL 05-14-2012 [facility], RESPIRATION SHIFT SUPERVISOR [facility] 7354 OTHER 02-10-2012 [facility] HAMMER TOE E 2724 OTHER AND 10-17-2011 [facility], UNSPECIFIED SHIFT SUPERVISOR MELTING [facility]LEKS[facility] CO HYPERLIPIDE HOS FINA 2859 UNSPECIFIED 10-17-2011 [facility], ANEMIA [facility] 93198 HEAD 02-03-2011 [facility] [place] INJURY, RADIOLOGY UNSPECIFIED 32463 CHEST PAIN 01-09-2011 [facility], UNSPECIFIED SHIFT SUPERVISOR [facility] 8020 NASAL 01-04-2011 [facility] [place] BONES, RADIOLOGY CLOSED FRACTURE 9212 CONTUSION 01-04-2011 [facility] [place] OF ORBITAL RADIOLOGY TISSUES 42672 DIAB W/O 12-29-2010 [facility] COMP TYPE RAFAT II/UNS NOT STATED UNCNTRL 4011 ESSENTIAL 12-29-2010 [facility] HYPERTENSIO RAFAT N, BENIGN 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[facility] CEREBRAL RAFAT ARTERY OCCLUSION W/INFARCT 4658 ACUTE URIS 10-17-2010 [facility] OF OTHER INTERNAL MULTIPLE MEDICINE & SITES 20407 SWELLING OF 10-17-2010 [facility] LIMB [place] 8798 OPEN WOUND 10-17-2010 [facility] UNSPEC SITE INTERNAL WITHOUT MEDICINE & MENTION COMP 8820 OPEN WOUND 10-17-2010 [facility] HAND NO INTERNAL FINGER MEDICINE & ALONE W/O MENTION COMP 74501 ESOPHAGEAL 10-11-2010 [facility] REFLUX [place] 82555 OTHER CHEST 10-11-[address] [facility] PAIN [place] V1254 PERSONAL HX 10-11-2010 [facility] TIA & CI [place] W/O [place] RESIDUAL DEFICITS V5849 OTHER 10-06-2010 [facility], SPECIFIED SHIFT SUPERVISOR MELTING AFTERCARE [facility] FOLLOWING HOS SURGERY 10431 CRUSHING 10-05-2010 [facility] INJURY OF HOSPITAL HAND 31508 HEMORRHAGE 10-05-2010 [facility] COMPLICATIN HOSPITAL G A PROCEDURE NEC V5832 ENCOUNTER 10-05-2010 [facility] FOR REMOVAL HOSPITAL OF SUTURES 36114 OSTEOARTHRO 10-01-2010 [facility] S UNSPEC AMERIC WHETHER HOLDING GEN/LOC UNSPEC SITE 69817 UNSPECIFIED 09-03-2010 [facility] INTERNAL ARTHROPATHY MEDICINE & SITE UNSPECIFIED 82586 OCCLUSION&S 08-27-2010 [facility] TENOSIS SERV CAROTID FOUNDAT[facility] ARTERY W/INFARCT 3310 ALZHEIMERS 06-25-2010 [facility] DISEASE AMERIC HOLDING 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 16321 NONEXUDATIV 05-26-2010 [facility] SENILE AND ZHAO MACULAR VISION DEGENERATIO N RETINA 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 54859 MEMORY LOSS 05-22-2010 [facility] 436 ACUTE BUT 05-05-2010 [facility] ILL-DEFINED SERV [facility] CEREBROVASC ULAR DISEASE 02115 ACUT 05-02-2010 [facility] MYOCARD SERV INFARCT OTH FOUNDATIO LAT WALL EPIS CARE UNS 7197 DIFFICULTY 05-02-2010 [facility] IN WALKING [place] 7455 OSTIUM 05-02-2010 [facility] TYPE ATRIAL SEPTAL DEFECT 98627 OTHER 05-02-2010 [facility] MALAISE AND [facility] FATIGUE LALI 41999 ALTERED 05-02-2010 [facility] STATUS FOUNDAT[facility] 29396 DYSARTHRIA 05-02-2010 [facility] 4660 ACUTE 04-18-2010 [facility] BRONCHITIS INTERNAL MEDICINE & 496 CHRONIC 04-18-2010 [facility] AIRWAY INTERNAL OBSTRUCTION MEDICINE & NEC 462 ACUTE 04-14-2010 [facility] PHARYNGITIS [facility] LALI 85957 OBST 04-14-2010 [facility] CHRONIC [place]OUNT BRONCHITIS LALI W/ACUTE BRONCHITIS 81817 CHILLS 04-14-2010 [facility] WITHOUT [facility] FEVER LALI 29413 SHORTNESS 04-14-2010 [facility] OF BREATH [facility] LALI 7038 OTHER 03-18-2010 [facility] SPECIFIED DISEASE OF NAIL 10000 MECHANICAL 03-13-2010 [facility] S SPORT PROSTHETIC JOINT 7802 SYNCOPE AND 01-25-2010 [facility] 9595 INJURY 10-16-2009 [facility] OTHER AND RADIOLOGY UNSPECIFIED FINGER 8830 OPEN WOUND 10-15-2009 [facility] FINGER MOUNT WITHOUT LALI MENTION COMPLICATIO N E918 CAUGHT 10-15-2009 [facility] ACCIDENTALCOX BRANSON Y IN OR LALI BETWEEN OBJECTS 71747 FIRST 06-18-2009 [facility] DEGREE [facility] ATRIOVENTRI LALI CULAR BLOCK 84402 PAIN IN 06-18-2009 [facility] JOINT RADI[facility] PELVIC REGION AND THIGH 7231 CERVICALGIA 06-18-2009 [facility] RADIOLOGY 01761 CONTUSION 06-18-2009 [facility] OF HIP [place] 9596 INJURY 06-18-2009 [facility] OTHER AND [facility] UNSPECIFIED LALI HIP AND THIGH E8496 PLACE OF 06-18-2009 [facility] OCCURRENCE [facility] PUBLIC LALI BUILDING E8859 FALL FROM 06-18-2009 [facility] OTHER [facility] SLIPPING LALI TRIPPING OR STUMBLING V1271 PERSONAL 06-25-2008 [place] [facility] [facility] ULCER DISEASE 9181 SUPERFICIAL 09-23-2007 [facility] INJURY OF SERV CORNEA FOUNDATIO 43283 DRUSEN OF 09-19-2007 [facility] RETINA SERV [facility] 7840 HEADACHE 09-11-2007 [facility] RADIOLOGY E8889 UNSPECIFIED 09-11-2007 [facility] FALL RADIOLOGY Medications Na ND Rx [...] 01 03 0 30 30 NE 10 [facility] [place] 08 -2 -0 0. [place] 73 ER ti ON 40 17 Y ve AT 21 20 20 0 ME 5 AN AT [address] E 1 CA EW 10 L R 0 GR MG OU P CA PS UL E LO 68 02 03 0 30 30 NE 10 [facility] RA 08 -0 -0 0. [place] 71 KE ti TA 40 4- 3- 00 75 ME ve DI 24 20 20 0 ME 7 E NE 80 14 14 DI JR 1 CA 10 L WI GR LL MG OU IA P M TA F BL ET 00 02 02 0 30 30 NE 10 [facility] PI 90 -2 -2 0. [place] 69 KE ti RI 42 5- 5- 00 32 ME ve N 00 20 20 0 ME 0 E 32 94 14 14 DI JR 5 0 CA MG L WI GR LL TA OU IA BL P M ET F LO 68 02 02 0 30 30 NE 10 [facility] RA 08 -0 -0 0. IL 57 [...] 01 01 0 30 7 NE 10 [facility] NZ 38 -0 -2 0. [place] 51 KE ti ON 20 2 00 07 ME ve AT 24 [...] 01 01 0 15 30 NE 10 [facility] 90 -1 -1 0. [place] 49 KE ti 42 8- 8 00 33 ME ve 99 20 20 0 ME 8 E 23 14 14 DI JR 5 CA L WI GR LL OU IA P M F TE 54 01 01 0 30 30 NE 10 [facility] RB 86 -1 -1 0. [place] 49 KE ti IN 85 7 00 05 ME ve AF 99 20 20 0 ME 4 E IN 20 14 14 DI JR E 0 CA 1% L WI GR LL CR OU IA EA P M M F LO 68 01 01 0 30 30 NE 10 [facility] RA 08 -0 -0 0. [place] 42 KE ti TA 40 7 7 00 84 ME ve DI 24 20 20 0 ME 6 E NE 80 14 14 DI JR 1 CA 10 L WI GR LL MG OU IA P M TA F BL ET FO 62 01 01 0 30 30 NE 10 [facility] LI 58 -0 -0 0. [place] 42 KE ti C 40 7 7 00 84 ME ve AC 89 20 20 0 ME 5 E ID 70 14 14 DI JR 1 1 CA L WI MG GR LL OU IA TA P M BL F ET BE 68 01 01 0 30 7 NE 10 [facility] [place] 38 -0 -0 0. [place] 41 KE ti ON 20 00 38 ME ve AT 24 20 20 [...] IL 27 KE ti ON 20 34 ME ve AT 24 20 20 0 ME 4 E AT 70 13 13 DI JR E 1 CA 10 L WI 0 GR LL MG OU IA P M CA F PS UL E PO 68 12 12 0 60 30 NE 10 Ac TA 08 -0 -0 0. [place] 26 KE ti SS 40 2 16 ME ve IU 41 20 20 [...] IL 81 KE ti SS 40 13 ME ve IU 41 20 20 [...] IL 98 KE ti ON 20 74 ME ve AT 24 20 20 [...] IL 31 KE ti ON 20 49 ME ve AT 24 20 20 0 ME 6 E AT 70 13 13 D JR E 1 GR 10 P WI 0 LL MG IA M CA F PS UL E PO 68 09 09 0 60 30 NE 96 MC Ac TA 08 -0 -0 0. [place] 06 KE ti SS 40 2- 2- 00 50 ME ve IU 41 20 [...] ti SS 40 6- 6- 00 20 ME ve IU 41 20 20 0 ME 4 E M 90 13 13 D JR CL 1 GR P WI ER LL IA 10 M F ME Q CA PS UL E BE 68 04 07 0 30 7 NE 94 MC Ac NZ 38 -0 -0 0. [place] 45 KE ti ON 20 73 ME ve AT 24 20 20 0 ME 6 E AT 70 13 13 D JR E 1 GR 10 P WI 0 LL MG IA M CA F PS UL E 00 03 07 0 30 30 NE 94 MC Ac PI 90 -0 -0 0. [place] 30 KE ti RI 42 3 00 68 ME ve N 00 20 20 [...] IL 23 KE ti ON 20 89 ME ve AT 24 20 20 [...] IL 34 KE ti ON 20 49 ME ve AT 24 20 20 0 ME 6 E AT 70 13 13 D JR E 1 GR 10 P WI 0 LL MG IA M CA F PS UL E BE 68 04 05 0 30 7 NE 92 MC Ac NZ 38 -0 -1 0. [place] 94 KE ti ON 20 17 ME ve AT 24 20 20 0 ME 6 E AT 70 13 13 D JR E 1 GR 10 P WI 0 LL MG IA M CA F PS UL E FO 62 11 05 0 30 30 NE 92 MC Ac LI 58 -0 -0 0. [place] 64 KE ti C 40 7 00 57 ME ve AC 89 20 [...] Procedure DOS Code Location Performer Comment DEBRIDEME 64503 [facility] JEAN NT NAIL 7 ARE ANY METHOD 6/> BLOOD 89084 COMBINED COMBINED COUNT 7 PHYSICIAN PHYSICIAN COMPLETE S LAB S LAB AUTO&AUTO DIFRNTL WBC COLLECTIO 37329 COMBINED COMBINED N VENOUS 7 PHYSICIAN PHYSICIAN BLOOD S LAB S LAB VENIPUNCT URE TRAVEL [address] MED 7 PHYSICIAN PHYSICIAN NEC LAB S LAB S LAB SPEC; PRORAT ACTL MILE TRAVEL [address] MED 7 PHYSICIAN PHYSICIAN NEC LAB S LA S LA SPEC; PRORAT ACTL MILE COLLECTIO 70556 COMBINED COMBINED N VENOUS 7 PHYSICIAN PHYSICIAN BLOOD S LA S LA VENIPUNCT URE BLOOD 99942 COMBINED COMBINED COUNT 7 PHYSICIAN PHYSICIAN COMPLETE S LA S LA AUTO&AUTO DIFRNTL WBC DEBRIDEME 90043 [facility] JEAN NT NAIL 7 ARE ANY METHOD 6/> AMBULANCE A0428 [facility] 7 AMBULANCE AMBULANCE BLS SERVICE SERVICE NONEMERGE NCY TRANSPORT GROUND A0425 [facility] MILEAGE 7 AMBULANCE AMBULANCE PER SERVICE SERVICE [facility] G0378 [facility] G[facility] OBSERVATI 7 MEM H[facility] ON INC INC SERVICE [facility] G0378 [facility] OBSERVATI 7 [facility] ON INC INC SERVICE PER HOUR SPCL STN 87717 PAT[facility] GARNER 2 I&R 7 [facility] EXCPT INC INC MICROORG/ [place] [address] [facility] GARNER HPYLORI 7 [place] [address] [facility] GARNER SURG 7 [facility] HOS[facility] PATHOLOGY INC INC GROSS&MARIELA ROSCOPIC EXAM ANES 66333 [facility] UPPER GI 7 ANESTH ENDOSCOPY OF THE PROXIMAL BLUE TO DUODENUM COLLECTIO 26371 [facility] GARNER N VENOUS 7 [facility] BLOOD INC INC VENIPUNCT URE EGD 27900 [facility] TRANSORAL 7 PHYSICIAN BIOPSY S GROUP SINGLE/MU LTIPLE BLOOD 73521 [facility] GARNER COUNT 7 [facility] COMPLETE INC INC AUTO&AUTO DIFRNTL WBC BASIC 54685 [facility] GARNER METABOLIC 7 [facility] PANEL INC INC CALCIUM TOTAL BLOOD 95319 [facility] GARNER COUNT 7 [facility] H[facility] COMPLETE INC INC AUTO&AUTO DIFRNTL WBC URNLS DIP 31760 [facility]ARNER 7 [facility] STICK/TAB INC INC LET REAGENT AUTO MICROSCOP Y COMPREHEN 55801 [facility]ARNER SIVE 7 [facility] METABOLIC INC INC PANEL ECG 09013 [facility] GARNER ROUTINE 7 [facility] ECG INC INC W/LEAST 12 LDS TRCG ONLY W/O I&R ECG 26948 PAT[facility] DIAZ JR ROUTINE 7 [facility] W/LEAST P 12 LDS I&R ONLY INITIAL 87835 [facility] OBSERVATI 7 PHYSICIAN ON S GROUP CARE/DAY [address] [place] [address] PATSY GARNER ABDOMEN & 7 [facility] PELVIS INC INC W/O CONTRAST MATERIAL RADIOLOGI 64596 [facility] GARNER C 7 MEM H[facility] EXAMINATI INC INC ON CHEST SINGLE VIEW FRONTAL COLLECTIO 44717 [facility] GARNER N VENOUS 7 [facility] BLOOD INC INC VENIPUNCT URE HOSPITAL G0378 [facility] OBSERVATI 7 [facility] ON INC INC SERVICE PER HOUR [place]OR[place] G0328 [facility] GARNER CA SCR; 7 MEM HOS[facility] FOB TST INC INC IMMUNO 1-3 SIMULTANE OUS AMBULANCE A0429 [facility] SERVICE [address] [place] [address] BL AMBULANCE AMBULANCE EMERGENCY SE SE TRANSPORT GROUND A0425 [facility] MILEAGE [address] [place] [address] PER AMBULANCE AMBULANCE STATUTE SE SE MILE OPHTH 91373 [facility] F. [facility] COMPRHNSV PSC ESTAB PT 1/> COMPREHEN 72768 COMBINED COMBINED SIVE 7 PHYSICIAN PHYSICIAN METABOLIC S LA S LA PANEL TRAVEL [address] MED 7 PHYSICIAN PHYSICIAN NEC LAB S LA S LA SPEC; PRORAT ACTL MILE COLLECTIO 00812 COMBINED COMBINED N VENOUS 7 PHYSICIAN PHYSICIAN BLOOD S LA S LA VENIPUNCT URE DEBRIDEME 82055 [facility] JEAN NT NAIL 7 ARE ANY METHOD 6/> BLOOD 40634 COMBINED COMBINED COUNT 7 PHYSICIAN PHYSICIAN COMPLETE S LA S LA AUTO&AUTO DIFRNTL WBC COLLECTIO 30963 COMBINED COMBINED N VENOUS 7 PHYSICIAN PHYSICIAN BLOOD S LA S LA VENIPUNCT URE TRAVEL [address] MED 7 PHYSICIAN PHYSICIAN NEC LAB S LA S LA SPEC; PRORAT ACTL MILE TRANS R0070 SYMPHONY SYMPHONY PRTBL 7 MOBILEX MOBILEX X-RAY EQP&PERS TRISTEN/NRS TRISTEN-TRIP 1 PT SET-UP Q0092 SYMPHONY SYMPHONY PORTABLE 7 MOBILEX MOBILEX X-RAY EQUIPMENT REMOVAL 06978 [facility] GEM IMPACTED 7 ARE CERUMEN INSTRUMEN TATION UNILAT RADIOLOGI 84370 SYMPHONY SYMPHONY C EXAM 7 MOBILEX MOBILEX CHEST 2 VIEWS FRONTAL&L ATERAL BLOOD 14376 COMBINED COMBINED COUNT 7 PHYSICIAN PHYSICIAN COMPLETE S LA S LA AUTO&AUTO DIFRNTL WBC COLLECTIO 33173 COMBINED COMBINED N VENOUS 7 PHYSICIAN PHYSICIAN BLOOD S LA S LA VENIPUNCT URE TRAVEL [address] MED 7 PHYSICIAN PHYSICIAN NEC LAB S LA S LA SPEC; PRORAT ACTL MILE DEBRIDEME 13670 [facility] JEAN NT NAIL 7 ARE ANY METHOD 6/> BLOOD 48056 COMBINED COMBINED COUNT 7 PHYSICIAN PHYSICIAN COMPLETE S LA S LA AUTO&AUTO DIFRNTL WBC COMPREHEN 55261 COMBINED COMBINED SIVE 7 PHYSICIAN PHYSICIAN METABOLIC S LA S LA PANEL TRAVEL [address] MED 7 PHYSICIAN PHYSICIAN NEC LAB S LA S LA SPEC; PRORAT ACTL MILE COLLECTIO 39248 COMBINED COMBINED N VENOUS 7 PHYSICIAN PHYSICIAN BLOOD S LA S LA VENIPUNCT URE SBSQ 34573 [facility] 7 [facility] INTERNAL CARE/DAY MEDI MINOR COMPLJ 15 MIN BLOOD 66206 COMBINED COMBINED COUNT 7 PHYSICIAN PHYSICIAN COMPLETE S LA S LA AUTO&AUTO DIFRNTL WBC TRAVEL [address] MED 7 PHYSICIAN PHYSICIAN NEC LAB S LA S LA SPEC; PRORAT ACTL MILE COLLECTIO 51277 COMBINED COMBINED N VENOUS 7 PHYSICIAN PHYSICIAN BLOOD S LA S LA VENIPUNCT URE TRIMMING [id number] [facility] JEAN OF 6 ARE DYSTROPHI C NAILS ANY NUMBER TRAVEL [address] MED 6 PHYSICIAN PHYSICIAN NEC LAB S LA S LA SPEC; PRORAT ACTL MILE COLLECTIO 46684 COMBINED COMBINED N VENOUS 6 PHYSICIAN PHYSICIAN BLOOD S LA S LA VENIPUNCT URE VOLUME 62090 COMBINED COMBINED MEASUREME 6 PHYSICIAN PHYSICIAN NT TIMED S LA S LA COLLECTIO N EACH BLOOD 35554 COMBINED COMBINED COUNT 6 PHYSICIAN PHYSICIAN COMPLETE S LA S LA AUTO&AUTO DIFRNTL WBC URNLS DIP 10603 COMBINED COMBINED 6 PHYSICIAN PHYSICIAN STICK/TAB S LA S LA LET REAGENT AUTO MICROSCOP Y BLOOD 57190 COMBINED COMBINED COUNT 6 PHYSICIAN PHYSICIAN COMPLETE S LA S LA AUTO&AUTO DIFRNTL WBC COLLECTIO 57322 COMBINED COMBINED N VENOUS 6 PHYSICIAN PHYSICIAN BLOOD S LA S LA VENIPUNCT URE TRAVEL [address] MED 6 PHYSICIAN PHYSICIAN NEC LAB S LA S LA SPEC; PRORAT ACTL MILE AMBULANCE A0428 [facility]ICE 6 AMBULANCE AMBULANCE BLS SERVICE SERVICE NONEMERGE [facility] TRANSPORT GROUND A0425 [facility] MILEAGE 6 AMBULANCE AMBULANCE PER SERVICE SERVICE STATUTE MILE GROUND A0425 [facility] MILEAGE [address] [place] [address] PER AMBULANCE AMBULANCE STATUTE SE SE MILE RADIOLOGI 26433 [facility] MEDICAL ARIA EXAMINATI IMAGING ON CHEST ASS SINGLE VIEW FRONTAL AMB A0427 [facility] [address] [place] [address] ALS AMBULANCE AMBULANCE EMERGENCY SE SE TRANSPORT LEVEL 1 SWALLOWIN 86802 PATSY Titus FUNCJ 6 [facility] W/CINERAD INC INC IOGRAPY/V IDRADIOG AMBULANCE A0428 [facility] SERVICE [address] [place] [address] AMBULANCE AMBULANCE NONEMERGE SE SE [facility] TRANSPORT GROUND A0425 [facility]DR [facility] MILEAGE [address] [place] [address] PER AMBULANCE AMBULANCE STATUTE SE SE MILE MOTION 65244 PATSY GARNER FLUOR 6 [facility] EVAL INC INC SWLNG FUNCJ C/V REC GONIOSCOP 49902 ANNA SANCHEZ Y 6 F. DEIDRE SEPARATE LAURA PROCEDURE PSC OPHTH 28274 ANNA SANCHEZ MEDICAL 6 F. DEIDRE XM&EVAL LAURA COMPRHNSV PSC ESTAB PT 1/> FUNDUS 41951 ANNA SANCHEZ PHOTOGRAP 6 F. DEIDRE HY LAURA W/INTERPR PSC ETATION & REPORT DEBRIDEME 44739 [facility] SYDNEE NT NAIL 6 ARE TORIN ANY METHOD 6/> REMOVAL 79248 [facility] GEM IMPACTED 6 ARE TOMER CERUMEN INSTRUMEN TATION UNILAT NONEMERGE A0130 [facility] NCY 6 TRANSPORT TRANSPORT TRANSPORT ATION: ATION SER ATION SER JACINTOI R VAN COLLECTIO 31812 COMBINED COMBINED N VENOUS 6 PHYSICIAN PHYSICIAN [place]LOOD [place] [address] COMBINED COMBINED BLOOD/URI 6 PHYSICIAN PHYSICIAN C ACID S LA S LA TRANS R0075 SYMPHONY SYMPHONY PRTBL 6 MOBILEX MOBILEX XRAY EQP&PERS TRISTEN/NRS TRISTEN-TRIP> 1 PT SET-UP Q0092 SYMPHONY SYMPHONY PORTABLE 6 MOBILEX MOBILEX X-RAY EQUIPMENT RADEX 63711 SYMPHONY SYMPHONY WRIST 2 6 MOBILEX MOBILEX VIEWS URNLS DIP 75678 COMBINED COMBINED 6 PHYSICIAN PHYSICIAN STICK/TAB S LA S LA LET REAGENT AUTO MICROSCOP Y VOLUME 63825 COMBINED COMBINED MEASUREME 6 PHYSICIAN PHYSICIAN NT TIMED S LA S LA COLLECTIO N EACH CULTURE 35654 COMBINED COMBINED BACTERIAL 6 PHYSICIAN PHYSICIAN S LA S LA QUANTTATI VE COLONY COUNT URINE CULTURE 98222 COMBINED COMBINED BCT 6 PHYSICIAN PHYSICIAN ISOL&PRSM S LA S LA PTV ID ISOLATE EA URINE SUSCEPTIB 33046 COMBINED COMBINED ILITY 6 PHYSICIAN PHYSICIAN STUDY S LA S LA ANTIMICRO BIAL DISK METHOD NONEMERGE A0130 [facility]ERATED [facility]ER[facility] NCY 6 TRANSPORT TRANSPORT TRANSPORT ATION: ATION SER ATION SER JACINTOKrysta Gunter VAN COMPREHEN 17658 COMBINED COMBINED SIVE 6 PHYSICIAN PHYSICIAN METABOLIC S LA S LA PANEL BLOOD 15844 COMBINED COMBINED COUNT 6 PHYSICIAN PHYSICIAN COMPLETE S LA S LA AUTO&AUTO DIFRNTL WBC COLLECTIO 93056 COMBINED COMBINED N VENOUS 6 PHYSICIAN PHYSICIAN BLOOD S LA S LA VENIPUNCT URE TRAVEL [address] MED 6 PHYSICIAN PHYSICIAN NEC LAB S LA S LA SPEC; PRORAT ACTL MILE INSPECTIO 2HUL5LE PATSY GARNER N LOW 6 [facility] INTEST INC INC TRACT JINNY/ART OPENING ENDO ANES 35088 [facility] LOWER 6 ANESTH SHE INTESTINE OF THE BLUE ENDOSCOPY DISTAL DUODENUM COLONOSCO 27082 [facility] PY FLX DX 6 PHYSICIAN CAM W/COLLJ S GROUP SPEC WHEN PFRMD ESOPHAGOG 55361 [facility] ASTRODUOD 6 PHYSICIAN CAM ENOSCOPY S GROUP TRANSORAL DIAGNOSTI C ANES 40332 [facility] FEEBACK UPPER GI 6 ANESTH REE ENDOSCOPY OF THE PROXIMAL BLUE TO DUODENUM INSPECTIO [id number] PATSY PATSY N UP 6 MEM HOSP [facility] INTEST INC INC TRACT JINNY/ART OPENING ENDO INITIAL 16372 [facility] 6 PHYSICIAN CAM CARE/DAY S GROUP 50 MINUTES AMBULANCE A0429 OLEKSANDR LEGGETT SERVICE [address] [place] [address] AMBULANCE AMBULANCE EMERGENCY SE SE TRANSPORT GROUND A0425 OLEKSANDR LEGGETT MILEAGE [address] [place] [address] PER AMBULANCE AMBULANCE STATUTE SE SE MILE PARING/CU 20514 [facility] SYDNEE TTING 6 ARE TORIN BENIGN HYPERKERA TOTIC LESION 2-4 DEBRIDEME 20969 [facility] SYDNEE NT NAIL 6 ARE TORIN ANY METHOD 6/> FUNDUS 04697 ANNA SANCHEZ PHOTOGRAP 6 F. DEIDRE HY LAURA W/INTERPR PSC ETATION & REPORT OPHTH 49648 ANNA SANCHEZ MEDICAL 6 F. DEIDRE XM&EVAL LAURA COMPRHNSV PSC ESTAB PT 1/> URNLS DIP 54151 PATSY GARNER 6 [facility] HOSP STICK/TAB INC INC LET REAGENT AUTO MICROSCOP Y CULTURE 96712 PATSY GARNER BACTERIAL 6 [facility] INC INC QUANTTATI VE COLONY COUNT URINE SBSQ [address] [address] INTERNAL CARE/DAY MED MINOR COMPLJ 15 MIN REMOVAL 10491 [facility] GEM IMPACTED 6 ARE TOMER CERUMEN INSTRUMEN TATION UNILAT NONEMERGE A0130 FEDERATED FEDERATED NCY 6 TRANSPORT TRANSPORT TRANSPORT ATION: ATION SER ATION SER WHEELCHAI R VAN PARING/CU 73615 [facility] SYDNEE TTING 6 ARE TORIN BENIGN HYPERKERA TOTIC LESION 2-4 DEBRIDEME 76589 [facility] NAIL 6 ARE TORIN ANY METHOD 6/> NONEMERGE A0130 FEDERATED FEDERATED NCY 6 TRANSPORT TRANSPORT TRANSPORT ATION: ATION SER ATION SER JESSY R VAN COMPREHEN 23826 COMBINED COMBINED SIVE 5 PHYSICIAN PHYSICIAN METABOLIC S LA S LA PANEL BLOOD 24359 COMBINED COMBINED COUNT 5 PHYSICIAN PHYSICIAN COMPLETE S LA S LA AUTO&AUTO DIFRNTL WBC TRAVEL [address] MED 5 PHYSICIAN PHYSICIAN NEC LAB S LA S LA SPEC; PRORAT ACTL MILE COLLECTIO 60525 COMBINED COMBINED N VENOUS 5 PHYSICIAN PHYSICIAN BLOOD S LA S LA VENIPUNCT URE DEBRIDEME 42532 [facility] SYDNEE NT NAIL 5 ARE TORIN ANY METHOD 6/> PARING/CU 93655 [facility] SYDNEE TTING 5 ARE TORIN BENIGN HYPERKERA TOTIC LESION 2-4 SBSQ 03493 [facility] NURSING 5 ARE TORIN FACILITY CARE/DAY E/M STABLE 10 MIN GONIOSCOP 69800 ANNA SANCHEZ Y 5 F. DEIDRE SEPARATE LAURA PROCEDURE PSC FUNDUS 58692 ANNA SANCHEZ PHOTOGRAP 5 F. DEIDRE HY LAURA W/INTERPR PSC ETATION & REPORT OPHTH 67191 ANNA SANCHEZ MEDICAL 5 F. DEIDRE XM&EVAL LAURA COMPRHNSV PSC ESTAB PT 1/> SBSQ 95169 [facility] 5 ARE VIC FACILITY CARE/DAY E/M STABLE 10 MIN STANDARD K0001 LORI CASEYI 5 HOME HOME R MEDICAL MEDICAL EQUIPME EQUIPME NEBULIZER E0570 LORI SANDOVAL WITH 5 HOME HOME COMPRESSO MEDICAL MEDICAL R EQUIPME EQUIPME HOS BED E0260 LORI SANDOVAL SEMI-ELEC 5 HOME HOME W/ANY MEDICAL MEDICAL TYPE SIDE EQUIPME EQUIPME RAIL W/MATTRSS DEBRIDEME 07249 [facility] SYDN[place] NT NAIL 5 ARE TORIN ANY METHOD 6/> PARING/CU 95523 [facility] SYDN[place] TTING 5 ARE TORIN BENIGN HYPERKERA TOTIC LESION 2-4 SBSQ 66951 [facility] [place] NURSING 5 ARE TORNI FACILITY CARE/DAY E/M STABLE 10 MIN STANDARD K0001 LORI JIMÉNEZ 5 HOME HOME R MEDICAL MEDICAL EQUIPME EQUIPME HOS BED E0260 LORI SANFORDRELL SEMI-ELEC 5 HOME HOME W/ANY MEDICAL MEDICAL TYPE SIDE EQUIPME EQUIPME RAIL W/MATTRSS NEBULIZER E0570 LORI SANDOVAL WITH 5 HOME HOME COMPRESSO MEDICAL MEDICAL R EQUIPME EQUIPME OPHTH 33308 [facility] 5 F. DEIDRE XM&MATTHEW SANCHEZ COMPRHNSV [...] COMPRESSO MEDICAL MEDICAL R EQUIPME EQUIPME REMOVAL 44981 [facility] GEM IMPACTED 4 ARE TOMER CERUMEN INSTRUMEN [...] COMPRESSO MEDICAL MEDICAL R EQUIPME EQUIPME PARING/CU 64693 [facility] SYDN[place] TTING 4 ARE TORIN BENIGN HYPERKERA TOTIC LESION 2-4 SBSQ 72644 [facility] ARE T[facility] FACILITY CARE/DAY E/M STABLE 10 MIN DEBRIDEME 55469 [facility] 4 ARE TORIN ANY METHOD 6/> BASIC 97745 COMBINED COMBINED METABOLIC 4 PHYSICIAN PHYSICIAN PANEL S LA S LA CALCIUM TOTAL BLOOD 70792 COMBINED COMBINED COUNT 4 PHYSICIAN PHYSICIAN COMPLETE S LA S LA AUTO&AUTO DIFRNTL WBC TRAVEL [address] MED 4 PHYSICIAN PHYSICIAN NEC LAB S LA S LA SPEC; PRORAT ACTL MILE COLLECTIO 81092 COMBINED COMBINED N VENOUS 4 PHYSICIAN PHYSICIAN BLOOD S LA S LA VENIPUNCT URE TRANS R0075 SYMPHONY SYMPHONY PRTBL 4 MOBILEX MOBILEX XRAY EQP&PERS TRISTEN/NRS TRISTEN-TRIP> 1 PT SET-UP Q0092 SYMPHONY SYMPHONY PORTABLE 4 MOBILEX MOBILEX X-RAY EQUIPMENT RADIOLOGI 90633 SYMPHONY SYMPHONY C 4 MOBILEX MOBILEX EXAMINATI ON CHEST SINGLE VIEW FRONTAL RADIOLOGI 97551 SYMPHONY SYMPHONY C 4 MOBILEX MOBILEX EXAMINATI [...] SIDE EQUIPME EQUIPME RAIL W/MATTRSS URNLS DIP 73135 COMBINED COMBINED 4 PHYSICIAN PHYSICIAN STICK/TAB S [...] R EQUIPME EQUIPME HOS BED E0260 LORI SADNOVAL SEMI-ELEC 4 HOME HOME W/ANY MEDICAL MEDICAL TYPE SIDE EQUIPME EQUIPME RAIL W/MATTRSS STANDARD K0001 LORI SANDOVAL JACINTOI 4 HOME HOME R MEDICAL MEDICAL EQUIPME EQUIPME HOS BED E0260 LORI SANDOVAL SEMI-ELEC 4 HOME HOME W/ANY MEDICAL MEDICAL TYPE SIDE EQUIPME EQUIPME RAIL W/MATTRSS NEBULIZER E0570 LORI SANDOVAL WITH 4 HOME HOME COMPRESSO MEDICAL MEDICAL R EQUIPME EQUIPME CULTURE 46926 COMBINED COMBINED BACTERIAL 4 PHYSICIAN PHYSICIAN S [...] EQUIPME EQUIPME STATIONAR Y W/FIXED ARMS RADIOLOGI 08773 [facility] C EXAM 4 EIDER TORIN KNEE RADIOLOGY COMPLETE ASSOCIAT 4/MORE VIEWS RADIOLOGI 64025 [employer], C 4 SHIFT SUPERVISOR MELTING SHIFT SUPERVISOR MELTING EXAMINATI OLEKSANDR LEGGETT ON KNEE 3 CO HOS CO HOS VIEWS RADIOLOGI 53133 [facility] C EXAM 4 EIDER TORIN KNEE RADIOLOGY COMPLETE ASSOCIAT 4/MORE VIEWS REMOVAL 65215 [facility] GEM IMPACTED 4 ARE TOMER CERUMEN INSTRUMEN TATION UNILAT SBSQ 00120 [facility] GEM NURSING 4 ARE TOMER FACILITY CARE/DAY E/M STABLE 10 MIN SBSQ 77757 [facility] SYDNEE NURSING 4 ARE TORIN FACIL CARE/DAY MINOR COMPLJ 15 MIN PARING/CU 69174 [facility] 4 ARE TORIN BENIGN HYPERKERA TOTIC LESION 1 DEBRIDEME 03320 [facility] NT NAIL 4 ARE TORIN ANY METHOD 6/> ELECTROEN 84921 [employer], CEPHALOGR 3 SHIFT SUPERVISOR MELTING SHIFT SUPERVISOR MELTING AM W/REC OLEKSANDR LEGGETT AWAKE&[place] [address] [place] [facility] HEAD/BRAI 3 AZRA N W/O RADIOLOGY CONTRAST ASSOCIAT MATERIAL COMPREHEN 49262 [employer], SIVE 3 SHIFT SUPERVISOR MELTING SHIFT SUPERVISOR MELTING METABOLIC OLEKSANDR LEGGETT PANEL CO HOS CO HOS COMPUTERI 90897 TIARA MENJIVAR ZED [address] OPHTHALMI ZHAO C IMAGING VISION OPTIC NERVE DETERMINA 01987 TIARA MENJIVAR TION 3 AND HANNAH REFRACTIV ZHAO E STATE VISION URINALYSI 83122 [employer], S 3 SHIFT SUPERVISOR MELTING SHIFT SUPERVISOR MELTING QUAL/SEMI OLEKSANDR LEGGETT QUANT CO HOS CO HOS EXCEPT IMMUNOASS AYS URNLS DIP 42312 [employer], 3 SHIFT SUPERVISOR MELTING SHIFT SUPERVISOR MELTING STICK/TAB OLEKSANDR LEGGETT LET RGNT CO HOS CO HOS AUTO W/O MICROSCOP Y PARING/CU 91822 [facility] GALEN POPE TTING 3 ARE BENIGN HYPERKERA TOTIC LESION 2-4 DEBRIDEME 36006 [facility] GALEN POPE NT NAIL 3 ARE ANY METHOD 6/> SBSQ 80068 [facility] GALEN FRA NURSING 3 ARE FACIL CARE/DAY MINOR COMPLJ 15 MIN BASIC 58878 [employer], METABOLIC 3 SHIFT SUPERVISOR MELTING SHIFT SUPERVISOR MELTING PANEL OLEKSANDR OLEKSANDR CALCIUM CO HOS CO HOS TOTAL SBSQ 71772 [facility] N[facility] 3 [facility] INTERNAL CARE/DAY MED MINOR COMPLJ 15 MIN RADIOLOGI 11066 [employer], C EXAM 3 SHIFT SUPERVISOR MELTING SHIFT SUPERVISOR MELTING CHEST 2 OLEKSANDR LEGGETT VIEWS CO HOS CO HOS FRONTAL&L ATERAL DEBRIDEME 54537 [facility] EDWARDS ALEKSEY NT NAIL 3 ARE ANY METHOD 6/> BASIC 13887 [employer], METABOLIC 3 SHIFT SUPERVISOR MELTING SHIFT SUPERVISOR MELTING PANEL OLEKSANDR OLEKSANDR CALCIUM CO HOS CO HOS TOTAL DEBRIDEME 77830 [facility] EDWARDS ALEKSEY NT NAIL 2 ARE ANY METHOD 6/> SBSQ 64449 [facility] EDWARDS ALEKSEY NURSING 2 ARE FACILITY CARE/DAY E/M STABLE 10 MIN LIPID 86097 [employer], PANEL 2 SHIFT SUPERVISOR MELTING SHIFT SUPERVISOR MELTING OLEKSANDR OLEKSANDR CO HOS CO HOS BLOOD 66766 [employer]IS [employer], COUNT 2 SHIFT SUPERVISOR MELTING SHIFT SUPERVISOR MELTING COMPLETE OLEKSANDR OLEKSANDR AUTO&AUTO CO HOS CO HOS DIFRNTL WBC BLOOD 45349 [email or web address], COUNT 2 SHIFT SUPERVISOR MELTING SHIFT SUPERVISOR MELTING SMEAR OLEKSANDR FRANKELS MCRSCP CO HOS CO HOS W/MNL DIFRNTL WBC COUNT BASIC 48404 [email or web address], METABOLIC 2 SHIFT SUPERVISOR MELTING SHIFT SUPERVISOR MELTING PANEL OLEKSANDR OLEKSANDR CALCIUM CO HOS CO HOS TOTAL BASIC 86393 [email or web address], METABOLIC 2 SHIFT SUPERVISOR MELTING SHIFT SUPERVISOR MELTING PANEL OLEKSANDR OLEKSANDR [place] [address] [facility] [place] CHU HEAD/BRAI 1 RADIOLOGY RHO N W/O CONTRAST MATERIAL MYOGLOBIN 17014 [email or web address], 1 SHIFT SUPERVISOR MELTING SHIFT SUPERVISOR MELTING OLEKSANDR [place] [address] [employer], TROPONIN 1 SHIFT SUPERVISOR MELTING SHIFT SUPERVISOR MELTING QUANTITAT OLEKSANDR OLEKSANDR IVELISSE CO HOS CO HOS CREATINE 86133 [employer], KINASE 1 SHIFT SUPERVISOR MELTING SHIFT SUPERVISOR MELTING TOTAL OLEKSANDR OLEKSANDR CO HOS CO HOS ECG 10166 [employer]ian[employer] Plan, Sian[employer] Plan, ROUTINE 1 SHIFT SUPERVISOR MELTING SHIFT SUPERVISOR MELTING ECG OLEKSANDR OLEKSANDR W/LEAST CO HOS CO HOS 12 LDS TRCG ONLY W/O I&R CREATINE 61794 [employer], [employer], KINASE MB 1 SHIFT SUPERVISOR MELTING SHIFT SUPERVISOR MELTING FRACTION OLEKSANDR [place] [address] [facility] KOSTELIC MAXILLOFA 1 RADIOLOGY VAMSI CIAL W/O CONTRAST MATERIAL MOLECULAR 59763 [place] PAULINE MONA 1 MEDICAL DIAGNOSTI SERV CS FOUNDATIO INTERPRET ATION & REPORT PRESCRIPT G8553 [facility] IONS GEN 1 INTERNAL RAFAT TRANSMITT MEDICINE ED & QUALIFIED ERX SYS ELIG CLIN G8427 [facility] ATTSTS 1 INTERNAL RAFAT DOC M REC MEDICINE OBTD & UPD/REV PT MEDS DUP-SCAN 77057 [facility] [place] CHU XTR VEINS 1 RADIOLOGY RHO UNILATERA L/LIMITED STUDY CUR MEDS G8428 [facility] NO DOC 1 INTERNAL RAFAT OBDT MEDICINE UPD/REV & ELIG CLIN RSN N GVN ECG 32674 [facility] ROUTINE 1 [place] ECG LALI LALI W/LEAST 12 LDS TRCG ONLY W/O I&R INJECTION J2001 OLEKSANDR LEGGETT 1 CO CO LIDOCAINE [facility] HCL INTRAVENO US INFUS 10 [place] [address] OLEKSANDR LEGGETT VACCINE 1 CO CO PRSRV [facility] FREE 7 YRS OR OLDER FOR IM USE RADEX 73910 OLEKSANDR LEGGETT HAND 1 CO CO MINIMUM 3 [facility] VIEWS SIMPLE 58871 OLEKSANDR LEGGETT RPR 1 CO CO SCALP/NEC [facility] K/AX/MERCY T/TRUNK 7.6-12.5C M BLOOD 31748 OLEKSANDR LEGGETT COUNT 1 CO CO COMPLETE [facility] AUTO&AUTO DIFRNTL WBC SLINGS A4565 OLEKSANDR LEGGETT 1 CO [facility] IM ADM 11643 OLEKSANDR LEGGETT PRQ ID 1 CO CO SUBQ/IM HOSPITAL HOSPITAL NJXS 1 VACCINE PROTHROMB 44964 OLEKSANDR LEGGETT IN TIME 1 CO [facility] THROMBOPL 54420 OLEKSANDR LEGGETT ASTIN 1 CO CO TIME HOSPITAL HOSPITAL PARTIAL PLASMA/WH OLE BLOOD CYANOCOBA 04692 LAB TRE LAB TRE ROSLYN 1 AMERIC AMERIC VITAMIN HOLDING HOLDING B-12 COLLECTIO 02441 [place] [facility] N VENOUS 1 [facility]NAL [facility] BLOOD MEDICINE VENIPUNCT & [place] [address] LAB TRE LAB TRE THYROXINE 1 AMERIC AMERIC TOTAL HOLDING HOLDING CUR MEDS G8428 [place] [facility] NO DOC 1 INTERNAL RAAFT OBDT MEDICINE UPD/REV & [place] [address] LAB TRE LAB TRE THYROID 1 AMERIC AMERIC STIMULATI [place] [address] LAB TRE LAB TRE FOLIC 1 AMERIC AMERIC ACID HOLDING HOLDING SERUM LIPID 81170 LAB TRE LAB TRE PANEL 1 AMERIC [employer] HOLDING HOLDING BLOOD 67799 LAB TRE LAB TRE COUNT 1 AMERIC AMERIC COMPLETE HOLDING HOLDING AUTO&AUTO DIFRNTL WBC HEMOGLOBI 03069 LAB TRE LAB TRE N 1 AMERIC AMERIC GLYCOSYLA HOLDING HOLDING LOREN A1C COMPREHEN 06537 LAB TRE LAB TRE SIVE 1 AMERIC AMERIC METABOLIC HOLDING HOLDING PANEL DUPLEX 63069 [place] SCAN 1 MEDICAL [address] LUT EXTRACRAN SERV IAL ART FOUNDATIO COMPL BI STUDY COMPUTERI 94823 HELDERMAN HELDERMAN ZED [address] OPHTHALMI ZHAO C IMAGING VISION OPTIC NERVE DETERMINA 70960 HELDERMAN HELDERMAN TION [address] REFRACTIV ZHAO E STATE VISION LIPID 59058 LAB TRE LAB TRE PANEL 1 [employer]IC [employer]ING HOLDING COMPREHEN 37434 LAB TRE LAB TRE SIVE 1 AMERIC AMERIC METABOLIC HOLDING HOLDING PANEL CYANOCOBA 35321 LAB TRE LAB TRE ROSLYN 1 AMERIC AMERIC VITAMIN HOLDING HOLDING B-12 [place] [address] LAB TRE LAB TRE THYROXINE 1 AMERIC AMERIC TOTAL HOLDING HOLDING HEMOGLOBI 40823 LAB TRE LAB TRE N 1 AMERIC AMERIC GLYCOSYLA HOLDING HOLDING LOREN A1C BLOOD 83343 LAB TRE LAB TRE COUNT 1 AMERIC AMERIC COMPLETE HOLDING HOLDING AUTO&[place] [address] LAB TRE LAB TRE FOLIC 1 [employer]IC [employer] [place] [address] LAB TRE LAB TRE THYROID 1 AMERIC AMERIC STIMULATI HOLDING HOLDING NG HORMONE TSH COLLECTIO 02059 [place] [facility] N VENOUS 1 [facility] BLOOD MEDICINE VENIPUNCT & URE PRESCRIPT G8553 [place] [facility] IONS GEN 1 INTERNAL RAFAT TRANSMITT MEDICINE ED & QUALIFIED ERX SYS COLLECTIO 80316 [facility] VENOUS 1 Y Y [facility] VENIPUNCT URE COLLECTIO 34707 [facility] N VENOUS 1 [facility] VENIPUNCT URE PRESCRIPT G8553 G[place] [facility] IONS GEN 1 INTERNAL RAFAT TRANSMITT MEDICINE ED & [place] [address] [facility] THYROID 1 [place] STIMULATI L[place] [address] [facility] FOLIC 1 [place] ACID LALI LALI SERUM HEMOGLOBI 55204 [facility] N 1 [place] GLYCOSYLA LALI LALI LOREN A1C BLOOD 52646 [facility] COUNT 1 [place] COMPLETE LALI LALI AUTO&[place] [address] [facility] THYROXINE 1 [place] TOTAL LALI LALI COMPREHEN 07115 [facility] SIVE 1 [place] METABOLIC LALI LALI PANEL CYANOCOBA 20643 [facility] ROSLYN 1 [place] VITAMIN LALI LALI B-12 FUNDUS 11870 TIARA MENJIVAR PHOTOGRAP 1 AND HANNAH ZHAO W/INTERPR VISION ETATION & REPORT LIPID 80694 [facility] PANEL 1 [place] LALI LALI ALBUTEROL J7613 [place] INHAL 1 N DRUG N DRUG NON-CP PROD THRU DME U DOSE 1 MG PHRM Q0513 [place] DISPENSIN 1 N DRUG N DRUG G FEE INHALATIO N RX; PER 30 DAYS ECHO 38816 [facility] TTHRC R-T 1 Y Y 2D [facility] W/WOM-MOD E COMPL SPEC&[facility] [address]84 [place] DISCHARGE 1 MEDICAL JR LUT DAY SERV MANAGEMEN FOUNDATIO T 30 MIN/< DUPLEX 98013 [facility] SCAN 1 Y Y EXTRACRAN [facility] IAL ART COMPL BI STUDY SWALLOWIN 41283 [facility] G FUNCJ 1 Y Y W/CINERAD [facility] IOGRAPY/V IDRADIOG BLOOD 89280 [facility] COUNT 1 Y Y COMPLETE [facility] AUTOMATED BASIC 59003 [facility] METABOLIC 1 Y Y PANEL [facility] CALCIUM TOTAL BASIC 92405 [facility] METABOLIC 1 Y Y PANEL [facility] CALCIUM TOTAL BLOOD 19818 [facility] COUNT 1 Y Y COMPLETE [facility] AUTOMATED URNLS DIP 45535 [facility] UNIVERS 1 Y Y STICK/TAB HOSPITAL HOSPITAL LET REAGENT AUTO MICROSCOP Y SBSQ 12294 [facility] 1 MEDICAL JR LUT CARE/DAY SERV 25 FOUNDATIO MINUTES INITIAL 79961 [facility] 1 MEDICAL JR LUT CARE/DAY SERV 70 FOUNDATIO MINUTES MRA NECK 16687 [facility] W/O 1 [facility] MATERIAL MRI BRAIN 80145 [facility] BRAIN 1 Y Y STEM W/O [facility] CONTRAST MATERIAL MRA HEAD 40278 [facility] W/O 1 Y [facility] MATERIAL PHYSICAL 43024 [facility] THERAPY 1 Y Y EVALUATIO [facility] N LIPID 01703 [facility] PANEL 1 [place] [address] [facility] TROPONIN 1 Y Y QUANTITAT [facility] IVELISSE BLOOD 43905 [facility] COUNT 1 Y Y COMPLETE [facility] AUTO&[place] [address] [facility] HOMOCYSTE 1 Y Y INE [facility] CREATINE 38248 [facility] KINASE 1 Y Y TOTAL [facility]PITAL COMPREHEN 79801 [facility] SIVE 1 Y Y METABOLIC [facility] [place] [address] [facility] THYROID 1 Y Y STIMULATI [facility] NG HORMONE TSH CREATINE 57384 [facility] UNIVERS KINASE MB 1 Y Y FRACTION [facility] [place] [address] [facility] FOLIC 1 Y Y ACID [facility] SERUM CYANOCOBA 76504 [facility] ROSLYN 1 Y Y VITAMIN [facility] B-12 THROMBOPL 59143 [facility] ASTIN 1 Y Y TIME HOSPITAL [facility] PARTIAL PLASMA/WH OLE BLOOD C-REACTIV 94575 [facility] E PROTEIN 1 Y Y HIGH [facility] SENSITIVI TY PROTHROMB 94999 [facility] IN TIME 1 Y Y HOSPITAL HOSPITAL PROTHROMB 88893 [facility] IN TIME 1 Y Y HOSPITAL HOSPITAL THROMBOPL 55184 [facility] ASTIN 1 Y Y TIME HOSPITAL HOSPITAL PARTIAL PLASMA/WH OLE BLOOD COLLECTIO 91535 [facility] N VENOUS 1 [facility] BLOOD LALI LALI VENIPUNCT URE GASES 23356 [facility] BLOOD PH 1 [facility] DIRECT LALI LALI QUINCY XCPT PULSE OXIMITRY URNLS DIP [id number] STICK/TAB LALI LALI LET RGNT AUTO W/O MICROSCOP Y ARTERIAL 36365 [facility] PUNCTURE 1 [place] WITHDRAWA LALI LALI L BLOOD DX ECG 16154 [facility] ROUTINE 1 Y Y ECG [facility] W/LEAST 12 LDS TRCG ONLY W/O I&R COMPREHEN 27593 [facility] SIVE 1 Y Y METABOLIC [facility] PANEL BLOOD 23836 [facility] COUNT 1 Y Y COMPLETE [facility] AUTO&AUTO DIFRNTL WBC AMB [id number] [facility] SERVICE 1 Y CO Y CO ALS AMBULANCE AMBULANCE EMERGENCY SERV SERV TRANSPORT LEVEL [address] [facility] NON-NDWEL 1 [place] LG [place] [address] [facility] TROPONIN 1 [facility] QUANTITAT LALI LALI IVELISSE ECG [address]204 [place] [facility] ROUTINE 1 MEDICAL ECG SERV W/LEAST FOUNDATIO 12 LDS I&R ONLY GROUND A0425 [facility] MILEAGE 1 Y CO Y CO PER AMBULANCE AMBULANCE STATUTE SERV SERV MILE RADIOLOGI 39856 [facility] C 1 [facility] EXAMINATI LALI L[place] [address] [facility] HEAD/BRAI 1 [facility] N W/O LALI LALI CONTRAST MATERIAL PRESSURIZ 71062 [facility] ED/NONPRE 1 [place] SSURIZED LALI LALI INHALATIO N TREATMENT INJECTION [id number] CEFTRIAXO LALI LALI NE SODIUM PER 250 MG RADIOLOGI [address] [facility] [place] [facility] C EXAM 1 RADIOLOGY RHO CHEST 2 VIEWS FRONTAL&L ATERAL BLOOD 54590 [facility] COUNT 1 [place] COMPLETE LALI LALI AUTO&AUTO DIFRNTL WBC THERAPEUT 04444 [facility] IC 1 [place] [place] PROPHYLAC LALI LALI TIC/DX INJECTION SUBQ/IM INJECTION J1100 [facility] 1 [place] DEXAMETHO LALI LALI SONE SODIUM PHOSPHATE 1 MG INJECTION J2001 [address] LIDOCAINE LALI LALI HCL INTRAVENO US INFUS [address] [facility] SIVE 1 [place] [facility] METABOLIC LALI LALI PANEL CULTURE 86545 [facility] BACTERIAL 1 [facility] BLOOD LALI LAL[place] AEROBIC W/[place] [address] [facility] INFLUENZA 1 [place] [facility] A/B EACH LALI LALI COLLECTIO [address] [facility] N VENOUS 1 [place] BLOOD LALI LALI VENIPUNCT URE RADIOLOGI 31106 [facility]TE[facility]AT[facility] C 1 DAYANNA EXAMINATI ORTHOPAED ON KNEE ICS SPORT 1/2 VIEWS LIPID 86503 [place] PANEL 0 INTERNAL RAF[place] MEDICINE & GLUC BLD 80441 [place] GLUC MNTR 0 INTERNAL RAF[place] DEV MEDICINE CLEARED & FDA SPEC HOME USE HEMOGLOBI 69785 [place] N 0 INTERNAL RAFAT GLYCOSYLA MEDICINE LOREN A1C & ECG 06730 [facility] ROUTINE 0 [place] PHI ECG EMERGENCY W/LEAST PHYS 12 LDS I&R ONLY GROUND A0425 BATH CO BATH CO MILEAGE 0 AMBULANCE AMBULANCE [place] [address] [facility] [place] SPIVEY JAM HEAD/BRAI 0 RADIOLOGY [...] THRU DME U DOSE 1 MG COLLECTIO 65971 [place] N VENOUS 0 INTERNAL RAF[place] BLOOD MEDICINE VENIPUNCT & URE TRANSFERA 46647 [place] SE 0 INTERNAL [place] ALANINE MEDICINE AMINO ALT & SGPT LIPID 72808 [place] PANEL 0 INTERNAL [place] MEDICINE & COMPREHEN 69349 LAB TRE LAB TRE SIVE 0 [employer] MET[employer]OLIC [employer] PANEL RADEX 84239 [facility] [place] CHU FINGR 0 RADIOLOGY RHO MINIMUM [address] [facility] REPAIR 0 [place] SCALP/NEC LALI LALI K/AX/MERCY T/TRUNK 2.5CM/< RADEX 56820 [facility] FINGR 0 [place] MINIMUM 2 LALI LALI VIEWS PHRM Q0513 [place] DISPENSIN 0 N DRUG N DRUG G FEE INHALATIO N RX; PER 30 DAYS ALBUTEROL J7613 [place] INHAL 0 N DRUG N DRUG NON-CP PROD THRU DME U DOSE 1 MG SCANNING 01318 TIARA MENJIVAR OPHTHALMI 0 AND AND C IMAGING ZHAO ZHAO VISION VISION POSTERIOR SGM UNI ECG 03809 [facility] ROUTINE 0 [place] PHI ECG EMERGENCY W/LEAST PHYS 12 LDS I&R ONLY RADEX 62894 [facility] SPINE 0 [place] CERVICAL LALI LALI 4 OR [address] [facility] C EXAM 0 [place] CHEST 2 LALI LALI VIEWS FRONTAL&L ATERAL RADEX HIP 75999 [facility] 0 [place] UNILATERA LALI LALI L COMPLETE MINIMUM [address] [facility] SIVE 0 [place] METABOLIC LALI LALI PANEL ECG [address] [facility] ROUTINE 0 [place] ECG LALI LALI W/LEAST 12 LDS TRCG ONLY W/O I&R BLOOD 30643 [facility] COUNT 0 [place] COMPLETE LALI LALI AUTO&[place] [address] [facility] TROPONIN 0 [place] QUANTITAT LALI LALI IVELISSE COLLECTIO 37144 [facility] N VENOUS 0 [place] BLOOD LALI LALI VENIPUNCT URE COLLECTIO 40785 [facility] [place], N VENOUS 0 INTERNAL [place] BLOOD MEDICINE VENIPUNCT & [place] [address] LAB TRE LAB TRE THYROID 0 [employer] STIMULATI [employer]ING HOLDING NG HORMONE TSH BLOOD 10110 LAB T[facility] LAB TRE COUNT 0 [employer] COM[employer] AUTO&AUTO DIFRNTL WBC HEMOGLOBI 62225 LAB TRE LAB TRE N 0 [employer]IC [employer]IC GLYCOSYLA HOLDING HOLDING LOREN A1C COMPREHEN 39147 LAB TRE LAB TRE SIVE 0 [employer] [place] [place] [address] LAB TRE LAB TRE THYROXINE 0 [employer] TOTAL [employer] HOLDING LIPID 18541 LAB TRE LAB TRE PANEL 0 [employer] PHRM Q0513 [place] DISPENSIN 0 N DRUG- N DRUG- G FEE INHALATIO N RX; PER 30 DAYS ALBUTEROL J7613 [place] INHAL 0 N DRUG- N DRUG- NON-CP PROD THRU DME U DOSE 1 MG TRANSFERA 36801 NNACY A[place], SE 9 INTERNAL [facility] MEDICINE AMINO ALT & SGPT DIETARY INTERNSHIP S HEMOGLOBI 27743 NANCY [place], N 9 [facility] LOREN A1C & DIETARY INTERNSHIP S LIPID 17127 [place], PANEL 9 INTERNAL [place] MEDICINE & DIETARY INTERNSHIP S PHRM Q0513 [place] DISPENSIN 9 N DRUG- N DRUG- G FEE INHALATIO N RX; PER 30 DAYS ALBUTEROL J7613 [place] INHAL 9 N DRUG- N DRUG- NON-CP PROD THRU DME U DOSE 1 MG HEMOGLOBI 28500 N[place] N 9 INTERNAL [place] GLYCOSYLA MEDICINE LOREN A1C & DIETARY INTERNSHIP S LIPID 68631 NANC[facility] [place], PANEL 9 INTERNAL [place] MEDICINE & DIETARY INTERNSHIP S PHR Q0513 [place] DISPENSIN 9 N DRUG- N DRUG- G FEE INHALATIO N RX; PER 30 DAYS ALBUTEROL J7613 [place] INHAL 9 N DRUG- N DRUG- NON-CP PROD THRU DME U DOSE 1 [place] [address] LAB TRE LAB TRE THYROID 9 [employer] NG HORMONE TSH COLLECTIO 20651 [facility] [place], N VENOUS 9 INTERNAL [place] BLOOD MEDDICINE VENIPUNCT URE HEMOGLOBI 63394 LAB TRE LAB TRE N 9 [employer]IC [employer] GLYCOSYLA [employer] HOLDING LOREN A1C BLOOD 71842 LAB TRE LAB TRE COUNT 9 [employer] COMPLETE HOLD[employer] HOLDING AUTO&[place] [address] LAB TRE LAB TRE THYROXINE 9 [employer] TOTAL [employer]ING COMPREHEN 78633 LAB TRE LAB TRE SIVE 9 [employer] MET[employer]OL[employer] PANEL LIPID 90946 LAB TRE LAB TRE PANEL 9 AMERIC [...] SVCS RY SVCS PNEUMAT NEBULIZR DISPBL LIPID 34971 [facility] PANEL 8 [facility] HEMOGLOBI 10077 [facility] N 8 [facility] GLYCOSYLA LOREN A1C COMPREHEN 70638 [facility] SIVE 8 [facility] METABOLIC PANEL COLLECTIO 15131 [place], N VENOUS 8 INTERNAL [place] BLOOD MEDDICINE VENIPUNCT URE ALBUTEROL J7613 [place] INHAL 8 N DRUG- N DRUG- NON-CP PROD THRU DME U DOSE 1 MG OPHTH 10483 ROHIT CAMACHO, MEDICAL 8 MEDICAL YASH G XM&EVAL SERV INTERMEDI FOUNDATIO ATE ESTAB PT OPHTH 17380 ROHIT CAMACHO, MEDICAL 8 MEDICAL YASH G XM&EVAL SERV COMPRHNSV FOUNDATIO ESTAB PT 1/> [place] [address] [facility] ROHIT GONZALEZ, MAXILLOFA 8 RADIOLOGY VAMSI Good[place] CIAL W/[place] [address] [facility] ROHIT GONZALEZ, HEAD/BRAI 8 RADIOLOGY VAMSI K N W/O CONTRAST MATERIAL Encounters Encounter Start End Date Code Location Performer Type Date EMERGENCY 18143 TYLER NELSON DEPT 7 7 PHYSICIAN VISIT S, [facility] HIGH SEVERITY& THREAT [email or web address] PATSY - 7 7 [facility] OUTPATIEN [facility] EMERGENCY 12492 TYLER NELSON DEPT 6 6 PHYSICIAN MARIELA VISIT S, [facility] HIGH SEVERITY& THREAT [email or web address] PATSY [facility] 6 6 [facility] OUTPATIEN [facility] PATSY - 6 6 [facility] INPATIENT [facility] EMERGENCY 03548 TYLER VICENTE DEPT 6 6 PHYSICIAN FOR VISIT S, [facility] HIGH SEVERITY& THREAT [facility] [email or web address] PATSY [facility] OTHER 6 6 [facility], ACCESS 4 4 [facility] ACCESS 3 3 [facility], ACCESS 3 3 [facility] ACCESS 3 3 [facility]OS OFFICE 85915 TIARA MENJIVAR OUTPATIEN [address] T VISIT ZHAO 25 VISION MINUTES [facility], ACCESS 3 3 [facility] ACCESS 3 3 [facility] ACCESS 3 3 [facility] ACCESS 3 3 [facility] ACCESS 2 2 [facility] ACCESS 2 2 [facility] ACCESS 2 2 [facility] ACCESS 1 1 [facility] OFFICE [address]142 [place] PETREA OUTPATIEN 1 1 MEDICAL GAMALIEL T VISIT SERV 25 FOUNDATIO MINUTES OFFICE 54438 [facility] OUTPATIEN 1 1 INTERNAL RAFAT T VISIT MEDICINE 25 & MINUTES [facility] 1 1 [facility] OFFICE 34246 [facility] OUTPATIEN 1 1 INTERNAL RAFAT T VISIT MEDICINE 15 & MINUTES EMERGENCY 07504 [facility] 1 1 [facility] VISIT HIGH/URGE NT SEVERITY [facility] - 1 1 [facility] - 1 1 [facility] OUT[facility]IEN [facility] EMERGENCY 89684 [facility], 1 1 [facility] DE[facility]MEN [facility] T VISIT CO HOS LOW/MODER SEVERITY OFFICE 98736 [facility] [facility], OUTPATIEN 1 1 [facility] T VISIT 5 [facility] MINUTES CO HOS EMERGENCY 53470 [facility] 1 1 [facility] T VISIT MODERATE SEVERITY CRITICAL [facility] ACCESS 1 1 HI H[facility]PITAL HOSPITAL OFFICE 40497 [facility] [facility] OUTPATIEN 1 1 INTERNAL RAFAT T VISIT MEDICINE 25 & MINUTES OFFICE 31984 [place] OUTPATIEN 1 1 INTERNAL RAFAT T VISIT MEDICINE 15 & MINUTES HOSPITAL [facility] - 1 1 Y [facility] T OFFICE 32153 TIARA MENJIVAR OUTPATIEN [address] T VISIT ZHAO 25 VISION MINUTES OFFICE 50458 [place] OUTPATIEN 1 1 INTERNAL RAFAT T VISIT MEDICINE 25 & MINUTES OFFICE [address] [facility] OUTPATIEN 1 1 [place] F MAR T NEW 45 PHYSICIAN MINUTES S ASSIST OFFICE 06993 TIARA SMITHERMAN OUTPATIEN [address] T VISIT ZHAO 15 VISION MINUTES OFFICE 39440 [place] [facility] 1 MEDICAL GAMALIEL T VISIT SERV 25 FOUNDATIO MINUTES [facility] UNIVERSIT - 1 1 Y [facility] T OFFICE 97539 TIARA MENJIVAR OUTPATIEN [address] T VISIT ZHAO 15 VISION MINUTES OFFICE 30206 [place] OUTPATIEN 1 1 INTERNAL RAFAT T VISIT MEDICINE 25 & MINUTES [facility] - OTHER 1 1 [facility] 90842 [facility] DO DEPT 1 1 [place] PHI VISIT EMERGENCY HIGH PHYS SEVERITY& THREAT [facility] [[email or web address] UNIVERSIT - 1 1 [facility] T OFFICE 70919 [place] OUTPATIEN 1 1 INTERNAL RAFAT T VISIT MEDICINE 15 & MINUTES EMERGENCY 33122 [facility] JENNY DEPT 1 1 [place] JESSICA VISIT EMERGENCY HIGH SERVI SEVERITY& THREAT [facility] [[email or web address] - 1 1 [facility] T OFFICE 58255 [facility] OUTPATIEN 1 1 T NEW 20 MINUTES OFFICE 49696 [facility] OUTPATIEN 1 1 DAYANNA T NEW 30 ORTHOPAED MINUTES ICS SPORT OFFICE 34499 [place] OUTPATIEN 0 0 INTERNAL RAFAT T VISIT MEDICINE 25 & MINUTES EMERGENCY 76425 [facility] DEPT 0 0 [place] PHI VISIT EMERGENCY HIGH PHYS SEVERITY& THREAT FUNCJ OFFICE 40234 [place] OUTPATIEN 0 0 INTERNAL RAFAT T VISIT MEDICINE 10 & MINUTES OFFICE 66902 [place] OUTPATIEN 0 0 INTERNAL RAFAT T VISIT MEDICINE 25 & MINUTES EMERGENCY [address]38 [facility] 0 0 [facility] DEPARTMEN LALI T VISIT MODERATE SEVERITY EMERGENCY 34951 [facility] [place] GIN DEPARTMEN EMERGENCY T VISIT SERV HIGH/URGE NT SEVERITY [facility] - 0 0 [facility] OUTPATIEN LALI T OFFICE 39215 TIARA MENJIVAR OUTPATIEN [address] T VISIT ZHAO [address] [facility] - 0 0 [facility] OUTPATIEN LALI T EMERGENCY [address] [facility] 0 0 [facility] DEPARTMEN LALI T VISIT HIGH/URGE NT SEVERITY EMERGENCY 84622 [facility] DEPT 0 0 [place] PHI VISIT EMERGENCY HIGH PHYS SEVERITY& THREAT FUNJ OFFICE 35124 [facility], OUTPATIEN 0 0 INTERNAL GRANT T VISIT MEDICINE 15 & MINUTES DIETARY INTERNSHIP S OFFICE 18330 [facility] [facility], OUTPATIEN 9 9 INTERNAL GRANT T VISIT MEDICINE 25 & MINUTES DIETARY INTERNSHIP S OFFICE 09350 [facility], OUTPATIEN 9 9 INTERNAL GRANT T VISIT MEDICINE 25 & MINUTES DIETARY INTERNSHIP S OFFICE 19328 [place] CONSULTAT 9 9 LALI LALI [facility] NEW/ESTAB LL PPLL[facility] PATIENT 40 MIN OFFICE 87087 [place], OUTPATIEN 9 9 INTERNAL GRANT T VISIT MEDDICINE 25 MINUTES OFFICE 83163 [facility] [facility] A[facility]UST 8 8 INTERNAL GRANT T VISIT MEDDICINE 25 MINUTES OFFICE 78372 [facility] A[facility] 8 8 INTERNAL GRANT T VISIT MEDDICINE 25 MINUTES OFFICE 59622 [facility] BAXTER 8 8 INTERNAL STEVIE A T VISIT MEDDICINE 25 MINUTES OFFICE 92205 [place] BAXTER 8 8 INTERNAL STEVIE A T VISIT MEDDICINE 25 MINUTES
--- OUTSIDE RECORDS SUMMARY | 2017-01-25 03:27 | External Medical Summary Rpt | CCD ---
Demographics Preferred Language Mongolian Marital Status Unknown Congregation Affiliation Unknown Race Unknown Ethnic Group Unknown Author Author , VAISHALI TOM Address Unknown Phone Immunization Unable to retrieve immunization data due to connection failure with Immunization Registry. Please try again later.
--- OUTSIDE RECORDS SUMMARY | 2017-01-25 03:27 | External Medical Summary Rpt | CCD ---
Demographics Preferred Language Armenian Marital Status Unknown Yazidism Affiliation Unknown Race Unknown Ethnic Group Unknown Author Author , VAISHALI TOM Address Unknown Phone Immunization Unable to retrieve immunization data due to connection failure with Immunization Registry. Please try again later.
--- OUTSIDE RECORDS SUMMARY | 2017-01-25 03:28 | External Medical Summary Rpt ---
Author Author [facility] [employer] Address Unknown Phone Unavailable Results Amylase [Enzymatic activity/volume] in Serum or Plasma Observa Value Referen Units Interpr Notes Date tion ce etation Range Amylase 25 - 115 U/L Normal No Jan 25 [Enzymati informati 2016 2:00 c on in AM activity/ source volume] data in Serum or Plasma Lipase [Enzymatic activity/volume] in Serum or Plasma Observa Value Referen Units Interpr Notes Date ti ce etation Range Lipase 73 - 393 U/L Normal No Jan 25 [Enzymati informati 2016 2:00 c on in AM activity/ source volume] data in Serum or Plasma CBC W Auto Differential panel in Blood Observa Value Referen Units Interpr Notes Date ti ce etation Range Basophils 0 - 0.2 K/MM3 Normal No Jan 25 inform2016 2:00 [#/volume on in AM ] in source Blood by data Automated count Basophils 0.1 - 2.0 % Normal No Jan 25 inform2016 2:00 leukocyte on in AM s in source Blood by data Automated count Eosinophi 0.0 - 0.4 K/mm3 Normal No Jan 25 ls informati 2016 2:00 [#/volume on in AM ] in source Blood by data Automated count Eosinophi 0.1 - % Normal No Jan 25 ls/100 12.0 informati 2016 2:00 leukocyte on in AM s in source Blood by data Automated count Granulocy 1.8 - 7.8 K/mm3 High No Jan 25 smitha informati 2016 2:00 [#/volume on in AM ] in source Blood by data Automated count Granulocy 37.0 - % Normal No Jan 25 smitha/100 80.0 informati 2016 2:00 leukocyte on in AM s in source Blood by data Automated count Hematocri 37.0 - % Normal No Jan 25 t [Volume 47.0 informati 2016 2:00 on in AM Fraction] source of Blood data Hemoglobi 12.2 - g/dL No Jan 25 n 16.2 informati informati 2016 2:00 [Mass/vol on in on in AM ume] in source source Blood data data Lymphocyt 0.7 - 4.5 K/mm3 Normal No Jan 25 es inform2016 2:00 [#/volume on in AM ] in source Unspecifi data ed specimen by Automated count Lymphocyt 10 - 50.0 % Normal No Jan 25 es inform2016 2:00 [#/volume on in AM ] in source Unspecifi data ed specimen by Automated count Erythrocy 27 - 31.2 pg Normal No Jan 25 te mean informati 2016 2:00 corpuscul on in AM ar source hemoglobi data n [Entitic mass] Erythrocy 31.8 - g/dl Normal No Jan 25 te mean 35.4 informati 2016 2:00 corpuscul on in AM ar source hemoglobi data n concentra tion [Mass/vol ume] by Automated count Erythrocy 82.2 - fl Normal No Jan 25 te mean 97.8 informati 2016 2:00 corpuscul on in AM ar volume source [Entitic data volume] by Automated count Monocytes 0.1 - 1.0 K/mm3 High No Jan 25 informati 2016 2:00 [#/volume on in AM ] in source Blood by data Automated count Monocytes 1.7 - 9.3 % Normal No Jan 25 informati 2016 2:00 leukocyte on in AM s in source Blood by data Automated count Platelet 7.4 - fl Normal No Jan 25 mean 10.4 informati 2016 2:00 volume on in AM [Entitic source volume] data in Blood by Automated count Platelets 142 - 424 K/mm3 Normal No Jan 25 informati 2016 2:00 [#/volume on in AM ] in source Blood data Erythrocy 4.2 - 5.4 M/mm3 Normal No Jan 25 smitha informati 2016 2:00 [#/volume on in AM ] in source Amniotic data fluid Erythrocy 11.5 - % Normal No Jan 25 te 17.5 informati 2016 2:00 distribut on in AM ion width source [Entitic data volume] by Automated count Leukocyte 4.8 - K/MM3 High No Jan 25 s 10.8 informati 2016 2:00 [#/volume on in AM ] in source Blood data CBC W Auto Differential panel in Blood Observa Value Referen Units Interpr Notes Date tion ce etation Range Basophils 0 - 0.2 K/MM3 Normal No Jul 12 informati 2016 1:05 [#/volume on in PM ] in source Blood by data Automated count Basophils 0.1 - 2.0 % Normal No Jul 12 /100 informati 2016 1:05 leukocyte on in PM s in source Blood by data Automated count Eosinophi 0.0 - 0.4 K/mm3 Normal No Jul 12 ls informati 2016 1:05 [#/volume on in PM ] in source Blood by data Automated count Eosinophi 0.1 - % Normal No Jul 27 ls/100 12.0 informati 2016 1:05 leukocyte on in PM s in source Blood by data Automated count Granulocy 1.8 - 7.8 K/mm3 Normal No Jul 27 smitha informati 2016 1:05 [#/volume on in PM ] in source Blood by data Automated count Granulocy 37.0 - % Normal No Jul 27 smitha/100 80.0 informati 2016 1:05 leukocyte on in PM s in source Blood by data Automated count Hematocri 37.0 - % Normal No Jul 27 t [Volume 47.0 informati 2016 1:05 on in PM Fraction] source of Blood data Hemoglobi 12.2 - g/dL Normal No Jul 27 n 16.2 informati 2016 1:05 [Mass/vol on in PM ume] in source Blood data Lymphocyt 0.7 - 4.5 K/mm3 Normal No Jul 27 es informati 2016 1:05 [#/volume on in PM ] in source Unspecifi data ed specimen by Automated count Lymphocyt 10 - 50.0 % Normal No Jul 27 es informati 2016 1:05 [#/volume on in PM ] in source Unspecifi data ed specimen by Automated count Erythrocy 27 - 31.2 pg Normal No Jul 27 te mean informati 2016 1:05 corpuscul on in PM ar source hemoglobi data n [Entitic mass] Erythrocy 31.8 - g/dl Normal No Jul 27 te mean 35.4 informati 2016 1:05 corpuscul on in PM ar source hemoglobi data n concentra tion [Mass/vol ume] by Automated count Erythrocy 82.2 - fl Normal No Jul 27 te mean 97.8 informati 2016 1:05 corpuscul on in PM ar volume source [Entitic data volume] by Automated count Monocytes 0.1 - 1.0 K/mm3 Normal No Jul 12 informati 2016 1:05 [#/volume on in PM ] in source Blood by data Automated count Monocytes 1.7 - 9.3 % Normal No Jul 12 /100 informati 2017 1:05 leukocyte on in PM s in source Blood by data Automated count Platelet 7.4 - fl Normal No Jul 12 mean 10.4 informati 2016 1:05 volume on in PM [Entitic source volume] data in Blood by Automated count Platelets 142 - 424 K/mm3 Normal No Jul 12 informati 2016 1:05 [#/volume on in PM ] in source Blood data Erythrocy 4.2 - 5.4 M/mm3 Low No Jul 12 smitha informati 2016 1:05 [#/volume on in PM ] in source Amniotic data fluid Erythrocy 11.5 - % Normal No Jul 27 te 17.5 informati 2016 1:05 distribut on in PM ion width source [Entitic data volume] by Automated count Leukocyte 4.8 - K/MM3 No No Jul 27 s 10.8 informati informati 2016 1:05 [#/volume on in on in PM ] in source source Blood data data Basic metabolic panel in Blood Observa Value Referen Units Interpr Notes Date tion ce etation Range Urea 7 - 18 mg/dL No No Jul 12 nitrogen informati informati 2016 1:05 [Mass/vol on in on in PM ume] in source source Serum or data data Plasma Calcium 8.5 - mg/dL Normal No Jul 27 [Mass/vol 10.1 informati 2016 1:05 ume] in on in PM Serum or source Plasma data Chloride 98 - 107 mmoL/L Normal No Jul 27 [Moles/vo informati 2016 1:05 lume] in on in PM Serum or source Plasma data Carbon 21.0 - mmoL/L Normal No Jul 27 dioxide, 32.0 informati 2016 1:05 total on in PM [Moles/vo source lume] in data Serum or Plasma Creatinin 0.55 - mg/dL Normal No Jul 27 e 1.02 informati 2017 1:05 [Mass/vol on in PM ume] in source Serum or data Plasma Creatinin 50 - 200 ML/MIN Normal No Jul 27 e renal informati 2016 1:05 clearance on in PM source predicted data by Cockcroft -Gault formula Estimated 59- ML/MIN No REFERENCE Jul 27 informati RANGE: 2017 1:05 glomerula on in >60 PM r source ML/MIN/1. filtratio data 73 SQUARE n rate METERSIf (GF this patient is -A merican, then multiply theresult by 1.210. Glucose 74 - 106 mg/dL Normal No Jul 27 [Mass/vol informati 2016 1:05 ume] in on in PM Serum or source Plasma data Potassium 3.5 - 5.1 mmoL/L Normal No Jul 27 informati 2016 1:05 [Moles/vo on in PM lume] in source Serum or data Plasma Sodium 136 - 145 mmoL/L Normal No Jul 27 [Moles/vo informati 2016 1:05 lume] in on in PM Serum or source Plasma data CBC W Auto Differential panel in Blood Observa Value Referen Units Interpr Notes Date tion ce etation Range Basophils 0 - 0.2 K/MM3 Normal No Jul 26 informati 2016 7:55 [#/volume on in AM ] in source Blood by data Automated count Basophils 0.1 - 2.0 % Normal No Jul 26 / informati 2016 7:55 leukocyte on in AM s in source Blood by data Automated count Eosinophi 0.0 - 0.4 K/mm3 Normal No Jul 26 ls informati 2016 7:55 [#/volume on in AM ] in source Blood by data Automated count Eosinophi 0.1 - % Normal No Jul 26 ls/100 12.0 informati 2016 7:55 leukocyte on in AM s in source Blood by data Automated count Granulocy 1.8 - 7.8 K/mm3 Normal No Jul 26 smitha informati 2016 7:55 [#/volume on in AM ] in source Blood by data Automated count Granulocy 37.0 - % Normal No Jul 26 smitha/100 80.0 informati 2016 7:55 leukocyte on in AM s in source Blood by data Automated count Hematocri 37.0 - % Normal No Jul 26 t [Volume 47.0 informati 2016 7:55 on in AM Fraction] source of Blood data Hemoglobi 12.2 - g/dL Normal No Jul 26 n 16.2 informati 2016 7:55 [Mass/vol on in AM ume] in source Blood data Lymphocyt 0.7 - 4.5 K/mm3 Normal No Jul 26 es informati 2017 7:55 [#/volume on in AM ] in source Unspecifi data ed specimen by Automated count Lymphocyt 10 - 50.0 % Normal No Jul 26 es informati 2016 7:55 [#/volume on in AM ] in source Unspecifi data ed specimen by Automated count Erythrocy 27 - 31.2 pg Normal No Jul 26 te mean informati 2016 7:55 corpuscul on in AM ar source hemoglobi data n [Entitic mass] Erythrocy 31.8 - g/dl Normal No Jul 26 te mean 35.4 informati 2016 7:55 corpuscul on in AM ar source hemoglobi data n concentra tion [Mass/vol ume] by Automated count Erythrocy 82.2 - fl Normal No Jul 26 te mean 97.8 informati 2016 7:55 corpuscul on in AM ar volume source [Entitic data volume] by Automated count Monocytes 0.1 - 1.0 K/mm3 Normal No Jul 26 informati 2016 7:55 [#/volume on in AM ] in source Blood by data Automated count Monocytes 1.7 - 9.3 % Normal No Jul 26 /100 informati 2017 7:55 leukocyte on in AM s in source Blood by data Automated count Platelet 7.4 - fl Normal No Jul 26 mean 10.4 informati 2017 7:55 volume on in AM [Entitic source volume] data in Blood by Automated count Platelets 142 - 424 K/mm3 Normal No Jul 26 informati 2017 7:55 [#/volume on in AM ] in source Blood data Erythrocy 4.2 - 5.4 M/mm3 Low No Jul 26 smitha informati 2017 7:55 [#/volume on in AM ] in source Amniotic data fluid Erythrocy 11.5 - % Normal No Jul 26 te 17.5 informati 2017 7:55 distribut on in AM ion width source [Entitic data volume] by Automated count Leukocyte 4.8 - K/MM3 Normal No Jul 26 s 10.8 informati 2016 7:55 [#/volume on in AM ] in source Blood data Urinalysis dipstick W Reflex Microscopic panel in Urine Observa Value Referen Units Interpr Notes Date tion ce etation Range Appeara CLOUDY CLEAR No No No Jul 26 nce of informa informa informa 2017 Urine tion in tion in tion in 1:34 AM source source source data data data Amorpho 4+ NONE No No No Jul 26 us informa informa informa 2017 sedimen tion in tion in tion in 1:34 AM t source source source [Presen data data data ce] in Urine sedimen t by Light microsc opy Bilirub NEGATIV NEG No No No Jul 26 in E informa informa informa 2017 [Presen tion in tion in tion in 1:34 AM ce] in source source source Urine data data data by Test strip Erythro TRACE-I NEG No No No Jul 26 cytes NTACT informa informa informa 2017 [Presen tion in tion in tion in 1:34 AM ce] in source source source Urine data data data Color YELLOW YELLOW No No No Jul 26 of informa informa informa 2017 Urine tion in tion in tion in 1:34 AM source source source data data data Glucose NEG No No No Jul 26 [Mass/vol informati informati informati 2017 1:34 ume] in on in on in on in AM Urine by source source source Test data data data strip Ketones NEGATIV NEG mg/dL No No Jul 26 E informa informa 2017 [Presen tion in tion in 1:34 AM ce] in source source Urine data data by Automat ed test strip Mucus NEGATIV NEG No No No Jul 26 [Presen E informa informa informa 2017 ce] in tion in tion in tion in 1:34 AM Urine source source source sedimen data data data t by Light microsc opy Nitrite NEGATIV NEG No No No Jul 26 E informa informa informa 2016 [Presen tion in tion in tion in 1:34 AM ce] in source source source Urine data data data by Test strip pH of 5.0 - 8.5 No Normal No Jul 26 Urine informati informati 2017 1:34 on in on in AM source source data data Protein NEG mg/dL No No Jul 26 [Mass/vol informati informati 2017 1:34 ume] in on in on in AM Urine by source source Automated data data test strip Erythro 3-5 0 rbc/hpf No No Jul 26 cytes informa informa 2017 [Presen tion in tion in 1:34 AM ce] in source source Urine data data sedimen t by Light microsc opy Specific 1.005 - No Normal No Jul 26 gravity 1.030 informati informati 2017 1:34 of Urine on in on in AM source source data data Epithel 5-10 0 - 5 #/hpf No No Jul 26 ial informa informa 2017 cells.s tion in tion in 1:34 AM quamous source source data data [Presen ce] in Urine sedimen t by Microsc opy high power field Urobili 0.2 NEG E.U./dL No No Jul 26 nogen informa informa 2017 [Presen tion in tion in 1:34 AM ce] in source source Urine data data by Test strip Urinalysis dipstick W Reflex Microscopic panel in Urine Observa Value Referen Units Interpr Notes Date tion ce etation Range Appeara CLOUDY CLEAR No No No Jul 26 nce of informa informa informa 2017 Urine tion in tion in tion in 1:34 AM source source source data data data Bilirub NEGATIV NEG No No No Jul 26 in E informa informa informa 2016 [Presen tion in tion in tion in 1:34 AM ce] in source source source Urine data data data by Test strip Erythro TRACE-I NEG No No No Jul 26 cytes NTACT informa informa informa 2016 [Presen tion in tion in tion in 1:34 AM ce] in source source source Urine data data data Color YELLOW YELLOW No No No Jul 26 of informa informa informa 2017 Urine tion in tion in tion in 1:34 AM source source source data data data Glucose NEG No No No Jul 26 [Mass/vol informati informati informati 2017 1:34 ume] in on in on in on in AM Urine by source source source Test data data data strip Ketones NEGATIV NEG mg/dL No No Jul 26 E informa informa 2017 [Presen tion in tion in 1:34 AM ce] in source source Urine data data by Automat ed test strip Mucus NEGATIV NEG No No No Jul 26 [Presen E informa informa informa 2017 ce] in tion in tion in tion in 1:34 AM Urine source source source sedimen data data data t by Light microsc opy Nitrite NEGATIV NEG No No No Jul 26 E informa informa informa 2017 [Presen tion in tion in tion in 1:34 AM ce] in source source source Urine data data data by Test strip pH of 5.0 - 8.5 No Normal No Jul 26 Urine informati informati 2016 1:34 on in on in AM source source data data Protein NEG mg/dL No No Jul 26 [Mass/vol ati 2016 1:34 ume] in on in on in AM Urine by source source Automated data data test strip Specific 1.005 - No Normal No Jul 26 gravity 1.030 informati informati 2016 1:34 of Urine on in on in AM source source data data Urobili 0.2 NEG E.U./dL No No Jul 26 nogen informa informa 2016 [Presen tion in tion in 1:34 AM ce] in source source Urine data data by Test strip Hemoglobin.gastrointestinal [Presence] in Stool Observa Value Referen Units Interpr Notes Date tion ce etation Range Hemoglo POSITIV NEG No No No Jul 26 bin.gas E informa informa informa 2016 trointe tion in tion in tion in 1:27 AM stinal source source source [Presen data data data ce] in Stool --1st specime n CBC W Auto Differential panel in Blood Observa Value Referen Units Interpr Notes Date tion ce etation Range Basophils 0 - 0.2 K/MM3 Normal No Jul 262016 [#/volume on in 12:50 AM ] in source Blood by data Automated count Basophils 0.1 - 2.0 % Normal No Jul 262016 leukocyte on in 12:50 AM s in source Blood by data Automated count Eosinophi 0.0 - 0.4 K/mm3 Normal No Jul 26 ls 2016 [#/volume on in 12:50 AM ] in source Blood by data Automated count Eosinophi 0.1 - % Normal No Jul 26 ls/100 12.0 inform2016 leukocyte on in 12:50 AM s in source Blood by data Automated count Granulocy 1.8 - 7.8 K/mm3 High No Jul 26 smitha 2016 [#/volume on in 12:50 AM ] in source Blood by data Automated count Granulocy 37.0 - % Normal No Jul 26 smitha/100 80.0 2016 leukocyte on in 12:50 AM s in source Blood by data Automated count Hematocri 37.0 - % Normal No Jul 26 t [Volume 47.0 informati 2016 on in 12:50 AM Fraction] source of Blood data Hemoglobi 12.2 - g/dL No No Jul 26 n 16.2 informati informati 2016 [Mass/vol on in on in 12:50 AM ume] in source source Blood data data Lymphocyt 0.7 - 4.5 K/mm3 Normal No Jul 26 es inform2016 [#/volume on in 12:50 AM ] in source Unspecifi data ed specimen by Automated count Lymphocyt 10 - 50.0 % Normal No Jul 26 es informati 2016 [#/volume on in 12:50 AM ] in source Unspecifi data ed specimen by Automated count Erythrocy 27 - 31.2 pg Normal No Jul 26 te mean inform2016 corpuscul on in 12:50 AM ar source hemoglobi data n [Entitic mass] Erythrocy 31.8 - g/dl Normal No Jul 26 te mean 35.4 inform2016 corpuscul on in 12:50 AM ar source hemoglobi data n concentra tion [Mass/vol ume] by Automated count Erythrocy 82.2 - fl Normal No Jul 26 te mean 97.8 informati 2016 corpuscul on in 12:50 AM ar volume source [Entitic data volume] by Automated count Monocytes 0.1 - 1.0 K/mm3 Normal No Jul 26 inform2016 [#/volume on in 12:50 AM ] in source Blood by data Automated count Monocytes 1.7 - 9.3 % Normal No Jul 11 /100 2016 leukocyte on in 12:50 AM s in source Blood by data Automated count Platelet 7.4 - fl Normal No Jul 26 mean 10.4 inform2016 volume on in 12:50 AM [Entitic source volume] data in Blood by Automated count Platelets 142 - 424 K/mm3 Normal No Jul 26 informati 2016 [#/volume on in 12:50 AM ] in source Blood data Erythrocy 4.2 - 5.4 M/mm3 Normal No Jul 26 smitha informati 2016 [#/volume on in 12:50 AM ] in source Amniotic data fluid Erythrocy 11.5 - % Normal No Jul 26 te 17.5 inform2016 distribut on in 12:50 AM ion width source [Entitic data volume] by Automated count Leukocyte 4.8 - K/MM3 High No Jul 26 s 10.8 informati 2017 [#/volume on in 12:50 AM ] in source Blood data Comprehensive metabolic 2000 panel in Serum or Plasma Observa Value Referen Units Interpr Notes Date tion ce etation Range Albumin/G 1.1 - 1.8 No Low No Jul 11 lobulin informati informati 2016 [Mass on in on in 12:50 AM ratio] in source source Serum or data data Plasma Albumin 3.4 - 5.0 gm/dL Low No Jul 26 [Mass/vol informati 2016 ume] in on in 12:50 AM Serum or source Plasma data Alkaline 46 - 116 U/L Normal No Jul 26 phosphata informati 2016 se on in 12:50 AM [Enzymati source c data activity/ volume] in Serum or Plasma Bilirubin 0.2 - 1.0 mg/dL Normal No Jul 26 .total informati 2016 [Mass/vol on in 12:50 AM ume] in source Serum or data Plasma Urea 7 - 18 mg/dL High No Jul 26 nitrogen informati 2016 [Mass/vol on in 12:50 AM ume] in source Serum or data Plasma Calcium 8.5 - mg/dL Normal No Jul 26 [Mass/vol 10.1 informati 2016 ume] in on in 12:50 AM Serum or source Plasma data Chloride 98 - 107 mmoL/L Normal No Jul 26 [Moles/vo informati 2017 lume] in on in 12:50 AM Serum or source Plasma data Carbon 21.0 - mmoL/L Normal No Jul 26 dioxide, 32.0 informati 2017 total on in 12:50 AM [Moles/vo source lume] in data Serum or Plasma Creatinin 0.55 - mg/dL Normal No Jul 11 e 1.02 informati 2016 [Mass/vol on in 12:50 AM ume] in source Serum or data Plasma Creatinin 50 - 200 ML/MIN Low No Jul 26 e renal informati 2017 clearance on in 12:50 AM source predicted data by Cockcroft -Gault formula Estimated 59- ML/MIN Low REFERENCE Jul 11 RANGE: 2017 glomerula >60 12:50 AM r ML/MIN/1. filtratio 73 SQUARE n rate METERSIf (GF this patient is -A merican, then multiply theresult by 1.210. Globulin 1.3 - 3.2 gm/dL High No Jul 26 [Mass/vol informati 2017 ume] in on in 12:50 AM Serum source data Glucose 74 - 106 mg/dL High No Jul 26 [Mass/vol informati 2016 ume] in on in 12:50 AM Serum or source Plasma data Potassium 3.5 - 5.1 mmoL/L Normal No Jul 26 inform2016 [Moles/vo on in 12:50 AM lume] in source Serum or data Plasma Sodium 136 - 145 mmoL/L Normal No Jul 26 [Moles/vo informati 2016 lume] in on in 12:50 AM Serum or source Plasma data Aspartate 15 - 37 U/L Low No Jul 26 informati 2016 aminotran on in 12:50 AM sferase source [Enzymati data c activity/ volume] in Serum or Plasma Alanine 12 - 78 U/L Normal No Jul 26 aminotran informati 2016 sferase on in 12:50 AM [Enzymati source c data activity/ volume] in Serum or Plasma Protein 6.4 - 8.2 gm/dL Normal No Jul 26 [Mass/vol informati 2016 ume] in on in 12:50 AM Serum or source Plasma data
--- OUTSIDE RECORDS SUMMARY | 2017-01-25 03:28 | External Medical Summary Rpt ---
Author Author [facility] [employer] [facility] [employer] Address Unknown Phone Unavailable [...]
--- NOTE | 2017-01-25 05:28 | RADIOLOGY REPORT PS360 ---
CHEST-PORTABLE HISTORY: chest pain ORDERING PHYSICIAN: Alphonso Vasquez MD PATIENT AGE: 86 years COMPARISON: 07/26/2016 FINDINGS: Unremarkable heart size. No evidence of CHF or lobar consolidation or collapse. There is moderate sized hiatal hernia. There are severe degenerative changes in the shoulders. IMPRESSION: 1. No acute finding. 2. Moderate-sized hiatal hernia
[2017-01-25 06:15] VITALS: BP 125/78
--- NOTE | 2017-01-25 11:07 | RADIOLOGY REPORT PS360 ---
CTA-CHEST HISTORY: CHEST PAIN ORDERING PHYSICIAN: Alphonso Vasquez MD PATIENT AGE: 86 years TECHNIQUE: Helical acquisition obtained following the bolus administration of 60 mL of Isovue 370 followed by a saline bolus. Axial, sagittal, and coronal reformatted images are generated and reviewed. COMPARISON: None FINDINGS: PULMONARY ARTERIES:No pulmonary embolus evident. AORTA:Moderate atherosclerotic changes. No aneurysm or dissection LUNGS:Bibasilar atelectatic changes. Nonspecific 4 mm nodular opacity is present in the subpleural region of the right lung base posteriorly PLEURAL SPACES:No significant effusion. No evidence of pneumothorax. HEART:Normal heart size. Coronary artery calcifications are present MEDIASTINAL AND HILAR STRUCTURES:The esophagus is distended with an air-fluid level in the mid esophagus. Esophageal thickening may be present distally. There is a moderate to large paraesophageal stomach hernia. BONY STRUCTURES:Severe degenerative changes in the left shoulder. LYMPH NODES:No enlarged lymph nodes evident UPPER ABDOMEN:Unremarkable IMPRESSION: 1. No evidence of pulmonary embolus or aortic aneurysm. 2. Coronary artery disease. 3. Moderate to large paraesophageal hernia with mild thickening of the distal esophagus and mild distention of the esophagus. Distal esophageal obstruction cannot be excluded.
== END 2017-01-25 06:15 | disposition home or self-care (01) ==
LOC: ER 02:20
PROVIDERS: Emergency Medicine
DX: K44.9 Diaphragmatic hernia without obstruction or gangrene (principal); R07.9 Chest pain, unspecified; I10 Essential (primary) hypertension; F03.90 Unspecified dementia, unspecified severity, without behavioral disturbance, psychotic disturbance, mood disturbance, and anxiety; F32.9 Major depressive disorder, single episode, unspecified; Z96.653 Presence of artificial knee joint, bilateral; Z79.891 Long term (current) use of opiate analgesic; Z79.899 Other long term (current) drug therapy; Z88.0 Allergy status to penicillin; Z91.018 Allergy to other foods
CPT/HCPCS: J2405; Q9967